=== PATIENT | male | born 1955 | race Caucasian/White ===

== ENCOUNTER 2020-04-01 06:08 | Outpatient (REF) | payer OTHER, SELFPAY ==
[2020-04-01 07:57] LABS: MANUAL DIFF FLAG NO
[2020-04-01 08:03] LABS: Basophils Absolute Auto 0.1 X10*3/uL (0.0-0.2); Basophils Percent Auto 0.9 % (0-2); Eosinophils Absolute Auto 0.3 X10*3/uL (0.0-0.4); Eosinophils Percent Auto 4.6 % (0-4); Hematocrit 39.5 % (42-52); Hemoglobin 13.5 g/dl (14.0-18.0); Imm Gran Abs Auto 0.02 X10*3/uL (0.00-0.03); Imm Gran Pct Auto 0.3 % (0.0-0.4); Lymphocytes Absolute Auto 1.8 X10*3/uL (1.2-4.9); Lymphocytes Percent Auto 25.8 % (20-40); Mean Corpuscular HGB Conc 34.2 g/dl (31.0-36.0); Mean Corpuscular Hemoglobin 31.3 pg (27.0-33.0); Mean Corpuscular Volume 91.6 fL (80-98); Mean Platelet Volume 9.9 fL (9.4-12.4); Monocytes Absolute Auto 0.9 X10*3/uL (0.1-1.2); Monocytes Percent Auto 12.5 % (2-11); Neutrophils Absolute Auto 3.9 X10*3/uL (2.0-8.3); Neutrophils Percent Auto 55.9 % (45-73); Platelet Count 296 X10*3/uL (160-400); Red Blood Count 4.31 X10*6/uL (4.60-5.80)
[2020-04-01 08:26] LABS: Glucose Urine UA NEG (NEG); Leukocyte Esterase Urine NEG (NEG); Nitrite Urine NEG (NEG); Specific Gravity - Urine <= 1.005 (1.005-1.025); Urine Blood NEG (NEG); Urine Ketones NEG (NEG); Urine Protein NEG (NEG-TRACE)
[2020-04-01 08:27] LABS: Appearance Urine CLEAR; Color Urine STRAW
[2020-04-01 08:32] LABS: Alanine Aminotransferase 12 U/L (0-40); Albumin Level 4.5 g/dL (3.5-5.0); Alkaline Phosphatase 45 U/L (39-117); Anion Gap 14 (12-20); Aspartate Amino Transferase 18 U/L (5-37); Bilirubin Total 0.5 mg/dL (0.0-1.0); Blood Urea Nitrogen 12 mg/dL (9-16); Calcium 9.4 mg/dL (8.4-10.2); Carbon Dioxide 29 mmol/L (22-29); Chloride 91 mmol/L (96-108); Cholesterol 120 mg/dL; Estimated Glomerular Filt Rate > 60; Glucose Fasting 90 mg/dL (60-99); HDL Cholesterol 51 mg/dL; LDL Cholesterol Calculated 60 mg/dl; Potassium 4.1 mmol/l (3.3-5.1); Sodium 130 mmol/L (135-145); Triglycerides 49 mg/dL
[2020-04-01 08:40] LABS: RBC Urine 0-2 /HPF (0); WBC Urine 0-2 /HPF (0-4)
[2020-04-01 08:41] LABS: Amorphous Sediment Urine TRACE /LPF
[2020-04-01 08:42] LABS: Renal Epithelial Cells Urine TRACE /LPF; Sperm Urine NOTED
[2020-04-01 08:55] LABS: TSH reflex Free T4 1.98 mIU/mL (0.32-4.0)
[2020-04-01 08:59] LABS: Creatinine Urine 23.93 mg/dL; Microalbumin Urine < 5.0 mg/L
[2020-04-01 11:59] LABS: Osmolality, Serum 278 mosm/kg (281-305)
== END 2020-04-01 06:09 | disposition home or self-care (01) ==
LOC: HO.LAB 06:08
PROVIDERS: Visit Provider Internal Medicine
DX: E11.9 Type 2 diabetes mellitus without complications (principal); E78.5 Hyperlipidemia, unspecified; E87.1 Hypo-osmolality and hyponatremia; I10 Essential (primary) hypertension; K21.9 Gastro-esophageal reflux disease without esophagitis; R25.1 Tremor, unspecified
CPT/HCPCS: 36415; 80053; 80061; 81001; 82043; 83930; 84443; 85025

== ENCOUNTER 2020-07-28 05:58 | Outpatient (REF) | payer OTHER, SELFPAY ==
[2020-07-28 07:00] LABS: MANUAL DIFF FLAG NO
[2020-07-28 07:03] LABS: Basophils Absolute Auto 0.1 X10*3/uL (0.0-0.2); Basophils Percent Auto 0.8 % (0-2); Eosinophils Absolute Auto 0.3 X10*3/uL (0.0-0.4); Eosinophils Percent Auto 4.4 % (0-4); Hematocrit 38.5 % (42-52); Hemoglobin 13.5 g/dl (14.0-18.0); Imm Gran Abs Auto 0.02 X10*3/uL (0.00-0.03); Imm Gran Pct Auto 0.3 % (0.0-0.4); Lymphocytes Absolute Auto 1.6 X10*3/uL (1.2-4.9); Lymphocytes Percent Auto 22.2 % (20-40); Mean Corpuscular HGB Conc 35.1 g/dl (31.0-36.0); Mean Corpuscular Hemoglobin 32.4 pg (27.0-33.0); Mean Corpuscular Volume 92.3 fL (80-98); Mean Platelet Volume 10.2 fL (9.4-12.4); Monocytes Absolute Auto 0.9 X10*3/uL (0.1-1.2); Monocytes Percent Auto 11.7 % (2-11); Neutrophils Absolute Auto 4.4 X10*3/uL (2.0-8.3); Neutrophils Percent Auto 60.6 % (45-73); Platelet Count 275 X10*3/uL (160-400); Red Blood Count 4.17 X10*6/uL (4.60-5.80); Red Cell Distribution Width 12.4 % (11.0-16.0); White Blood Count 7.2 X10*3/uL (4.8-10.8)
[2020-07-28 07:13] LABS: Glucose Urine UA NEG (NEG); Leukocyte Esterase Urine NEG (NEG); Nitrite Urine NEG (NEG); PH 7.5 (5.0-8.0); Specific Gravity - Urine 1.015 (1.005-1.025); Urine Blood NEG (NEG); Urine Ketones NEG (NEG); Urine Protein NEG (NEG-TRACE)
[2020-07-28 07:16] LABS: Appearance Urine CLEAR; Color Urine YELLOW
[2020-07-28 07:35] LABS: Alanine Aminotransferase 16 U/L (0-40); Albumin Level 4.7 g/dL (3.5-5.0); Alkaline Phosphatase 41 U/L (39-117); Anion Gap 15 (12-20); Aspartate Amino Transferase 16 U/L (5-37); Bilirubin Total 0.4 mg/dL (0.0-1.0); Blood Urea Nitrogen 17 mg/dL (9-16); Calcium 9.6 mg/dL (8.4-10.2); Carbon Dioxide 28 mmol/L (22-29); Chloride 97 mmol/L (96-108); Cholesterol 120 mg/dL; Estimated Glomerular Filt Rate > 60; Glucose Fasting 119 mg/dL (60-99); HDL Cholesterol 54 mg/dL; LDL Cholesterol Calculated 59 mg/dl; Sodium 136 mmol/L (135-145); Total Protein 7.3 g/dL (6.5-8.0); Triglycerides 39 mg/dL
[2020-07-28 07:35] LABS: Creatinine Urine 44.62 mg/dL; Microalbum/Creatinine Ratio Ur 17.9 ug/mg cr
[2020-07-28 07:55] LABS: TSH reflex Free T4 2.25 uIU/mL (0.32-4.0)
== END 2020-07-28 05:59 | disposition home or self-care (01) ==
LOC: HO.LAB 05:58
PROVIDERS: PCP Internal Medicine; Visit Provider Internal Medicine
DX: E78.00 Pure hypercholesterolemia, unspecified (principal); E11.9 Type 2 diabetes mellitus without complications; I10 Essential (primary) hypertension; E87.1 Hypo-osmolality and hyponatremia; K21.9 Gastro-esophageal reflux disease without esophagitis
CPT/HCPCS: 36415; 80053; 80061; 81003; 82043; 84443; 85025

== ENCOUNTER 2020-10-28 06:01 | Outpatient (REF) | payer OTHER, SELFPAY ==
[2020-10-28 07:05] LABS: MANUAL DIFF FLAG NO
[2020-10-28 07:09] LABS: Basophils Percent Auto 0.6 % (0-2); Eosinophils Absolute Auto 0.3 X10*3/uL (0.0-0.4); Eosinophils Percent Auto 4.4 % (0-4); Hematocrit 38.5 % (42-52); Hemoglobin 13.1 g/dl (14.0-18.0); Imm Gran Abs Auto 0.02 X10*3/uL (0.00-0.03); Imm Gran Pct Auto 0.3 % (0.0-0.4); Lymphocytes Absolute Auto 1.9 X10*3/uL (1.2-4.9); Lymphocytes Percent Auto 26.8 % (20-40); Mean Corpuscular Volume 91.2 fL (80-98); Mean Platelet Volume 9.8 fL (9.4-12.4); Monocytes Absolute Auto 0.8 X10*3/uL (0.1-1.2); Monocytes Percent Auto 11.9 % (2-11); Neutrophils Absolute Auto 3.9 X10*3/uL (2.0-8.3); Platelet Count 265 X10*3/uL (160-400); Red Blood Count 4.22 X10*6/uL (4.60-5.80); Red Cell Distribution Width 12.1 % (11.0-16.0)
[2020-10-28 07:32] LABS: Alanine Aminotransferase 11 U/L (0-40); Albumin Level 4.5 g/dL (3.5-5.0); Alkaline Phosphatase 47 U/L (39-117); Anion Gap 15 (12-20); Aspartate Amino Transferase 15 U/L (5-37); Bilirubin Total 0.5 mg/dL (0.0-1.0); Blood Urea Nitrogen 19 mg/dL (9-16); Calcium 10.1 mg/dL (8.4-10.2); Carbon Dioxide 30 mmol/L (22-29); Chloride 94 mmol/L (96-108); Cholesterol 115 mg/dL; Estimated Glomerular Filt Rate > 60; Glucose Fasting 86 mg/dL (60-99); HDL Cholesterol 50 mg/dL; LDL Cholesterol Calculated 55 mg/dl; Potassium 3.9 mmol/L (3.3-5.1); Sodium 135 mmol/L (135-145); Total Protein 7.1 g/dL (6.5-8.0); Triglycerides 53 mg/dL
[2020-10-28 07:34] LABS: Estimated Average Glucose 108 mg/dL; Hemoglobin A1c % 5.4 %
[2020-10-28 07:56] LABS: TSH reflex Free T4 1.26 uIU/mL (0.32-4.0)
[2020-10-28 08:01] LABS: Glucose Urine UA NEG (NEG); Leukocyte Esterase Urine NEG (NEG); Nitrite Urine NEG (NEG); Urine Blood NEG (NEG); Urine Ketones NEG (NEG); Urine Protein NEG (NEG-TRACE)
[2020-10-28 08:12] LABS: Appearance Urine CLEAR; Color Urine YELLOW
[2020-10-28 08:20] LABS: Creatinine Urine 54.64 mg/dL; Microalbum/Creatinine Ratio Ur 23.7 ug/mg cr
== END 2020-10-28 06:02 | disposition home or self-care (01) ==
LOC: HO.LAB 06:01
PROVIDERS: PCP Internal Medicine; Visit Provider Internal Medicine
DX: I10 Essential (primary) hypertension (principal); K21.9 Gastro-esophageal reflux disease without esophagitis; K59.00 Constipation, unspecified; E78.00 Pure hypercholesterolemia, unspecified; E87.1 Hypo-osmolality and hyponatremia; E11.9 Type 2 diabetes mellitus without complications; R42 Dizziness and giddiness
CPT/HCPCS: 36415; 80053; 80061; 81003; 82043; 83036; 84443; 85025

== ENCOUNTER 2021-02-04 07:03 | Outpatient (REF) | payer OTHER, SELFPAY ==
[2021-02-04 07:17] LABS: MANUAL DIFF FLAG NO
[2021-02-04 07:23] LABS: Basophils Absolute Auto 0.1 X10*3/uL (0.0-0.2); Basophils Percent Auto 0.9 % (0-2); Eosinophils Absolute Auto 0.3 X10*3/uL (0.0-0.4); Eosinophils Percent Auto 3.6 % (0-4); Hemoglobin 14.1 g/dl (14.0-18.0); Imm Gran Abs Auto 0.01 X10*3/uL (0.00-0.03); Imm Gran Pct Auto 0.1 % (0.0-0.4); Lymphocytes Absolute Auto 1.9 X10*3/uL (1.2-4.9); Lymphocytes Percent Auto 26.6 % (20-40); Mean Corpuscular HGB Conc 34.4 g/dl (31.0-36.0); Mean Corpuscular Hemoglobin 31.5 pg (27.0-33.0); Mean Corpuscular Volume 91.5 fL (80-98); Mean Platelet Volume 9.9 fL (9.4-12.4); Monocytes Absolute Auto 0.8 X10*3/uL (0.1-1.2); Neutrophils Percent Auto 56.8 % (45-73); Platelet Count 262 X10*3/uL (160-400); Red Blood Count 4.48 X10*6/uL (4.60-5.80); Red Cell Distribution Width 12.3 % (11.0-16.0)
[2021-02-04 07:44] LABS: Alanine Aminotransferase 7 U/L (0-40); Albumin Level 4.5 g/dL (3.5-5.0); Alkaline Phosphatase 47 U/L (39-117); Anion Gap 17 (12-20); Aspartate Amino Transferase 14 U/L (5-37); Bilirubin Total 0.4 mg/dL (0.0-1.0); Blood Urea Nitrogen 14 mg/dL (9-16); Calcium 9.9 mg/dL (8.4-10.2); Carbon Dioxide 26 mmol/L (22-29); Chloride 99 mmol/L (96-108); Cholesterol 112 mg/dL; Estimated Glomerular Filt Rate > 60; Glucose Fasting 95 mg/dL (60-99); HDL Cholesterol 42 mg/dL; LDL Cholesterol Calculated 55 mg/dl; Potassium 3.7 mmol/L (3.3-5.1); Sodium 138 mmol/L (135-145); Total Protein 7.1 g/dL (6.5-8.0); Triglycerides 75 mg/dL
[2021-02-04 08:05] LABS: TSH reflex Free T4 2.32 uIU/mL (0.32-4.0); Vitamin D 25-OH Total 45.5 ng/mL (>30)
[2021-02-04 08:07] LABS: Estimated Average Glucose 100 mg/dL; Hemoglobin A1c % 5.1 %
[2021-02-04 08:56] LABS: Appearance Urine CLEAR; Color Urine YELLOW; Glucose Urine UA NEG (NEG); Leukocyte Esterase Urine NEG (NEG); Nitrite Urine NEG (NEG); Specific Gravity - Urine <= 1.005 (1.005-1.025); Urine Blood NEG (NEG); Urine Ketones NEG (NEG); Urine Protein NEG (NEG-TRACE)
[2021-02-04 09:18] LABS: Creatinine Urine 45.26 mg/dL; Microalbumin Urine < 5.0 mg/L
== END 2021-02-04 07:04 | disposition home or self-care (01) ==
LOC: HO.LAB 07:03
PROVIDERS: PCP Internal Medicine; Visit Provider Internal Medicine
DX: Z00.00 Encounter for general adult medical examination without abnormal findings (principal); E78.00 Pure hypercholesterolemia, unspecified; I10 Essential (primary) hypertension; E11.9 Type 2 diabetes mellitus without complications; E87.1 Hypo-osmolality and hyponatremia; E55.9 Vitamin D deficiency, unspecified; K21.9 Gastro-esophageal reflux disease without esophagitis; K59.00 Constipation, unspecified
CPT/HCPCS: 36415; 80053; 80061; 81003; 82043; 82306; 83036; 84443; 85025

== ENCOUNTER 2021-05-15 13:43 | Observation (INO) | payer OTHER, SELFPAY ==
[2021-05-15] VITALS (7 sets, daily range): BP systolic 110–167; BP diastolic 58–85; PULSE 73–200; RESP 13–20; TEMP 36.1–37.6; O2SAT 94–97; BMI 22.1
--- NOTE | ~2021-05-15 | CT_ITS ---
EXAMINATION: CT HEAD WITHOUT CONTRAST CLINICAL INFORMATION: Dizziness, new onset A. fib COMPARISON: CT head noncontrast 06/26/2017 TECHNIQUE: Contiguous axial imaging was performed from the skull base to vertex without intravenous administration of contrast. Additional 2-D coronal and sagittal reformatted images are generated on the CT workstation and uploaded to PACS. This CT examination was performed using dose optimization techniques as appropriate, variously including the following: *Automated exposure control *Adjustment of mA and/or kV according to patient size (this includes techniques or standardized protocols for targeted exams where dose is matched to indication/reason for exam; i.e. extremities or head) *Use of iterative reconstruction technique DLP: 657 mGy-cm FINDINGS: There is no intracranial hemorrhage, hematoma, or extra-axial fluid collection. The ventricles are normal in size. There is no hydrocephalus, edema, or mass effect. The boone-white matter differentiation appears well preserved . Some subtle decreased attenuation right frontal subcortical white matter is stable from prior study. There is no visible acute territorial infarct or mass lesion. The calvarium appears intact. There is no pneumocephalus or orbital emphysema. Again, there is opacification left maxillary sinus with some increased attenuation, likely from inspissated secretions. Fungal sinusitis may have similar appearance. There is mild uniform thickening of the left maxillary sinus wade from the chronic sinus disease. No destructive process. The remainder of the visualized sinuses and middle ears and mastoids appear clear. CT/CT head/brain wo con IMPRESSION: No acute intracranial abnormality. Chronic left maxillary sinus disease.
--- NOTE | ~2021-05-15 | XR_ITS ---
EXAMINATION: XR CHEST CLINICAL INFORMATION: Rapid atrial fibrillation. COMPARISON: None TECHNIQUE: 2 views of the chest were obtained. FINDINGS: No significant abnormality is noted involving the heart, lungs, mediastinum, bony thorax or soft tissues. XR/XR chest 2V IMPRESSION: Unremarkable chest examination.
--- NOTE | 2021-05-15 14:08 | ECG_ITS ---
Test Reason : CP Blood Pressure : / mmHG Vent. Rate : 146 BPM Atrial Rate : 250 BPM P-R Int : 000 ms QRS Dur : 118 ms QT Int : 340 ms P-R-T Axes : 000 -56 050 degrees QTc Int : 529 ms Undetermined rhythm Left anterior fascicular block Minimal voltage criteria for LVH, may be normal variant ( [place] product ) Septal infarct , age undetermined ST & T wave abnormality, consider anterior ischemia Abnormal ECG When compared with ECG of 27-JUN-2017 07:33, Significant changes have occurred Referred By: Maria G Baca Electronically Signed By:
--- NOTE | 2021-05-15 14:10 | ED.GENADULT ---
HPI - General Adult General Chief complaint: Dizziness Stated complaint: DIFF BREATHING Time Seen by Provider: 05/15/21 14:08 Source: patient and EMS Mode of arrival: EMS Limitations: other (Poor historian) History of Present Illness HPI narrative: 66-year-old male with a past medical history of diabetes type 2, hypertension, hyperlipidemia, hyponatremia, GERD without esophagitis, Parkinson's disease, constipation, insomnia, anxiety, bipolar depression, paranoid schizophrenia and drooling disorder presenting to the ED via EMS with complaints of dizziness for months which has increased in the past 2 weeks although his main complaint is he can not cough and he wants to cough. When EMS arrived patient was noted to be in rapid AFib therefore they gave him 20 mg of Cardizem. They also noticed that his blood sugar was in the 50s therefore they fed him. On arrival patient just complains of feeling like he can not cough. He reports that his dizziness is been chronic. He denies any headaches, head injury, falls, recent trauma, changes in vision, paresthesias, jaw pain, nausea/vomiting, sore throat, trouble swallowing or breathing, chest pain or shortness of breath, dyspnea on exertion, orthopnea, palpitations, diarrhea, abdominal pain, back pain, black or bloody stools, lower extremity edema or calf tenderness or any focal weakness or any other symptoms complaints or concerns at this time. MD complaint: Chronic dizziness and unable to cough Related Data Home Medications Medication Instructions Recorded Confirmed clonazepam 0.5 mg tablet 0.5 mg PO BID PRN 04/08/20 05/10/21 primidone 50 mg tablet 50 mg PO BID 04/08/20 05/10/21 quetiapine 50 mg tablet 50 mg PO BEDTIME 04/08/20 05/10/21 venlafaxine 75 mg capsule,extended 75 mg PO QAM 04/08/20 05/10/21 release 24 hr carbidopa 25 mg-levodopa 100 mg 2 tab PO TID tab 02/08/21 05/10/21 tablet olanzapine 2.5 mg tablet 2.5 mg PO BEDTIME 02/08/21 05/10/21 risperidone 1 mg tablet 2 mg PO BID tab 02/08/21 05/10/21 Previous Rx's Medication Instructions Recorded atorvastatin 20 mg tablet 20 mg PO DAILY #90 tab 02/06/21 metformin 1,000 mg tablet 1,000 mg PO BID #180 tab 02/06/21 blood pressure monitor #1 ea 02/07/21 famotidine 20 mg tablet 20 mg PO BEDTIME #90 tab 03/01/21 hydrochlorothiazide 25 mg tablet 25 mg PO DAILY #90 tab 04/11/21 metoprolol succinate 25 mg 25 mg PO DAILY #90 tab 04/12/21 tablet,extended release 24 hr glycopyrrolate 2 mg tablet 2 mg PO BID-TID PRN 30 Days #90 tab 05/10/21 Allergies Allergy/AdvReac Type Severity Reaction Status Date / Time No Known Allergies Allergy Verified 05/10/21 13:21 [No Known Allergies*] Review of Systems Review of Systems: Constitutional : No Weight loss, No Fever, No Chills, No Night Sweats, No Fatigue, No Malaise ENT/Mouth : No Hearing loss, No Ear Pain, No Nasal Congestion, No Sinus Pain, No Hoarseness, No sore throat, No Rhinorrhea, No Swallowing Difficulty Eyes: No Eye Pain, No Swelling, No Redness, No Foreign Body, No Discharge, No Vision Changes Cardiovascular : No Chest Pain, No SOB, No Dyspnea on Exertion, No Orthopnea, No Edema, No Palpitations Respiratory : Unable to cough and wants to cough, No Cough, No Sputum, No Wheezing, No Smoke Exposure, No Dyspnea Gastrointestinal : No Nausea, No Vomiting, No Diarrhea, No Constipation, No abdominal Pain, No Hematochezia, No Melena Genitourinary : no irregular bleeding, No Dysuria, No Urinary Frequency, No Hematuria, No Urinary Incontinence, No Urgency, No Flank Pain, No Urinary Flow Changes, No Hesitancy Musculoskeletal : No joint pain, No Myalgias, No Joint Swelling Skin : No Skin Lesions, No rash Neuro : Positive dizziness for months, No Weakness, No Numbness, No Paresthesias, No Loss of Consciousness, No Headache Psych : No Anxiety/Panic, No Depression, No SI/HI/AH/VH, No Social Issues, Heme/Lymph: No Bruising, No Bleeding,No Lymphadenopathy Endocrine : No Polyuria, No Polydipsia, No Temperature Intolerance Yes all other systems are reviewed and are negative (Although patient is a poor his) [facility]LY [facility], [facility] Past Medical History Attestation statement: The following information was validated with the patient. Medical History Anxiety Benign essential hypertension Bipolar depression Constipation Diabetes mellitus Dizziness GERD without esophagitis Hyponatremia Insomnia Paranoid schizophrenia Parkinson's disease Pure hypercholesterolemia Surgical History History of extraction of renal calculus Family History Family History Father Parkinson disease Mother Stomach cancer Social History Social History Housing: House Alcohol intake: never Patient Tobacco Use Status: Never used Tobacco e-Cigarette/Vaping Use: Never Used Second Hand Smoke Exposure: No Advance Directives: No Advance Directives Information Provided: No service: No Current occupational status: retired Physical Exam Vital Signs: Vital Signs: Last Vital Signs Temp 97.0 F 05/15/21 14:13 Pulse 82 05/15/21 15:06 Resp 16 05/15/21 15:06 BP 113/58 L 05/15/21 15:06 Pulse Ox 96 05/15/21 15:06 BMI result Body Mass Index 22.1 vital signs have been reviewed as normal and appeared to be correct. Blood pressure normal. Heart rate normal. Respiration rate normal. Temperature normal. Oxygen saturation normal. Appearance: Alert. Oriented X3. No acute distress. Head: Normal external exam. Normocephalic. Atraumatic. No Nickerson signs noted. No raccoon eyes noted Eyes: PERRLA. EOMI. Conjunctiva and sclera normal. Eyelids normal. ENT: EAC normal. TM's Normal. Pharynx normal. Uvula midline. Moist mucous membranes. No trismus noted. No drooling noted. No muffled voice noted. Neck: Normal inspection. Neck supple. FROM. No adenopathy. Thyroid Normal. No meningeal signs. No neck mass noted. CVS: Normal heart rate and rhythm. Heart sound normal. Pulses normal throughout. No murmurs/rales/gallops. Respiratory: No respiratory distress. Painless inspiration. Breath sounds normal. No wheezes/rales/rhonchi noted. Chest nontender. No accessory muscle usage noted or decreased air movement noted. Abdomen: Soft and nontender. Bowel sounds normal in all 4 quadrants. No distention noted. No organomegaly noted. No visible injury noted. Back: No CVA tenderness. Full range of motion noted. No rashes/lesion/induration/fluctuance or signs of infection noted. Skin: Skin warm and dry. Normal skin color. Normal skin turgor. No rashes/lesions/lacerations noted. Extremities: No lower extremity edema. Extremities exhibit normal range of motion. Extremities nontender. Neuro: Oriented X 3. No motor deficit. No sensory deficit. Reflexes normal. Normal steady gait. No focal neuro deficits noted. Vascular: + radial pulses/+ 2 distal pedal pulses/+2 dorsalis pedis b/l. Normal cap refill. No cyanosis noted to upper extremity nails and lower extremity toes nails. NIH Stroke Scale Internal: Initial- Upon Arrival Time: 14:10 Level of Consciousness: Alert Level of Consciousness Questions: Answers both questions correctly Level of Consciousness Commands: Performs both tasks correctly Best Gaze: Normal Visual: No visual loss Facial Palsy: Normal Motor Arm (Right): No drift Motor Arm (Left): No drift Motor Leg (Right): No drift Motor Leg (Left): No drift Limb Ataxia: Absent Sensory: Normal Best Language: No aphasia Dysarthia: Normal Extinction and Inattention: No abnormality Score: 0 Course Course Course Narrative: 14:10pm - 66-year-old male with a past medical history of DM2, HTN, HLD, hyponatremia, GERD without esophagitis, Parkinson's disease, constipation, insomnia, anxiety, bipolar depression, paranoid schizophrenia and drooling disorder presenting to the ED via EMS with complaints of dizziness for months which has increased in the past 2 weeks although his main complaint is he can not cough and he wants to cough. When EMS arrived patient was noted to be in rapid AFib therefore they gave him 20 mg of Cardizem. They also noticed that his blood sugar was in the 50s therefore they fed him. On arrival patient just complains of feeling like he can not cough. On exam patient is alert oriented x3. Not in any acute distress although noted to be in rapid AFib with ventricular rate of 152 confirmed by EKG. Therefore patient will be placed on a Cardizem drip. He is currently on threat monitoring analyst as well. Additional plan: Labs, chest x-ray, COVID swab, IV fluids, CT scan of brain without contrast due to patient complaining of dizziness for weeks although he has non disabling symptoms at this time NIHSS score 0 not a tPA candidate and re-evaluate. Reevaluation(s) Reevaluation #1: - labs returned patient with mild baseline anemia similar compared to prior with an H&H of 13.6/39.5. Sodium at 01:34. BUN 24. Troponin 28.8. BNP 111. Otherwise all other labs are within normal limits. Patient negative for COVID. EKG revealed rapid atrial fibrillation no acute ischemic change or noted. Although patient is currently on the threat monitoring analyst and his pulse is 82 therefore the Cardizem drip was not started. Will continue to monitor. Otherwise chest x-ray is within normal limits. - patient will have a repeat troponin at 17:30. - plan is to admit for new onset of atrial fibrillation. Time: 15:25 Reevaluation #2: - Patient is currently on the threat monitoring analyst in the hallway and he is going in and out of paroxysmal atrial fibrillation he goes from 80s to 150s I was able to send a video to Dr. Stover and he recommended to give the patient 50 mg of metoprolol tartrate and if the patient stay stable then he can be discharged although if the metoprolol does not help the paroxysmal atrial fibrillation and he recommended admitting the patient. Therefore will give the 50 mg of multiple at this time. - I also updated the patient's brother Marcelo Rosado at [phone] - sign into [facility] pending affect of metoprolol. Time: 17:04 Medical Decision Making Medical Records Medical records reviewed: Yes I reviewed the patient's medical records. Lab Data Lab results reviewed: Yes I reviewed the patient's lab results. Result diagrams: 05/15/21 14:48 05/15/21 14:48 Labs: Lab Results 05/15/21 05/15/21 05/15/21 Range/Units 14:48 14:48 14:48 WBC 8.7 (4.8-10.8) X10*3/uL RBC 4.30 L (4.60-5.80) X10*6/uL Hgb 13.6 L (14.0-18.0) g/dl Hct 39.5 L (42.0-52.0) % MCV 91.9 (80.0-98.0) fL MCH 31.6 (27.0-33.0) pg MCHC 34.4 (31.0-36.0) g/dl RDW 12.1 (11.0-16.0) % Plt Count 280 (160-400) X10*3/uL MPV 9.8 (9.4-12.4) fL Immature Gran % (Auto) 0.2 (0.0-0.4) % Neut % (Auto) 66.8 (45-73) % Lymph % (Auto) 15.8 L (20-40) % [place] % (Auto) 13.5 H (2-11) % Eos % (Auto) 3.1 (0-4) % Baso % (Auto) 0.6 (0-2) % Lymph # (Auto) 1.4 (1.2-4.9) X10*3/uL [place] # (Auto) 1.2 (0.1-1.2) X10*3/uL Eos # (Auto) 0.3 (0.0-0.4) X10*3/uL Baso # (Auto) 0.1 (0.0-0.2) X10*3/uL Abs Immat Gran (auto) 0.02 (0.00-0.03) X10*3/uL Absolute Neuts (auto) 5.8 (2.0-8.3) x10*3/uL Absolute Nucleated RBC 0.000 (0.0-0.012) X10*3/uL Nucleated RBC % (auto) 0.0 (0.0-0.2) /100WBC PT 12.3 (9.9-13.0) SEC INR 1.1 (0.9-1.1) Sodium 134 L (135-145) mmol/L Potassium 4.1 (3.3-5.1) mmol/L Chloride 96 (96-108) mmol/L Carbon Dioxide 28 (22-29) mmol/L Anion Gap 14 (12-20) BUN 24 H (9-16) mg/dL Creatinine 0.82 (0.5-1.4) mg/dL Estim Creat Clear Calc 89.8 Estimated GFR > 60 Random Glucose 111 (60-115) mg/dL Calcium 9.9 (8.4-10.2) mg/dL Magnesium 1.6 (1.6-2.6) mg/dL Total Bilirubin 0.2 (0.0-1.0) mg/dL AST 15 (5-37) U/L ALT 7 (0-40) U/L Alkaline Phosphatase 46 (39-117) U/L Troponin I High Sens (<3.5-35.0) ng/L B-Natriuretic Peptide (<100) pg/mL Total Protein 6.6 (6.5-8.0) g/dL Albumin 4.0 (3.5-5.0) g/dL COVID-19 (SWETA) (Negative) COVID-19 Clin Com 05/15/21 05/15/21 Range/Units 14:48 14:48 WBC (4.8-10.8) X10*3/uL RBC (4.60-5.80) X10*6/uL Hgb (14.0-18.0) g/dl Hct (42.0-52.0) % MCV (80.0-98.0) fL MCH (27.0-33.0) pg MCHC (31.0-36.0) g/dl RDW (11.0-16.0) % Plt Count (160-400) X10*3/uL MPV (9.4-12.4) fL Immature Gran % (Auto) (0.0-0.4) % Neut % (Auto) (45-73) % Lymph % (Auto) (20-40) % [place] % (Auto) (2-11) % Eos % (Auto) (0-4) % Baso % (Auto) (0-2) % Lymph # (Auto) (1.2-4.9) X10*3/uL [place] # (Auto) (0.1-1.2) X10*3/uL Eos # (Auto) (0.0-0.4) X10*3/uL Baso # (Auto) (0.0-0.2) X10*3/uL Abs Immat Gran (auto) (0.00-0.03) X10*3/uL Absolute Neuts (auto) (2.0-8.3) x10*3/uL Absolute Nucleated RBC (0.0-0.012) X10*3/uL Nucleated RBC % (auto) (0.0-0.2) /100WBC PT (9.9-13.0) SEC INR (0.9-1.1) Sodium (135-145) mmol/L Potassium (3.3-5.1) mmol/L Chloride (96-108) mmol/L Carbon Dioxide (22-29) mmol/L Anion Gap (12-20) BUN (9-16) mg/dL Creatinine (0.5-1.4) mg/dL Estim Creat Clear Calc Estimated GFR Random Glucose (60-115) mg/dL Calcium (8.4-10.2) mg/dL Magnesium (1.6-2.6) mg/dL Total Bilirubin (0.0-1.0) mg/dL AST (5-37) U/L ALT (0-40) U/L Alkaline Phosphatase (39-117) U/L Troponin I High Sens 28.8 (<3.5-35.0) ng/L B-Natriuretic Peptide 111 H (<100) pg/mL Total Protein (6.5-8.0) g/dL Albumin (3.5-5.0) g/dL COVID-19 (SWETA) Negative (Negative) COVID-19 Clin Com See Note Imaging Data Chest x-ray: Attestation: I personally reviewed and interpreted this imaging study as follows: Radiologist's impression: FINDINGS: No significant abnormality is noted involving the heart, lungs, mediastinum, bony thorax or soft tissues. XR/XR chest 2V IMPRESSION: Unremarkable chest examination. ECG Data Attestation: I personally reviewed and interpreted this ECG as follows: Interpretation: Atrial fibrillation with a rapid ventricular response of 152 no acute ischemic changes are noted. Change when compared to prior EKG 06/27/2017 patient was not in atrial fibrillation Critical Care Time Critical Care Time Critical Care Time: Yes Total Critical Care Time: 60 Attestation: I personally attest to this time spent taking care of the patient Discharge Plan Discharge Clinical Impression: Atrial fibrillation, new onset Patient Disposition: Still a Patient Prescriptions: No Action metformin 1,000 mg tablet 1,000 mg PO BID Qty: 180 RF: 0 atorvastatin 20 mg tablet 20 mg PO DAILY Qty: 90 RF: 0 famotidine 20 mg tablet 20 mg PO BEDTIME Qty: 90 RF: 0 hydrochlorothiazide 25 mg tablet 25 mg PO DAILY Qty: 90 RF: 0 metoprolol succinate 25 mg tablet extended release 24 hr 25 mg PO DAILY Qty: 90 RF: 0 venlafaxine 75 mg capsule,extended release 24hr 75 mg PO QAM RF: 0 quetiapine 50 mg tablet 50 mg PO BEDTIME RF: 0 primidone 50 mg tablet 50 mg PO BID RF: 0 clonazepam 0.5 mg tablet 0.5 mg PO BID PRNRF: 0 (DME) blood pressure monitor Kit See Rx Instructions .Route Qty: 1 RF: 0 risperidone 1 mg tablet 2 mg PO BID RF: 0 carbidopa-levodopa 25-100 mg tablet 2 tab PO TID RF: 0 olanzapine 2.5 mg tablet 2.5 mg PO BEDTIME RF: 0 glycopyrrolate 2 mg tablet 2 mg PO BID-TID PRN (Reason: secretions) 30 Days Qty: 90 RF: 2
[2021-05-15 14:51] LABS: MANUAL DIFF FLAG NO
[2021-05-15 14:59] LABS: Basophils Absolute Auto 0.1 X10*3/uL (0.0-0.2); Basophils Percent Auto 0.6 % (0-2); Eosinophils Absolute Auto 0.3 X10*3/uL (0.0-0.4); Eosinophils Percent Auto 3.1 % (0-4); Hematocrit 39.5 % (42.0-52.0); Hemoglobin 13.6 g/dl (14.0-18.0); INTERNATIONAL NORM RATIO 1.1 (0.9-1.1); Imm Gran Abs Auto 0.02 X10*3/uL (0.00-0.03); Imm Gran Pct Auto 0.2 % (0.0-0.4); Lymphocytes Absolute Auto 1.4 X10*3/uL (1.2-4.9); Lymphocytes Percent Auto 15.8 % (20-40); Mean Corpuscular HGB Conc 34.4 g/dl (31.0-36.0); Mean Corpuscular Hemoglobin 31.6 pg (27.0-33.0); Mean Corpuscular Volume 91.9 fL (80.0-98.0); Mean Platelet Volume 9.8 fL (9.4-12.4); Monocytes Absolute Auto 1.2 X10*3/uL (0.1-1.2); Monocytes Percent Auto 13.5 % (2-11); Neutrophils Absolute Auto 5.8 x10*3/uL (2.0-8.3); Neutrophils Percent Auto 66.8 % (45-73); Platelet Count 280 X10*3/uL (160-400); Prothrombin Time 12.3 SEC (9.9-13.0); Red Cell Distribution Width 12.1 % (11.0-16.0); White Blood Count 8.7 X10*3/uL (4.8-10.8)
[2021-05-15] MEDS: 0.9 % Sodium Chloride 1,000 ML 999 ML IVCONT (14:59)
[2021-05-15 15:09] LABS: Alanine Aminotransferase 7 U/L (0-40); Alkaline Phosphatase 46 U/L (39-117); Anion Gap 14 (12-20); Aspartate Amino Transferase 15 U/L (5-37); Bilirubin Total 0.2 mg/dL (0.0-1.0); Blood Urea Nitrogen 24 mg/dL (9-16); Calcium 9.9 mg/dL (8.4-10.2); Carbon Dioxide 28 mmol/L (22-29); Chloride 96 mmol/L (96-108); Creatinine Clr Calc Pharmacy 89.8; Estimated Glomerular Filt Rate > 60; Glucose Random 111 mg/dL (60-115); Magnesium 1.6 mg/dL (1.6-2.6); Potassium 4.1 mmol/L (3.3-5.1); Sodium 134 mmol/L (135-145); Total Protein 6.6 g/dL (6.5-8.0)
[2021-05-15 15:13] LABS: B Type Natriuretic Peptide 111 pg/mL (<100); Troponin-I High Sensitivity 28.8 ng/L (<3.5-35.0)
--- NOTE | 2021-05-15 15:16 | PC.NURSE ---
patient a&ox3, ivf started per order, labs drawn, ekg obtained, cardizem drip being held at this time as the patients hr currently in the 80s with afib, provider has been notified, will continue to monitor.
[2021-05-15 15:19] LABS: COVID-19 Test Negative (Negative)
--- NOTE | 2021-05-15 18:00 | PC.NURSE ---
patient a&ox3, vss, pt continues to go in and out of afib at times. currently his nsr between 70s-80s, will continue to monitor.
[2021-05-15] MEDS: Metoprolol Tartrate 50 MG TABLET PO (18:41)
--- NOTE | 2021-05-15 20:20 | PHA.MEDREC ---
Pharmacy Consult ? Medication Reconciliation Pharmacy has completed the medication reconciliation. Pt's brother Marcelo ([phone]) handles all of his medications and gave me his list verbally. Eve Price [facility]
--- NOTE | 2021-05-15 20:26 | PC.NURSE ---
patient a&ox3, lungs clear/dim, no c/o pain or discomfort, pt currently nsr 70s-80s on media monitor, vss, hospitalist came to see patient, repeat lab drawn, will continue to monitor
[2021-05-15 20:47] LABS: Troponin-I High Sensitivity 32.2 ng/L (<3.5-35.0)
--- NOTE | 2021-05-15 21:32 | P.HPHOSP_ITS ---
History of Present Illness Date of Service: 05/15/21 Chief Complaint: dizzy 66-year-old male with past medical history of HTN, bipolar depression, diabetes, GERD, hyponatremia, paranoid schizophrenia, Parkinson's disease, HLD who presents to the hospital with complaints of dizziness. Patient is alert and oriented x3 but not a good historian due to his history of behavior health disease. Patient reports that he has been feeling dizzy for the past 6 months although reported to the ED staff that he has been dizzy for the past few weeks. He denies any chest pain, no headache or change in vision, reports pal pitations, tells me that he has history of heart disease but does not remember what medications he takes and says that his brother gives him his meds. He denies any shortness of breath, no orthopnea or PND, no lower extremity edema, no urinary symptoms and no diarrhea constipation. On arrival to the ED patient's heart rate was found to be in AFib with RVR with heart rate ranging between 100 to 150s. Patient received 1 dose of p.o. metoprolol with heart rate improving, he had multiple runs of AFib after that that lasted for few seconds therefore Cardiology 1 patient admitted for observation. Labs reviewed found to be unremarkable imaging done negative Review of Systems Review of Systems: Yes all other systems are reviewed and are negative [facility] Medical History Anxiety Benign essential hypertension Bipolar depression Constipation Diabetes mellitus Dizziness GERD without esophagitis Hyponatremia Insomnia Paranoid schizophrenia Parkinson's disease Pure hypercholesterolemia Family History Father Parkinson disease Mother Stomach cancer Surgical History History of extraction of renal calculus Social History Housing: House Alcohol intake: never Patient Tobacco Use Status: Never used Tobacco e-Cigarette/Vaping Use: Never Used Second Hand Smoke Exposure: No Advance Directives: No Advance Directives Information Provided: No service: No Current occupational status: retired Meds Allergies Allergy/AdvReac Type Severity Reaction Status Date / Time No Known Allergies Allergy Verified 05/10/21 13:21 [No Known Allergies*] Active Medications: Current Medications Diltiazem HCl 125 mg/ Sodium (Chloride) 125 mls @ 0 mls/hr IVCONT .Q0M ADRIAN; Protocol Home Medications Medication Instructions Recorded Confirmed Last Taken Type clonazepam 0.5 mg tablet 0.5 mg PO BEDTIME PRN 04/08/20 05/15/21 05/14/21 History primidone 50 mg tablet 50 mg PO BID 04/08/20 05/15/21 05/15/21 History quetiapine 50 mg tablet 50 mg PO BEDTIME 04/08/20 05/15/21 05/14/21 History venlafaxine 75 mg capsule,extended 75 mg PO DAILY 04/08/20 05/15/21 05/15/21 History release 24 hr carbidopa 25 mg-levodopa 100 mg 2 tab PO BID tab 02/08/21 05/15/21 05/15/21 History tablet risperidone 1 mg tablet 2 mg PO BID tab 02/08/21 05/15/21 05/15/21 History atorvastatin 20 mg tablet 20 mg PO BEDTIME 05/15/21 05/15/21 05/14/21 History glycopyrrolate 2 mg tablet 2 mg PO BID PRN 05/15/21 05/15/21 05/15/21 History multivitamin 1 tab PO DAILY 05/15/21 05/15/21 05/15/21 History Physical Exam Vital Signs and Narrative: Vital Signs: Last Vital Signs Temp 99.6 F 05/15/21 20:00 Pulse 87 05/15/21 20:00 Resp 18 05/15/21 20:00 BP 134/71 05/15/21 20:00 Pulse Ox 96 05/15/21 18:00 BMI result Body Mass Index 22.1 Const: General: cooperative and no acute distress Orientation/consciousness: patient oriented x3 Eyes: General: appearance normal, both eyes and all related structures Pupils: Equal, round and reactive pupils present Resp: Effort & Inspection: normal respiratory effort Auscultation: clear to auscultation bilaterally Cardio: Other: on my exam patient heart rate in the 80s, with regular rhythm Rate: regular rate Rhythm: regular rhythm GI: Palpation (GI): Soft to palpation Auscultation: normal bowel sounds Skin: General skin exam: no rashes or lesions noted Neuro: General: patient oriented x3 Cranial nerves: Yes Equal, round and reactive pupils present Cognition (Neuro): normal cognition Extrem: General: Yes normal to inspection and Yes no pedal edema Results Labs CBC and Chem 7: 05/15/21 14:48 05/15/21 14:48 Labs: Laboratory Results - last 24 hr 05/15/21 05/15/21 05/15/21 14:48 14:48 14:48 MCV 91.9 MCH 31.6 MCHC 34.4 RDW 12.1 Plt Count 280 MPV 9.8 Immature Gran % (Auto) 0.2 Neut % (Auto) 66.8 Lymph % (Auto) 15.8 L [place] % (Auto) 13.5 H Eos % (Auto) 3.1 Baso % (Auto) 0.6 Lymph # (Auto) 1.4 [place] # (Auto) 1.2 Eos # (Auto) 0.3 Baso # (Auto) 0.1 Abs Immat Gran (auto) 0.02 Absolute Neuts (auto) 5.8 Absolute Nucleated RBC 0.000 Nucleated RBC % (auto) 0.0 PT 12.3 INR 1.1 Anion Gap 14 Estim Creat Clear Calc 89.8 Estimated GFR > 60 Random Glucose 111 Calcium 9.9 Magnesium 1.6 Total Bilirubin 0.2 AST 15 ALT 7 Alkaline Phosphatase 46 Troponin I High Sens B-Natriuretic Peptide Total Protein 6.6 Albumin 4.0 COVID-19 (SWETA) COVID-19 Clin Com 05/15/21 05/15/21 05/15/21 14:48 14:48 20:22 MCV MCH MCHC RDW Plt Count MPV Immature Gran % (Auto) Neut % (Auto) Lymph % (Auto) [place] % (Auto) Eos % (Auto) Baso % (Auto) Lymph # (Auto) [place] # (Auto) Eos # (Auto) Baso # (Auto) Abs Immat Gran (auto) Absolute Neuts (auto) Absolute Nucleated RBC Nucleated RBC % (auto) PT INR Anion Gap Estim Creat Clear Calc Estimated GFR Random Glucose Calcium Magnesium Total Bilirubin AST ALT Alkaline Phosphatase Troponin I High Sens 28.8 32.2 B-Natriuretic Peptide 111 H Total Protein Albumin COVID-19 (SWETA) Negative COVID-19 Clin Com See Note Imaging Radiologist's Impressions: Impressions Chest X-Ray 05/15/21 14:32 IMPRESSION: Unremarkable chest examination. Head CT 05/15/21 16:05 IMPRESSION: No acute intracranial abnormality. Chronic left maxillary sinus disease. Assessment and Plan (1) Atrial fibrillation, new onset: Status: Acute (2) Prolonged QT interval: Status: Acute 66-year-old male with history of schizophrenia, bipolar disorder, as well as hyperlipidemia and diabetes, presents to the hospital found to be in AFib. Patient has no documented history of AFib # new onset AFib - ChadsVasc score of 1 for diabetes - patient already on metoprolol at home, will continue - cardiology consult - will obtain echocardiogram # diabetes - continue metformin # prolonged QT interval - most likely secondary to his psych meds - will hold for today DVT prophylaxis: Lovenox Quality Stroke Does the patient have a stroke diagnosis?: No VTE Prior VTE?: No VTE Risk Level:: Medical - moderate - high VTE Device Contraindication: Treatment Not Indicated VTE Drug Contraindication: N/A - Med Ordered
[2021-05-15 22:14] LABS: Magnesium 1.6 mg/dL (1.6-2.6)
--- NOTE | 2021-05-15 22:37 | PC.NURSE ---
patient a&ox3, environmental monitoring technician intact- presently nsr, vss, pt has no complaints of pain or discomfort, pt only complaint is that he is unable to cough. call riggs within reach, will continue to monitor.
--- NOTE | 2021-05-15 23:53 | PC.NURSE ---
pt needed assisted with urinal, pt was wet after. pt change into hospital attire and place on monitor. pt reports being dizzy notified AUDELIA Eugene. Will continue to monitor.
--- NOTE | 2021-05-16 | ECG_ITS ---
Test Reason : GENERAL MEDICINE Blood Pressure : / mmHG Vent. Rate : 075 BPM Atrial Rate : 075 BPM P-R Int : 166 ms QRS Dur : 122 ms QT Int : 410 ms P-R-T Axes : 062 -52 007 degrees QTc Int : 457 ms Normal sinus rhythm Incomplete left bundle branch block Abnormal ECG When compared with ECG of 15-MAY-2021 14:19, Sinus rhythm has replaced Atrial fibrillation Vent. rate has decreased BY 77 BPM Referred By: Brianne Kang Electronically Signed By:CATHERINE CAGLE
[2021-05-16 00:14] VITALS: BP 149/86; PULSE 79; RESP 15; O2SAT 97
[2021-05-16 03:40] VITALS: BP 139/83; PULSE 77; RESP 17; TEMP 36.9; O2SAT 98
--- NOTE | 2021-05-16 03:42 | PC.NURSE ---
Pt resting on stretcher in NAD, breathing with ease on RA. Pt rang call riggs requesting assistance to bedside. This RN to bedside, pt reports I'm having difficulty breathing. Pt VS assessed, stable on RA with O2 sat >95%. Pt RR even and unlabored. Pt provided reassurance. Pt asking when he will be discharged, is made aware that he will be reassessed by hospitalist service later today and dispo is pending. Pt expresses understanding and gratitude for this clarification. Pt offers no complaints of pain/discomfort. Pt stretcher in lowest locked position, rails raised, call riggs within reach.
[2021-05-16] MEDS: clonazePAM 0.5 MG TABLET PO (03:48)
[2021-05-16 07:54] VITALS: BP 141/77; PULSE 70; RESP 13; TEMP 36.8; O2SAT 96
[2021-05-16 08:55] LABS: Glucose, Whole Blood 110 mg/dL (60-115); MANUAL DIFF FLAG NO
--- NOTE | 2021-05-16 09:00 | CA_ITS ---
Transthoracic Echocardiogram Patient (Last, First, Middle): True Rosado, Gender: Male Date of : 1955 Age: 66 Procedure Date: 05/16/2021 Procedure Type: Transthoracic Echocardiogram Location: ER Height: 177.8 cm Weight: 69.4 kg BSA: 1.86 m2 Heart Rate: bpm BP: 139 / 83 mmHg Sleeve Tailor: ALDO Referring MD: Ambreen Merritt MD Symptoms: a fib Study Quality: Fair ECG Rhythm: Sinus Conclusions: - The left ventricular systolic function is severely decreased. The calculated ejection fraction is 26% by biplane method. - Severe global hypokinesis with additional regionality involving basal to mid septum and basal inferior wall. - The left atrium is moderately dilated. - No obvious valvular pathology seen on this study. Findings Left Ventricle Normal left ventricular cavity size. There is normal left ventricular wall thickness. The left ventricular systolic function is severely decreased. The calculated ejection fraction is 26% by biplane method. E/E prime ratio is between 8 and 15 consistent with indeterminate filling pressures. Evidence suggests grade I (mild) diastolic dysfunction. Severe global hypokinesis with additional regionality involving basal to mid septum and basal inferior wall. Right Ventricle Normal right ventricular cavity size and systolic function. Atria The left atrium is moderately dilated. The right atrium is normal in size. Aortic Valve There is a normal trileaflet aortic valve. There is no aortic valve stenosis. There is no aortic valve regurgitation. Mitral Valve The mitral valve appears normal. There is trace mitral valve regurgitation. There is no mitral valve stenosis. Pulmonic Valve The pulmonic valve was not well visualized. Tricuspid Valve Normal tricuspid valve structure. There is no tricuspid valve regurgitation. The pulmonary artery systolic pressure is normal. Great Vessels The aortic annulus, sinuses of valsalva, and asc aorta are normal in size. Venous The inferior vena cava is normal in size and collapses greater than 50% with inspiration. Pericardium/Pleural There is no evidence of pericardial effusion. Prior Study Comparison No prior study available for comparison. Recommendations, Care & Conclusions No obvious valvular pathology seen on this study. Measurements 2D Linear Measurements IVSd: 0.98 0.6-0.9/0.6-1.0 cm LVIDd: 5.31 3.9-5.3/4.2-5.9 cm LVIDd Index: 2.85 2.4-3.2/2.2-3.1 cm/m2 LVIDs: 4.43 2.0-3.6 cm LVPWd: 0.98 0.7-1.1 cm Ao Root: 3.60 2.1-3.5 cm LA Diam: 4.50 2.7-3.8/3.0-4.0 cm LAIDs Index: 2.42 1.5-2.3 cm/m2 LV Mass: 244.56 67-162/88-224 g LV Mass Index: 131.48 43-95/49-115 g/m2 LVOT Diam: 2.40 3.0+(-)1.3 cm 2D Systolic Function EF 4C: 25.40 >55% EF 2C: 26.50 >55% EF BiP: 26.30 >55% Mitral Valve MV Pk E: 0.56 MV PK A: 0.82 MV Decel Time: 216.00 E/A: 0.70 E'Lateral: 6.42 E'Medial: 4.68 E/E' Med: 12.00 E/E' Lat: 8.70 PHT: 63.00 MVA PHT: 3.49 Decel [place]: 2.59 Aortic Valve AoV Pk Eric: 1.31 AoV Mn Eric: 0.91 AoV VTI: 0.26 AoV Pk Grad: 7.00 Aov Mn Grad: 4.00 OSCAR Cont.VTI: 2.43 LVOT LVOT Pk Eric: 0.78 LVOT Mn Eric: 0.56 LVOT VTI: 0.14 LVOT Pk Grad: 2.00 LVOT Mn Grad: 1.00 LVOT Diam: 2.40 LVOT Area: 4.52 Diastolic Function MV Pk E: 0.56 MV Pk A: 0.82 E/A: 0.70 E'Medial: 4.68 E/E' Med: 12.00 E' Laterial: 6.42 E/E' Lat: 8.70 Right Ventricle TAPSE (mm): 26.00 Tricuspid Valve TR Pk Eric: 1.69 TR Pk Grad: 11.00 Great Vessels Aorta Ao Root-2D: 3.60 2.0-3.7 cm Ao Asc: 3.20 2.1-3.4 cm Pulmonary Valve PV Pk Eric: 0.90 Peak PV Grad: 3.00 Updated in Other Vendor System with Status of Final Tato Stover MD electronically signed on 05/16/2021 12:32:54 PM with status of Final
[2021-05-16 09:02] LABS: Basophils Absolute Auto 0.1 X10*3/uL (0.0-0.2); Basophils Percent Auto 0.7 % (0-2); Eosinophils Absolute Auto 0.3 X10*3/uL (0.0-0.4); Eosinophils Percent Auto 3.1 % (0-4); Hematocrit 37.4 % (42.0-52.0); Hemoglobin 13.2 g/dl (14.0-18.0); Imm Gran Abs Auto 0.02 X10*3/uL (0.00-0.03); Imm Gran Pct Auto 0.2 % (0.0-0.4); Lymphocytes Absolute Auto 1.5 X10*3/uL (1.2-4.9); Lymphocytes Percent Auto 16.3 % (20-40); Mean Corpuscular HGB Conc 35.3 g/dl (31.0-36.0); Mean Corpuscular Hemoglobin 31.7 pg (27.0-33.0); Mean Corpuscular Volume 89.9 fL (80.0-98.0); Mean Platelet Volume 9.7 fL (9.4-12.4); Monocytes Absolute Auto 1.1 X10*3/uL (0.1-1.2); Monocytes Percent Auto 12.3 % (2-11); Neutrophils Absolute Auto 6.2 x10*3/uL (2.0-8.3); Neutrophils Percent Auto 67.4 % (45-73); Platelet Count 259 X10*3/uL (160-400); Red Blood Count 4.16 X10*6/uL (4.60-5.80); Red Cell Distribution Width 12.1 % (11.0-16.0); White Blood Count 9.2 X10*3/uL (4.8-10.8)
[2021-05-16 09:08] LABS: Anion Gap 10 (12-20); Blood Urea Nitrogen 15 mg/dL (9-16); Calcium 9.8 mg/dL (8.4-10.2); Carbon Dioxide 31 mmol/L (22-29); Chloride 96 mmol/L (96-108); Creatinine Clr Calc Pharmacy 98.2; Estimated Glomerular Filt Rate > 60; Glucose Random 106 mg/dL (60-115); Potassium 3.7 mmol/L (3.3-5.1); Sodium 133 mmol/L (135-145)
[2021-05-16] MEDS: metFORMIN HCl 1,000 MG TABLET 1000 MG PO (10:07)
[2021-05-16] MEDS: Carbidopa/Levodopa 25/100 TABLET 2 TAB PO (10:07)
[2021-05-16] MEDS: Primidone 50 MG TABLET PO (10:08)
[2021-05-16] MEDS: Metoprolol Succinate ER 25 MG TAB.ER.24H PO (10:08)
[2021-05-16] MEDS: hydroCHLOROthiazide 25 MG TABLET PO (10:08)
[2021-05-16] MEDS: Multivitamin TABLET 1 TAB PO (10:08)
[2021-05-16] MEDS: Potassium Chloride Packet 20 MEQ PACKET 40 MEQ PO (10:09)
--- NOTE | 2021-05-16 10:11 | PC.NURSE ---
pty complaining only that i can't cough . no chest pain, no sob. nsr on monitor in the 70s and 80s since this RN arrival at 7am. diltiazem drip was d/cd on over hourly shift. pt insisting that he is safe for discharge and does not want to stay in the hospital. has been seen by online marketer today. skin nemesio.
[2021-05-16 10:12] VITALS: BP 143/83; PULSE 76; RESP 18; O2SAT 98
--- NOTE | 2021-05-16 10:13 | MHC.CM.PN ---
CM MET WITH PT IN ED08 PT REPORTS HE LIVES ALONE AND IS INDEPENDENT WITH SELF CARE PT DENIES HAVING HOME SERVICES BUT REPORTS HIS BROTHER COMES TO ASSIST WITH MED MANAGEMENT DAILY. PT REPORTS HE USES A WALKER AT HOME. PT CONFIRMS HIS PCP IS JI SALGADO CM DISCUSSED THE IMPORTANCE OF HAVING A HCP HOWEVER PT DECLINES TO COMPLETE ONE OBSERVATION NOTICE WAS DELIVERED, A COPY WAS GIVEN TO PT AND A COPY WAS SENT TO [facility] CURRENT DC PLAN WAS HOME WITH NO SERVICES PTS BROTHER WILL TRANSPORT PT REPORTS HE BELIEVES HE IS GOING HOME TODAY, AND HOPES IT IS SOON.
[2021-05-16 10:15] LABS: Magnesium 1.6 mg/dL (1.6-2.6)
--- NOTE | 2021-05-16 10:37 | P.CONCA_ITS ---
History of Present Illness History of Present Illness Date of Service: 05/16/21 Chief complaint: a fib w rvr Narrative: This is a cardiology consultation regarding atrial fibrillation. Patient is a poor historian. Background of bipolar depression, Parkinson's disease. He states that he has been feeling dizzy in the last few weeks. When I questioned him further he is really not able to give much of information at all. He states complaints like 'not able to cough when he wants to', but nothing clearly cardiac related apart from the dizziness. The dizziness is also highly nonspecific and not able to characterize any further. No syncopal episodes. No angina or shortness of breath or in fact any other cardiac complaints. Also denies any history of coronary disease or any other cardiac issues in the past. Review of Systems 2 Review of Systems: Yes all other systems are reviewed and are negative Cardiovascular: Cardiovascular: Reports as per HPI, Reports no additional cardiovascular complaints, Denies acrocyanosis, Denies cool extremities, Denies painful fingertips, Denies chest pain, Denies chest pain at rest, Denies diaphoresis, Denies syncope, Denies irregular heart rhythm, Denies claudication, Denies leg edema, Reports lightheadedness, Denies palpitations and Denies dyspnea Respiratory: Respiratory: Denies dyspnea Neurologic: Denies syncope Endocrine: Endocrine: Denies palpitations PMFSH Past Medical History Medical History Anxiety Benign essential hypertension Bipolar depression Constipation Diabetes mellitus Dizziness GERD without esophagitis Hyponatremia Insomnia Paranoid schizophrenia Parkinson's disease Pure hypercholesterolemia Family History Family History Father Parkinson disease Mother Stomach cancer Surgical History Surgical History History of extraction of renal calculus Social History Social History Housing: House Alcohol intake: never Patient Tobacco Use Status: Never used Tobacco e-Cigarette/Vaping Use: Never Used Second Hand Smoke Exposure: No Advance Directives: No Advance Directives Information Provided: No service: No Current occupational status: retired Meds Allergies Allergy/AdvReac Type Severity Reaction Status Date / Time No Known Allergies Allergy Verified 05/10/21 13:21 [No Known Allergies*] Active Medications: Current Medications Acetaminophen (Acetaminophen 325 Mg Tablet) 650 mg PO Q6H PRN PRN Reason: Pain, Mild (Pain Scale 1-3) Atorvastatin Calcium (Atorvastatin Calcium 20 Mg Tablet) 20 mg PO BEDTIME COUNTS INCLUDE 234 BEDS AT THE [facility] Carbidopa/Levodopa (Carbidopa/Levodopa 25/100 Tablet) 2 tab PO BID COUNTS INCLUDE 234 BEDS AT THE [facility] Last Admin: 05/16/21 10:07 Dose: 2 tab Documented by: Clonazepam (Clonazepam 0.5 Mg Tablet) 0.5 mg PO BEDTIME PRN PRN Reason: Sleep Last Admin: 05/16/21 03:48 Dose: 0.5 mg Documented by: Famotidine (Famotidine 20 Mg Tablet) 20 mg PO BEDTIME ADRIAN Glycopyrrolate (Glycopyrrolate 1 Mg Tablet) 2 mg PO BID PRN PRN Reason: secretions Hydrochlorothiazide (Hydrochlorothiazide 25 Mg Tablet) 25 mg PO DAILY COUNTS INCLUDE 234 BEDS AT THE [facility]; Protocol Last Admin: 05/16/21 10:08 Dose: 25 mg Documented by: Diltiazem HCl 125 mg/ Sodium (Chloride) 125 mls @ 0 mls/hr IVCONT .Q0M COUNTS INCLUDE 234 BEDS AT THE [facility]; Protocol Metformin HCl (Metformin Hcl 1,000 Mg Tablet) 1,000 mg PO BIDWM COUNTS INCLUDE 234 BEDS AT THE [facility] Last Admin: 05/16/21 10:07 Dose: 1,000 mg Documented by: Metoprolol Succinate (Metoprolol Succinate Er 25 Mg Tab.Er.24h) 25 mg PO DAILY COUNTS INCLUDE 234 BEDS AT THE [facility]; Protocol Last Admin: 05/16/21 10:08 Dose: 25 mg Documented by: Multivitamins/Vitamin C (Multivitamin Tablet) 1 tab PO DAILY COUNTS INCLUDE 234 BEDS AT THE [facility] Last Admin: 05/16/21 10:08 Dose: 1 tab Documented by: Ondansetron HCl (Ondansetron Hcl 4 Mg/2 Ml Vial) 4 mg IVPUSH Q8H PRN PRN Reason: Nausea and Vomiting Primidone (Primidone 50 Mg Tablet) 50 mg PO BID COUNTS INCLUDE 234 BEDS AT THE [facility] Last Admin: 05/16/21 10:08 Dose: 50 mg Documented by: Sodium Chloride (0.9 % Sodium Chloride Flush 3 Ml Syringe) 3 ml IVFLUSH QSHIFT COUNTS INCLUDE 234 BEDS AT THE [facility] Last Admin: 05/16/21 10:07 Dose: Not Given Documented by: Home Medications Medication Instructions Recorded Confirmed Last Taken Type clonazepam 0.5 mg tablet 0.5 mg PO BEDTIME PRN 04/08/20 05/15/21 05/14/21 History primidone 50 mg tablet 50 mg PO BID 04/08/20 05/15/21 05/15/21 History quetiapine 50 mg tablet 50 mg PO BEDTIME 04/08/20 05/15/21 05/14/21 History venlafaxine 75 mg capsule,extended 75 mg PO DAILY 04/08/20 05/15/21 05/15/21 History release 24 hr carbidopa 25 mg-levodopa 100 mg 2 tab PO BID tab 02/08/21 05/15/21 05/15/21 History tablet risperidone 1 mg tablet 2 mg PO BID tab 02/08/21 05/15/21 05/15/21 History atorvastatin 20 mg tablet 20 mg PO BEDTIME 05/15/21 05/15/21 05/14/21 History glycopyrrolate 2 mg tablet 2 mg PO BID PRN 05/15/21 05/15/21 05/15/21 History multivitamin 1 tab PO DAILY 05/15/21 05/15/21 05/15/21 History Physical Exam Vital Signs: Vital Signs: Last Vital Signs Temp 98.3 F 05/16/21 07:54 Pulse 76 05/16/21 10:12 Resp 18 05/16/21 10:12 BP 143/83 H 05/16/21 10:12 Pulse Ox 98 05/16/21 10:12 BMI result Body Mass Index 22.1 Const: General: no acute distress HENMT: Other: Unremarkable Neck: Neck: Yes normal visual inspection Chest: Chest palpation & inspection: normal inspection of the chest Resp: Auscultation: no crackles and no wheezes Cardio: Palpation: normal PMI Heart sounds: S1 normal heart sound present, S2 normal heart sound present, no gallops, no murmurs and no rubs GI: Palpation (GI): Soft to palpation Back/Spine/Pelvis: Other: unremarkable Skin: Lesions: other Neuro: Cranial nerves: Yes Other cranial nerve findings present Extrem: General: Yes other Psych: Mental Status: other Objective Labs and Meds Result diagrams: 05/16/21 08:50 05/16/21 08:50 Lab results: Laboratory Results - last 24 hr 05/15/21 05/15/21 05/15/21 14:48 14:48 14:48 WBC 8.7 RBC 4.30 L Hgb 13.6 L Hct 39.5 L MCV 91.9 MCH 31.6 MCHC 34.4 RDW 12.1 Plt Count 280 MPV 9.8 Immature Gran % (Auto) 0.2 Neut % (Auto) 66.8 Lymph % (Auto) 15.8 L [place] % (Auto) 13.5 H Eos % (Auto) 3.1 Baso % (Auto) 0.6 Lymph # (Auto) 1.4 [place] # (Auto) 1.2 Eos # (Auto) 0.3 Baso # (Auto) 0.1 Abs Immat Gran (auto) 0.02 Absolute Neuts (auto) 5.8 Absolute Nucleated RBC 0.000 Nucleated RBC % (auto) 0.0 PT 12.3 INR 1.1 Sodium 134 L Potassium 4.1 Chloride 96 Carbon Dioxide 28 Anion Gap 14 BUN 24 H Creatinine 0.82 Estim Creat Clear Calc 89.8 Estimated GFR > 60 POC Glucose Random Glucose 111 Calcium 9.9 Magnesium 1.6 Total Bilirubin 0.2 AST 15 ALT 7 Alkaline Phosphatase 46 Troponin I High Sens B-Natriuretic Peptide Total Protein 6.6 Albumin 4.0 COVID-19 ([facility]) [employer] 05/15/21 05/15/21 05/15/21 14:48 14:48 20:22 WBC RBC Hgb Hct MCV MCH MCHC RDW Plt Count MPV Immature Gran % (Auto) Neut % (Auto) Lymph % (Auto) [place] % (Auto) Eos % (Auto) Baso % (Auto) Lymph # (Auto) [place] # (Auto) Eos # (Auto) Baso # (Auto) Abs Immat Gran (auto) Absolute Neuts (auto) Absolute Nucleated RBC Nucleated RBC % (auto) PT INR Sodium Potassium Chloride Carbon Dioxide Anion Gap BUN Creatinine Estim Creat Clear Calc Estimated GFR POC Glucose Random Glucose Calcium Magnesium Total Bilirubin AST ALT Alkaline Phosphatase Troponin I High Sens 28.8 32.2 B-Natriuretic Peptide 111 H Total Protein Albumin COVID-19 ([facility]) Negative [employer] See Note 05/15/21 05/16/21 05/16/21 21:53 08:50 08:50 WBC 9.2 RBC 4.16 L Hgb 13.2 L Hct 37.4 L MCV 89.9 MCH 31.7 MCHC 35.3 RDW 12.1 Plt Count 259 MPV 9.7 Immature Gran % (Auto) 0.2 Neut % (Auto) 67.4 Lymph % (Auto) 16.3 L [place] % (Auto) 12.3 H Eos % (Auto) 3.1 Baso % (Auto) 0.7 Lymph # (Auto) 1.5 [place] # (Auto) 1.1 Eos # (Auto) 0.3 Baso # (Auto) 0.1 Abs Immat Gran (auto) 0.02 Absolute Neuts (auto) 6.2 Absolute Nucleated RBC 0.000 Nucleated RBC % (auto) 0.0 PT INR Sodium 133 L Potassium 3.7 Chloride 96 Carbon Dioxide 31 H Anion Gap 10 L BUN 15 Creatinine 0.75 Estim Creat Clear Calc 98.2 Estimated GFR > 60 POC Glucose Random Glucose 106 Calcium 9.8 Magnesium 1.6 1.6 Total Bilirubin AST ALT Alkaline Phosphatase Troponin I High Sens B-Natriuretic Peptide Total Protein Albumin COVID-19 ([facility]) COVID-19 Clin Com 05/16/21 08:50 WBC RBC Hgb Hct MCV MCH MCHC RDW Plt Count MPV Immature Gran % (Auto) Neut % (Auto) Lymph % (Auto) [place] % (Auto) Eos % (Auto) Baso % (Auto) Lymph # (Auto) [place] # (Auto) Eos # (Auto) Baso # (Auto) Abs Immat Gran (auto) Absolute Neuts (auto) Absolute Nucleated RBC Nucleated RBC % (auto) PT INR Sodium Potassium Chloride Carbon Dioxide Anion Gap BUN Creatinine Estim Creat Clear Calc Estimated GFR POC Glucose 110 Random Glucose Calcium Magnesium Total Bilirubin AST ALT Alkaline Phosphatase Troponin I High Sens B-Natriuretic Peptide Total Protein Albumin COVID-19 ([facility]) COVID-19 Clin Com ECG Interpretation: Admission EKGs lot of baseline artifact but likely underlying atrial fibrillation with rapid rate with left anterior fascicular block. Imaging Radiologist's impression: Impressions Chest X-Ray 05/15/21 14:32 IMPRESSION: Unremarkable chest examination. Head CT 05/15/21 16:05 IMPRESSION: No acute intracranial abnormality. Chronic left maxillary sinus disease. Assessment and Plan (1) Atrial fibrillation with rapid ventricular response: Status: Acute (2) Cardiomyopathy: Status: Acute High sensitivity troponins are 28 and 32, still within upper limits of normal. Very slight increase in cardiac BNP to 111. On telemetry, he is likely in sinus rhythm but there is a lot of artifact probably from Parkinson's. Per home medication reconciliation, he is on metoprolol ER 25 mg daily. We can increase that to 50 mg daily. Recommend anticoagulation and can start Eliquis 5 mg b.i.d. unless any clear contraindications. Echocardiogram at the bedside shows diminished LVEF but will need to be reviewed in entirety once completed. Not entirely clear as to how much even understands and will need to reach out to family. Procedures Date of Service Date of Service: 05/16/21
[2021-05-16 11:33] LABS: Appearance Urine CLEAR; Color Urine YELLOW; Glucose Urine UA NEG (NEG); Leukocyte Esterase Urine NEG (NEG); Nitrite Urine NEG (NEG); UACC Culture Trigger NO; Urine Blood TRACE (NEG); Urine Ketones NEG (NEG); Urine Protein NEG (NEG-TRACE)
[2021-05-16 11:53] LABS: Amorphous Sediment Urine 2+ /LPF; RBC Urine 0-2 /HPF (0); WBC Urine 0 /HPF (0-4)
[2021-05-16] MEDS: Apixaban 5 MG TABLET PO (13:11)
[2021-05-16] MEDS: Magnesium Sulfate/D5W 1 GM/100 ML PIGGYBACK IV (13:11)
--- NOTE | 2021-05-16 14:09 | PM.DS ---
DS: Providers Provider Date of Service: 05/16/21 Date of admission: 05/15/21 21:32 Primary care physician: Lavon Roca MD Consults: 05/15/21 23:54 Consult to Cardiology Routine Consulting Provider: Tato Stover Reason for consultation: A fib 05/16/21 11:42 Consult to Psychiatry Routine Consulting Provider: Psych Covering Reason for consultation: qtc prolong ,primidone interaction with AC Has provider been notified: No DS: Diagnosis Discharge Diagnosis (1) Atrial fibrillation with rapid ventricular response: Status: Acute (2) Cardiomyopathy: Status: Acute DS: Summary Hospital Course Hospital Course: 66-year-old male with past medical history of? HTN, bipolar depression, diabetes, GERD, hyponatremia, paranoid schizophrenia, Parkinson's disease, HLD who presents to the hospital with complaints of dizziness.? Patient is alert and oriented x3 but not a good historian due to his history of behavior health disease.? Patient reports that he has been feeling dizzy for the past 6 months although reported to the ED staff that he has been dizzy for the past few weeks.? He denies any chest pain, no headache or change in vision, reports palpitations, tells me that he has history of heart disease but does not remember what medications he takes and says that his brother gives him his meds.? He denies any shortness of breath, no orthopnea or PND, no lower extremity edema, no urinary symptoms and no diarrhea constipation. ? On arrival to the ED patient's heart rate was found to be in AFib with RVR with heart rate ranging between 100 to 150s.? Patient received 1 dose of p.o. metoprolol with heart rate improving, he had multiple runs of AFib after that that lasted for few seconds therefore Cardiology 1 patient admitted for observation. Hospital course: Patient came to the hospital because of elevated heart rate, found to have new onset irregular rhythm( Afib): started on IV Cardizem drip and subsequently was seen by reheater and added Eliquis. due to possible interaction of primidone and eliquis as well as Patient's prolonged QT - discussed with the psych and psych medications adjusted as per psych recommended -discontinue venlafaxine and primidone. ekg shows left fasicular block vs question of incomplete lbbb -patient is asymptomatic , repeat ekg qtc improving to 457ms-further management outpatiently -follow up with cardiology. Further management outpatient with PCP and patient psych provider. Cardio may arrange their own appointment. Above management discussed with the patient in detail length she understand and in agreement with the above plan, time spent 50 minutes and 50% time spent on counseling. Significant findings: As above. Procedures performed: None. Treatment and response: As above. Complications: None. Time Spent with Patient Time attestation: Total time spent providing and/or coordinating discharge services: Discharge coordination time: Greater than 30 minutes Quality: Stroke Does the patient have a stroke diagnosis?: No Physical Exam Vital Signs: Vital Signs: Last Vital Signs Temp 98.3 F 05/16/21 07:54 Pulse 76 05/16/21 10:12 Resp 18 05/16/21 10:12 BP 143/83 H 05/16/21 10:12 Pulse Ox 98 05/16/21 10:12 BMI result Body Mass Index 22.1 Physical exam: Appearance: Alert.? Oriented X3.? not in distress.? Eyes: Pupils equal, round and reactive to light.? Sclera nonicteric.? cvs: rrr, [id number] , no murmur res: clear to auscultation ,no rhonchii or wheezing abd: no rebound or guarding ,nt, bs present. ext pulses present , no cyanosis . neuro: axo3 , nonfocal. DS: Data Data Completed and Pending Labs on day of discharge: Laboratory Results - last 24 hr 05/15/21 05/15/21 05/15/21 14:48 14:48 14:48 WBC 8.7 RBC 4.30 L Hgb 13.6 L Hct 39.5 L MCV 91.9 MCH 31.6 MCHC 34.4 RDW 12.1 Plt Count 280 MPV 9.8 Immature Gran % (Auto) 0.2 Neut % (Auto) 66.8 Lymph % (Auto) 15.8 L [place] % (Auto) 13.5 H Eos % (Auto) 3.1 Baso % (Auto) 0.6 Lymph # (Auto) 1.4 [place] # (Auto) 1.2 Eos # (Auto) 0.3 Baso # (Auto) 0.1 Abs Immat Gran (auto) 0.02 Absolute Neuts (auto) 5.8 Absolute Nucleated RBC 0.000 Nucleated RBC % (auto) 0.0 PT 12.3 INR 1.1 Sodium 134 L Potassium 4.1 Chloride 96 Carbon Dioxide 28 Anion Gap 14 BUN 24 H Creatinine 0.82 Estim Creat Clear Calc 89.8 Estimated GFR > 60 POC Glucose Random Glucose 111 Calcium 9.9 Magnesium 1.6 Total Bilirubin 0.2 AST 15 ALT 7 Alkaline Phosphatase 46 Troponin I High Sens B-Natriuretic Peptide Total Protein 6.6 Albumin 4.0 Urine Color Urine Appearance Urine pH Ur Specific [place] Urine Protein Urine Glucose (UA) Urine Ketones Urine Blood Urine Nitrite Ur Leukocyte Esterase Urine RBC Urine WBC Ur Squamous Epith Cells Amorphous Sediment Urine Bacteria COVID-19 ([facility]) COVID-19 Clin Com 05/15/21 05/15/21 05/15/21 14:48 14:48 20:22 WBC RBC Hgb Hct MCV MCH MCHC RDW Plt Count MPV Immature Gran % (Auto) Neut % (Auto) Lymph % (Auto) [place] % (Auto) Eos % (Auto) Baso % (Auto) Lymph # (Auto) [place] # (Auto) Eos # (Auto) Baso # (Auto) Abs Immat Gran (auto) Absolute Neuts (auto) Absolute Nucleated RBC Nucleated RBC % (auto) PT INR Sodium Potassium Chloride Carbon Dioxide Anion Gap BUN Creatinine Estim Creat Clear Calc Estimated GFR POC Glucose Random Glucose Calcium Magnesium Total Bilirubin AST ALT Alkaline Phosphatase Troponin I High Sens 28.8 32.2 B-Natriuretic Peptide 111 H Total Protein Albumin Urine Color Urine Appearance Urine pH Ur Specific [place] Urine Protein Urine Glucose (UA) Urine Ketones Urine Blood Urine Nitrite Ur Leukocyte Esterase Urine RBC Urine WBC Ur Squamous Epith Cells Amorphous Sediment Urine Bacteria COVID-19 ([facility]ETA) Negative COVID-19 [facility] See Note 05/15/21 05/16/21 05/16/21 21:53 08:50 08:50 WBC 9.2 RBC 4.16 L Hgb 13.2 L Hct 37.4 L MCV 89.9 MCH 31.7 MCHC 35.3 RDW 12.1 Plt Count 259 MPV 9.7 Immature Gran % (Auto) 0.2 Neut % (Auto) 67.4 Lymph % (Auto) 16.3 L [place] % (Auto) 12.3 H Eos % (Auto) 3.1 Baso % (Auto) 0.7 Lymph # (Auto) 1.5 [place] # (Auto) 1.1 Eos # (Auto) 0.3 Baso # (Auto) 0.1 Abs Immat Gran (auto) 0.02 Absolute Neuts (auto) 6.2 Absolute Nucleated RBC 0.000 Nucleated RBC % (auto) 0.0 PT INR Sodium 133 L Potassium 3.7 Chloride 96 Carbon Dioxide 31 H Anion Gap 10 L BUN 15 Creatinine 0.75 Estim Creat Clear Calc 98.2 Estimated GFR > 60 POC Glucose Random Glucose 106 Calcium 9.8 Magnesium 1.6 1.6 Total Bilirubin AST ALT Alkaline Phosphatase Troponin I High Sens B-Natriuretic Peptide Total Protein Albumin Urine Color Urine Appearance Urine pH Ur Specific [place] Urine Protein Urine Glucose (UA) Urine Ketones Urine Blood Urine Nitrite Ur Leukocyte Esterase Urine RBC Urine WBC Ur Squamous Epith Cells Amorphous Sediment Urine Bacteria COVID-19 (SWETA) COVID-19 [employer] 05/16/21 05/16/21 08:50 11:19 WBC RBC Hgb Hct MCV MCH MCHC RDW Plt Count MPV Immature Gran % (Auto) Neut % (Auto) Lymph % (Auto) [place] % (Auto) Eos % (Auto) Baso % (Auto) Lymph # (Auto) [place] # (Auto) Eos # (Auto) Baso # (Auto) Abs Immat Gran (auto) Absolute Neuts (auto) Absolute Nucleated RBC Nucleated RBC % (auto) PT INR Sodium Potassium Chloride Carbon Dioxide Anion Gap BUN Creatinine Estim Creat Clear Calc Estimated GFR POC Glucose 110 Random Glucose Calcium Magnesium Total Bilirubin AST ALT Alkaline Phosphatase Troponin I High Sens B-Natriuretic Peptide Total Protein Albumin Urine Color YELLOW Urine Appearance CLEAR Urine pH 7.0 Ur Specific [place] 1.010 Urine Protein NEG Urine Glucose (UA) NEG Urine Ketones NEG Urine Blood TRACE Urine Nitrite NEG Ur Leukocyte Esterase NEG Urine RBC 0-2 Urine WBC 0 Ur Squamous Epith Cells NONE Amorphous Sediment 2+ Urine Bacteria NONE COVID-19 ([facility]ETA) COVID-19 [facility] Additional Comments Additional comments: CT/CT head/brain wo con IMPRESSION: No acute intracranial abnormality. Chronic left maxillary sinus disease. XR/XR chest 2V IMPRESSION: Unremarkable chest examination. According Discharge Plan Discharge Patient Disposition: Home, Self-Care Discharge Diagnosis: afib , ekg prolonged . Referrals: Lavon Roca MD [Primary Care Provider] - 1 Week Discharge Medications: New Eliquis 5 mg Tablet 5 mg PO BID Qty: 60 RF: 0 Continued metformin 1,000 mg tablet 1,000 mg PO BID Qty: 180 RF: 0 famotidine 20 mg tablet 20 mg PO BEDTIME Qty: 90 RF: 0 hydrochlorothiazide 25 mg tablet 25 mg PO DAILY Qty: 90 RF: 0 multivitamin Tablet 1 tab PO DAILY RF: 0 atorvastatin 20 mg tablet 20 mg PO BEDTIME RF: 0 glycopyrrolate 2 mg tablet 2 mg PO BID PRN (Reason: secretions) RF: 0 quetiapine 50 mg tablet 50 mg PO BEDTIME RF: 0 clonazepam 0.5 mg tablet 0.5 mg PO BEDTIME PRN (Reason: Sleep) RF: 0 (DME) blood pressure monitor Kit See Rx Instructions .Route Qty: 1 RF: 0 risperidone 1 mg tablet 2 mg PO BID RF: 0 carbidopa-levodopa 25-100 mg tablet 2 tab PO BID RF: 0 Changed metoprolol succinate 25 mg tablet extended release 24 hr 50 mg PO DAILY Qty: 90 RF: 0 Discontinued venlafaxine 75 mg capsule,extended release 24hr 75 mg PO DAILY RF: 0 primidone 50 mg tablet 50 mg PO BID RF: 0 Discharge Orders: Discharge Order (Routine); Ordered 05/16/21 Ordered By: Brianne Kang Diet: advance to usual diet and diabetic diet Activity on Discharge: As tolerated Stand Alone Forms: Patient Portal Discharge page Care Plan Goals: Patient came to the hospital because of elevated heart rate, found to have new onset irregular rhythm( Afib): started on IV Cardizem drip and subsequently was seen by reheater and added Eliquis. due to possible interaction of primidone and blood thinners as well as Patient's prolonged QT - discussed with the psych and psych medications adjusted as per psych recommended -discontinue venlafaxine and primidone. Further management outpatient with PCP and patient psych provider. Cardio may arrange their own appointment. Health Concerns: As above. Plan of Treatment: As above. Assessment: As above. Discharge Date/Time: 05/16/21 17:11
--- NOTE | 2021-05-16 14:13 | MHC.CM.PN ---
Received notification that patient will be discharged home without services. Patient will be discharged home on Eliquis. Met with patient. Eliquis card provided and explained. Patient verbalizes understanding and agreeable to discharge. Continue to monitor for d/c needs.
[2021-05-16 14:23] VITALS: BP 144/85; PULSE 80; RESP 17; TEMP 37.1; O2SAT 96
--- NOTE | 2021-05-16 14:57 | PM.PSYCN ---
History of Present Illness Date of Service: 05/16/2021 Chief Complaint: a fib w rvr Reason for Consult: medication Requesting physician: Brianne Kang Discussed with referring provider: Yes Sources of Information: patient interviewed and chart reviewed HPI Narrative: Pt is a 66 y.o. Male who presented to [facility] ED 05/15/21 due to increased dizziness x 2 weeks, noted to be in rapid AFib and admitted to [facility] for observation. He has a past medical history of HTN, diabetes, GERD, hyponatremia, Parkinson's disease, and HLD. Pt has psychiatric diagnoses of schizophrenia and bipolar DO (schizoaffective Do, bipolar type?). Pt is not reliable historian due to cognitive impairment secondary to psychotic disorder and his brother provided collateral information. Pt was seen by bench mechanic and started on eliquis.? Psych consult placed by Dr. Kang for medications, as pt was started on eliquis, however this has drug interaction with primidone. There was also a question of med adjustment due to prolonged QTc. Per repeat ekg, qtc improving to 457ms. I evaluated the pt this afternoon and upon interview he reports ?my brother gives me my medicine.? Pt is unable to reliably report on benefit or efficacy of his psych medication regimen. Pt denies adverse effects on medications. Says his sleep is ?pretty good.? Denies having stressors other than repeating ?I cant cough? [then demonstrates that he cannot cough, appears to have dry/ non-productive cough]. Denies hallucinations. Denies agitation or anxiety. Denies paranoia. Denies depression. Mood is ?good.?? Obtained verbal consent to speak with pt?s brother, Marcelo. Per Marcelo, pt takes primidone for ?shaking.? Per med review, pt was put on primidone and cogentin by OP prescriber, Kelvin Moura, however both were discontinued and primidone was re-started, as his shaking was worse. However, it is possible that cogentin was helpful for EPS, as pt was started on both cogentin and primidone simultaneously, unclear why only primidone was re-started. Per his brother, pt?s seroquel 50 mg QHS helps with sleep ?most of the time.? Pt has also been stabilized on risperdal 2 mg BID. He is unsure if venlafaxine has been helpful.? I spoke with pt?s OP psych provider, Sidney Cheng (previous provider was Kelvin Moura). Provider is agreeable with discontinuing primidone due to DI with eliquis and may re-trial cogentin for EPS. He is also agreeable to trialing pt off venlafaxine due to bipolar diagnosis in order to reduce polypharmacy.? Medical Evaluation Reviewed: Yes [facility] Medical History Anxiety Benign essential hypertension Bipolar depression Constipation Diabetes mellitus Dizziness GERD without esophagitis Hyponatremia Insomnia Paranoid schizophrenia Parkinson's disease Pure hypercholesterolemia Surgical History History of extraction of renal calculus Diagnostics Vital Signs (24Hr): Vital Signs - 24 hr 05/15/21 15:06 05/15/21 18:00 05/15/21 20:00 Temperature 98.2 F 99.6 F Pulse Rate 82 87 87 Respiratory Rate 16 18 18 Blood Pressure 113/58 L 130/67 134/71 Pulse Oximetry 96 96 05/15/21 21:32 05/15/21 23:46 05/16/21 00:14 Temperature 98.8 F Pulse Rate 73 76 79 Respiratory Rate 18 13 15 Blood Pressure 153/85 H 167/77 H 149/86 H Pulse Oximetry 97 96 97 05/16/21 03:40 05/16/21 07:54 05/16/21 10:12 Temperature 98.5 F 98.3 F Pulse Rate 77 70 76 Respiratory Rate 17 13 18 Blood Pressure 139/83 141/77 H 143/83 H Pulse Oximetry 98 96 98 05/16/21 14:23 Temperature 98.8 F Pulse Rate 80 Respiratory Rate 17 Blood Pressure 144/85 H Pulse Oximetry 96 BMI result Body Mass Index 22.1 Labs Results: 05/16/21 08:50 05/16/21 08:50 Labs: Laboratory Results - last 48 hr 05/15/21 05/15/21 05/15/21 14:48 14:48 14:48 WBC 8.7 RBC 4.30 L Hgb 13.6 L Hct 39.5 L MCV 91.9 MCH 31.6 MCHC 34.4 RDW 12.1 Plt Count 280 MPV 9.8 Immature Gran % (Auto) 0.2 Neut % (Auto) 66.8 Lymph % (Auto) 15.8 L [place] % (Auto) 13.5 H Eos % (Auto) 3.1 Baso % (Auto) 0.6 Lymph # (Auto) 1.4 [place] # (Auto) 1.2 Eos # (Auto) 0.3 Baso # (Auto) 0.1 Abs Immat Gran (auto) 0.02 Absolute Neuts (auto) 5.8 Absolute Nucleated RBC 0.000 Nucleated RBC % (auto) 0.0 PT 12.3 INR 1.1 Sodium 134 L Potassium 4.1 Chloride 96 Carbon Dioxide 28 Anion Gap 14 BUN 24 H Creatinine 0.82 Estim Creat Clear Calc 89.8 Estimated GFR > 60 POC Glucose Random Glucose 111 Calcium 9.9 Magnesium 1.6 Total Bilirubin 0.2 AST 15 ALT 7 Alkaline Phosphatase 46 Troponin I High Sens B-Natriuretic Peptide Total Protein 6.6 Albumin 4.0 Urine Color Urine Appearance Urine pH Ur Specific [place] Urine Protein Urine Glucose (UA) Urine Ketones Urine Blood Urine Nitrite Ur Leukocyte Esterase Urine RBC Urine WBC Ur Squamous Epith Cells Amorphous Sediment Urine Bacteria COVID-19 ([facility]) COVID-Possible Web Clin Com 05/15/21 05/15/21 05/15/21 14:48 14:48 20:22 WBC RBC Hgb Hct MCV MCH MCHC RDW Plt Count MPV Immature Gran % (Auto) Neut % (Auto) Lymph % (Auto) [place] % (Auto) Eos % (Auto) Baso % (Auto) Lymph # (Auto) [place] # (Auto) Eos # (Auto) Baso # (Auto) Abs Immat Gran (auto) Absolute Neuts (auto) Absolute Nucleated RBC Nucleated RBC % (auto) PT INR Sodium Potassium Chloride Carbon Dioxide Anion Gap BUN Creatinine Estim Creat Clear Calc Estimated GFR POC Glucose Random Glucose Calcium Magnesium Total Bilirubin AST ALT Alkaline Phosphatase Troponin I High Sens 28.8 32.2 B-Natriuretic Peptide 111 H Total Protein Albumin Urine Color Urine Appearance Urine pH Ur Specific [place] Urine Protein Urine Glucose (UA) Urine Ketones Urine Blood Urine Nitrite Ur Leukocyte Esterase Urine RBC Urine WBC Ur Squamous Epith Cells Amorphous Sediment Urine Bacteria COVID-19 ([facility]) Negative COVID-Possible Web Clin Com See Note 05/15/21 05/16/21 05/16/21 21:53 08:50 08:50 WBC 9.2 RBC 4.16 L Hgb 13.2 L Hct 37.4 L MCV 89.9 MCH 31.7 MCHC 35.3 RDW 12.1 Plt Count 259 MPV 9.7 Immature Gran % (Auto) 0.2 Neut % (Auto) 67.4 Lymph % (Auto) 16.3 L [place] % (Auto) 12.3 H Eos % (Auto) 3.1 Baso % (Auto) 0.7 Lymph # (Auto) 1.5 [place] # (Auto) 1.1 Eos # (Auto) 0.3 Baso # (Auto) 0.1 Abs Immat Gran (auto) 0.02 Absolute Neuts (auto) 6.2 Absolute Nucleated RBC 0.000 Nucleated RBC % (auto) 0.0 PT INR Sodium 133 L Potassium 3.7 Chloride 96 Carbon Dioxide 31 H Anion Gap 10 L BUN 15 Creatinine 0.75 Estim Creat Clear Calc 98.2 Estimated GFR > 60 POC Glucose Random Glucose 106 Calcium 9.8 Magnesium 1.6 1.6 Total Bilirubin AST ALT Alkaline Phosphatase Troponin I High Sens B-Natriuretic Peptide Total Protein Albumin Urine Color Urine Appearance Urine pH Ur Specific [place] Urine Protein Urine Glucose (UA) Urine Ketones Urine Blood Urine Nitrite Ur Leukocyte Esterase Urine RBC Urine WBC Ur Squamous Epith Cells Amorphous Sediment Urine Bacteria COVID-19 ([facility]ETA) COVID-19 [employer] 05/16/21 05/16/21 08:50 11:19 WBC RBC Hgb Hct MCV MCH MCHC RDW Plt Count MPV Immature Gran % (Auto) Neut % (Auto) Lymph % (Auto) [place] % (Auto) Eos % (Auto) Baso % (Auto) Lymph # (Auto) [place] # (Auto) Eos # (Auto) Baso # (Auto) Abs Immat Gran (auto) Absolute Neuts (auto) Absolute Nucleated RBC Nucleated RBC % (auto) PT INR Sodium Potassium Chloride Carbon Dioxide Anion Gap BUN Creatinine Estim Creat Clear Calc Estimated GFR POC Glucose 110 Random Glucose Calcium Magnesium Total Bilirubin AST ALT Alkaline Phosphatase Troponin I High Sens B-Natriuretic Peptide Total Protein Albumin Urine Color YELLOW Urine Appearance CLEAR Urine pH 7.0 Ur Specific [place] 1.010 Urine Protein NEG Urine Glucose (UA) NEG Urine Ketones NEG Urine Blood TRACE Urine Nitrite NEG Ur Leukocyte Esterase NEG Urine RBC 0-2 Urine WBC 0 Ur Squamous Epith Cells NONE Amorphous Sediment 2+ Urine Bacteria NONE COVID-19 ([facility]ETA) COVID-19 [employer] [facility] Imaging Radiology Impressions: ITS Impressions Chest X-Ray 05/15/21 14:32 IMPRESSION: Unremarkable chest examination. Head CT 05/15/21 16:05 IMPRESSION: No acute intracranial abnormality. Chronic left maxillary sinus disease. Mental Status Exam Mental Status Exam Narrative: A&O. Pt in hospital attire, appears older than stated age, overweight. Good eye contact, inattentive. No Tics or Tremors. No abnormal involuntary movements. Calm, difficult to engage in meaningful conversation. Non-pressured speech, non-spontaneous with regular rate and rhythm, normal volume and prosody. No prolonged speech latency or dysarthria. Mood is ?good,? affect is constricted. Denies SI/SIB/HI upon inquiry. Denies A/VH or delusional thought content. Thoughts are concrete, perseverative on perceived inability to cough. Appears to have some cognitive impairment secondary to psych diagnosis. Insight/ Judgment limited but adequate. Medications Medications Current Medications Acetaminophen (Acetaminophen 325 Mg Tablet) 650 mg PO Q6H PRN PRN Reason: Pain, Mild (Pain Scale 1-3) Apixaban (Apixaban 5 Mg Tablet) 5 mg PO BID [facility] Last Admin: 05/16/21 13:11 Dose: 5 mg Documented by: Atorvastatin Calcium (Atorvastatin Calcium 20 Mg Tablet) 20 mg PO BEDTIME [facility] Carbidopa/Levodopa (Carbidopa/Levodopa 25/100 Tablet) 2 tab PO BID [facility] Last Admin: 05/16/21 10:07 Dose: 2 tab Documented by: Clonazepam (Clonazepam 0.5 Mg Tablet) 0.5 mg PO BEDTIME PRN PRN Reason: Sleep Last Admin: 05/16/21 03:48 Dose: 0.5 mg Documented by: Famotidine (Famotidine 20 Mg Tablet) 20 mg PO BEDTIME [facility] Glycopyrrolate (Glycopyrrolate 1 Mg Tablet) 2 mg PO BID PRN PRN Reason: secretions Hydrochlorothiazide (Hydrochlorothiazide 25 Mg Tablet) 25 mg PO DAILY [facility]; Protocol Last Admin: 05/16/21 10:08 Dose: 25 mg Documented by: Diltiazem HCl 125 mg/ Sodium (Chloride) 125 mls @ 0 mls/hr IVCONT .Q0M [facility]; Protocol Magnesium Oxide (Magnesium Oxide 400 Mg Tablet) 400 mg PO BIDPC [facility] Metformin HCl (Metformin Hcl 1,000 Mg Tablet) 1,000 mg PO BIDWM [facility] Last Admin: 05/16/21 10:07 Dose: 1,000 mg Documented by: Metoprolol Succinate (Metoprolol Succinate Er 50 Mg Tab.Er.24h) 50 mg PO DAILY [facility]; Protocol Multivitamins/Vitamin C (Multivitamin Tablet) 1 tab PO DAILY [facility] Last Admin: 05/16/21 10:08 Dose: 1 tab Documented by: Ondansetron HCl (Ondansetron Hcl 4 Mg/2 Ml Vial) 4 mg IVPUSH Q8H PRN PRN Reason: Nausea and Vomiting Sodium Chloride (0.9 % Sodium Chloride Flush 3 Ml Syringe) 3 ml IVFLUSH QSHIFT [facility] Last Admin: 05/16/21 10:07 Dose: Not Given Documented by: Allergies Allergies Allergy/AdvReac Type Severity Reaction Status Date / Time No Known Allergies Allergy Verified 05/10/21 13:21 [No Known Allergies*] Assessment & Plan Assessment & Plan (1) Paranoid schizophrenia: Status: Acute Code(s): F20.0 - Paranoid schizophrenia (2) Bipolar depression: Status: Acute Code(s): F31.9 - Bipolar disorder, unspecified Assessment and Plan: Plan: Will discontinue primidone and may trial cogentin for EPS with OP psych provider. Will discontinue venlafaxine 75 mg QD to reduce polypharmacy, as this med is not evidence based for a person with bipolar disorder. Will f/u with OP psych provider. Will continue risperdal 2 mg BID for stabilization of paranoid schizophrenic sx, as pt?s QTc has improved to 457 and pt is on rate stabilizing medication, metoprolol.? I spent minutes with the patient and/or on the patient floor today, greater than?50% of which was spent counseling/coordinating care.
--- NOTE | 2021-05-16 15:41 | MHC.CM.PN ---
Call placed to [facility] ; pt's payor. Prior authorization given for Eliquis prescribed for new onset Afib. Auth number [id number]. [facility] has e script and can rerun it with this auth number. Updated MD on above for pt d/c
== END 2021-05-16 17:11 | disposition home or self-care (01) ==
LOC: HO.ED 19:18 → HO.EDOVER 21:40
PROVIDERS: Physician Assistant Medical; Admitting Provider Internal Medicine; Emergency Provider Emergency Medicine; PCP Internal Medicine; Visit Provider Internal Medicine
DX: I48.20 Chronic atrial fibrillation, unspecified (principal); R94.31 Abnormal electrocardiogram [ECG] [EKG]; R42 Dizziness and giddiness; I42.9 Cardiomyopathy, unspecified; I44.4 Left anterior fascicular block; I10 Essential (primary) hypertension; E11.9 Type 2 diabetes mellitus without complications; E87.1 Hypo-osmolality and hyponatremia; E78.5 Hyperlipidemia, unspecified; G20 Parkinson's disease; F33.9 Major depressive disorder, recurrent, unspecified; F20.0 Paranoid schizophrenia; J32.0 Chronic maxillary sinusitis; Z20.822 Contact with and (suspected) exposure to COVID-19; Z79.84 Long term (current) use of oral hypoglycemic drugs; Z79.899 Other long term (current) drug therapy
CPT/HCPCS: 36415; 70450; 71046; 80048; 80053; 81001; 82947; 83735; 83880; 84484; 85025; 85610; 87040; 87635; 93005; 93306; 96361; 96365; 96366; 99205; 99219; 99285; 99291; J3475

== ENCOUNTER 2021-06-19 10:16 | Outpatient (REF) | payer OTHER, SELFPAY ==
[2021-06-19 12:13] LABS: Hematocrit 42.5 % (42.0-52.0); Hemoglobin 14.4 g/dl (14.0-18.0); Mean Corpuscular HGB Conc 33.9 g/dl (31.0-36.0); Mean Corpuscular Hemoglobin 31.3 pg (27.0-33.0); Mean Corpuscular Volume 92.4 fL (80.0-98.0); Mean Platelet Volume 10.5 fL (9.4-12.4); Platelet Count 241 X10*3/uL (160-400); Red Cell Distribution Width 12.3 % (11.0-16.0); White Blood Count 6.2 X10*3/uL (4.8-10.8)
[2021-06-19 12:23] LABS: INTERNATIONAL NORM RATIO 1.3 (0.9-1.1); Prothrombin Time 15.3 SEC (9.9-13.0)
[2021-06-19 12:37] LABS: Anion Gap 12 (12-20); Blood Urea Nitrogen 19 mg/dL (9-16); Calcium 10.5 mg/dL (8.4-10.2); Carbon Dioxide 30 mmol/L (22-29); Chloride 101 mmol/L (96-108); Estimated Glomerular Filt Rate > 60; Glucose Random 100 mg/dL (60-115); Potassium 4.4 mmol/L (3.3-5.1); Sodium 139 mmol/L (135-145)
== END 2021-06-19 10:17 | disposition home or self-care (01) ==
LOC: HO.LAB 10:16
PROVIDERS: PCP Internal Medicine; Referring Provider Internal Medicine; Visit Provider Internal Medicine
DX: I42.9 Cardiomyopathy, unspecified (principal); I48.0 Paroxysmal atrial fibrillation
CPT/HCPCS: 36415; 80048; 85027; 85610; 93005

== ENCOUNTER → 2021-07-26 14:10 | Outpatient (BNVA) | payer OTHER, SELFPAY | PROVIDERS: PCP Internal Medicine; Referring Provider Internal Medicine; Visit Provider Internal Medicine | DX: I42.9 Cardiomyopathy, unspecified (principal); I48.0 Paroxysmal atrial fibrillation; R42 Dizziness and giddiness; Z79.899 Other long term (current) drug therapy | CPT/HCPCS: 99212 ==

== ENCOUNTER → 2021-09-18 12:44 | Outpatient (REF) | payer OTHER, SELFPAY ==
--- NOTE | 2021-09-18 12:48 | CA_ITS ---
Transthoracic Echocardiogram Patient (Last, First, Middle): True Rosado, Gender: Male Date of : 1955 Age: 66 Procedure Date: 09/18/2021 Procedure Type: Transthoracic Echocardiogram Location: OP Height: 177.8 cm Weight: 72.58 kg BSA: 1.90 m2 Heart Rate: bpm BP: 130 / 68 mmHg Culinary Assistant: SB Referring MD: Tato Stover MD Symptoms: I42.9 - Cardiomyopathy, unspecified Study Quality: Adequate ECG Rhythm: Sinus Conclusions: - The left ventricular systolic function is severely decreased. The visually estimated ejection fraction is between 25-30%. Findings Left Ventricle Normal left ventricular cavity size. The left ventricular systolic function is severely decreased. The visually estimated ejection fraction is between 25-30%. There is severe global hypokinesis. LV peak GLS -11.7%. Right Ventricle Normal right ventricular cavity size and systolic function. Venous The inferior vena cava is normal in size and collapses greater than 50% with inspiration. Prior Study Comparison No significant change compared to prior study dated: 05/16/2021. Measurements 2D Linear Measurements IVSd: 0.69 0.6-0.9/0.6-1.0 cm LVIDd: 5.63 3.9-5.3/4.2-5.9 cm LVIDd Index: 2.96 2.4-3.2/2.2-3.1 cm/m2 LVIDs: 4.99 2.0-3.6 cm LVPWd: 1.10 0.7-1.1 cm LV Mass: 239.10 67-162/88-224 g LV Mass Index: 125.84 43-95/49-115 g/m2 2D Systolic Function EF 4C: 30.80 >55% EF 2C: 34.00 >55% EF BiP: 32.10 >55% Mitral Valve MV Pk E: 0.91 MV PK A: 0.85 MV Decel Time: 150.00 E/A: 1.10 E'Lateral: 8.59 E'Medial: 4.26 E/E' Med: 21.30 E/E' Lat: 10.50 PHT: 44.00 MVA PHT: 5.00 Decel Mathews: 6.02 Diastolic Function MV Pk E: 0.91 MV Pk A: 0.85 E/A: 1.10 E'Medial: 4.26 E/E' Med: 21.30 E' Laterial: 8.59 E/E' Lat: 10.50 Tricuspid Valve RA Press: 3.00 Updated in Other Vendor System with Status of Final Tato Stover MD electronically signed on 09/19/2021 3:59:46 PM with status of Final
== END ==
LOC: HO.CARD 12:44
PROVIDERS: PCP Internal Medicine; Visit Provider Internal Medicine
DX: I42.9 Cardiomyopathy, unspecified (principal)
CPT/HCPCS: 93308; 93356

== ENCOUNTER → 2021-09-28 10:47 | Outpatient (BNVA) | payer OTHER, SELFPAY | PROVIDERS: PCP Internal Medicine; Referring Provider Internal Medicine; Visit Provider Internal Medicine | DX: I48.0 Paroxysmal atrial fibrillation (principal) ==

== ENCOUNTER 2021-10-04 07:03 | Outpatient (REF) | payer OTHER, SELFPAY ==
[2021-10-04 07:27] LABS: MANUAL DIFF FLAG NO
[2021-10-04 08:03] LABS: Basophils Absolute Auto 0.1 X10*3/uL (0.0-0.2); Basophils Percent Auto 0.9 % (0-2); Eosinophils Absolute Auto 0.3 X10*3/uL (0.0-0.4); Eosinophils Percent Auto 4.9 % (0-4); Hematocrit 39.2 % (42.0-52.0); Hemoglobin 13.5 g/dl (14.0-18.0); Imm Gran Abs Auto 0.02 X10*3/uL (0.00-0.03); Imm Gran Pct Auto 0.3 % (0.0-0.4); Lymphocytes Percent Auto 28.7 % (20-40); Mean Corpuscular HGB Conc 34.4 g/dl (31.0-36.0); Mean Corpuscular Hemoglobin 32.1 pg (27.0-33.0); Mean Corpuscular Volume 93.1 fL (80.0-98.0); Mean Platelet Volume 10.9 fL (9.4-12.4); Monocytes Absolute Auto 0.9 X10*3/uL (0.1-1.2); Monocytes Percent Auto 13.4 % (2-11); Neutrophils Absolute Auto 3.5 x10*3/uL (2.0-8.3); Neutrophils Percent Auto 51.8 % (45-73); Platelet Count 204 X10*3/uL (160-400); Red Blood Count 4.21 X10*6/uL (4.60-5.80); Red Cell Distribution Width 13.3 % (11.0-16.0); White Blood Count 6.8 X10*3/uL (4.8-10.8)
[2021-10-04 08:25] LABS: Estimated Average Glucose 108 mg/dL; Hemoglobin A1c % 5.4 %
[2021-10-04 08:29] LABS: Alanine Aminotransferase 14 U/L (0-40); Albumin Level 4.2 g/dL (3.5-5.0); Alkaline Phosphatase 34 U/L (39-117); Anion Gap 13 (12-20); Aspartate Amino Transferase 21 U/L (5-37); Bilirubin Total 0.4 mg/dL (0.0-1.0); Blood Urea Nitrogen 14 mg/dL (9-16); Carbon Dioxide 28 mmol/L (22-29); Chloride 102 mmol/L (96-108); Cholesterol 113 mg/dL; Estimated Glomerular Filt Rate > 60; Glucose Fasting 86 mg/dL (60-99); HDL Cholesterol 39 mg/dL; LDL Cholesterol Calculated 66 mg/dl; Sodium 139 mmol/L (135-145); Total Protein 6.8 g/dL (6.5-8.0); Triglycerides 43 mg/dL
[2021-10-04 08:41] LABS: Appearance Urine HAZY; Color Urine YELLOW; Glucose Urine UA NEG (NEG); Leukocyte Esterase Urine NEG (NEG); Nitrite Urine NEG (NEG); Urine Blood NEG (NEG); Urine Ketones NEG (NEG); Urine Protein NEG (NEG-TRACE)
[2021-10-04 08:58] LABS: TSH reflex Free T4 2.42 uIU/mL (0.32-4.0)
[2021-10-04 09:08] LABS: Microalbumin Urine < 5.0 mg/L
== END 2021-10-04 07:04 | disposition home or self-care (01) ==
LOC: HO.LAB 07:03
PROVIDERS: PCP Internal Medicine; Visit Provider Internal Medicine
DX: E78.00 Pure hypercholesterolemia, unspecified (principal); I10 Essential (primary) hypertension; E11.9 Type 2 diabetes mellitus without complications; E55.9 Vitamin D deficiency, unspecified
CPT/HCPCS: 36415; 80053; 80061; 81003; 82043; 82306; 83036; 84443; 85025

== ENCOUNTER 2022-07-17 13:49 | Outpatient (REF) | payer OTHER, SELFPAY ==
[2022-07-17 14:56] LABS: Estimated Average Glucose 108 mg/dL; Hemoglobin A1c % 5.4 %
[2022-07-17 15:17] LABS: Alanine Aminotransferase 12 U/L (0-40); Albumin Level 4.5 g/dL (3.5-5.0); Alkaline Phosphatase 36 U/L (39-117); Anion Gap 14 (12-20); Aspartate Amino Transferase 18 U/L (5-37); Blood Urea Nitrogen 16 mg/dL (9-16); Calcium 9.6 mg/dL (8.4-10.2); Carbon Dioxide 27 mmol/L (22-29); Chloride 102 mmol/L (96-108); Cholesterol 121 mg/dL; Estimated Glomerular Filt Rate > 60; Glucose Fasting 102 mg/dL (60-99); HDL Cholesterol 39 mg/dL; LDL Cholesterol Calculated 71 mg/dl; Potassium 4.2 mmol/L (3.3-5.1); Sodium 139 mmol/L (135-145); Total Protein 6.9 g/dL (6.5-8.0); Triglycerides 56 mg/dL; Uric Acid 7.3 mg/dL (3.4-7.0)
[2022-07-17 15:22] LABS: B Type Natriuretic Peptide 188 pg/mL (<100)
[2022-07-17 15:35] LABS: TSH reflex Free T4 0.91 uIU/mL (0.32-4.0); Vitamin D 25-OH Total 40.8 ng/mL (>30)
[2022-07-18 08:52] LABS: C Peptide 1.34 ng/mL (0.80-3.85)
== END 2022-07-17 13:50 | disposition home or self-care (01) ==
LOC: HO.LAB 13:49
PROVIDERS: PCP Internal Medicine; Visit Provider Internal Medicine
DX: E11.9 Type 2 diabetes mellitus without complications (principal); E55.9 Vitamin D deficiency, unspecified; M10.9 Gout, unspecified; E78.00 Pure hypercholesterolemia, unspecified; I50.9 Heart failure, unspecified
CPT/HCPCS: 36415; 80053; 80061; 82306; 83036; 83880; 84443; 84550; 84681

== ENCOUNTER 2022-12-03 10:42 | Outpatient (AMB) | payer OTHER, SELFPAY ==
--- NOTE | 2022-12-03 10:40 | A.OFFPC_ITS ---
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 Accompanied by: Self / Same As Patient Allergies No Known Allergies [No Known Allergies*] Allergy (Verified 12/03/22 10:59) Medication List - Last Reconciled 12/03/22 by Lavon Roca MD apixaban (Eliquis) 5 mg PO BID 90 days atorvastatin 20 mg PO DAILY 90 days benztropine 1 mg PO BID blood pressure monitor As directed carbidopa-levodopa 50-200 mg ER 1 tab PO BID clonazepam 0.5 mg PO BEDTIME PRN famotidine 20 mg PO BEDTIME 90 days meclizine 12.5 mg PO TID PRN metformin 1,000 mg PO BID metoprolol succinate ER 75 mg (1.5 x 50 mg) PO DAILY 90 days multivitamin 1 tab PO DAILY quetiapine 50 mg PO BEDTIME risperidone 2 mg PO BID valsartan 40 mg PO BEDTIME Tobacco use date assessed: 12/03/22 Fall risk assessment: No Falls in past year Last assessed Fall Risk: 12/03/22 Dental Screening Dental Screen Date: 12/03/22 Did you have a dental visit in the last 12 months?: Yes Did you have a dental problem in the last 6 months where you did not have access to dental care?: No Was dental information given to patient?: Patient has dentist HPI CAD, hyperlipidemia, HTN HPI Details Patient's follow-up visit / consultation today is done over the phone, per request - this is a Telehealth visit Patient's current medications have been reviewed and verified with patient and / or caregiver / proxy and have been updated accordingly in the medication list Patient states that he continues to experience frequent dizzy spells, especially when he bends over, so he asked to have his appointment changed over to a telehealth visit today Is wondering if there is any medications that he can stop taking now that can help lessen his frequent dizzy spells and the only way he can get his dizziness to calm down now is to lie down and stay still for a while He denies any headaches Denies any chest pains, no increased SOB No nausea/vomiting, no abdominal pain No change in bowel habits noted Was not able to get his follow up labs done recently due to his increased dizziness [facility] Medical History Anxiety Benign essential hypertension Bipolar depression Constipation Diabetes mellitus Dizziness GERD without esophagitis Hyponatremia Insomnia PAF (paroxysmal atrial fibrillation) Paranoid schizophrenia Parkinson's disease Pure hypercholesterolemia Surgical History History of extraction of renal calculus Family History Father Parkinson disease Mother Stomach cancer Social History Housing: House Alcohol intake: never Patient Tobacco Use Status: Never used Tobacco e-Cigarette/Vaping Use: Never Used Second Hand Smoke Exposure: No service: No Current occupational status: retired Cognitive needs: No Hearing needs: No Vision needs: Yes (reading glasses) Questionnaire PHQ-9 Over the last 2 weeks, how often have you been bothered by any of the following problems? 1. Little interest or pleasure in doing things: not at all 2. Feeling down, depressed, or hopeless: not at all 3. Trouble falling or staying asleep, or sleeping too much: not at all 4. Feeling tired or having little energy: not at all 5. Poor appetite or overeating: not at all 6. Feeling bad about yourself - or that you are a failure or have let yourself or your family down: not at all 7. Trouble concentrating on things, such as reading the newspaper or watching television: not at all 8. Moving or speaking so slowly that other people could have noticed. Or the opposite - being so fidgety or restless that you have been moving around a lot more than usual: not at all 9. Thoughts that you would be better off or of hurting yourself in some way: not at all Total score: 0 Depression Screening Interpretation: Negative 59265 - PHQ-9 Billing: Yes Source: Developed by Drs. Carlos Alberto Steele, Zahra Chung, Rm Madison and colleagues, with an educational william from [employer]. Thrive Questionnaire Date Thrive assessed: 12/03/22 I am a: Patient What is your living situation today?: I have a steady place to live Within the past 12 months, did the food you bought not last and you didn't have the money to get more?: Never true Within the past 12 months, did you worry whether your food would run out before you got money to buy more?: Never true Do you have trouble paying for medicines?: No Do you have trouble getting transportation to medical appointments?: No Do you have trouble paying your heating and electricity bill?: No Do you have trouble taking care of your child, family member or friend?: No Do you have trouble with day-to-day activities such as bathing, preparing meals, shopping, managing finances, etc.?: No Currently or been in a relationship where the following occur: no concerns reported JOSÉ MIGUEL-7 AMB Questionnaire JOSÉ MIGUEL-7 Date JOSÉ MIGUEL - 7 assessed: 07/23/22 Source: Developed by Drs. Carlos Alberto Stelee, Zahra Chung, Rm Madison and colleagues, with an educational william from [employer]. Review of Systems Const Denies chills, Denies fatigue, Denies fever(s) and Denies headache(s) ENT Details: increasing drooling again lately Reports dysphagia (at times - mostly with his meds), Reports dizziness (recurrent/frequent - see HPI), Denies otalgia, Denies headache(s) and Denies sore throat Card Denies chest pain, Denies palpitations and Denies dyspnea Resp Denies cough, Denies dyspnea and Denies wheezing GI Denies abdominal pain, Denies constipation, Reports dysphagia (at times - mostly with his meds), Denies heartburn, Denies diarrhea, Denies nausea and Denies vomiting Denies dysuria, Denies nocturia and Denies urinary frequency Musc Reports abnormal gait (right leg feels weak at times and twitchy) Neuro Reports abnormal gait (right leg feels weak at times and twitchy), Reports dizziness (recurrent/frequent - see HPI), Denies headache(s) and Reports tremor(s) (in both hands) Psych Reports anxiety Endo Denies fatigue and Denies palpitations Aller/Immun Denies wheezing Physical exam (Primary Care) Vital Signs: Physical examination is not performed as visit / consultation today is done over the phone - Telehealth visit All physical findings indicated here, if present, are as per patient's and / or caregivers / proxy's report BMI result Body Mass Index 23.8 Tobacco/Smoking Status: Tobacco use Status Tobacco use date assessed 12/03/22 12/03/22 10:47 Patient Tobacco Use Status Never used Tobacco 12/03/22 10:40 e-Cigarette/Vaping Use Never Used 12/03/22 10:40 PHQ-9: PHQ-9 Score PHQ-9: Total score 0 12/03/22 10:47 Depression Screening Interpretation: Negative Thrive Assessment: Date of Thrive Assessment Date Thrive assessed 12/03/22 12/03/22 10:47 Currently or been in a relationship where the following occur: no concerns reported Telehealth Telehealth Location of provider rendering services: practice address Location of patient: address on file Patient Identification confirmed using: Name, : Yes Telehealth method: voice only Patient verbally consented to treatment: Yes Patient verbally consented to billing insurance company: Yes Patient informed of any privacy concerns related to visit: Yes Minutes spent on Phone/Video with Pt.: 19 Assessment and Plan Assessment & Plan (1) Parkinson's disease: Code(s): G20 - Parkinson's disease Plan: Continue Carbidopa-Levodopa ER 25-200 mg BID Follow up with neurology as scheduled (2) Dizziness: Code(s): R42 - Dizziness and giddiness Plan: Most likely related to his Parkinson's disease Head CT done back in May 2021 came up normal with no acute intracranial abnormality Has been advised by cardiology that this may also be related to his low heart rate/cardiac output and has been referred to a resource conservation specialist in [place], who started patient on a trial of Spironolactone a few weeks ago but he could not tolerate Rx Follow up with neurology and cardiology as scheduled (3) Multifactorial gait disorder: Code(s): R26.89 - Other abnormalities of gait and mobility Plan: Was seen by neurology for this a few months ago and just had EMG and NCV done Patient is advised to follow up with neurology regarding his results as we have not been able to get any of these for review so far (4) Cardiomyopathy: Code(s): I42.9 - Cardiomyopathy, unspecified Qualifiers: Cardiomyopathy type: unspecified Qualified Code(s): I42.9 - Cardiomyopathy, unspecified Plan: Cardiac MRI done in October 2021 at [facility] revealed findings consistent with infiltrative cardiomyopathy, 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 There is moderate to severe global hypokinesia with regional variation and abnormal septal motion consistent with conduction abnormality Follow-up with cardiology as scheduled (5) Diabetes mellitus: Code(s): E11.9 - Type 2 diabetes mellitus without complications Qualifiers: Diabetes mellitus type: type 2 Diabetes mellitus skilled nursing insulin use: without skilled nursing use Diabetes mellitus complication status: without complication Qualified Code(s): E11.9 - Type 2 diabetes mellitus without compli cations Plan: HgbA1c remains unchanged at 5.4% on his labs done a few months ago (in-office HgbA1c was also at 5.4% previously) - goal is < 7.0% Reinforced diabetic diet Continue Metformin 1000 mg BID (6) Benign essential hypertension: Code(s): I10 - Essential (primary) hypertension Plan: Reinforced low sodium diet - goal is systolic BP of at least 130 mm or less Continue Metoprolol ER 75 mg QD and Valsartan 40 mg QD (7) Pure hypercholesterolemia: Code(s): E78.00 - Pure hypercholesterolemia, unspecified Plan: Was not able to get his follow up labs done recently; as his previous numbers were good, have advised patient to skip doing his labs for now Reinforced low cholesterol diet Continue Atorvastatin 20 mg QD Will recheck his labs in 4 months for follow up (8) Hyponatremia: Code(s): E87.1 - Hypo-osmolality and hyponatremia Plan: Corrected - remains normal at 139 on his previous labs Will continue to monitor this regularly Patient remains asymptomatic and advised again that this is most likely related to one of his psychiatric medications (9) GERD without esophagitis: Code(s): K21.9 - Gastro-esophageal reflux disease without esophagitis Plan: Dietary restrictions reinforced Continue Famotidine 20 mg BID PRN (10) Constipation: Code(s): K59.00 - Constipation, unspecified Qualifiers: Constipation type: unspecified constipation type Qualified Code(s): K59.00 - Constipation, unspecified Plan: Encouraged increased oral fluids and dietary fiber Continue Senna 8.6 mg 1-2 tablets once a day as needed (11) Insomnia: Code(s): G47.00 - Insomnia, unspecified Qualifiers: Insomnia type: unspecified Qualified Code(s): G47.00 - Insomnia, unspecified Plan: Sleep hygiene reinforced States that his Seroquel at bedtime has been helping with his sleep (12) Anxiety: Code(s): F41.9 - Anxiety disorder, unspecified Plan: Continue Clonazepam 0.5 mg twice a day (13) Bipolar depression: Code(s): F31.9 - Bipolar disorder, unspecified Plan: Continue Quetiapine 50 mg Q HS Follow-up with Psychiatry as scheduled (14) Paranoid schizophrenia: Code(s): F20.0 - Paranoid schizophrenia Plan: Continue Benztropine 1 mg BID, Risperidone 2 mg BID and Quetiapine 50 mg Q HS Follow up with psychiatry as scheduled Plan Follow up in 4 months Orders: Orders Vitamin B12 and Folate 4 Months E53.8 - Deficiency of other specified B group vitamins Comprehensive [place]. Panel Fast 4 Months E78.00 - Pure hypercholesterolemia, unspecified Hemoglobin A1c 4 Months E11.9 - Type 2 diabetes mellitus without complications Lipid Panel 4 Months E78.00 - Pure hypercholesterolemia, unspecified TSH reflex Free T4 4 Months E78.00 - Pure hypercholesterolemia, unspecified Vitamin D 25-OH Total 4 Months E55.9 - Vitamin D deficiency, unspecified Microalbumin, Random (w Creat) 4 Months E11.9 - Type 2 diabetes mellitus without complications Complete Blood Count Auto Diff 4 Months I10 - Essential (primary) hypertension UA CC w/rflx Micro + Cult 4 Months R30.0 - Dysuria Coding Level of Care Code Tele Est Pt Level 3 (80324) Diagnoses Parkinson's disease G20 Dizziness R42 Multifactorial gait disorder R26.89 Cardiomyopathy I42.9 Cardiomyopathy type: unspecified Diabetes mellitus E11.9 Diabetes mellitus type: type 2 Diabetes mellitus skilled nursing insulin use: without remote computer terminal operator use Diabetes mellitus complication status: without complication Benign essential hypertension I10 Pure hypercholesterolemia E78.00 Hyponatremia E87.1 GERD without esophagitis K21.9 Constipation K59.00 Constipation type: unspecified constipation type Insomnia G47.00 Insomnia type: unspecified Anxiety F41.9 Bipolar depression F31.9 Paranoid schizophrenia F20.0
[2022-12-03 10:45] VITALS: BMI 23.8
== END 2022-12-03 11:24 | disposition home or self-care (01) ==
LOC: HO.HMGH 10:42
PROVIDERS: PCP Internal Medicine; Visit Provider Internal Medicine
DX: G20 Parkinson's disease (principal); I42.9 Cardiomyopathy, unspecified; E11.9 Type 2 diabetes mellitus without complications; F41.9 Anxiety disorder, unspecified; I10 Essential (primary) hypertension; K21.9 Gastro-esophageal reflux disease without esophagitis; E78.00 Pure hypercholesterolemia, unspecified; R26.89 Other abnormalities of gait and mobility; E87.1 Hypo-osmolality and hyponatremia; K59.00 Constipation, unspecified; G47.00 Insomnia, unspecified; R42 Dizziness and giddiness
CPT/HCPCS: 99442

== ENCOUNTER 2022-12-10 12:14 | Outpatient (AMB) | payer OTHER, SELFPAY ==
--- NOTE | 2022-12-10 12:31 | A.OFFVIS_ITS ---
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 Accompanied by: Self / Same As Patient Allergies No Known Allergies [No Known Allergies*] Allergy (Verified 12/10/22 12:35) Medication List - Last Reconciled 12/10/22 by Tato Stover MD apixaban (Eliquis) 5 mg PO BID 90 days atorvastatin 20 mg PO DAILY 90 days benztropine 1 mg PO BID blood pressure monitor As directed carbidopa-levodopa 50-200 mg ER 1 tab PO BID clonazepam 0.5 mg PO BEDTIME PRN famotidine 20 mg PO BEDTIME 90 days meclizine 12.5 mg PO TID PRN metformin 1,000 mg PO BID metoprolol succinate ER 200 mg PO DAILY multivitamin 1 tab PO DAILY quetiapine 50 mg PO BEDTIME risperidone 2 mg PO BID spironolactone 25 mg PO DAILY valsartan 80 mg PO DAILY HPI HPI Comments History of Present Illness Details True returns for follow-up regarding cardiomyopathy. In the past, he presented to the hospital with atrial fibrillation rapid rate. In that context, echocardiogram at severe LV dysfunction. Underwent cardiac catheterization that did not show any significant coronary disease. Then he underwent further workup including cardiac MRI that showed infiltrative disease. Referred to [facility] heart failure service where he has been following for the last year. It seems that he underwent workup for sarcoid but that was also negative. His meds are optimized for cardiomyopathy. Now he returns for a visit. Overall, he states he feels just about the same. No clear cardiac symptoms. Long-standing dizziness. Blood pressure seems to be on the lower side today. However, even in the blood pressure was normal or even higher he always had dizziness and hence not the etiology. In the past, had tried stopping hydrochlorothiazide but that made no difference. Has a background of bipolar depression, paranoid schizophrenia Parkinson's but according to family, these are under good control. [facility] Medical History Anxiety Benign essential hypertension Bipolar depression Constipation Diabetes mellitus Dizziness GERD without esophagitis Hyponatremia Insomnia PAF (paroxysmal atrial fibrillation) Paranoid schizophrenia Parkinson's disease Pure hypercholesterolemia Surgical History History of extraction of renal calculus Family History Father Parkinson disease Mother Stomach cancer Social History Housing: House Alcohol intake: never Patient Tobacco Use Status: Never used Tobacco e-Cigarette/Vaping Use: Never Used Second Hand Smoke Exposure: No service: No Current occupational status: retired Cognitive needs: No Hearing needs: No Vision needs: Yes (reading glasses) Review of Systems Const Denies weakness ENT Denies dizziness Card Denies chest pain, Denies chest pain with activity, Denies syncope, Denies rapid heart rate, Denies pedal edema, Denies edema, Denies leg edema, Denies lightheadedness, Denies palpitations, Denies dyspnea, Denies dyspnea on exertion and Denies orthopnea Resp Denies cough, Denies dyspnea and Denies dyspnea on exertion GI Denies hematochezia and Denies change in stool character Musc Denies abnormal gait, Denies muscle cramps, Denies muscle weakness, Denies numbness, Denies radiating pain into limb and Denies tingling Neuro Denies abnormal gait, Denies dizziness, Denies syncope, Denies numbness, Denies tingling and Denies weakness Endo Denies palpitations Physical Exam Vital Signs: Last Vital Signs Pulse 60 12/10/22 12:32 BP 84/58 L 12/10/22 12:32 BMI result Body Mass Index 23.7 Const General: comfortable and no acute distress Orientation/consciousness: patient oriented x3 HEENT Other: Unremarkable Head: Yes normal to inspection Neck Neck: Yes normal visual inspection Chest Chest palpation & inspection: normal inspection of the chest Resp Auscultation: clear to auscultation bilaterally Cardio Palpation: normal PMI Heart sounds: S1 normal heart sound present, S2 normal heart sound present, no gallops, no murmurs and no rubs GI Palpation (GI): Soft to palpation Back/Spine/Pelvis Other: unremarkable Skin General skin exam: no rashes or lesions noted Neuro General: patient oriented x3 Extrem General: Yes normal to inspection Psych Mental Status: mental status grossly normal Office Procedures EKG Details: EKG with sinus rhythm at 60/Min; cannot exclude old anterior infarct; inferior as well as anterolateral ST downsloping. [id number], Complete Assessment & Plan Assessment & Plan (1) Cardiomyopathy: Code(s): I42.9 - Cardiomyopathy, unspecified Qualifiers: Cardiomyopathy type: unspecified Qualified Code(s): I42.9 - Cardiomyopathy, unspecified Plan: In the most recent echocardiogram LVEF 20-30%. Overall, has been low for a while. No significant CAD on cardiac catheterization. Cardiac MRI with suggestion of infiltrative cardiomyopathy, either sarcoid or amyloid. Possible myocarditis. Then referred to [facility] heart failure service. Per notes, it seems he underwent PET scan but no active inflammation to suggest active sarcoid. For meds, he is on beta-blockers, valsartan. Not on diuretics but he does not have any heart failure symptoms or signs either. Not interested in ICD. Discussed today. (2) Hypotension: Code(s): I95.9 - Hypotension, unspecified Plan: Blood pressure seems low. Do not believe it is the reason for his dizziness as he is dizzy all the time. Any case, we can cut back on the beta-blockers. He is on Toprol-XL 200 mg and we can do 100 mg. Discussed. New script sent. (3) PAF (paroxysmal atrial fibrillation): Code(s): I48.0 - Paroxysmal atrial fibrillation Plan: Continue beta-blockers and anticoagulation. (4) Dizziness: Code(s): R42 - Dizziness and giddiness Plan: Longstanding and probably not cardiac. Medications: New metoprolol succinate ER (Toprol XL) 100 mg PO DAILY 90 tabs 3RF Coding Level of Care Code Est Pt Level 4 (28498) Diagnoses Cardiomyopathy I42.9 Cardiomyopathy type: unspecified Hypotension I95.9 PAF (paroxysmal atrial fibrillation) I48.0 Dizziness R42 CPT Codes EKG - CPT: 79490-[id number], Complete ([id number])
[2022-12-10 12:32] VITALS: BP 84/58; PULSE 60; BMI 23.7
== END 2022-12-10 12:56 | disposition home or self-care (01) ==
PROVIDERS: PCP Internal Medicine; Referring Provider Internal Medicine; Visit Provider Internal Medicine
DX: I42.9 Cardiomyopathy, unspecified (principal); I95.9 Hypotension, unspecified; I48.0 Paroxysmal atrial fibrillation; R42 Dizziness and giddiness
CPT/HCPCS: 93010; 99214

== ENCOUNTER → 2022-12-10 12:14 | Outpatient (BNVA) | payer OTHER, SELFPAY | PROVIDERS: PCP Internal Medicine; Referring Provider Internal Medicine; Visit Provider Internal Medicine | DX: I42.9 Cardiomyopathy, unspecified (principal); I48.0 Paroxysmal atrial fibrillation; I95.9 Hypotension, unspecified; R42 Dizziness and giddiness | CPT/HCPCS: 93005 ==

== ENCOUNTER 2023-04-02 09:10 | Outpatient (REF) | payer OTHER, SELFPAY ==
[2023-04-02 09:40] LABS: MANUAL DIFF FLAG NO
[2023-04-02 10:20] LABS: Basophils Absolute Auto 0.1 X10*3/uL (0.0-0.2); Basophils Percent Auto 0.9 % (0-2); Eosinophils Absolute Auto 0.1 X10*3/uL (0.0-0.4); Eosinophils Percent Auto 1.7 % (0-4); Hematocrit 38.9 % (42.0-52.0); Hemoglobin 13.3 g/dl (14.0-18.0); Imm Gran Abs Auto 0.02 X10*3/uL (0.00-0.03); Imm Gran Pct Auto 0.3 % (0.0-0.4); Lymphocytes Absolute Auto 1.6 X10*3/uL (1.2-4.9); Lymphocytes Percent Auto 22.3 % (20-40); Mean Corpuscular HGB Conc 34.2 g/dl (31.0-36.0); Mean Corpuscular Hemoglobin 31.4 pg (27.0-33.0); Mean Corpuscular Volume 91.7 fL (80.0-98.0); Mean Platelet Volume 10.5 fL (9.4-12.4); Monocytes Absolute Auto 0.9 X10*3/uL (0.1-1.2); Monocytes Percent Auto 12.4 % (2-11); Neutrophils Absolute Auto 4.4 x10*3/uL (2.0-8.3); Neutrophils Percent Auto 62.4 % (45-73); Platelet Count 243 X10*3/uL (160-400); Red Blood Count 4.24 X10*6/uL (4.60-5.80); Red Cell Distribution Width 12.2 % (11.0-16.0)
[2023-04-02 10:50] LABS: Estimated Average Glucose 108 mg/dL; Hemoglobin A1c % 5.4 % (<6.0)
[2023-04-02 10:57] LABS: Alanine Aminotransferase 14 U/L (0-40); Albumin Level 4.3 g/dL (3.5-5.0); Alkaline Phosphatase 40 U/L (39-117); Anion Gap 10 (12-20); Aspartate Amino Transferase 15 U/L (5-37); Bilirubin Total 0.6 mg/dL (0.0-1.0); Blood Urea Nitrogen 20 mg/dL (9-16); Calcium 10.1 mg/dL (8.4-10.2); Carbon Dioxide 28 mmol/L (22-29); Chloride 100 mmol/L (96-108); Cholesterol 97 mg/dL (<200); Estimated Glomerular Filt Rate > 60; Glucose Fasting 92 mg/dL (60-99); HDL Cholesterol 39 mg/dL (>40); LDL Cholesterol Calculated 52 mg/dL (<100); Potassium 3.8 mmol/L (3.3-5.1); Sodium 134 mmol/L (135-145); Triglycerides 32 mg/dL (<150); Uric Acid 6.6 mg/dL (3.4-7.0)
[2023-04-02 11:18] LABS: TSH reflex Free T4 1.33 uIU/mL (0.32-4.0); Vitamin D 25-OH Total 43.8 ng/mL (>30)
[2023-04-02 11:21] LABS: Vitamin B12 349 pg/mL (200-900)
[2023-04-02 12:24] LABS: Appearance Urine Clear; Color Urine Yellow; Glucose Urine UA Negative (Negative); Leukocyte Esterase Urine Negative (Negative); Nitrite Urine Negative (Negative); PH 6.5 (5.0-9.0); Urine Blood Negative (Negative); Urine Ketones Negative (Negative); Urine Protein Negative (Neg-Trace)
[2023-04-02 12:57] LABS: Creatinine Urine 58.91 mg/dL; Microalbum/Creatinine Ratio Ur 10.1 ug/mg cr (<30)
== END 2023-04-02 09:11 | disposition home or self-care (01) ==
LOC: HO.LAB 09:10
PROVIDERS: PCP Internal Medicine; Visit Provider Internal Medicine
DX: E78.00 Pure hypercholesterolemia, unspecified (principal); E55.9 Vitamin D deficiency, unspecified; E11.9 Type 2 diabetes mellitus without complications; E53.8 Deficiency of other specified B group vitamins; I10 Essential (primary) hypertension; R30.0 Dysuria; M10.9 Gout, unspecified
CPT/HCPCS: 36415; 80053; 80061; 81003; 82043; 82306; 82570; 82607; 82746; 83036; 84443; 84550; 85025

== ENCOUNTER 2023-04-03 13:37 | Outpatient (AMB) | payer OTHER, SELFPAY ==
--- NOTE | 2023-04-03 13:37 | MHC.PC.OV ---
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 Accompanied by: Self / Same As Patient Allergies No Known Allergies [No Known Allergies*] Allergy (Verified 04/03/23 14:31) Medication List - Last Reconciled 04/03/23 by Lavon Roca MD apixaban (Eliquis) 5 mg PO BID 90 days atorvastatin 20 mg PO DAILY 90 days benztropine 1 mg PO BID blood pressure monitor As directed carbidopa-levodopa 50-200 mg ER 1 tab PO BID clonazepam 0.5 mg PO BEDTIME PRN famotidine 20 mg PO BEDTIME 90 days meclizine 12.5 mg PO TID PRN metformin 1,000 mg PO BID metoprolol succinate ER (Toprol XL) 100 mg PO DAILY multivitamin 1 tab PO DAILY quetiapine 50 mg PO BEDTIME risperidone 2 mg PO BID spironolactone 25 mg PO DAILY valsartan 80 mg PO DAILY Tobacco use date assessed: 12/03/22 Fall risk assessment: No Falls in past year Last assessed Fall Risk: 04/03/23 Dental Screening Dental Screen Date: 04/03/23 Did you have a dental visit in the last 12 months?: Yes Did you have a dental problem in the last 6 months where you did not have access to dental care?: No Was dental information given to patient?: Patient has dentist HPI hyperlipidemia, DM, HTN, dizziness, Parkinson's HPI Details Patient's follow-up visit / consultation today is done over the phone - this is a Telehealth visit Patient's current medications have been reviewed and verified with patient and / or caregiver / proxy and have been updated accordingly in the medication list Patient states that he has been experiencing increasing dizziness lately and he has been having trouble balancing/walking lately as a results - is wondering if any of his medications is causing his dizziness currently States that his increased dizziness and problems with transportation are the reasons why he asked to have his visit today changed over to a telehealth visit instead He denies any headaches Denies any chest pains, no SOB No nausea/vomiting, no abdominal pain No change in bowel habits noted Had his follow up labs done yesterday - to discuss his results [facility] Medical History PAF (paroxysmal atrial fibrillation) Dizziness Paranoid schizophrenia Bipolar depression Anxiety Insomnia Constipation Parkinson's disease GERD without esophagitis Hyponatremia Pure hypercholesterolemia Benign essential hypertension Diabetes mellitus Surgical History History of extraction of renal calculus Family History Father Parkinson disease Mother Stomach cancer Social History Housing: House Alcohol intake: never Patient Tobacco Use Status: Never used Tobacco e-Cigarette/Vaping Use: Never Used Second Hand Smoke Exposure: No service: No Current occupational status: retired Cognitive needs: No Hearing needs: No Vision needs: Yes (reading glasses) Questionnaire PHQ-9 Over the last 2 weeks, how often have you been bothered by any of the following problems? 1. Little interest or pleasure in doing things: not at all 2. Feeling down, depressed, or hopeless: not at all 3. Trouble falling or staying asleep, or sleeping too much: not at all 4. Feeling tired or having little energy: not at all 5. Poor appetite or overeating: not at all 6. Feeling bad about yourself - or that you are a failure or have let yourself or your family down: not at all 7. Trouble concentrating on things, such as reading the newspaper or watching television: not at all 8. Moving or speaking so slowly that other people could have noticed. Or the opposite - being so fidgety or restless that you have been moving around a lot more than usual: not at all 9. Thoughts that you would be better off or of hurting yourself in some way: not at all Total score: 0 Depression Screening Interpretation: Negative Depression Screening Done: Yes [id number] - PHQ-9 Billing: Yes Source: Developed by Drs. Carlos Alberto Steele, Zahra Chung, Rm Madison and colleagues, with an educational william from [employer]. Thrive Questionnaire Date Thrive assessed: 04/03/23 I am a: Patient What is your living situation today?: I have a steady place to live Within the past 12 months, did the food you bought not last and you didn't have the money to get more?: Never true Within the past 12 months, did you worry whether your food would run out before you got money to buy more?: Never true Do you have trouble paying for medicines?: No Do you have trouble getting transportation to medical appointments?: No Do you have trouble paying your heating and electricity bill?: No Do you have trouble taking care of your child, family member or friend?: No Do you have trouble with day-to-day activities such as bathing, preparing meals, shopping, managing finances, etc.?: No Are you currently unemployed and looking for a job?: No Are you interested in more education?: No Please select the resources that you would like help with: None Currently or been in a relationship where the following occur: no concerns reported AUDIT C Alcohol Use Questionnaire (AUDIT-C) 1. How often do you have a drink containing alcohol?: Never 3. How often do you have six or more drinks on one occasion?: Never Total Score: 0 Score Reviewed/Action Taken: Yes JOSÉ MIGUEL-7 AMB Questionnaire JOSÉ MIGUEL-7 Date JOSÉ MIGUEL - 7 assessed: 04/03/23 Feeling nervous, anxious, or on edge: 0 = Not at all Not being able to stop or control worryin = Not at all Worrying too much about different things: 0 = Not at all Trouble relaxin = Not at all Being so restless that it is hard to sit still: 0 = Not at all Becoming easily annoyed or irritable: 0 = Not at all Feeling afraid as if something awful might happen: 0 = Not at all Total JOSÉ MIGUEL-7 score (0-4 normal; 5-9 mild; 10-14 moderate; 15-21 severe): 0 Source: Developed by Drs. Carlos Alberto Steele, Zahra Chung, Rm Madison and colleagues, with an educational william from [employer]. Review of Systems Const Denies chills, Reports fatigue, Denies fever(s) and Denies headache(s) ENT Reports dysphagia (at times - mostly with his meds), Reports dizziness (increasing lately), Denies otalgia, Denies headache(s), Denies neck pain, Denies odynophagia and Denies sore throat Card Denies chest pain, Denies palpitations and Denies dyspnea Resp Denies cough, Denies dyspnea and Denies wheezing GI Denies abdominal pain, Denies constipation, Reports dysphagia (at times - mostly with his meds), Denies heartburn, Denies diarrhea, Denies nausea, Denies odynophagia and Denies vomiting Denies dysuria, Denies nocturia and Denies urinary frequency Musc Reports abnormal gait (right leg feels weak at times and twitchy; feels unsteady due to dizziness), Denies back pain and Denies neck pain Skin/Breast Denies rash Neuro Reports abnormal gait (right leg feels weak at times and twitchy; feels unsteady due to dizziness), Reports dizziness (increasing lately), Denies headache(s) and Reports tremor(s) (in both hands) Psych Reports anxiety Endo Reports fatigue and Denies palpitations Aller/Immun Denies wheezing Physical exam (Primary Care) Vital Signs: Physical examination is not performed as visit / consultation today is done over the phone - Telehealth visit All physical findings indicated here, if present, are as per patient's and / or caregivers / proxy's report Tobacco/Smoking Status: Tobacco use Status Tobacco use date assessed 12/03/22 04/03/23 13:39 Patient Tobacco Use Status Never used Tobacco 04/03/23 13:39 e-Cigarette/Vaping Use Never Used 04/03/23 13:39 PHQ-9: PHQ-9 Score PHQ-9: Total score 0 04/03/23 13:39 Depression Screening Interpretation: Negative Thrive Assessment: Date of Thrive Assessment Date Thrive assessed 04/03/23 04/03/23 13:39 Currently or been in a relationship where the following occur: no concerns reported Telehealth Telehealth Location of provider rendering services: practice address Location of patient: address on file Patient Identification confirmed using: Name, : Yes Telehealth method: voice only Patient verbally consented to treatment: Yes Patient verbally consented to billing insurance company: Yes Patient informed of any privacy concerns related to visit: Yes Minutes spent on Phone/Video with Pt.: 23 Results Reviewed Results Reviewed: Laboratory Tests 04/02/23 04/02/23 04/02/23 09:22 09:22 09:39 WBC 7.0 Hgb 13.3 L Hct 38.9 L Plt Count 243 Sodium 134 L Potassium 3.8 Creatinine 0.85 Estimated GFR > 60 Fasting Glucose 92 Hemoglobin A1c % 5.4 Uric Acid Calcium AST ALT 14 Triglycerides 32 Cholesterol 97 LDL Cholesterol, Calc 52 HDL Cholesterol 39 L Vitamin B12 349 25-OH Vitamin D Total 43.8 TSH 1.33 Urine pH 6.5 Ur Specific [place] 1.010 Urine Protein Negative Urine Glucose (UA) Negative Urine Blood Negative 04/02/23 04/02/23 09:39 09:39 WBC Hgb Hct Plt Count Sodium Potassium Creatinine Estimated GFR Fasting Glucose Hemoglobin A1c % Uric Acid 6.6 Calcium 10.1 AST 15 ALT Triglycerides Cholesterol LDL Cholesterol, Calc HDL Cholesterol Vitamin B12 25-OH Vitamin D Total TSH Urine pH Ur Specific [place] Urine Protein Urine Glucose (UA) Urine Blood Assessment and Plan Assessment & Plan (1) Dizziness: Code(s): R42 - Dizziness and giddiness Plan: Is advised that his recent increasing dizziness is most likely related to his Parkinson's disease, which may be progressing Head CT done back in May 2021 came up normal with no acute intracranial abnormality He has been previously advised by cardiology that this may also be related to his low heart rate/cardiac output and he was referred to a correspondence specialist in [place], who started patient on a trial of Spironolactone a few months ago but he could not tolerate Rx Have advised patient that he currently is not on any other medications that could be causing his dizziness, especially since he indicated that his blood pressure has been doing a lot better lately Follow up with cardiology as scheduled; have also advised patient that he may need to reach out to neurology to have them see him earlier for follow up and to help address his issue with increasing dizziness (2) Parkinson's disease: Code(s): G20 - Parkinson's disease Qualifiers: Dyskinesia presence: with dyskinesia Fluctuating manifestations: unspecified whether manifestations fluctuate Qualified Code(s): G20.B1 - Parkinson's disease with dyskinesia, without mention of fluctuations Plan: Continue Carbidopa-Levodopa ER 25-200 mg BID Follow up with neurology as scheduled (3) Multifactorial gait disorder: Code(s): R26.89 - Other abnormalities of gait and mobility Plan: Was seen by neurology for this a few months ago and had EMG and NCV done (4) Cardiomyopathy: Code(s): I42.9 - Cardiomyopathy, unspecified Qualifiers: Cardiomyopathy type: unspecified Qualified Code(s): I42.9 - Cardiomyopathy, unspecified Plan: Cardiac MRI done in October 2021 at [facility] revealed findings consistent with infiltrative cardiomyopathy, 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 Diabetes mellitus complication status: without complication Qualified Code(s): E11.9 - Type 2 diabetes mellitus without complications Plan: HgbA1c remains unchanged at 5.4% on his labs done yesterdat (HgbA1c was also at 5.4% previously) - goal is < 7.0% Reinforced diabetic diet Continue Metformin 1000 mg BID (6) Benign essential hypertension: Code(s): I10 - Essential (primary) hypertension Plan: Reinforced low sodium diet - goal is systolic BP of at least 130 mm or less Continue Metoprolol ER 75 mg QD and Valsartan 40 mg QD (7) Pure hypercholesterolemia: Code(s): E78.00 - Pure hypercholesterolemia, unspecified Plan: Results of his labs done yesterday reviewed and discussed with patient Reinforced low cholesterol diet Continue Atorvastatin 20 mg QD Will recheck his labs and fasting lipids in 4 months for follow up (8) Hyponatremia: Code(s): E87.1 - Hypo-osmolality and hyponatremia Plan: Serum sodium was again slightly low at 134 mmol/L on his recent labs Will continue to monitor this regularly Patient remains asymptomatic and advised again that this is most likely related to one of his psychiatric medications (9) GERD without esophagitis: Code(s): K21.9 - Gastro-esophageal reflux disease without esophagitis Plan: Dietary restrictions reinforced Continue Famotidine 20 mg BID PRN (10) Constipation: Code(s): K59.00 - Constipation, unspecified Qualifiers: Constipation type: unspecified constipation type Qualified Code(s): K59.00 - Constipation, unspecified Plan: Encouraged increased oral fluids and dietary fiber Continue Senna 8.6 mg 1-2 tablets once a day as needed (11) Insomnia: Code(s): G47.00 - Insomnia, unspecified Qualifiers: Insomnia type: unspecified Qualified Code(s): G47.00 - Insomnia, unspecified Plan: Sleep hygiene reinforced States that his Seroquel at bedtime has been helping with his sleep (12) Anxiety: Code(s): F41.9 - Anxiety disorder, unspecified Plan: Continue Clonazepam 0.5 mg twice a day (13) Bipolar depression: Code(s): F31.9 - Bipolar disorder, unspecified Plan: Continue Quetiapine 50 mg Q HS Follow-up with Psychiatry as scheduled (14) Paranoid schizophrenia: Code(s): F20.0 - Paranoid schizophrenia Plan: Continue Benztropine 1 mg BID, Risperidone 2 mg BID and Quetiapine 50 mg Q HS Follow up with psychiatry as scheduled Plan Follow up in 4 months Orders: Orders Comprehensive Dixon. Panel Fast 4 Months E78.00 - Pure hypercholesterolemia, unspecified TSH reflex Free T4 4 Months E78.00 - Pure hypercholesterolemia, unspecified UA CC w/rflx Micro + Cult 4 Months R30.0 - Dysuria Hemoglobin A1c 4 Months E11.9 - Type 2 diabetes mellitus without complications Microalbumin, Random (w Creat) 4 Months E11.9 - Type 2 diabetes mellitus without complications Vitamin D 25-OH Total 4 Months E55.9 - Vitamin D deficiency, unspecified Complete Blood Count Auto Diff 4 Months I10 - Essential (primary) hypertension Lipid Panel 4 Months E78.00 - Pure hypercholesterolemia, unspecified Magnesium 4 Months E83.42 - Hypomagnesemia Coding Level of Care Code Tele Est Pt Level 4 (09247) Diagnoses Dizziness R42 Parkinson's disease with dyskinesia, unspecified whether manifestations fluctuate G20.B1 Dyskinesia presence: with dyskinesia Fluctuating manifestations: unspecified whether manifestations fluctuate Multifactorial gait disorder R26.89 Cardiomyopathy, unspecified type I42.9 Cardiomyopathy type: unspecified Type 2 diabetes mellitus without complication, without long-term current use of insulin E11.9 Diabetes mellitus type: type 2 Diabetes mellitus 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
== END 2023-04-03 15:18 | disposition home or self-care (01) ==
LOC: HO.HMGH 13:37
PROVIDERS: PCP Internal Medicine; Visit Provider Internal Medicine
DX: R42 Dizziness and giddiness (principal); I42.9 Cardiomyopathy, unspecified; E11.9 Type 2 diabetes mellitus without complications; F31.9 Bipolar disorder, unspecified; F20.0 Paranoid schizophrenia; G20.B1 Parkinson's disease with dyskinesia, without mention of fluctuations; R26.89 Other abnormalities of gait and mobility; I10 Essential (primary) hypertension; E78.00 Pure hypercholesterolemia, unspecified; K21.9 Gastro-esophageal reflux disease without esophagitis; E87.1 Hypo-osmolality and hyponatremia; K59.00 Constipation, unspecified
CPT/HCPCS: 99443

== ENCOUNTER 2023-04-17 09:11 | Outpatient (AMB) | payer OTHER, SELFPAY ==
[2023-04-17 09:28] VITALS: BP 90/58; PULSE 81; BMI 22.8
--- NOTE | 2023-04-17 09:28 | A.OFFVIS_ITS ---
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 Accompanied by: Family/Other Allergies No Known Allergies [No Known Allergies*] Allergy (Verified 04/17/23 09:30) Medication List - Last Reconciled 04/17/23 by Tato Stover MD apixaban (Eliquis) 5 mg PO BID 90 days atorvastatin 20 mg PO DAILY 90 days blood pressure monitor As directed carbidopa-levodopa 50-200 mg ER 1 tab PO BID clonazepam 0.5 mg PO BEDTIME PRN metformin 1,000 mg PO BID metoprolol succinate ER (Toprol XL) 100 mg PO DAILY multivitamin 1 tab PO DAILY risperidone 2 mg PO BID spironolactone 25 mg PO DAILY valsartan 40 mg PO BID HPI HPI Comments History of Present Illness Details True returns for follow-up regarding cardiomyopathy. In the past, he presented to the hospital with atrial fibrillation and rapid rate. In that context, echocardiogram with severe LV dysfunction. Underwent cardiac catheterization that did not show any significant coronary disease. Then he underwent further workup including cardiac MRI that showed infiltrative disease. Referred to [facility] heart failure service where he has been following for the last year. It seems that he underwent workup for sarcoid but that was also negative. His meds are optimized for cardiomyopathy. Now he returns for a visit. Overall, he states he feels just about the same. He has had dizziness for a long time and that just feels about the same as before. Otherwise, no clear cardiac symptoms. Has a background of bipolar depression, paranoid schizophrenia Parkinson's but according to family, these are under good control. [facility] Medical History PAF (paroxysmal atrial fibrillation) Dizziness Paranoid schizophrenia Bipolar depression Anxiety Insomnia Constipation Parkinson's disease GERD without esophagitis Hyponatremia Pure hypercholesterolemia Benign essential hypertension Diabetes mellitus Surgical History History of extraction of renal calculus Family History Father Parkinson disease Mother Stomach cancer Social History Housing: House Alcohol intake: never Patient Tobacco Use Status: Never used Tobacco e-Cigarette/Vaping Use: Never Used Second Hand Smoke Exposure: No service: No Current occupational status: retired Cognitive needs: No Hearing needs: No Vision needs: Yes (reading glasses) Review of Systems Const Denies weakness Card Denies chest pain, Denies chest pain with activity, Denies syncope, Denies rapid heart rate, Denies pedal edema, Denies edema, Denies leg edema, Denies lightheadedness, Denies palpitations, Denies dyspnea, Denies dyspnea on exertion and Denies orthopnea Resp Denies cough, Denies dyspnea and Denies dyspnea on exertion GI Denies hematochezia and Denies change in stool character Musc Denies abnormal gait, Denies muscle cramps, Denies muscle weakness, Denies numbness, Denies radiating pain into limb and Denies tingling Neuro Denies abnormal gait, Denies syncope, Denies numbness, Denies tingling and Denies weakness Endo Denies palpitations Physical Exam Vital Signs: Last Vital Signs Pulse 81 04/17/23 09:28 BP 90/58 L 04/17/23 09:28 BMI result Body Mass Index 22.8 Const General: comfortable and no acute distress Orientation/consciousness: patient oriented x3 HEENT Other: Unremarkable Head: Yes normal to inspection Neck Neck: Yes normal visual inspection Chest Chest palpation & inspection: normal inspection of the chest Resp Auscultation: clear to auscultation bilaterally Cardio Palpation: normal PMI Heart sounds: S1 normal heart sound present, S2 normal heart sound present, no gallops, no murmurs and no rubs GI Palpation (GI): Soft to palpation Back/Spine/Pelvis Other: unremarkable Skin General skin exam: no rashes or lesions noted Neuro General: patient oriented x3 Extrem General: Yes normal to inspection Psych Mental Status: mental status grossly normal Assessment & Plan Assessment & Plan (1) Cardiomyopathy: Code(s): I42.9 - Cardiomyopathy, unspecified Qualifiers: Cardiomyopathy type: unspecified Qualified Code(s): I42.9 - Cardiomyopathy, unspecified Plan: In the most recent echocardiogram LVEF 20-30%. Overall, has been low for a while. No significant CAD on cardiac catheterization. Cardiac MRI with suggestion of infiltrative cardiomyopathy, either sarcoid or amyloid. Possible myocarditis. PET-CT scan shows no evidence of sarcoidosis. He is being actively followed by heart failure service. No change with medications. ICD was discussed in the past but it does not want it. (2) Hypotension: Code(s): I95.9 - Hypotension, unspecified Plan: Chronic issue. No further up titration of meds. (3) PAF (paroxysmal atrial fibrillation): Code(s): I48.0 - Paroxysmal atrial fibrillation Plan: Continue beta-blockers and anticoagulation. (4) Dizziness: Code(s): R42 - Dizziness and giddiness Plan: Longstanding and probably not cardiac. Plan Discussed with brother who came for appointment. Coding Level of Care Code Est Pt Level 4 (01578) Diagnoses Cardiomyopathy, unspecified type I42.9 Cardiomyopathy type: unspecified Hypotension I95.9 PAF (paroxysmal atrial fibrillation) I48.0 Dizziness R42
== END 2023-04-17 10:03 | disposition home or self-care (01) ==
PROVIDERS: PCP Internal Medicine; Visit Provider Internal Medicine
DX: I42.9 Cardiomyopathy, unspecified (principal); I95.9 Hypotension, unspecified; I48.0 Paroxysmal atrial fibrillation; R42 Dizziness and giddiness
CPT/HCPCS: 99214

== ENCOUNTER → 2023-04-17 09:11 | Outpatient (BNVA) | payer OTHER, SELFPAY | PROVIDERS: PCP Internal Medicine; Visit Provider Internal Medicine ==

== ENCOUNTER 2023-04-27 12:43 | Emergency (ER) | payer OTHER, SELFPAY ==
[2023-04-27 12:58] VITALS: BP 101/62; BP 128/88; PULSE 68; PULSE 70; RESP 17; TEMP 36.4; O2SAT 96; BMI 22.8
--- NOTE | 2023-04-27 13:24 | ECG_ITS ---
Test Reason : WEAKNESS Blood Pressure : / mmHG Vent. Rate : 062 BPM Atrial Rate : 062 BPM P-R Int : 164 ms QRS Dur : 102 ms QT Int : 412 ms P-R-T Axes : 059 -51 -14 degrees QTc Int : 418 ms Poor data quality Sinus rhythm with occasional Premature ventricular complexes Left anterior fascicular block Minimal voltage criteria for LVH, may be normal variant ( [place] product ) Abnormal ECG When compared with ECG of 16-MAY-2021 14:22, Poor data quality in current ECG precludes serial comparison Referred By: Marie Fu Electronically Signed By:MALGORZATA WILKES MD
[2023-04-27 14:01] LABS: MANUAL DIFF FLAG NO
--- NOTE | 2023-04-27 14:03 | ED.WEAKNESS ---
HPI - Weakness General Chief complaint: Weakness Stated complaint: WEAKNESS LIGHT HEADED Time Seen by Provider: 04/27/23 13:23 Source: patient Mode of arrival: EMS History of Present Illness HPI Narrative: 68-year-old male with multiple medical comorbidities comes in via EMS with complaints of increasing weakness over the past couple of days but denies any fevers, chills, nausea, vomiting, GI or symptoms. Family members at bedside and states that he has chronic dizziness as well as visual changes but has recently been started on a nighttime sleep aid. Related Data Home Medications Medication Instructions Recorded Confirmed clonazepam 0.5 mg tablet 0.5 mg PO BEDTIME PRN Sleep 04/08/20 04/17/23 multivitamin 1 tab PO DAILY 05/15/21 04/17/23 carbidopa ER 50 mg-levodopa 200 mg 1 tab PO BID 06/19/21 04/17/23 tablet,extended release risperidone 2 mg tablet 2 mg PO BID 07/26/21 04/17/23 spironolactone 25 mg tablet 25 mg PO DAILY 12/10/22 04/17/23 valsartan 40 mg tablet 40 mg PO BID 04/17/23 04/17/23 Previous Rx's Medication Instructions Recorded blood pressure monitor #1 ea 02/07/21 apixaban 5 mg tablet (Eliquis) 5 mg PO BID 90 days #180 tabs 12/31/22 metoprolol succinate 100 mg 100 mg PO DAILY #90 tabs 12/31/22 tablet,extended release 24 hr (Toprol XL) atorvastatin 20 mg tablet 20 mg PO DAILY 90 days #90 tabs 01/12/23 metformin 1,000 mg tablet 1,000 mg PO BID #180 tabs 04/14/23 trazodone 50 mg tablet 50 mg PO BEDTIME PRN sleep #30 tabs 04/19/23 Allergies Allergy/AdvReac Type Severity Reaction Status Date / Time No Known Allergies Allergy Verified 04/17/23 09:30 [No Known Allergies*] Review of Systems Review of Systems: Pertinent positives and negatives as stated in the HPI [facility] Past Medical History Source: nursing notes reviewed Medical History PAF (paroxysmal atrial fibrillation) Dizziness Paranoid schizophrenia Bipolar depression Anxiety Insomnia Constipation Parkinson's disease GERD without esophagitis Hyponatremia Pure hypercholesterolemia Benign essential hypertension Diabetes mellitus Surgical History History of extraction of renal calculus Family History Family History Father Parkinson disease Mother Stomach cancer Social History Social History Housing: House Alcohol intake: never Patient Tobacco Use Status: Never used Tobacco Smoked in Last 30 Days: No e-Cigarette/Vaping Use: Never Used Second Hand Smoke Exposure: No Use of substances other than those prescribed or required for medical reasons: No Any prior treatment program specific to substance use: No Advance Directives: No Advance Directives Information Provided: No service: No Current occupational status: retired Cognitive needs: No Hearing needs: No Vision needs: Yes (reading glasses) Physical Exam Vital Signs: Vital Signs: Last Vital Signs Temp 97.5 F 04/27/23 12:58 Pulse 70 04/27/23 12:58 Resp 17 04/27/23 12:58 BP 101/62 04/27/23 12:58 Pulse Ox 96 04/27/23 12:58 O2 Del Method Room Air 04/27/23 12:58 BMI result Body Mass Index 22.8 VITAL SIGNS: Reviewed. GENERAL: Chronically ill, well nourished, in no acute distress. HEAD: Normocephalic/atraumatic EYES: PERRLA, EOMI EARS: Ext canals without abnormality, TMs non-bulging and non-erythematous NOSE: Nares patent bilateral OROPHARYNX: no oral lesions noted, posterior pharynx clear NECK: Supple, no adenopathy LUNGS: Normal breath sounds. No adventitious sounds or accessory muscle use. SpO2<96> CARDIOVASCULAR: Regular rate and rhythm without noted murmurs ABDOMEN: Soft, non-tender, non-distended with bowel sounds. MUSCULOSKELETAL: No tenderness, deformities, or effusions noted on gross inspection. EXTREMITIES: No cyanosis, clubbing or edema. SKIN: Inspection of the skin reveals no rashes NEUROLOGIC: Alert and oriented x 4. Strength and sensation to light touch were grossly intact x 4, but patient is quite debilitated secondary to Parkinson's disease. Medical Decision Making Medical Decision Making MDM Narrative: 68-year-old male with history and clinical presentation, DDX: Viral syndrome, infection, UTI Reviewed all investigations and hematologic indices are negative for leukocytosis/left shift/thrombocytopenia and there is a stable normocytic anemia. Coagulation studies are consistent with underlying medications. Chemistry indices do not demonstrate and KEE and denies any electrolyte or liver enzyme derangements. High sensitivity troponin is stable-detectable without acute changes on EKG in no complaints of chest pain. Viral testing is negative for COVID-19/influenza. Urinalysis is negative for UTI or hematuria. My interpretation is patient has increased fatigue and weakness is likely secondary to new sleep aid and my recommendation to both the patient and his family is that he should stop the sleep base at this time and try melatonin. Both patient and family members agree with this plan. Differential Diagnosis Differential Diagnoses: The differential diagnosis associated with the presentation includes Please see the discussion above Admission/Observation Consideration of admission/observation: Escalation of care including admission/observation considered Please see the discussion above Lab Data MDM Lab Attestation statement: I reviewed the patient's lab results. Please see the discussion above 04/27/23 13:56 04/27/23 13:56 Labs: Lab Results 04/27/23 04/27/23 Range/Units 13:56 15:19 WBC 6.2 (4.8-10.8) X10*3/uL RBC 4.20 L (4.60-5.80) X10*6/uL Hgb 13.2 L (14.0-18.0) g/dl Hct 37.8 L (42.0-52.0) % MCV 90.0 (80.0-98.0) fL MCH 31.4 (27.0-33.0) pg MCHC 34.9 (31.0-36.0) g/dl RDW 12.4 (11.0-16.0) % Plt Count 251 (160-400) X10*3/uL MPV 10.0 (9.4-12.4) fL Immature Gran % (Auto) 0.2 (0.0-0.4) % Neut % (Auto) 66.8 (45-73) % Lymph % (Auto) 21.1 (20-40) % [place] % (Auto) 10.3 (2-11) % Eos % (Auto) 0.8 (0-4) % Baso % (Auto) 0.8 (0-2) % Lymph # (Auto) 1.3 (1.2-4.9) X10*3/uL [place] # (Auto) 0.6 (0.1-1.2) X10*3/uL Eos # (Auto) 0.1 (0.0-0.4) X10*3/uL Baso # (Auto) 0.1 (0.0-0.2) X10*3/uL Abs Immat Gran (auto) 0.01 (0.00-0.03) X10*3/uL Absolute Neuts (auto) 4.2 (2.0-8.3) x10*3/uL Absolute Nucleated RBC 0.000 (0.0-0.012) X10*3/uL Nucleated RBC % (auto) 0.0 (0.0-0.2) /100WBC PT 19.2 H (11.1-13.3) SEC INR 1.6 H (0.9-1.1) Sodium 134 L (135-145) mmol/L Potassium 4.4 (3.3-5.1) mmol/L Chloride 101 (96-108) mmol/L Carbon Dioxide 24 (22-29) mmol/L Anion Gap 13 (12-20) BUN 19 H (9-16) mg/dL Creatinine 0.83 (0.5-1.4) mg/dL Estim Creat Clear Calc 86.5 Estimated GFR > 60 Random Glucose 76 (60-115) mg/dL Calcium 10.2 (8.4-10.2) mg/dL Total Bilirubin 0.5 (0.0-1.0) mg/dL AST 16 (5-37) U/L ALT 6 (0-40) U/L Alkaline Phosphatase 38 L (39-117) U/L Troponin I High Sens 16.5 (<3.5-35.0) ng/L Total Protein 6.9 (6.5-8.0) g/dL Albumin 4.3 (3.5-5.0) g/dL Urine Color Yellow Urine Appearance Clear Urine pH 6.5 (5.0-9.0) Ur Specific [place] 1.015 (1.005-1.025) Urine Protein Negative (Neg-Trace) mg/dL Urine Glucose (UA) Negative (Negative) mg/dL Urine Ketones Negative (Negative) mg/dL Urine Blood Negative (Negative) Urine Nitrite Negative (Negative) Ur Leukocyte Esterase Negative (Negative) COVID-19 (SWETA) Negative (Negative) COVID-19 Clin Com See Note Influenza Type A (DOMENIC) Negative (Negative) Influenza Type B (DOMENIC) Negative (Negative) Influenza A & B Note See Note Independent Interpretation I performed an independent interpretation of an: EKG Interpretation: Sinus rhythm, HR-62, no STEMI, NM/QRS/QTC is within normal limits. External Record Review External record reviewed: Outpatient record, Prior outpatient labs and Prior outpatient radiology Critical Care Time Critical Care Time Critical Care Time: Yes Total Critical Care Time: 30 Attestation: I personally attest to this time spent taking care of the patient. Discharge Plan Discharge Clinical Impression: Weakness, Medication side effect Patient Disposition: Home, Self-Care Instructions: Weakness (ED) Additional Instructions: 1. Resume all home medications except the sleep aid. Recommend trying melatonin which is available [id number]. 2. Recommend opening discussions regarding increased level of care. 3. Please follow-up with primary care doctor on Saturday. Return to the ER for any worsening symptoms. Prescriptions: No Action Eliquis 5 mg tablet 5 mg PO BID 90 Days Qty: 180 3RF metoprolol succinate [Toprol XL] 100 mg tablet extended release 24 hr 100 mg PO DAILY Qty: 90 3RF atorvastatin 20 mg tablet 20 mg PO DAILY 90 Days Qty: 90 3RF metformin 1,000 mg tablet 1,000 mg PO BID Qty: 180 0RF trazodone 50 mg tablet 50 mg PO BEDTIME PRN (Reason: sleep) Qty: 30 1RF multivitamin Tablet 1 tab PO DAILY clonazepam 0.5 mg tablet 0.5 mg PO BEDTIME PRN (Reason: Sleep) (DME) blood pressure monitor Kit See Rx Instructions .Route Qty: 1 0RF Rx Instructions: As directed carbidopa-levodopa 50-200 mg tablet extended release 1 tab PO BID risperidone 2 mg tablet 2 mg PO BID spironolactone 25 mg tablet 25 mg PO DAILY valsartan 40 mg tablet 40 mg PO BID Referrals: Lavon Roca MD [Primary Care Provider] -
[2023-04-27 14:09] LABS: INTERNATIONAL NORM RATIO 1.6 (0.9-1.1); Prothrombin Time 19.2 SEC (11.1-13.3)
[2023-04-27 14:17] LABS: Alanine Aminotransferase 6 U/L (0-40); Albumin Level 4.3 g/dL (3.5-5.0); Alkaline Phosphatase 38 U/L (39-117); Anion Gap 13 (12-20); Aspartate Amino Transferase 16 U/L (5-37); Bilirubin Total 0.5 mg/dL (0.0-1.0); Blood Urea Nitrogen 19 mg/dL (9-16); Calcium 10.2 mg/dL (8.4-10.2); Carbon Dioxide 24 mmol/L (22-29); Chloride 101 mmol/L (96-108); Creatinine Clr Calc Pharmacy 86.5; Estimated Glomerular Filt Rate > 60; Glucose Random 76 mg/dL (60-115); Potassium 4.4 mmol/L (3.3-5.1); Sodium 134 mmol/L (135-145); Total Protein 6.9 g/dL (6.5-8.0)
[2023-04-27 14:20] LABS: COVID-19 Test Negative (Negative); IDNOW Serial# 08D9AD1C; IDNOW Serial# BCCEAD1C; Influenza A Negative (Negative); Influenza B2 Negative (Negative)
[2023-04-27 14:24] LABS: Troponin-I High Sensitivity 16.5 ng/L (<3.5-35.0)
[2023-04-27 14:32] LABS: Basophils Absolute Auto 0.1 X10*3/uL (0.0-0.2); Basophils Percent Auto 0.8 % (0-2); Eosinophils Absolute Auto 0.1 X10*3/uL (0.0-0.4); Eosinophils Percent Auto 0.8 % (0-4); Hematocrit 37.8 % (42.0-52.0); Hemoglobin 13.2 g/dl (14.0-18.0); Imm Gran Abs Auto 0.01 X10*3/uL (0.00-0.03); Imm Gran Pct Auto 0.2 % (0.0-0.4); Lymphocytes Absolute Auto 1.3 X10*3/uL (1.2-4.9); Lymphocytes Percent Auto 21.1 % (20-40); Mean Corpuscular HGB Conc 34.9 g/dl (31.0-36.0); Mean Corpuscular Hemoglobin 31.4 pg (27.0-33.0); Monocytes Absolute Auto 0.6 X10*3/uL (0.1-1.2); Monocytes Percent Auto 10.3 % (2-11); Neutrophils Absolute Auto 4.2 x10*3/uL (2.0-8.3); Neutrophils Percent Auto 66.8 % (45-73); Platelet Count 251 X10*3/uL (160-400); Red Cell Distribution Width 12.4 % (11.0-16.0); White Blood Count 6.2 X10*3/uL (4.8-10.8)
[2023-04-27 15:33] LABS: Appearance Urine Clear; Color Urine Yellow; Glucose Urine UA Negative (Negative); Leukocyte Esterase Urine Negative (Negative); Nitrite Urine Negative (Negative); PH 6.5 (5.0-9.0); Specific Gravity - Urine 1.015 (1.005-1.025); Urine Blood Negative (Negative); Urine Ketones Negative (Negative); Urine Protein Negative (Neg-Trace)
== END 2023-04-27 16:00 | disposition home or self-care (01) ==
PROVIDERS: Emergency Provider Student in an Organized Health Care Education/Training Program; PCP Internal Medicine
DX: R53.1 Weakness (principal); T50.905A Adverse effect of unspecified drugs, medicaments and biological substances, initial encounter; Y92.9 Unspecified place or not applicable; I48.0 Paroxysmal atrial fibrillation; G20.A1 Parkinson's disease without dyskinesia, without mention of fluctuations; I10 Essential (primary) hypertension; E11.9 Type 2 diabetes mellitus without complications; Z11.52 Encounter for screening for COVID-19
CPT/HCPCS: 51701; 80053; 81003; 84484; 85025; 85610; 87502; 87635; 93005; 99283; 99284

== ENCOUNTER → 2023-04-27 13:24 | Outpatient (BNV) | payer OTHER, SELFPAY | PROVIDERS: Emergency Provider Student in an Organized Health Care Education/Training Program; PCP Internal Medicine; Visit Provider Internal Medicine Cardiovascular Disease | DX: R53.1 Weakness (principal) | CPT/HCPCS: 93010 ==

== ENCOUNTER 2023-08-02 08:10 | Outpatient (REF) | payer OTHER, SELFPAY ==
[2023-08-02 08:30] LABS: Hemoglobin 13.4 g/dl (14.0-18.0); Mean Corpuscular HGB Conc 35.3 g/dl (31.0-36.0); Mean Corpuscular Hemoglobin 31.8 pg (27.0-33.0); Mean Corpuscular Volume 90.3 fL (80.0-98.0); Mean Platelet Volume 9.5 fL (9.4-12.4); Platelet Count 228 X10*3/uL (160-400); Red Blood Count 4.21 X10*6/uL (4.60-5.80); Red Cell Distribution Width 12.3 % (11.0-16.0); White Blood Count 7.7 X10*3/uL (4.8-10.8)
[2023-08-02 08:38] LABS: Estimated Average Glucose 105 mg/dL; Hemoglobin A1c % 5.3 % (<6.0)
[2023-08-02 09:01] LABS: Alanine Aminotransferase 5 U/L (0-40); Albumin Level 4.2 g/dL (3.5-5.0); Alkaline Phosphatase 43 U/L (39-117); Anion Gap 12 (12-20); Aspartate Amino Transferase 17 U/L (5-37); Bilirubin Total 0.8 mg/dL (0.0-1.0); Blood Urea Nitrogen 15 mg/dL (9-16); Calcium 9.8 mg/dL (8.4-10.2); Carbon Dioxide 27 mmol/L (22-29); Chloride 97 mmol/L (96-108); Cholesterol 103 mg/dL (<200); Estimated Glomerular Filt Rate > 60; Glucose Fasting 96 mg/dL (60-99); HDL Cholesterol 48 mg/dL (>40); LDL Cholesterol Calculated 48 mg/dL (<100); Potassium 3.9 mmol/L (3.3-5.1); Sodium 132 mmol/L (135-145); Triglycerides 38 mg/dL (<150)
[2023-08-02 09:04] LABS: Magnesium 1.4 mg/dL (1.6-2.6)
[2023-08-02 09:15] LABS: TSH reflex Free T4 1.65 uIU/mL (0.32-4.0); Vitamin D 25-OH Total 44.7 ng/mL (>30)
[2023-08-02 09:36] LABS: Appearance Urine Clear; Color Urine Yellow; Glucose Urine UA Negative (Negative); Leukocyte Esterase Urine Negative (Negative); Nitrite Urine Negative (Negative); Specific Gravity - Urine <= 1.005 (1.005-1.025); Urine Blood Negative (Negative); Urine Ketones Negative (Negative); Urine Protein Negative (Neg-Trace)
[2023-08-02 09:51] LABS: Atypical Lymph Absolute Manual 0.1 x10*3/uL; Atypical Lymphs Percent Manual 1 % (0-6); Band Neutrophils Percent 1 % (3-5); Basophils Abs Manual 0.1 X10*3/uL (0.0-0.2); Basophils Percent Manual 1 % (0-2); Eosinophils Absolute Manual 0.2 X10*3/uL (0.0-0.4); Eosinophils Percent Manual 3 % (0-4); Lymphocytes Absolute Manual 1.4 X10*3/uL (1.2-4.9); Lymphocytes Percent Manual 18 % (20-40); Metamyelocytes Absolute 0.2 X10*3/uL; Metamyelocytes Percent 2 %; Monocytes Absolute Manual 0.6 X10*3/uL (0.1-1.2); Monocytes Percent Manual 8 % (2-11); Neutrophils Absolute Manual 5.2 X10*3/uL (2.0-8.3); Neutrophils Percent Manual 66 % (45-73); Platelet Estimate NORMAL (NORMAL); Platelet Morphology Comment NORMAL; RBC Morphology NORMAL
[2023-08-02 10:10] LABS: Creatinine Urine 35.97 mg/dL; Microalbumin Urine < 5.0 mg/L
== END 2023-08-02 08:11 | disposition home or self-care (01) ==
LOC: HO.LAB 08:10
PROVIDERS: PCP Internal Medicine; Visit Provider Internal Medicine
DX: E78.00 Pure hypercholesterolemia, unspecified (principal); E11.9 Type 2 diabetes mellitus without complications; E55.9 Vitamin D deficiency, unspecified; R30.0 Dysuria
CPT/HCPCS: 36415; 80053; 80061; 81003; 82043; 82306; 82570; 83036; 83735; 84443; 85007; 85027

== ENCOUNTER 2023-08-02 14:07 | Outpatient (AMB) | payer OTHER, SELFPAY ==
--- NOTE | 2023-08-02 14:12 | MHC.PC.OV ---
Vital Signs 08/02/23 14:18 Height 5 ft 9 in Weight 161 lb BMI 23.8 BP 124/72 Blood Pressure Location Lt brachial Position Sitting Pulse 70 Pulse Source Pulse Oximeter Pulse Oximetry (%) 98 Oxygen Delivery Method Room Air Intake Visit Reasons: 4mth f/u Intake Note: Patient is here to follow up on HTN, DM, PAF. 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 Allergies No Known Allergies [No Known Allergies*] Allergy (Verified 11/25/23 09:05) Medication List - Last Reconciled 11/25/23 by Lavon Roca MD apixaban (Eliquis) 5 mg PO BID 90 days atorvastatin 20 mg PO DAILY 90 days benztropine 1 mg PO BEDTIME blood pressure monitor As directed carbidopa-levodopa 25-100 mg 1 tab PO TID clonazepam 0.5 mg PO BEDTIME PRN meclizine 25 mg (1/2 x 50 mg) PO BID PRN metformin 1,000 mg PO BID metoprolol succinate ER (Toprol XL) 100 mg PO DAILY multivitamin 1 tab PO DAILY valsartan 40 mg PO BID Tobacco use date assessed: 08/02/23 Fall risk assessment: No Falls in past year Last assessed Fall Risk: 08/02/23 Dental Screening Dental Screen Date: 08/02/23 Did you have a dental visit in the last 12 months?: Yes Did you have a dental problem in the last 6 months where you did not have access to dental care?: No Was dental information given to patient?: Patient has [facility] H[facility] Details Patient comes in today for his follow up visit States that he feels okay He denies any headaches but continues to complain of persistent dizziness He takes Meclizine PRN but states that the Rx does not really help much Also still has some trouble swallowing his meds but he denies any problems swallowing when he is eating or drinking He denies any chest pains, no increased SOB - still gets SOB easily with any activity No nausea/vomiting, no abdominal pain No change in bowel habits noted He had his follow up labs done earlier this morning - to discuss his results [facility] Medical History PAF (paroxysmal atrial fibrillation) Dizziness Paranoid schizophrenia Bipolar depression Anxiety Insomnia Constipation Parkinson's disease GERD without esophagitis Hyponatremia Pure hypercholesterolemia Benign essential hypertension Diabetes mellitus Surgical History History of extraction of renal calculus Family History Father Parkinson disease Mother Stomach cancer Social History Housing: House Alcohol intake: never Patient Tobacco Use Status: Never used Tobacco e-Cigarette/Vaping Use: Never Used Second Hand Smoke Exposure: No service: No Current occupational status: retired Cognitive needs: Yes (walker) Hearing needs: No Vision needs: Yes (reading glasses) Questionnaire PHQ-9 Over the last 2 weeks, how often have you been bothered by any of the following problems? 1. Little interest or pleasure in doing things: not at all 2. Feeling down, depressed, or hopeless: not at all 3. Trouble falling or staying asleep, or sleeping too much: not at all 4. Feeling tired or having little energy: not at all 5. Poor appetite or overeating: not at all 6. Feeling bad about yourself - or that you are a failure or have let yourself or your family down: not at all 7. Trouble concentrating on things, such as reading the newspaper or watching television: not at all 8. Moving or speaking so slowly that other people could have noticed. Or the opposite - being so fidgety or restless that you have been moving around a lot more than usual: not at all 9. Thoughts that you would be better off or of hurting yourself in some way: not at all Total score: 0 Depression Screening Interpretation: Negative Depression Screening Done: Yes 23089 - PHQ-9 Billing: Yes Source: Developed by Drs. Carlos Alberto Steele, Zahra Chung, Rm Madison and colleagues, with an educational william from [employer]. Thrive Questionnaire Date Thrive assessed: 08/02/23 I am a: Patient What is your living situation today?: I have a steady place to live Within the past 12 months, did the food you bought not last and you didn't have the money to get more?: Never true Within the past 12 months, did you worry whether your food would run out before you got money to buy more?: Never true Do you have trouble paying for medicines?: No Do you have trouble getting transportation to medical appointments?: No Do you have trouble paying your heating and electricity bill?: No Do you have trouble taking care of your child, family member or friend?: No Do you have trouble with day-to-day activities such as bathing, preparing meals, shopping, managing finances, etc.?: No Are you currently unemployed and looking for a job?: No Are you interested in more education?: No Currently or been in a relationship where the following occur: no concerns reported THRIVE Score: 0 AUDIT C Alcohol Use Questionnaire (AUDIT-C) 1. How often do you have a drink containing alcohol?: Never 3. How often do you have six or more drinks on one occasion?: Never Total Score: 0 Score Reviewed/Action Taken: Yes JOSÉ MIGUEL-7 AMB Questionnaire JOSÉ MIGUEL-7 Date JOSÉ MIGUEL - 7 assessed: 08/02/23 Feeling nervous, anxious, or on edge: 0 = Not at all Not being able to stop or control worryin = Not at all Worrying too much about different things: 0 = Not at all Trouble relaxin = Not at all Being so restless that it is hard to sit still: 0 = Not at all Becoming easily annoyed or irritable: 0 = Not at all Feeling afraid as if something awful might happen: 0 = Not at all Total JOSÉ MIGUEL-7 score (0-4 normal; 5-9 mild; 10-14 moderate; 15-21 severe): 0 Source: Developed by Drs. Carlos Alberto Steele, Zahra Chung, Rm Madison and colleagues, with an educational william from [employer]. Review of Systems Const Denies chills, Reports difficulty sleeping, Reports fatigue, Denies fever(s) and Denies headache(s) ENT Reports dysphagia (only when he is taking his meds), Reports dizziness (persistent), Denies otalgia, Denies headache(s), Denies neck pain, Denies odynophagia and Denies sore throat Card Denies chest pain, Denies palpitations and Reports dyspnea on exertion (mild) Resp Denies cough, Reports dyspnea on exertion (mild) and Denies wheezing GI Denies abdominal pain, Denies constipation, Reports dysphagia (only when he is taking his meds), Denies heartburn, Denies diarrhea, Denies nausea, Denies odynophagia and Denies vomiting Denies dysuria, Denies nocturia and Denies urinary frequency Musc Reports abnormal gait (right leg feels weak at times and twitchy; feels unsteady due to dizziness), Denies back pain and Denies neck pain Skin/Breast Denies rash Neuro Reports abnormal gait (right leg feels weak at times and twitchy; feels unsteady due to dizziness), Reports dizziness (persistent), Denies headache(s) and Reports tremor(s) (in both hands) Psych Reports anxiety Endo Reports fatigue and Denies palpitations Aller/Immun Denies wheezing Physical exam (Primary Care) Vital Signs: Last Vital Signs Pulse 70 08/02/23 14:18 BP 124/72 08/02/23 14:18 Pulse Ox 98 08/02/23 14:18 Oxygen Delivery Method Room Air 08/02/23 14:18 BMI result Body Mass Index 23.8 Tobacco/Smoking Status: Tobacco use Status Tobacco use date assessed 08/02/23 08/02/23 14:16 Patient Tobacco Use Status Never used Tobacco 08/02/23 14:16 e-Cigarette/Vaping Use Never Used 08/02/23 14:16 PHQ-9: PHQ-9 Score PHQ-9: Total score 0 11/25/23 09:42 Depression Screening Interpretation: Negative Thrive Assessment: Date of Thrive Assessment Date Thrive assessed 08/02/23 08/02/23 14:16 Currently or been in a relationship where the following occur: no concerns reported Const General: no acute distress, alert and anxious Orientation/consciousness: patient oriented x3 HENMT Ears: TM's normal bilaterally and EAC's normal Throat: Yes posterior oropharynx normal and Yes tonsils normal (no TP congestion) Neck Neck: Yes no lymphadenopathy and Yes supple Thyroid: Thyroid normal Resp Auscultation: clear to auscultation bilaterally, no rales and no wheezes Cardio Rate: regular rate Rhythm: regular rhythm Heart sounds: no murmurs GI Palpation (GI): Soft to palpation and nontender Auscultation: normal bowel sounds General: Yes no CVA tenderness Back/Spine/Pelvis Back: no CVA tenderness Thoracic/Lumbar Spine: No lumbar spinal tenderness Skin Rashes: no rashes Neuro General: patient oriented x3 Motor exam (neuro): Tremors during motor activity present ((+) resting tremors noted in both hands) and Other motor observations present ((+) on and off twitching of the right leg) Extrem General: Yes no clubbing, cyanosis or edema Results Reviewed Results Reviewed: Laboratory Tests 08/02/23 08/02/23 08:15 08:19 WBC 7.7 Hgb 13.4 L Hct 38.0 L Plt Count 228 Sodium 132 L Potassium 3.9 Creatinine 0.88 Estimated GFR > 60 Fasting Glucose 96 Hemoglobin A1c % 5.3 Calcium 9.8 Magnesium 1.4 L* AST 17 ALT 5 Triglycerides 38 Cholesterol 103 LDL Cholesterol, Calc 48 HDL Cholesterol 48 25-OH Vitamin D Total 44.7 TSH 1.65 Ur Specific [place] <= 1.005 Urine Protein Negative Urine Glucose (UA) Negative Urine Blood Negative Urine Nitrite Negative Ur Leukocyte Esterase Negative Assessment and Plan Assessment & Plan (1) Dizziness: Code(s): R42 - Dizziness and giddiness Plan: He is again advised that his recent increasing dizziness is most likely related to his Parkinson's disease, which may be progressing Head CT done back in May 2021 came up normal with no acute intracranial abnormality He has been previously advised by cardiology that this may also be related to his low heart rate/cardiac output and he was referred to a nutrient management specialist in [place], who started patient on a trial of Spironolactone a few months ago but he could not tolerate Rx Have advised patient that he is currently not on any other medications that could be causing his dizziness, especially since his blood pressure seems to be doing a lot better lately Follow up with cardiology as scheduled (2) Parkinson's disease: Code(s): G20 - Parkinson's disease Qualifiers: Dyskinesia presence: with dyskinesia Fluctuating manifestations: unspecified whether manifestations fluctuate Qualified Code(s): G20.B1 - Parkinson's disease with dyskinesia, without mention of fluctuations Plan: Continue Carbidopa-Levodopa ER 25-200 mg BID Follow up with neurology as scheduled (3) Multifactorial gait disorder: Code(s): R26.89 - Other abnormalities of gait and mobility Plan: Was seen by neurology for this a few months ago and had EMG and NCV done (4) Cardiomyopathy: Code(s): I42.9 - Cardiomyopathy, unspecified Qualifiers: Cardiomyopathy type: unspecified Qualified Code(s): I42.9 - Cardiomyopathy, unspecified Plan: Cardiac MRI done in October 2021 at [facility] revealed findings consistent with infiltrative cardiomyopathy, 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 There is moderate to severe global hypokinesia with regional variation and abnormal septal motion consistent with conduction abnormality Follow-up with cardiology as scheduled (5) PAF (paroxysmal atrial fibrillation): Code(s): I48.0 - Paroxysmal atrial fibrillation Plan: Patient is currently in sinus rhythm Continue Metoprolol ER 75 mg QD and Apixaban 5 mg BID for thromboembolism prophylaxis Follow up with cardiology as scheduled (6) Diabetes mellitus: Code(s): E11.9 - Type 2 diabetes mellitus without complications Qualifiers: Diabetes mellitus complication status: without complication Diabetes mellitus chcf insulin use: without chcf use Diabetes mellitus type: type 2 Qualified Code(s): E11.9 - Type 2 diabetes mellitus without complications Plan: HgbA1c remains mostly unchanged and normal at 5.3% on his labs done earlier today (HgbA1c was at 5.4% previously) - goal is < 7.0% Reinforced diabetic diet Continue Metformin 1000 mg BID (7) Benign essential hypertension: Code(s): I10 - Essential (primary) hypertension Plan: Reinforced low sodium diet - goal is systolic BP of at least 130 mm or less Continue Metoprolol ER 75 mg QD and Valsartan 40 mg QD (8) Pure hypercholesterolemia: Code(s): E78.00 - Pure hypercholesterolemia, unspecified Plan: Results of his labs done earlier today reviewed and discussed with patient Reinforced low cholesterol diet Continue Atorvastatin 20 mg QD Will recheck his labs and fasting lipids in 4 months for follow up (9) Hyponatremia: Code(s): E87.1 - Hypo-osmolality and hyponatremia Plan: Serum sodium was again slightly low at 132 mmol/L on his recent labs Will continue to monitor this regularly Patient remains asymptomatic; is advised that this is likely related to one of his psychiatric medications (10) GERD without esophagitis: Code(s): K21.9 - Gastro-esophageal reflux disease without esophagitis Plan: Dietary restrictions reinforced Continue Famotidine 20 mg BID PRN (11) Constipation: Code(s): K59.00 - Constipation, unspecified Qualifiers: Constipation type: unspecified constipation type Qualified Code(s): K59.00 - Constipation, unspecified Plan: Encouraged increased oral fluids and dietary fiber Continue Senna 8.6 mg 1-2 tablets once a day as needed (12) Insomnia: Code(s): G47.00 - Insomnia, unspecified Qualifiers: Insomnia type: unspecified Qualified Code(s): G47.00 - Insomnia, unspecified Plan: Sleep hygiene reinforced States that his Seroquel at bedtime has been helping with his sleep (13) Anxiety: Code(s): F41.9 - Anxiety disorder, unspecified Plan: Continue Clonazepam 0.5 mg twice a day (14) Bipolar depression: Code(s): F31.9 - Bipolar disorder, unspecified Plan: Continue Quetiapine 50 mg Q HS Follow-up with Psychiatry as scheduled (15) Paranoid schizophrenia: Code(s): F20.0 - Paranoid schizophrenia Plan: Continue Benztropine 1 mg BID, Risperidone 2 mg BID and Quetiapine 50 mg Q HS Follow up with psychiatry as scheduled Plan Follow up in 4 months Orders: Orders Lipid Panel 4 Months E78.00 - Pure hypercholesterolemia, unspecified Comprehensive [place]. Panel Fast 4 Months E78.00 - Pure hypercholesterolemia, unspecified Coding Level of Care Code Est Pt Level 4 (75078) Diagnoses Dizziness R42 Parkinson's disease with dyskinesia, unspecified whether manifestations fluctuate G20.B1 Dyskinesia presence: with dyskinesia Fluctuating manifestations: unspecified whether manifestations fluctuate Multifactorial gait disorder R26.89 Cardiomyopathy, unspecified type I42.9 Cardiomyopathy type: unspecified PAF (paroxysmal atrial fibrillation) I48.0 Type 2 diabetes mellitus without complication, without long-term current use of insulin E11.9 Diabetes mellitus complication status: without complication Diabetes mellitus long term care phlebotomist insulin use: without long term care phlebotomist use Diabetes mellitus type: type 2 Benign essential hypertension I10 Pure hypercholesterolemia E78.00 Hyponatremia E87.1 GERD without esophagitis K21.9 Constipation, unspecified constipation type K59.00 Constipation type: unspecified constipation type Insomnia, unspecified type G47.00 Insomnia type: unspecified Anxiety F41.9 Bipolar depression F31.9 Paranoid schizophrenia F20.0
[2023-08-02 14:18] VITALS: BP 124/72; PULSE 70; O2SAT 98; BMI 23.8
== END 2023-08-02 15:04 | disposition home or self-care (01) ==
PROVIDERS: PCP Internal Medicine; Visit Provider Internal Medicine
DX: E11.9 Type 2 diabetes mellitus without complications (principal); I42.9 Cardiomyopathy, unspecified; I48.0 Paroxysmal atrial fibrillation; F31.9 Bipolar disorder, unspecified; F20.0 Paranoid schizophrenia; R42 Dizziness and giddiness; R26.89 Other abnormalities of gait and mobility; G20.B1 Parkinson's disease with dyskinesia, without mention of fluctuations; I10 Essential (primary) hypertension; E78.00 Pure hypercholesterolemia, unspecified; E87.1 Hypo-osmolality and hyponatremia; K21.9 Gastro-esophageal reflux disease without esophagitis
CPT/HCPCS: 99214

== ENCOUNTER 2023-11-21 08:27 | Outpatient (REF) | payer OTHER, SELFPAY ==
[2023-11-21 08:40] LABS: MANUAL DIFF FLAG NO
[2023-11-21 09:00] LABS: Basophils Absolute Auto 0.1 X10*3/uL (0.0-0.2); Basophils Percent Auto 1.2 % (0-2); Eosinophils Absolute Auto 0.2 X10*3/uL (0.0-0.4); Eosinophils Percent Auto 2.6 % (0-4); Hematocrit 39.1 % (42.0-52.0); Hemoglobin 13.8 g/dl (14.0-18.0); Imm Gran Abs Auto 0.01 X10*3/uL (0.00-0.03); Imm Gran Pct Auto 0.2 % (0.0-0.4); Lymphocytes Absolute Auto 1.4 X10*3/uL (1.2-4.9); Lymphocytes Percent Auto 22.5 % (20-40); Mean Corpuscular HGB Conc 35.3 g/dl (31.0-36.0); Mean Corpuscular Hemoglobin 31.9 pg (27.0-33.0); Mean Corpuscular Volume 90.3 fL (80.0-98.0); Mean Platelet Volume 9.7 fL (9.4-12.4); Monocytes Absolute Auto 0.9 X10*3/uL (0.1-1.2); Monocytes Percent Auto 14.2 % (2-11); Neutrophils Absolute Auto 3.6 x10*3/uL (2.0-8.3); Neutrophils Percent Auto 59.3 % (45-73); Platelet Count 242 X10*3/uL (160-400); Red Blood Count 4.33 X10*6/uL (4.60-5.80); Red Cell Distribution Width 12.7 % (11.0-16.0); White Blood Count 6.1 X10*3/uL (4.8-10.8)
[2023-11-21 09:35] LABS: Alanine Aminotransferase < 5 U/L (0-40); Albumin Level 4.3 g/dL (3.5-5.0); Alkaline Phosphatase 41 U/L (39-117); Anion Gap 15 (12-20); Aspartate Amino Transferase 15 U/L (5-37); Bilirubin Total 0.6 mg/dL (0.0-1.0); Blood Urea Nitrogen 14 mg/dL (9-16); Carbon Dioxide 24 mmol/L (22-29); Chloride 98 mmol/L (96-108); Cholesterol 89 mg/dL (<200); Estimated Glomerular Filt Rate > 60; Glucose Fasting 85 mg/dL (60-99); HDL Cholesterol 40 mg/dL (>40); LDL Cholesterol Calculated 44 mg/dL (<100); Magnesium 1.5 mg/dL (1.6-2.6); Potassium 4.1 mmol/L (3.3-5.1); Sodium 133 mmol/L (135-145); Total Protein 6.8 g/dL (6.5-8.0); Triglycerides 27 mg/dL (<150)
== END 2023-11-21 08:28 | disposition home or self-care (01) ==
LOC: HO.LAB 08:27
PROVIDERS: PCP Internal Medicine; Visit Provider Internal Medicine
DX: I10 Essential (primary) hypertension (principal); E83.42 Hypomagnesemia; E78.00 Pure hypercholesterolemia, unspecified
CPT/HCPCS: 36415; 80053; 80061; 83735; 85025

== ENCOUNTER 2023-11-25 08:50 | Outpatient (AMB) | payer OTHER, SELFPAY ==
--- NOTE | 2023-11-25 08:53 | MHC.PC.OV ---
Vital Signs 11/25/23 08:55 Height 5 ft 9 in Weight 153 lb 4 oz BMI 22.6 BP 100/60 Blood Pressure Location Lt brachial Position Sitting Pulse 54 Pulse Source Pulse Oximeter Pulse Oximetry (%) 95 Oxygen Delivery Method Room Air Intake Visit Reasons: 4 months f/u Intake Note: Patient is here to follow up on DM, PAF, HTN. Site Director Required: No Information Tech: Present Accompanied by: Brother Allergies No Known Allergies [No Known Allergies*] Allergy (Verified 11/25/23 09:05) Medication List - Last Reconciled 11/25/23 by Lavon Roca MD apixaban (Eliquis) 5 mg PO BID 90 days atorvastatin 20 mg PO DAILY 90 days benztropine 1 mg PO BEDTIME blood pressure monitor As directed carbidopa-levodopa 25-100 mg 1 tab PO TID clonazepam 0.5 mg PO BEDTIME PRN meclizine 25 mg (1/2 x 50 mg) PO BID PRN metformin 1,000 mg PO BID metoprolol succinate ER (Toprol XL) 100 mg PO DAILY multivitamin 1 tab PO DAILY valsartan 40 mg PO BID Tobacco use date assessed: 11/25/23 Fall risk assessment: No Falls in past year Last assessed Fall Risk: 11/25/23 Dental Screening Dental Screen Date: 08/02/23 HPI 4 months f/u HPI Details Patient comes in today for his follow up visit States that he feels okay He denies any headaches but continues to complain of persistent dizziness States that the only time he does not feel dizzy is when he is lying down motionless in bed He denies any chest pains, no increased SOB - still gets winded very easily when he is moving about No nausea/vomiting, no abdominal pain No change in bowel habits noted Had his follow up labs done a few days ago - to discuss his results [facility], [facility] Medical History PAF (paroxysmal atrial fibrillation) Dizziness Paranoid schizophrenia Bipolar depression Anxiety Insomnia Constipation Parkinson's disease GERD without esophagitis Hyponatremia Pure hypercholesterolemia Benign essential hypertension Diabetes mellitus Surgical History History of extraction of renal calculus Family History Father Parkinson disease Mother Stomach cancer Social History Housing: House Alcohol intake: never Patient Tobacco Use Status: Never used Tobacco e-Cigarette/Vaping Use: Never Used Second Hand Smoke Exposure: No service: No Current occupational status: retired Cognitive needs: Yes (walker) Hearing needs: No Vision needs: Yes (reading glasses) Questionnaire Thrive Questionnaire Date Thrive assessed: 08/02/23 JOSÉ MIGUEL-7 AMB Questionnaire JOSÉ MIGUEL-7 Date JOSÉ MIGUEL - 7 assessed: 08/02/23 Source: Developed by Drs. Carlos Alberto Steele, Zahra Chung, Rm Madison and colleagues, with an educational william from [employer]. Review of Systems Const Denies chills, Reports difficulty sleeping (takes OTC Melatonin PRN), Reports fatigue, Denies fever(s) and Denies headache(s) ENT Denies dysphagia, Reports dizziness (increasing ), Denies otalgia, Denies headache(s), Denies neck pain, Denies odynophagia and Denies sore throat Card Denies chest pain, Denies palpitations and Reports dyspnea on exertion (mild) Resp Denies cough, Reports dyspnea on exertion (mild) and Denies wheezing GI Denies abdominal pain, Denies constipation, Denies dysphagia, Denies heartburn, Denies diarrhea, Denies nausea, Denies odynophagia and Denies vomiting Denies dysuria, Denies nocturia and Denies urinary frequency Musc Reports abnormal gait (right leg feels weak at times and twitchy; feels unsteady due to dizziness), Denies back pain and Denies neck pain Skin/Breast Denies rash Neuro Reports abnormal gait (right leg feels weak at times and twitchy; feels unsteady due to dizziness), Reports dizziness (increasing ), Denies headache(s) and Reports tremor(s) (in both hands) Psych Reports anxiety Endo Reports fatigue and Denies palpitations Aller/Immun Denies wheezing Physical exam (Primary Care) Vital Signs: Last Vital Signs Pulse 54 11/25/23 08:55 BP 100/60 11/25/23 08:55 Pulse Ox 95 11/25/23 08:55 Oxygen Delivery Method Room Air 11/25/23 08:55 BMI result Body Mass Index 22.6 Tobacco/Smoking Status: Tobacco use Status Tobacco use date assessed 11/25/23 11/25/23 09:02 Patient Tobacco Use Status Never used Tobacco 11/25/23 09:02 e-Cigarette/Vaping Use Never Used 11/25/23 09:02 Thrive Assessment: Date of Thrive Assessment Date Thrive assessed 08/02/23 11/25/23 09:02 Const General: no acute distress, alert and anxious Orientation/consciousness: patient oriented x3 HENMT Ears: TM's normal bilaterally and EAC's normal Throat: Yes posterior oropharynx normal and Yes tonsils normal (no TP congestion) Neck Neck: Yes no lymphadenopathy and Yes supple Thyroid: Thyroid normal Resp Auscultation: clear to auscultation bilaterally, no rales and no wheezes Cardio Rate: regular rate Rhythm: regular rhythm Heart sounds: no murmurs GI Palpation (GI): Soft to palpation and nontender Auscultation: normal bowel sounds General: Yes no CVA tenderness Back/Spine/Pelvis Back: no CVA tenderness Thoracic/Lumbar Spine: No lumbar spinal tenderness Skin Rashes: no rashes Neuro General: patient oriented x3 Motor exam (neuro): Tremors during motor activity present ((+) resting tremors noted in both hands) and Other motor observations present ((+) on and off twitching of the right leg) Extrem General: Yes no clubbing, cyanosis or edema Results AMB Hemoglobin A1c AMB Hemoglobin A1c 5.3 % Last Edit by ANA Pavon on 11/25/23 09:10 Results Reviewed Results Reviewed: Laboratory Tests 08/02/23 11/21/23 08:19 08:38 WBC 7.7 6.1 Hgb 13.4 L 13.8 L Hct 38.0 L 39.1 L Plt Count 228 242 Sodium 133 L Potassium 4.1 Creatinine 0.85 Estimated GFR > 60 Fasting Glucose 85 Calcium 10.0 Magnesium 1.5 L AST 15 ALT < 5 Triglycerides 27 Cholesterol 89 LDL Cholesterol, Calc 44 HDL Cholesterol 40 L Assessment and Plan Assessment & Plan (1) Parkinson's disease: Code(s): G20 - Parkinson's disease Qualifiers: Dyskinesia presence: with dyskinesia Fluctuating manifestations: unspecified whether manifestations fluctuate Qualified Code(s): G20.B1 - Parkinson's disease with dyskinesia, without mention of fluctuations Plan: Continue Carbidopa-Levodopa ER 25-200 mg TID and Benztropine 1 mg Q HS Follow up with neurology (Dr. Desai) as scheduled (2) Dizziness: Code(s): R42 - Dizziness and giddiness Plan: Patient is again advised that his persistent dizziness is most likely related to his Parkinson's disease, which has been slowly progressing Head CT done back in May 2021 came up normal with no acute intracranial abnormality He has been previously advised by cardiology that this may also be related to his low heart rate/cardiac output and he was referred to a cardiac rn in [place], who started patient on a trial of Spironolactone a few months ago but he could not tolerate Rx He is currently not on any medications that could be causing his dizziness Continue Meclizine 25 mg BID PRN Follow up with cardiology and with neurology as scheduled (3) Multifactorial gait disorder: Code(s): R26.89 - Other abnormalities of gait and mobility Plan: He was seen by neurology for this a few months ago and had EMG and NCV done (4) Cardiomyopathy: Code(s): I42.9 - Cardiomyopathy, unspecified Qualifiers: Cardiomyopathy type: unspecified Qualified Code(s): I42.9 - Cardiomyopathy, unspecified Plan: Cardiac MRI done in October 2021 at [facility] revealed findings consistent with infiltrative cardiomyopathy, 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 There is moderate to severe global hypokinesia with regional variation and abnormal septal motion consistent with conduction abnormality Patient has reportedly declined ICD in the past when discussed Follow-up with cardiology as scheduled (5) PAF (paroxysmal atrial fibrillation): Code(s): I48.0 - Paroxysmal atrial fibrillation Plan: Patient is currently in sinus rhythm Continue Metoprolol ER 100 mg QD and Apixaban 5 mg BID for thromboembolism prophylaxis Follow up with cardiology as scheduled (6) Diabetes mellitus: Code(s): E11.9 - Type 2 diabetes mellitus without complications Qualifiers: Diabetes mellitus type: type 2 Diabetes mellitus long-term insulin use: without final inspector balance wheel use Diabetes mellitus complication status: without complication Qualified Code(s): E11.9 - Type 2 diabetes mellitus without complications Plan: His in-office HgbA1c done today remains normal at 5.3% (HgbA1c was at 5.4% when previously checked) - goal is < 7.0% Reinforced diabetic diet Continue Metformin 1000 mg BID (7) Benign essential hypertension: Code(s): I10 - Essential (primary) hypertension Plan: Reinforced low sodium diet - goal is systolic BP of at least 130 mm or less Continue Metoprolol ER 100 mg QD and Valsartan 40 mg BID (8) Pure hypercholesterolemia: Code(s): E78.00 - Pure hypercholesterolemia, unspecified Plan: Results of his labs done a few days ago reviewed and discussed with patient - have advised him that his cholesterol numbers remain very well controlled Reinforced low cholesterol diet Continue Atorvastatin 20 mg QD Will recheck his labs and fasting lipids in 4 months for follow up (9) Hyponatremia: Code(s): E87.1 - Hypo-osmolality and hyponatremia Plan: His serum sodium was again slightly low at 133 mmol/L on his labs done a few days ago Patient remains asymptomatic Will continue to monitor this regularly (10) GERD without esophagitis: Code(s): K21.9 - Gastro-esophageal reflux disease without esophagitis Plan: Dietary restrictions reinforced Continue Famotidine 20 mg BID PRN (11) Constipation: Code(s): K59.00 - Constipation, unspecified Qualifiers: Constipation type: unspecified constipation type Qualified Code(s): K59.00 - Constipation, unspecified Plan: Encouraged increased oral fluids and dietary fiber Continue Senna 8.6 mg 1-2 tablets once a day as needed (12) Insomnia: Code(s): G47.00 - Insomnia, unspecified Qualifiers: Insomnia type: unspecified Qualified Code(s): G47.00 - Insomnia, unspecified Plan: Sleep hygiene reinforced States that he takes OTC Melatonin as needed (13) Anxiety: Code(s): F41.9 - Anxiety disorder, unspecified Plan: Continue Clonazepam 0.5 mg Q HS PRN (14) Bipolar depression: Code(s): F31.9 - Bipolar disorder, unspecified Plan: He used to take Quetiapine but is currently no longer on any psychiatric Rx other than Quetiapine Follow-up with Psychiatry as scheduled (15) Paranoid schizophrenia: Code(s): F20.0 - Paranoid schizophrenia Plan: He used to be on Risperidone 2 mg BID and Quetiapine 50 mg Q HS but is again currently no longer on any psychiatric Rx Follow up with psychiatry as scheduled Plan Follow up in 4 months Orders: Orders Comprehensive [place]. Panel Fast 4 Months E78.00 - Pure hypercholesterolemia, unspecified Lipid Panel 4 Months E78.00 - Pure hypercholesterolemia, unspecified TSH reflex Free T4 4 Months E78.00 - Pure hypercholesterolemia, unspecified UA CC w/rflx Micro + Cult 4 Months R30.0 - Dysuria AMB Hemoglobin A1c Today E11.9 - Type 2 diabetes mellitus without complications B Type Natriuretic Peptide 4 Months I50.9 - Heart failure, unspecified Complete Blood Count Auto Diff 4 Months D64.9 - Anemia, unspecified Magnesium 4 Months E83.42 - Hypomagnesemia Microalbumin, Random (w Creat) 4 Months E11.9 - Type 2 diabetes mellitus without complications Hemoglobin A1c 4 Months E11.9 - Type 2 diabetes mellitus without complications Vitamin D 25-OH Total 4 Months E55.9 - Vitamin D deficiency, unspecified Coding Level of Care Code Est Pt Level 4 (96546) Diagnoses Parkinson's disease with dyskinesia, unspecified whether manifestations fluctuate G20.B1 Dyskinesia presence: with dyskinesia Fluctuating manifestations: unspecified whether manifestations fluctuate Dizziness R42 Multifactorial gait disorder R26.89 Cardiomyopathy, unspecified type I42.9 Cardiomyopathy type: unspecified PAF (paroxysmal atrial fibrillation) I48.0 Type 2 diabetes mellitus without complication, without long-term current use of insulin E11.9 Diabetes mellitus type: type 2 Diabetes mellitus final inspector balance wheel insulin use: without final inspector balance wheel use Diabetes mellitus complication status: without complication Benign essential hypertension I10 Pure hypercholesterolemia E78.00 Hyponatremia E87.1 GERD without esophagitis K21.9 Constipation, unspecified constipation type K59.00 Constipation type: unspecified constipation type Insomnia, unspecified type G47.00 Insomnia type: unspecified Anxiety F41.9 Bipolar depression F31.9 Paranoid schizophrenia F20.0
[2023-11-25 08:55] VITALS: BP 100/60; PULSE 54; O2SAT 95; BMI 22.6
== END 2023-11-25 09:17 | disposition home or self-care (01) ==
PROVIDERS: PCP Internal Medicine; Visit Provider Internal Medicine
DX: I42.9 Cardiomyopathy, unspecified (principal); I48.0 Paroxysmal atrial fibrillation; E11.9 Type 2 diabetes mellitus without complications; F31.9 Bipolar disorder, unspecified; F20.0 Paranoid schizophrenia; G20.B1 Parkinson's disease with dyskinesia, without mention of fluctuations; R42 Dizziness and giddiness; R26.89 Other abnormalities of gait and mobility; I10 Essential (primary) hypertension; E78.00 Pure hypercholesterolemia, unspecified; E87.1 Hypo-osmolality and hyponatremia; K21.9 Gastro-esophageal reflux disease without esophagitis
CPT/HCPCS: 83036; 99214

== ENCOUNTER 2023-12-16 12:50 | Outpatient (AMB) | payer OTHER, SELFPAY ==
[2023-12-16 13:11] VITALS: BP 118/56; PULSE 64; BMI 23.2
--- NOTE | 2023-12-16 13:11 | A.OFFVIS_ITS ---
Vital Signs 12/16/23 13:11 Height 5 ft 9 in Weight 156 lb 15.506 oz BMI 23.2 BP 118/56 L Blood Pressure Location Lt brachial Position Sitting Pulse 64 Pulse Source Pulse Oximeter Intake Visit Reasons: r/s 10/24/23 6 mos followup Correctional Counselor Required: No Accompanied by: Brother Allergies No Known Allergies [No Known Allergies*] Allergy (Verified 11/25/23 09:05) Medication List - Last Reconciled 12/16/23 by Tato Stover MD apixaban (Eliquis) 5 mg PO BID 90 days atorvastatin 20 mg PO DAILY 90 days benztropine 1 mg PO BEDTIME blood pressure monitor As directed carbidopa-levodopa 25-100 mg 1 tab PO TID clonazepam 0.5 mg PO BEDTIME PRN eplerenone 12.5 mg PO DAILY melatonin mg PO .qhs metformin 1,000 mg PO BID metoprolol succinate ER (Toprol XL) 100 mg PO DAILY multivitamin 1 tab PO DAILY valsartan 40 mg PO BID HPI Comments Details: True returns for follow-up regarding cardiomyopathy. In the past, he presented to the hospital with atrial fibrillation and rapid rate. In that context, echocardiogram with severe LV dysfunction. Underwent cardiac catheterization that did not show any significant coronary disease. Then he underwent further workup including cardiac MRI that showed infiltrative disease. Referred to [facility] heart failure service where he has been following. It seems that he underwent workup for sarcoid but that was also negative. His meds are optimized for cardiomyopathy. Overall, he states he is doing well. No new complaints from cardiac. No angina or shortness of breath. He has had longstanding dizziness but that is been the same for years. Has a background of bipolar depression, paranoid schizophrenia Parkinson's but according to family, these are under good control. [facility] Medical History PAF (paroxysmal atrial fibrillation) Dizziness Paranoid schizophrenia Bipolar depression Anxiety Insomnia Constipation Parkinson's disease GERD without esophagitis Hyponatremia Pure hypercholesterolemia Benign essential hypertension Diabetes mellitus Surgical History History of extraction of renal calculus Family History Father Parkinson disease Mother Stomach cancer Social History Housing: House Alcohol intake: never Patient Tobacco Use Status: Never used Tobacco e-Cigarette/Vaping Use: Never Used Second Hand Smoke Exposure: No service: No Current occupational status: retired Cognitive needs: Yes (walker) Hearing needs: No Vision needs: Yes (reading glasses) Review of Systems Const Denies chills, Denies fatigue, Denies fever(s), Denies weight gain and Denies weight loss ENT Denies dizziness Card Denies chest pain, Denies leg edema, Denies lightheadedness, Denies palpitations, Reports dyspnea on exertion, Denies orthopnea and Denies other Resp Denies cough and Reports dyspnea on exertion GI Denies hematochezia and Denies change in stool character Musc Denies abnormal gait, Denies muscle weakness, Denies numbness, Denies radiating pain into limb and Denies tingling Neuro Denies abnormal gait, Denies dizziness, Denies numbness and Denies tingling Endo Denies fatigue and Denies palpitations Physical Exam Vital Signs: Last Vital Signs Pulse 64 12/16/23 13:11 BP 118/56 L 12/16/23 13:11 BMI result Body Mass Index 23.2 Const General: comfortable and no acute distress Orientation/consciousness: patient oriented x3 HEENT Other: Unremarkable Head: Yes normal to inspection Neck Neck: Yes normal visual inspection Chest Chest palpation & inspection: normal inspection of the chest Resp Auscultation: clear to auscultation bilaterally Cardio Palpation: normal PMI Heart sounds: S1 normal heart sound present, S2 normal heart sound present, no gallops, no murmurs and no rubs GI Palpation (GI): Soft to palpation Back/Spine/Pelvis Other: unremarkable Skin General skin exam: no rashes or lesions noted Neuro General: patient oriented x3 Extrem General: Yes normal to inspection Psych Mental Status: mental status grossly normal Assessment & Plan Assessment & Plan (1) Cardiomyopathy: Code(s): I42.9 - Cardiomyopathy, unspecified Category: Medical Qualifiers: Cardiomyopathy type: unspecified Qualified Code(s): I42.9 - Cardiomyopathy, unspecified Plan: Per the last echocardiogram in our system, LVEF 25-30%. No significant CAD on cardiac catheterization. Cardiac MRI with suggestion of infiltrative cardiomyopathy, either sarcoid or amyloid. Possible myocarditis. PET-CT scan shows no evidence of sarcoidosis. He is being actively followed by heart failure service. No change with medications. Patient not interested in ICD and has been discussed before. Message sent to regarding workup. From his response, Amyloid not really suspected. If necessary, can get a repeat MRI for follow-up and he will follow-up on that. (2) Hypotension: Code(s): I95.9 - Hypotension, unspecified Category: Medical Plan: Chronic issue. No further up titration of meds. (3) PAF (paroxysmal atrial fibrillation): Code(s): I48.0 - Paroxysmal atrial fibrillation Category: Medical Plan: Continue beta-blockers and anticoagulation. (4) Dizziness: Code(s): R42 - Dizziness and giddiness Category: Medical Plan: Longstanding and probably not cardiac. Plan Discussed with brother who came for appointment. Coding Level of Care Code Est Pt Level 4 (30933) Diagnoses Cardiomyopathy, unspecified type I42.9 Cardiomyopathy type: unspecified Hypotension I95.9 PAF (paroxysmal atrial fibrillation) I48.0 Dizziness R42
== END 2023-12-16 13:38 | disposition home or self-care (01) ==
PROVIDERS: PCP Internal Medicine; Visit Provider Internal Medicine
DX: I42.9 Cardiomyopathy, unspecified (principal); I95.9 Hypotension, unspecified; I48.0 Paroxysmal atrial fibrillation; R42 Dizziness and giddiness
CPT/HCPCS: 99214

== ENCOUNTER → 2023-12-16 12:50 | Outpatient (BNVA) | payer OTHER, SELFPAY | PROVIDERS: PCP Internal Medicine; Visit Provider Internal Medicine ==

== ENCOUNTER 2024-03-04 12:37 | Outpatient (AMB) | payer MEDICARE, OTHER, SELFPAY ==
[2024-03-04 12:47] VITALS: BP 110/64; PULSE 66; O2SAT 99; BMI 22.8
--- NOTE | 2024-03-04 12:47 | A.OFFPC_ITS ---
Vital Signs 03/04/24 12:47 Height 5 ft 9 in Weight 154 lb 6 oz BMI 22.8 BP 110/64 Blood Pressure Location Lt brachial Position Sitting Pulse 66 Pulse Source Pulse Oximeter Pulse Oximetry (%) 99 Oxygen Delivery Method Room Air Intake Visit Reasons: Discuss gastro symtoms Echometer Engineer Required: No Accompanied by: Self / Same As Patient Allergies No Known Allergies [No Known Allergies*] Allergy (Verified 03/04/24 13:16) Medication List - Last Reconciled 03/04/24 by Lavon Roca MD apixaban (Eliquis) 5 mg PO BID 90 days atorvastatin 20 mg PO DAILY 90 days benztropine 1 mg PO BEDTIME blood pressure monitor As directed carbidopa-levodopa 25-100 mg 1 tab PO TID clonazepam 0.5 mg PO BEDTIME PRN eplerenone 12.5 mg PO DAILY melatonin mg PO .qhs metformin 1,000 mg PO BID metoprolol succinate ER (Toprol XL) 100 mg PO DAILY multivitamin 1 tab PO DAILY valsartan 40 mg PO BID Tobacco use date assessed: 03/04/24 Fall risk assessment: No Falls in past year Last assessed Fall Risk: 03/04/24 Dental Screening Dental Screen Date: 03/04/24 Did you have a dental visit in the last 12 months?: No Did you have a dental problem in the last 6 months where you did not have access to dental care?: No Was dental information given to patient?: No HPI Discuss gastro symtoms HPI Details Patient comes in today complaining of some GI issues States that he has been having trouble digesting his food for the past 2 weeks Relates that he is unable to burp, and this makes him feel very uncomfortable and his stomach feels bloated He also reports experiencing some trouble swallowing when he is eating and taking his pills; he denies any abdominal pain States that his bowel movements are okay and he's had no constipation or diarrhea lately He denies any fever or headaches but he still has recurrent dizziness Denies any chest pains, no increased SOB No nausea/vomiting noted [facility] Medical History PAF (paroxysmal atrial fibrillation) Dizziness Paranoid schizophrenia Bipolar depression Anxiety Insomnia Constipation Parkinson's disease GERD without esophagitis Hyponatremia Pure hypercholesterolemia Benign essential hypertension Diabetes mellitus Surgical History History of extraction of renal calculus Family History Father Parkinson disease Mother Stomach cancer Social History Housing: House Alcohol intake: never Patient Tobacco Use Status: Never used Tobacco e-Cigarette/Vaping Use: Never Used Second Hand Smoke Exposure: No service: No Current occupational status: retired Cognitive needs: Yes (walker) Hearing needs: No Vision needs: Yes (reading glasses) Questionnaire PHQ-9 Over the last 2 weeks, how often have you been bothered by any of the following problems? 1. Little interest or pleasure in doing things: not at all 2. Feeling down, depressed, or hopeless: not at all 3. Trouble falling or staying asleep, or sleeping too much: not at all 4. Feeling tired or having little energy: not at all 5. Poor appetite or overeating: not at all 6. Feeling bad about yourself - or that you are a failure or have let yourself or your family down: not at all 7. Trouble concentrating on things, such as reading the newspaper or watching television: not at all 8. Moving or speaking so slowly that other people could have noticed. Or the opposite - being so fidgety or restless that you have been moving around a lot more than usual: not at all 9. Thoughts that you would be better off or of hurting yourself in some way: not at all Total score: 0 Depression Screening Interpretation: Negative Depression Screening Done: Yes 54332 - PHQ-9 Billing: Yes Source: Developed by Drs. Carlos Alberto Steele, Zahra Chung, Rm Madison and colleagues, with an educational william from [employer]. Thrive Questionnaire Date Thrive assessed: 03/04/24 I am a: Patient What is your living situation today?: I have a steady place to live Within the past 12 months, did the food you bought not last and you didn't have the money to get more?: Never true Within the past 12 months, did you worry whether your food would run out before you got money to buy more?: Never true Do you have trouble paying for medicines?: No Do you have trouble getting transportation to medical appointments?: No Do you have trouble paying your heating and electricity bill?: No Do you have trouble taking care of your child, family member or friend?: No Do you have trouble with day-to-day activities such as bathing, preparing meals, shopping, managing finances, etc.?: No Are you currently unemployed and looking for a job?: No Are you interested in more education?: No Please select the resources that you would like help with: None Currently or been in a relationship where the following occur: No concerns reported THRIVE Score: 0 AUDIT C Alcohol Use Questionnaire (AUDIT-C) 1. How often do you have a drink containing alcohol?: Never 3. How often do you have six or more drinks on one occasion?: Never Total Score: 0 Score Reviewed/Action Taken: Yes JOSÉ MIGUEL-7 AMB Questionnaire JOSÉ MIGUEL-7 Date JOSÉ MIGUEL - 7 assessed: 03/04/24 Feeling nervous, anxious, or on edge: 0 = Not at all Not being able to stop or control worryin = Not at all Worrying too much about different things: 0 = Not at all Trouble relaxin = Not at all Being so restless that it is hard to sit still: 0 = Not at all Becoming easily annoyed or irritable: 0 = Not at all Feeling afraid as if something awful might happen: 0 = Not at all Total JOSÉ MIGUEL-7 score (0-4 normal; 5-9 mild; 10-14 moderate; 15-21 severe): 0 Source: Developed by Drs. Carlos Alberto Steele, Zahra Chung, Rm Madison and colleagues, with an educational william from [employer]. Review of Systems Const Denies chills, Reports difficulty sleeping (takes OTC Melatonin PRN), Reports fatigue, Denies fever(s) and Denies headache(s) ENT Reports dysphagia, Reports dizziness (increasing ), Denies otalgia, Denies headache(s), Denies neck pain, Denies odynophagia and Denies sore throat Card Denies chest pain, Denies palpitations and Reports dyspnea on exertion (mild) Resp Denies chest congestion, Denies cough and Reports dyspnea on exertion (mild) GI Denies abdominal pain, Denies belching (unable to burp), Reports bloating, Denies constipation, Reports dysphagia, Denies heartburn, Denies diarrhea, Denies nausea, Denies odynophagia and Denies vomiting Denies dysuria, Denies nocturia and Denies urinary frequency Musc Reports abnormal gait (right leg feels weak at times and twitchy; feels unsteady due to dizziness), Denies back pain and Denies neck pain Skin/Breast Denies rash Neuro Reports abnormal gait (right leg feels weak at times and twitchy; feels unsteady due to dizziness), Reports dizziness (increasing ), Denies headache(s) and Reports tremor(s) (in both hands) Psych Reports anxiety Endo Reports fatigue and Denies palpitations Physical exam (Primary Care) Vital Signs: Last Vital Signs Pulse 66 03/04/24 12:47 BP 110/64 03/04/24 12:47 Pulse Ox 99 03/04/24 12:47 Oxygen Delivery Method Room Air 03/04/24 12:47 BMI result Body Mass Index 22.8 Tobacco/Smoking Status: Tobacco use Status Tobacco use date assessed 03/04/24 03/04/24 12:54 Patient Tobacco Use Status Never used Tobacco 03/04/24 12:54 e-Cigarette/Vaping Use Never Used 03/04/24 12:54 PHQ-9: PHQ-9 Score PHQ-9: Total score 0 03/04/24 13:17 Depression Screening Interpretation: Negative Thrive Assessment: Date of Thrive Assessment Date Thrive assessed 03/04/24 03/04/24 12:54 Currently or been in a relationship where the following occur: No concerns reported Const General: no acute distress, alert and anxious HENMT Throat: Yes posterior oropharynx normal and Yes tonsils normal (no TP congestion) Neck Neck: Yes no lymphadenopathy and Yes supple Thyroid: Thyroid normal Resp Auscultation: clear to auscultation bilaterally, no rales and no wheezes Cardio Rate: regular rate Rhythm: regular rhythm Heart sounds: no murmurs GI Palpation (GI): Soft to palpation and nontender Auscultation: normal bowel sounds General: Yes no CVA tenderness Back/Spine/Pelvis Back: no CVA tenderness Thoracic/Lumbar Spine: No lumbar spinal tenderness Skin Rashes: no rashes Neuro Motor exam (neuro): Tremors during motor activity present ((+) resting tremors noted in both hands) and Other motor observations present ((+) on and off twitching of the right leg) Extrem General: Yes no clubbing, cyanosis or edema Office Procedures Flu Questionnaire Does the patient have a severe egg allergy?: No Immunizations Fluarix Triv [id number] (PF) 45 mcg (15 mcg x 3)/0.5 mL IM syringe Performing Provider: Lavon Roca MD [facility] Documented (not given) by: ANA Chao on 03/04/24 12:55 Reason Not Given: Patient Refused Coding Level of Care Code Est Pt Level 3 (01582) Diagnoses Dysphagia, unspecified type R13.10 Dysphagia type: unspecified Assessment & Plan Assessment & Plan (1) Dysphagia: Code(s): R13.10 - Dysphagia, unspecified Category: Medical Qualifiers: Dysphagia type: unspecified Qualified Code(s): R13.10 - Dysphagia, unspecified Plan: Will send patient for an upper GI series for further evaluation Plan Follow up as scheduled in April 2024 Orders: Orders Influenza [id number] Immunization 03/04/24 Z23 - Encounter for immunization FL upper GI w air w SBFT 03/04/24 R13.10 - Dysphagia, unspecified
== END 2024-03-04 13:27 | disposition home or self-care (01) ==
LOC: HO.HMCH 12:37
PROVIDERS: PCP Internal Medicine; Visit Provider Internal Medicine
DX: R13.10 Dysphagia, unspecified (principal)

== ENCOUNTER → 2024-03-04 12:37 | Outpatient (BNVA) | payer OTHER, SELFPAY | PROVIDERS: PCP Internal Medicine; Visit Provider Internal Medicine | DX: R13.10 Dysphagia, unspecified (principal) | CPT/HCPCS: 90471; 96127; 99212 ==

== ENCOUNTER 2024-03-11 10:14 | Outpatient (REF) | payer OTHER, SELFPAY ==
--- NOTE | ~2024-03-11 | US_ITS ---
EXAMINATION: US ABDOMEN COMPLETE CLINICAL INFORMATION: Abdominal pain. COMPARISON: None available. TECHNIQUE: Real-time imaging of the abdominal viscera. FINDINGS: PANCREAS: Limited evaluation of the pancreas reveals no lesions. Most of the pancreas obscured by bowel gas. ABDOMINAL AORTA: The proximal, mid, and distal segments are normal in caliber. INFERIOR VENA CAVA: Visualized portions are normal. LIVER: Normal. The liver is normal in size. The liver contour is normal. Parenchymal echogenicity is normal. No focal hepatic lesion. There is no intrahepatic biliary duct dilatation seen. GALLBLADDER: Normal. The gallbladder is physiologically distended without evidence of stones, sludge, polyps, wall thickening or pericholecystic fluid. COMMON BILE DUCT: Normal in caliber measuring 0.3 cm in diameter. RIGHT KIDNEY: Normal. No hydronephrosis. No renal calculi or focal parenchymal lesions. The kidney measures 9.6 cm in maximum dimension. LEFT KIDNEY: Normal. No hydronephrosis. No renal calculi or focal parenchymal lesions. The kidney measures 11.6 cm in maximum dimension. SPLEEN: Normal. The spleen measures 8.4 cm in maximum dimension. FREE FLUID: None. US/US abdomen complete IMPRESSION: No abnormal findings Electronically signed by: Blayne Sears MD 03/11/2024 05:10 PM [facility]
== END 2024-03-11 10:15 | disposition home or self-care (01) ==
LOC: HO.US 10:14
PROVIDERS: PCP Internal Medicine; Visit Provider Internal Medicine
DX: R10.9 Unspecified abdominal pain (principal)
CPT/HCPCS: 76700

== ENCOUNTER 2024-03-17 07:48 | Outpatient (REF) | payer OTHER, SELFPAY ==
--- NOTE | ~2024-03-17 | FL_ITS ---
EXAMINATION: XR FLUOROSCOPY UPPER GI SERIES WITH SMALL BOWEL SERIES CLINICAL INFORMATION: Dysphagia. Abdominal bloating. COMPARISON: None TECHNIQUE: Fluoroscopic air contrast upper GI examination was performed utilizing standard techniques with thin and thick barium and effervescent granules. Numerous spot images were obtained. Several fluoroscopic image hold cine sequences were also obtained. This was followed by small bowel series using standard overhead radiographic techniques at specified intervals until contrast was seen in the right colon. Fluoroscopic spot radiographs were then obtained of the terminal ileum and any abnormal findings in the small bowel. FINDINGS: Lateral cine images of the oropharynx and hypopharynx demonstrate normal swallow mechanism with normal epiglottic inversion and soft palate elevation. No tracheal penetration, glottic or subglottic aspiration identified. No nasopharyngeal reflux present. Hypopharyngeal structures appear normal without evidence of mass or diverticulum. There was no significant cricopharyngeal achalasia. Dual and single contrast images of the esophagus demonstrate a mildly patulous esophagus with a corkscrew appearance. No evidence of mass or ulcerations. There is mild narrowing of the GE junction that may represent achalasia. There is to and fro motion of the barium column with nonpropulsive tertiary contractions noted throughout the esophagus. No evidence of hiatus hernia identified. No significant gastroesophageal reflux was seen during the course of the examination and on reflux views. Dual contrast and single contrast images of the stomach demonstrated a normal contour. The gastric rugal folds have a thickened appearance, suggestive of gastritis. There are multiple foci of contrast pooling in the fundus, body, and antrum of the stomach that may represent small mucosal ulcerations. No masses are seen. Contrast freely passed into the gastric antrum and duodenal bulb without delay. Single and air-contrast images of the duodenal bulb demonstrate no abnormality. The duodenal sweep has a normal appearance, course, and mucosal fold appearance. The imaged proximal jejunum has a normal fold pattern and caliber. SMALL BOWEL SERIES: Buying Intern view demonstrates a normal bowel gas pattern with stool noted throughout the colon. There are vascular calcifications. There are mild degenerative changes of both hip joints right greater than left. Sequential imaging of the jejunum and ileum have normal caliber without abnormal dilatation. Diffuse jejunalization of the ileum, with mildly thickened folds and too numerous of folds, findings suggestive of celiac sprue. Contrast was seen in the right colon after 60 minutes. FLUOROSCOPY TIME: 6 minutes 8 seconds Number of Spot Images:8 Number of cines obtained: 12 DOSE AREA PRODUCT: [id number] uGy-m2 (microgray-meter squared) FL/FL upper GI w air w SBFT IMPRESSION: 1. Mildly patulous esophagus with a corkscrew appearance and severely disorganized peristalsis consistent with severe esophageal dysmotility. 2. Mild narrowing of the GE junction that may represent achalasia. A benign stricture cannot be ruled out. Recommend correlation of EGD. 3. Thickened appearance the gastric rugal folds. In addition there are multiple foci of contrast pooling in the fundus, body, and antrum of the stomach. These findings are suggestive of erosive gastritis. Recommend correlation with EGD. 4. Small bowel series demonstrating jejunalization of the ileum, findings highly suggestive of celiac disease. Contrast is seen in the colon after 60 minutes. This procedure was performed by Aneudy Payne PA-C, and supervised by Dr. Grimes Electronically signed by: Padilla Grimes MD 03/20/2024 04:07 PM [facility] [place]
== END 2024-03-17 07:49 | disposition home or self-care (01) ==
LOC: HO.XRAY 07:48
PROVIDERS: PCP Internal Medicine; Visit Provider Internal Medicine
DX: R13.10 Dysphagia, unspecified (principal)
CPT/HCPCS: 74246; 74248

== ENCOUNTER → 2024-03-17 07:49 | Outpatient (BNV) | payer OTHER, SELFPAY | PROVIDERS: PCP Internal Medicine; Visit Provider Physician Assistant Surgical | DX: R13.10 Dysphagia, unspecified (principal) | CPT/HCPCS: 74246 ==

== ENCOUNTER 2024-03-31 08:50 | Outpatient (AMB) | payer OTHER, SELFPAY ==
[2024-03-31 08:52] VITALS: BP 106/64; PULSE 64; O2SAT 97; BMI 22.9
--- NOTE | 2024-03-31 08:52 | MHC.OFFVIS ---
Vital Signs 03/31/24 08:52 Height 5 ft 9 in Weight 155 lb 3.287 oz BMI 22.9 BP 106/64 Blood Pressure Location Rt brachial Position Sitting Pulse 64 Pulse Source Pulse Oximeter Pulse Oximetry (%) 97 Oxygen Delivery Method Room Air Intake Visit Reasons: Dyskinesia of esophagus Intake Note: Relevant Flags or Indicators ? Requires Motion Graphics Designer? Marcus True presents in office today for a scheduled urgent initial consult. CC; No recent labs or meds ordered. Pt recently had UGIs w/ small bowel. 03/17/24? Relevant GI Sx as reported per pt? Reflux ? Dysphagia ? Bloating Pt feels that air is trapped and is unable to be released with belching or coughing. ? Hx of any recent surgeries? None Motion Graphics Designer Required: No Allergies No Known Allergies [No Known Allergies*] Allergy (Verified 03/31/24 08:54) HPI HPI Dyskinesia of esophagus: Details: 69-year-old male with past medical history of PAF, cardiomyopathy, multifactorial gait disorder, prolonged QT interval, paranoid schizophrenia, bipolar disorder depression, anxiety, constipation, Parkinson's disease, GERD, hyponatremia, hypertension, diabetes is here today for initial consultation. Patient was sent to us by his PCP. Patient has been complaining of trouble swallowing unable to burp, for the past few months. Patient has a history of Parkinson's and currently is on medications. His tremors are controlled to some point, however he reports that he continues to have tremors more on the right than left. Recently patient had upper GI series that showed disorganized motility of his esophagus with narrowing that could represent achalasia. Patient is worried that he might have a esophageal cancer. Patient reports that he is feeling like he is drooling and has more saliva then normal. He states that he is unable to burp when he wants to as well as unable to cough. When discussing with him his symptoms of dysphagia he is able to swallow his medications without choking as well as swallow solid and fluid without choking. Patient seems anxious. Reports also dizziness upon standing. Follows Cardiology Dr. Stover and appointment is not until May. Ideally I would like for him to go for upper endoscopy, however he needs to be cleared by his plastic molding operator as he is on Eliquis. Patient denies any cardiac or respiratory symptoms at this time. Patient denies any nausea or vomiting. Denies melena, hematochezia, unintentional weight loss or ribbon like stools. Patient never had colonoscopy in the past. Patient reports that refused colonoscopy in the past, however willing to get it done [facility] Medical History PAF (paroxysmal atrial fibrillation) Dizziness Paranoid schizophrenia Bipolar depression Anxiety Insomnia Constipation Parkinson's disease GERD without esophagitis Hyponatremia Pure hypercholesterolemia Benign essential hypertension Diabetes mellitus Surgical History History of extraction of renal calculus Family History Father Parkinson disease Mother Stomach cancer Social History Housing: House Alcohol intake: never Patient Tobacco Use Status: Never used Tobacco e-Cigarette/Vaping Use: Never Used Second Hand Smoke Exposure: No service: No Current occupational status: retired Cognitive needs: Yes (walker) Hearing needs: No Vision needs: Yes (reading glasses) Review of Systems Const Denies weight gain and Denies weight loss ENT Reports no additional complaints, Reports dysphagia and Denies odynophagia Card Reports no additional complaints Resp Reports no additional complaints GI Denies abdominal pain, Denies belching, Denies melena, Reports bloating, Denies change in bowel habits, Reports dysphagia, Denies excessive flatus, Denies dyspepsia, Reports heartburn, Denies diarrhea, Denies loose stools, Denies nausea, Denies odynophagia and Denies vomiting Reports no additional complaints Musc Reports no additional complaints Neuro Reports no additional complaints Psych Reports no additional complaints Endo Reports no additional complaints Physical Exam Vital Signs: Last Vital Signs Pulse 64 03/31/24 08:52 BP 106/64 03/31/24 08:52 Pulse Ox 97 03/31/24 08:52 Oxygen Delivery Method Room Air 03/31/24 08:52 BMI result Body Mass Index 22.9 Const Other: Patient has tremors include greater on right than left General: healthy appearing, no acute distress and well developed Nutritional Appearance: well nourished Orientation/consciousness: patient oriented x3 Resp Effort & Inspection: normal respiratory effort, able to speak in complete sentences, no tracheal deviation and symmetric chest movement Auscultation: clear to auscultation bilaterally Cardio Rate: regular rate GI Inspection: Yes normal to inspection and No distended Palpation (GI): Soft to palpation, not firm, nontender and No hepatosplenomegaly present Auscultation: normal bowel sounds General: Yes no CVA tenderness Back/Spine/Pelvis Back: no CVA tenderness Skin General skin exam: elasticity normal, turgor normal and dry skin Neuro General: patient oriented x3 Psych Appearance: grossly normal Mental Status: mental status grossly normal Affect: Anxious affect present Results Reviewed Results Reviewed: IMPRESSION: 1. Mildly patulous esophagus with a corkscrew appearance and severely disorganized peristalsis consistent with severe esophageal dysmotility. 2. Mild narrowing of the GE junction that may represent achalasia. A benign stricture cannot be ruled out. Recommend correlation of EGD. 3. Thickened appearance the gastric rugal folds. In addition there are multiple foci of contrast pooling in the fundus, body, and antrum of the stomach. These findings are suggestive of erosive gastritis. Recommend correlation with EGD. 4. Small bowel series demonstrating jejunalization of the ileum, findings highly suggestive of celiac disease. Contrast is seen in the colon after 60 minutes. Assessment & Plan Assessment & Plan (1) Dysphagia: Code(s): R13.10 - Dysphagia, unspecified Category: Medical Qualifiers: Dysphagia type: unspecified Qualified Code(s): R13.10 - Dysphagia, unspecified (2) Constipation: Code(s): K59.00 - Constipation, unspecified Category: Medical Qualifiers: Constipation type: unspecified constipation type Qualified Code(s): K59.00 - Constipation, unspecified (3) GERD without esophagitis: Code(s): K21.9 - Gastro-esophageal reflux disease without esophagitis Category: Medical Plan Patient will go and get his blood work done today. Upper GI and small-bowel series results discussed with patient. Disorganized esophageal motility, esophageal narrowing, contrast pooling suggesting of gastritis in the fundus of his stomach as well as possible celiac disease. Will book patient for upper endoscopy, however we get clearance from his plastic molding operator. Patient reports postnasal drip, reports excessive mucus. Patient denies having trouble swallowing when he eating food or drinking fluids. Will check vitamin-D, B12 folate and magnesium level, RAST allergen, rule out celiac. Will start patient on Nexium. If magnesium level low will add magnesium so he can take it at bedtime. Patient will return in the office in 2 weeks so we can discuss going for endoscopy and possible colonoscopy. Orders: Orders Magnesium Today N18.9 - Chronic kidney disease, unspecified Vitamin D 25-OH (D2 and D3) Today E55.9 - Vitamin D deficiency, unspecified Comprehensive Met. Panel Today K21.9 - Gastro-esophageal reflux disease without esophagitis Rast Allergen Today K21.9 - Gastro-esophageal reflux disease without esophagitis Transglutaminase IgA Today R10.9 - Unspecified abdominal pain Transglutaminase Ab IgG Today R10.9 - Unspecified abdominal pain Vitamin B12 and Folate Today R19.7 - Diarrhea, unspecified Complete Blood Count no Diff Today K21.9 - Gastro-esophageal reflux disease without esophagitis Medications: New esomeprazole magnesium (Nexium) 40 mg PO DAILY 30 caps 5RF K21.9 - Gastro-esophageal reflux disease without esophagitis Coding Level of Care Code New Pt Level 4 (74122) Diagnoses Dysphagia, unspecified type R13.10 Dysphagia type: unspecified Constipation, unspecified constipation type K59.00 Constipation type: unspecified constipation type GERD without esophagitis K21.9 Time Spent (min) 45 Comment 30 minutes spent with patient and additional 15 minutes spent reviewing his records
== END 2024-03-31 10:31 | disposition home or self-care (01) ==
PROVIDERS: PCP Internal Medicine; Visit Provider Nurse Practitioner Family
DX: R13.10 Dysphagia, unspecified (principal); K59.00 Constipation, unspecified; K21.9 Gastro-esophageal reflux disease without esophagitis
CPT/HCPCS: 99204

== ENCOUNTER 2024-03-31 08:50 | Outpatient (REF) | payer OTHER, SELFPAY ==
[2024-03-31 11:28] LABS: Hematocrit 38.4 % (42.0-52.0); Hemoglobin 13.5 g/dl (14.0-18.0); Mean Corpuscular HGB Conc 35.2 g/dl (31.0-36.0); Mean Corpuscular Hemoglobin 31.7 pg (27.0-33.0); Mean Corpuscular Volume 90.1 fL (80.0-98.0); Mean Platelet Volume 10.2 fL (9.4-12.4); Platelet Count 248 X10*3/uL (160-400); Red Blood Count 4.26 X10*6/uL (4.60-5.80); Red Cell Distribution Width 12.4 % (11.0-16.0); White Blood Count 5.4 X10*3/uL (4.8-10.8)
[2024-03-31 12:37] LABS: Alanine Aminotransferase 14 U/L (0-40); Albumin Level 4.4 g/dL (3.5-5.0); Alkaline Phosphatase 38 U/L (39-117); Anion Gap 11 (12-20); Aspartate Amino Transferase 19 U/L (5-37); Bilirubin Total 0.6 mg/dL (0.0-1.0); Blood Urea Nitrogen 13 mg/dL (9-16); Calcium 9.6 mg/dL (8.4-10.2); Carbon Dioxide 26 mmol/L (22-29); Chloride 95 mmol/L (96-108); Estimated Glomerular Filt Rate > 60; Glucose Random 98 mg/dL (60-115); Magnesium 1.5 mg/dL (1.6-2.6); Potassium 4.4 mmol/L (3.3-5.1); Sodium 128 mmol/L (135-145)
[2024-03-31 13:09] LABS: Folate 10.4 ng/mL (> or = 4.0); Vitamin B12 263 pg/mL (200-900)
[2024-04-03 21:38] LABS: Transglutaminase Ab IgG <1.0 U/mL; Transglutaminase IgA <1.0 U/mL
[2024-04-05 16:13] LABS: Vitamin D 25-OH, D2 <4 ng/mL; Vitamin D 25-OH, D3 47 ng/mL; Vitamin D 25-OH, Total 47 ng/mL (30-100)
== END 2024-03-31 08:51 | disposition home or self-care (01) ==
LOC: HO.LAB 08:50
PROVIDERS: PCP Internal Medicine; Visit Provider Nurse Practitioner Family
DX: N18.9 Chronic kidney disease, unspecified (principal); E55.9 Vitamin D deficiency, unspecified; K21.9 Gastro-esophageal reflux disease without esophagitis; R19.7 Diarrhea, unspecified; R10.9 Unspecified abdominal pain; Z91.09 Other allergy status, other than to drugs and biological substances
CPT/HCPCS: 36415; 80053; 82306; 82607; 82746; 83735; 85027; 86003; 86364

== ENCOUNTER 2024-06-04 12:05 | Outpatient (REF) | payer OTHER, SELFPAY ==
[2024-06-04 13:10] LABS: Appearance Urine Clear; Color Urine Yellow; Glucose Urine UA Negative (Negative); Leukocyte Esterase Urine Negative (Negative); Nitrite Urine Negative (Negative); PH 6.5 (5.0-9.0); Urine Blood Negative (Negative); Urine Ketones Negative (Negative); Urine Protein Negative (Neg-Trace)
[2024-06-04 14:12] LABS: Creatinine Urine 49.02 mg/dL; Microalbumin Urine < 5.0 mg/L
== END 2024-06-04 12:06 | disposition home or self-care (01) ==
LOC: HO.LAB 12:05
PROVIDERS: PCP Internal Medicine; Visit Provider Internal Medicine
DX: E11.9 Type 2 diabetes mellitus without complications (principal); R30.0 Dysuria
CPT/HCPCS: 81003; 82043; 82570

== ENCOUNTER 2024-06-17 08:53 | Outpatient (REF) | payer OTHER, SELFPAY ==
[2024-06-17 09:29] LABS: MANUAL DIFF FLAG NO
--- OUTSIDE RECORDS SUMMARY | 2024-06-17 09:48 | XMS_ITS | Patient Health Record ---
[facility] Address [address] [place] [address] Care Team Providers Care Saw Offbearer Name Role Phone Lavon Roca MD Primary Care Provider Tavon gross Dotty Martino Unavailable [phone] Allergies No Known Allergies Reason For Referral No Information Medications Medication SIG (Take, Route, Frequency, Duration) Notes Start Date End Date Status Benztropine Mesylate 1 MG/ML as directed Injection Active Benztropine Mesylate 1 MG 1 tablet Orall y Once a day for 30 day(s) Active Carbidopa-Levodopa 25-100 MG as directed Orally Two times a Week Active QUEtiapine Fumarate 50 MG 1 tablet at be dtime Orally Once a day for 30 day(s) Active QUEtiapine Fumarate 50 MG 1 tablet at be dtime Orally Once a day Active Atorvastatin Calcium 20 MG 1 tablet Oral ly Once a day for 30 day(s) Active clonazePAM 0.5 MG 1 tablet at bedtime Orally Once a day Active clonazePAM 0.5 MG 1 tablet at bedtime Orally Once a day Active Carbidopa-Levodopa 25-100 MG 1 tablet as needed Orally Two times a Week for 30 day(s) Active eliquis 5 mg Active Famotidine 20 MG 1 tablet at bedtime as needed Orally Once a day for 30 day(s) Active Famotidine 20 MG as directed Orally O nce a day Active Atorvastatin Calcium 20 MG 1 tablet Oral ly Once a day for 30 day(s) Active Metoprolol Succinate 25 MG 1 capsule Ora lly Once a day Active metFORMIN HCl 1000 MG 1 tab Orally Once a day Active Glycopyrrolate PF Ac tive Metoprolol Succinate 25 MG 1 capsule Ora lly Once a day for 30 day(s) Active hydroCHLOROthiazide 25 MG 1 tablet in th e morning Orally Once a day for 30 day(s) Active metFORMIN HCl 1000 MG 1 tablet with a me al Orally Once a day for 30 day(s) Active Social History Tobacco Use: Social History Observation Description Date Details (start date - stop date) Never Smoker NA - NA Tobacco Use/Smoking Question Answer Notes Are you a: nonsmoker Alcohol Screen Question Answer Notes Did you have a drink containing alcohol in the p ast year? No Points 0 Interpretation Negative Problems Problem Type SNOMED Code ICD Code Onset Dates Problem Status W/U Status Risk Notes Problem [id number] Plantar wart (B07.0) Active confirmed Plan Of Treatment No Information Insurance Providers Payer Name Payer Address Payer Phone Subscriber Number Group Number Insured Name Patient Relationship to Insured Coverage Start Date [facility]age End Date [facility] [address] [place] [id number] True Rosado Self - patient is the insured Medical (General) History Medical History History ICD Code Anxiety Depression Diabetic Parkinsons disease Bipolar disorder paranoid Schizophrenia Insomnia Reflux ( GERD) Constipation Hypercholesterolemia Hyponatremia Hypertension, benign Surgical History Surgery Date(Month/Year)
[2024-06-17 10:52] LABS: Basophils Absolute Auto 0.1 X10*3/uL (0.0-0.2); Basophils Percent Auto 0.9 % (0-2); Eosinophils Absolute Auto 0.1 X10*3/uL (0.0-0.4); Eosinophils Percent Auto 1.5 % (0-4); Hematocrit 40.4 % (42.0-52.0); Hemoglobin 13.9 g/dl (14.0-18.0); Imm Gran Abs Auto 0.01 X10*3/uL (0.00-0.03); Imm Gran Pct Auto 0.2 % (0.0-0.4); Lymphocytes Percent Auto 18.6 % (20-40); Mean Corpuscular HGB Conc 34.4 g/dl (31.0-36.0); Mean Corpuscular Hemoglobin 31.3 pg (27.0-33.0); Mean Platelet Volume 10.8 fL (9.4-12.4); Monocytes Absolute Auto 0.6 X10*3/uL (0.1-1.2); Monocytes Percent Auto 10.6 % (2-11); Neutrophils Absolute Auto 3.6 x10*3/uL (2.0-8.3); Neutrophils Percent Auto 68.2 % (45-73); Platelet Count 225 X10*3/uL (160-400); Red Blood Count 4.44 X10*6/uL (4.60-5.80); Red Cell Distribution Width 12.5 % (11.0-16.0); White Blood Count 5.3 X10*3/uL (4.8-10.8)
[2024-06-17 11:03] LABS: Estimated Average Glucose 105 mg/dL; Hemoglobin A1C 123.6163 umol/L; Hemoglobin A1c % 5.3 % (<6.0); Total Hemoglobin (HGBA1C) 3564.0143 umol/L
[2024-06-17 11:09] LABS: B Type Natriuretic Peptide 196 pg/mL (<100)
[2024-06-17 11:22] LABS: Alanine Aminotransferase < 6 U/L (0-40); Albumin Level 4.1 g/dL (3.5-5.0); Alkaline Phosphatase 38 U/L (39-117); Anion Gap 15 (12-20); Aspartate Amino Transferase 18 U/L (5-37); Bilirubin Total 0.5 mg/dL (0.0-1.0); Blood Urea Nitrogen 13 mg/dL (9-16); Calcium 9.3 mg/dL (8.4-10.2); Carbon Dioxide 25 mmol/L (22-29); Chloride 99 mmol/L (96-108); Cholesterol 99 mg/dL (<200); Estimated Glomerular Filt Rate > 60; Glucose Fasting 84 mg/dL (60-99); HDL Cholesterol 45 mg/dL (>40); LDL Cholesterol Calculated 48 mg/dL (<100); Magnesium 1.4 mg/dL (1.6-2.6); Potassium 4.3 mmol/L (3.3-5.1); Sodium 135 mmol/L (135-145); Total Protein 6.9 g/dL (6.5-8.0); Triglycerides 30 mg/dL (<150)
[2024-06-17 11:50] LABS: TSH reflex Free T4 1.32 uIU/mL (0.32-4.0); Vitamin D 25-OH Total 45.3 ng/mL (>30)
== END 2024-06-17 08:54 | disposition home or self-care (01) ==
LOC: HO.LAB 08:53
PROVIDERS: PCP Internal Medicine; Visit Provider Internal Medicine
DX: D64.9 Anemia, unspecified (principal); E78.00 Pure hypercholesterolemia, unspecified; I50.9 Heart failure, unspecified; E83.42 Hypomagnesemia; E11.9 Type 2 diabetes mellitus without complications
CPT/HCPCS: 36415; 80053; 80061; 82306; 83036; 83735; 83880; 84443; 85025

== ENCOUNTER 2024-06-18 08:04 | Outpatient (AMB) | payer OTHER, SELFPAY ==
--- OUTSIDE RECORDS SUMMARY | 2024-06-18 08:06 | XMS_ITS | Patient Health Record ---
Author [facility] Address [address] [place] [address] Care Team Providers Care Ambulatory Technologist Name Role Phone Lavon Roca MD Primary Care Provider Tavon gross Dotty Martino Unavailable [phone] Allergies No Known Allergies Reason For Referral [...] Problem Status W/U Status Risk Notes Problem [id number] Plantar wart (B07.0) Active confirmed Plan Of Treatment No Information Insurance Providers Payer Name Payer Address Payer Phone Subscriber Number Group Number Insured Name Patient Relationship to Insured Coverage Start Date [facility]age End Date [facility] [address] [place] [id number] True Rosado Self - patient is the insured Medical (General) History Medical History History ICD Code Anxiety Depression Diabetic Parkinsons disease Bipolar disorder paranoid Schizophrenia Insomnia Reflux ( GERD) Constipation Hypercholesterolemia Hyponatremia Hypertension, benign Surgical History Surgery Date(Month/Year)
[2024-06-18 08:38] VITALS: BP 80/62; PULSE 58; BMI 22.6
--- NOTE | 2024-06-18 08:38 | A.OFFVIS_ITS ---
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: No Accompanied by: self Allergies No Known Allergies [No Known Allergies*] Allergy (Verified 03/31/24 08:54) Medication List - Last Reconciled 06/18/24 by Tato Stover MD apixaban (Eliquis) 5 mg PO BID 90 days atorvastatin 20 mg PO DAILY 90 days benztropine 1 mg PO BEDTIME blood pressure monitor As directed carbidopa-levodopa 25-100 mg 1 tab PO TID clonazepam 0.5 mg PO BEDTIME PRN eplerenone 12.5 mg PO DAILY melatonin mg PO .qhs metformin 1,000 mg PO BID metoprolol succinate ER (Toprol XL) 100 mg PO DAILY multivitamin 1 tab PO DAILY risperidone (Risperdal) 2 mg PO BID valsartan 40 mg PO BID HPI Comments Details: True returns for follow-up regarding cardiomyopathy. In the past, he presented to the hospital with atrial fibrillation and rapid rate. In that context, echocardiogram with severe LV dysfunction. Underwent cardiac catheterization that did not show any significant coronary disease. Then he underwent further workup including cardiac MRI that showed infiltrative disease. Referred to [facility] heart failure service where he has been following. It seems that he underwent workup for sarcoid but that was also negative. His meds are optimized for cardiomyopathy. He has longstanding dizziness of uncertain etiology but he states he is more dizzy now. He also has low blood pressure today and hence that might play some role. Denies any other complaints. Has a background of bipolar depression, paranoid schizophrenia Parkinson's but according to family, these are under good control. [facility] Medical History PAF (paroxysmal atrial fibrillation) Dizziness Paranoid schizophrenia Bipolar depression Anxiety Insomnia Constipation Parkinson's disease GERD without esophagitis Hyponatremia Pure hypercholesterolemia Benign essential hypertension Diabetes mellitus Surgical History History of extraction of renal calculus Family History Father Parkinson disease Mother Stomach cancer Social History Housing: House Alcohol intake: never Patient Tobacco Use Status: Never used Tobacco e-Cigarette/Vaping Use: Never Used Second Hand Smoke Exposure: No service: No Current occupational status: retired Cognitive needs: Yes (walker) Hearing needs: No Vision needs: Yes (reading glasses) Review of Systems Const Denies chills, Denies fatigue, Denies fever(s), Denies weight gain and Denies weight loss ENT Reports dizziness Card Denies chest pain, Denies leg edema, Denies lightheadedness, Denies palpitations, Reports dyspnea on exertion, Denies orthopnea and Denies other Resp Denies cough and Reports dyspnea on exertion GI Denies hematochezia and Denies change in stool character Musc Denies abnormal gait, Denies muscle weakness, Denies numbness, Denies radiating pain into limb and Denies tingling Neuro Denies abnormal gait, Reports dizziness, Denies numbness and Denies tingling Endo Denies fatigue and Denies palpitations Physical Exam Vital Signs: Last Vital Signs Pulse 58 06/18/24 08:38 BP 80/62 L 06/18/24 08:38 BMI result Body Mass Index 22.6 Const General: comfortable and no acute distress Orientation/consciousness: patient oriented x3 HEENT Other: Unremarkable Head: Yes normal to inspection Neck Neck: Yes normal visual inspection Chest Chest palpation & inspection: normal inspection of the chest Resp Auscultation: clear to auscultation bilaterally Cardio Palpation: normal PMI Heart sounds: S1 normal heart sound present, S2 normal heart sound present, no gallops, no murmurs and no rubs GI Palpation (GI): Soft to palpation Back/Spine/Pelvis Other: unremarkable Skin General skin exam: no rashes or lesions noted Neuro General: patient oriented x3 Extrem General: Yes normal to inspection Psych Mental Status: mental status grossly normal Office Procedures EKG Details: EKG with sinus bradycardia at 58/Min; can not exclude old septal infarct; inferior/anterolateral mild [place] depression; [place] [id number], Complete Assessment & Plan Assessment & Plan (1) Cardiomyopathy: Code(s): I42.9 - Cardiomyopathy, unspecified Category: Medical Qualifiers: Cardiomyopathy type: unspecified Qualified Code(s): I42.9 - Cardiomyopathy, unspecified Plan: Per the last echocardiogram in our system, LVEF 25-30%. No significant CAD on cardiac catheterization. Cardiac MRI with suggestion of infiltrative cardiomyopathy, either sarcoid or amyloid. Possible myocarditis. PET-CT scan shows no evidence of sarcoidosis. For meds, because of dizziness and low blood pressure, we will cut back-decrease doses of beta-blockers, valsartan. Stop eplerenone. Patient not interested in ICD and has been discussed before. Previously, message sent to regarding workup. From his response, Amyloid not really suspected. We will repeat an echocardiogram for cardiac function. (2) Hypotension: Code(s): I95.9 - Hypotension, unspecified Category: Medical Plan: Has been a chronic issue but sometimes lower than other times. We will cut back on his meds. Decrease beta-blockers/valsartan and stop eplerenone as above. (3) PAF (paroxysmal atrial fibrillation): Code(s): I48.0 - Paroxysmal atrial fibrillation Category: Medical Plan: Continue beta-blockers and anticoagulation. (4) Dizziness: Code(s): R42 - Dizziness and giddiness Category: Medical Plan: Longstanding issue. Changes as above. However, also suspect noncardiac issues as he feels this way even with normal blood pressure. Orders: Orders CA echo transthoracic complete Today I42.9 - Cardiomyopathy, unspecified Medications: New valsartan 40 mg PO DAILY 90 tabs 1RF metoprolol succinate ER (Toprol XL) 50 mg PO DAILY 90 tabs 3RF Discontinued metoprolol succinate ER (Toprol XL) Discontinued Reason: Doctor's Order 100 mg PO DAILY 90 tabs 3RF Coding Level of Care Code Est Pt Level 4 (99418) Complex EM visit Add On G2211 Diagnoses Cardiomyopathy, unspecified type I42.9 Cardiomyopathy type: unspecified Hypotension I95.9 PAF (paroxysmal atrial fibrillation) I48.0 Dizziness R42 CPT Codes EKG - CPT: 48997-[id number], Complete ([id number])
== END 2024-06-18 09:07 | disposition home or self-care (01) ==
PROVIDERS: PCP Internal Medicine; Visit Provider Internal Medicine
DX: I42.9 Cardiomyopathy, unspecified (principal); I95.9 Hypotension, unspecified; I48.0 Paroxysmal atrial fibrillation; R42 Dizziness and giddiness
CPT/HCPCS: 93010; 99214

== ENCOUNTER → 2024-06-18 08:04 | Outpatient (BNVA) | payer OTHER, SELFPAY | PROVIDERS: PCP Internal Medicine; Visit Provider Internal Medicine | DX: I42.9 Cardiomyopathy, unspecified (principal); I95.9 Hypotension, unspecified; I48.0 Paroxysmal atrial fibrillation; R42 Dizziness and giddiness; Z79.01 Long term (current) use of anticoagulants; Z79.899 Other long term (current) drug therapy | CPT/HCPCS: 93005 ==

== ENCOUNTER → 2024-07-09 07:35 | Outpatient (REF) | payer OTHER, SELFPAY ==
--- NOTE | 2024-07-09 07:38 | CA_ITS ---
Transthoracic Echocardiogram Patient (Last, First, Middle): True Rosado, Gender: Male Date of : 1955 Age: 69 Procedure Date: 07/09/2024 Procedure Type: Transthoracic Echocardiogram Location: OP Height: 177.8 cm Weight: 68.95 kg BSA: 1.86 m2 Heart Rate: 63 bpm BP: 92 / 60 mmHg Ship Manager: SB Referring MD: Tato Stover MD Volunteer Patient Representative: Gokul Gonsalez MD Symptoms: I42.9 - Cardiomyopathy, unspecified Study Quality: Fair ECG Rhythm: Sinus Conclusions: - 1. [id number] LV systolic dysfunction with LVEF of 40-45% with grade 1 diastolic dysfunction 2. Normal cardiac valvular Dopplers 3. No gross pericardial effusion Findings Procedure Information The quality of the study was technically difficult. The study quality is limited by lung artifact. Left Ventricle Mildly increased left ventricular cavity size. There is normal left ventricular wall thickness. The left ventricular systolic function is mild to moderately decreased. The visually estimated ejection fraction is between 40-45%. Spectral Doppler is indicative of an impaired relaxation filling pattern. E/E prime ratio is <8, consistent with normal filling pressures. Evidence suggests grade I (mild) diastolic dysfunction. Right Ventricle Normal right ventricular cavity size. There is moderately decreased right ventricular systolic function. Atria The left atrium is likely dilated. Interatrial shunt cannot be excluded. The right atrium is normal in size. Aortic Valve The aortic valve structure and function is likely normal. There is no aortic valve stenosis. There is no aortic valve regurgitation. Mitral Valve Likely normal mitral valve structure and function. There is trace mitral valve regurgitation. There is no mitral valve stenosis. Pulmonic Valve The pulmonic valve was not well visualized. Tricuspid Valve The tricuspid valve was not well visualized. Tricuspid regurgitation envelope is inadequate for calculation of right ventricular systolic pressure. Normal right atrial pressure. Great Vessels All visible segments of the aorta are normal in size. The pulmonary artery was not well visualized. There is no dilatation of the ascending aorta measuring 3.20 cm. Venous The inferior vena cava is normal in size and collapses greater than 50% with inspiration. Pericardium/Pleural There is no evidence of pericardial effusion. Prior Study Comparison Changes noted compared to prior study dated: 09/18/2021. LV systolic function has improved Measurements 2D Linear Measurements IVSd: 0.98 0.6-0.9/0.6-1.0 cm LVIDd: 5.74 3.9-5.3/4.2-5.9 cm LVIDd Index: 3.09 2.4-3.2/2.2-3.1 cm/m2 LVIDs: 4.97 2.0-3.6 cm LVPWd: 0.66 0.7-1.1 cm LA Diam: 4.10 2.7-3.8/3.0-4.0 cm LAIDs Index: 2.20 1.5-2.3 cm/m2 LV Mass: 220.15 67-162/88-224 g LV Mass Index: 118.36 43-95/49-115 g/m2 LVOT Diam: 2.30 3.0+(-)1.3 cm 2D Systolic Function EF 4C: 35.40 >55% EF 2C: 44.00 >55% EF BiP: 41.00 >55% Mitral Valve MV Pk E: 0.36 MV PK A: 0.69 MV Decel Time: 208.00 E/A: 0.50 E'Lateral: 6.09 E'Medial: 5.11 E/E' Med: 7.10 E/E' Lat: 6.00 PHT: 61.00 MVA PHT: 3.61 Decel Sp[place]ding: 1.75 Aortic Valve AoV Pk Eric: 1.17 AoV Pk Grad: 5.00 OSCAR: 2.53 LVOT LVOT Pk Eric: 0.78 LVOT Mn Eric: 0.54 LVOT VTI: 0.14 LVOT Pk Grad: 2.00 LVOT Mn Grad: 2.00 LVOT Diam: 2.30 LVOT Area: 4.15 Diastolic Function MV Pk E: 0.36 MV Pk A: 0.69 E/A: 0.50 E'Medial: 5.11 E/E' Med: 7.10 E' Laterial: 6.09 E/E' Lat: 6.00 Right Ventricle TAPSE (mm): 11.70 TVS' Eric: 8.70 Tricuspid Valve RA Press: 3.00 Great Vessels Aorta Sinus of Valsalva: 3.50 2.0-3.5 cm Ao Asc: 3.20 2.1-3.4 cm Pulmonary Valve PV Pk Eric: 0.70 Peak PV Grad: 2.00 Updated in Other Vendor System with Status of Final Gokul Gonsalez MD electronically signed on 07/09/2024 6:38:44 PM with status of Final
--- OUTSIDE RECORDS SUMMARY | 2024-07-09 07:39 | XMS_ITS | Patient Health Record ---
[facility] Address [address] [address] Care Team Providers Care Accounts Collector Name Role Phone Lavon Roca MD Primary Care Provider Tavon gross Dotty Martino Unavailable [phone] Allergies No Known Allergies Reason For Referral [...] Problem Status W/U Status Risk Notes Problem [id number] Plantar wart (B07.0) Active confirmed Plan Of Treatment No Information Insurance Providers Payer Name Payer Address Payer Phone Subscriber Number Group Number Insured Name Patient Relationship to Insured Coverage Start Date [facility]age End Date [facility] [address] [place] [address] [phone] [id number] True Rsoado Self - patient is the insured Medical (General) History Medical History History ICD Code Anxiety Depression Diabetic Parkinsons disease Bipolar disorder paranoid Schizophrenia Insomnia Reflux ( GERD) Constipation Hypercholesterolemia Hyponatremia Hypertension, benign Surgical History Surgery Date(Month/Year)
== END ==
LOC: HO.CARD 07:35
PROVIDERS: PCP Internal Medicine; Visit Provider Internal Medicine
DX: I42.9 Cardiomyopathy, unspecified (principal)
CPT/HCPCS: 93306

== ENCOUNTER → 2024-07-09 07:38 | Outpatient (BNV) | payer OTHER, SELFPAY | PROVIDERS: PCP Internal Medicine; Visit Provider Internal Medicine Cardiovascular Disease | DX: I42.8 Other cardiomyopathies (principal) | CPT/HCPCS: 93306 ==

== ENCOUNTER 2024-07-26 12:00 | Inpatient (IN) | payer OTHER, SELFPAY ==
[2024-07-26] VITALS (10 sets, daily range): BP systolic 82–136; BP diastolic 54–74; PULSE 101–140; RESP 16–23; TEMP 33.3–37.3; O2SAT 93–100; BMI 25.0
--- NOTE | 2024-07-26 | EEG_ITS ---
This is a 16 channel EEG with an EKG lead. The patient is reported awake and drowsy during the tracing. Background EEG rhythm is theta to slow alpha range with intermittent delta range activity during the whole tracing. Also noted were intermittent right parietal sharp and slow waves with phase reversal at P4. Some lead and muscle artifacts are noted. Cardiac lead revealed frequent PVCs. Photic stimulation and hyperventilation were not performed. IMPRESSION: Abnormal EEG revealing generalized slowing, suggestive of bihemispheric dysfunction with right parietal abnormalities, suggestive of a seizure disorder. MD NISHA Banks/[place] / [id number]
--- NOTE | ~2024-07-26 | XR_ITS ---
CLINICAL HISTORY: confirm NG tube placement Single view of the chest. COMPARISON: XR chest dated 07/26/24 at 13:06 EDT FINDINGS: Enteric tube extends into the midthoracic esophagus and then is coiled with tip directed upward into the upper thoracic esophagus. Low lung volumes. Normal heart size. No consolidation. No pleural effusion. No pneumothorax. IMPRESSION: 1. Enteric tube (NG) is coiled in the midthoracic esophagus with tip directed upward into the lower neck. This document has been electronically signed by: Kevin Limon MD on 07/27/2024 17:34:10
--- NOTE | ~2024-07-26 | CT_ITS ---
CLINICAL HISTORY: sacral ulcer ?osteo CT PELVIS WITHOUT CONTRAST Comparison: None Findings: No pelvic ascites. There is rectal wall thickening. Sigmoid diverticulosis with no acute diverticulitis. Nonspecific retroperitoneal fat stranding. The appendix is normal. Body wall edema. No acute fracture or dislocation. There is presacral and post sacral edema. No organized or measurable fluid collection. No gas lobules. No erosive or resorptive bony changes to suggest acute osteomyelitis. No foreign body. IMPRESSION: 1. Edema surrounding the sacrum with no evidence for abscess, osteomyelitis or necrotizing fasciitis. 2. Probable proctitis. This document has been electronically signed by: Letha Wright DO on 07/30/2024 13:13:00
--- NOTE | ~2024-07-26 | XR_ITS ---
CLINICAL HISTORY: confirm NG tube placement 1 view chest x-ray Comparison: CR - XR CHEST 1V - 07/27/24 17:15 EDT Findings: The enteric tube courses below the diaphragm likely looping within the proximal stomach. Lungs are clear. Heart size is stable. IMPRESSION: 1. Enteric tube courses below the diaphragm and likely loops within the proximal stomach. This document has been electronically signed by: Nila Valdes MD on 07/27/2024 20:59:14
--- NOTE | ~2024-07-26 | XR_ITS ---
CLINICAL HISTORY: weakness 1 view chest x-ray Comparison: None Findings: Patient's chin partially obscures the lung apices. Lungs are hypoinflated. Cardiac silhouette is within normal limits for this degree of inflation. No focal areas of consolidation. No pleural effusion. IMPRESSION: Hypoinflation without acute infiltrate. This document has been electronically signed by: Obi Putnam MD on 07/26/2024 13:48:32
--- NOTE | ~2024-07-26 | XR_ITS ---
CLINICAL HISTORY: ng tube placement 1 view chest x-ray. Comparison: CR - XR CHEST 1V - 07/27/24 20:00 EDT Findings: Enteric tube identified coursing below the diaphragm with the distal tip projecting over the left upper abdominal quadrant, at the expected location of the proximal stomach. There is minimal blunting of the right costophrenic angle. No pneumothorax or significant left pleural effusion identified. No focal pulmonary consolidation. The patient's face partially obscures the right lung apex. Heart size normal. Impression: 1. Enteric tube in place with the distal tip projecting over the left upper abdominal quadrant, at the expected location of the proximal stomach. 2. Probable small right pleural effusion. No focal pulmonary consolidation identified. This document has been electronically signed by: Edwardo Welch MD on 07/29/2024 05:05:09
--- NOTE | ~2024-07-26 | CT_ITS ---
CLINICAL HISTORY: Fall into bath tub, headache, on Eliquis CT head without contrast Comparison: None Findings: Images mildly degraded by patient motion. There is generalized cerebral and cerebellar atrophy. The size and shape of the ventricular system is within normal limits for this degree of atrophy. Mild areas of low-attenuation are identified within the periventricular and deep white matter. Porter-white differentiation is well preserved. No midline shift or mass effect. No intracranial hemorrhage. No calvarial fractures. Mild soft tissue swelling of the right posterior parietal scalp. IMPRESSION: No fracture or intracranial hemorrhage. This document has been electronically signed by: Obi Putnam MD on 07/26/2024 14:06:31
--- NOTE | ~2024-07-26 | XR_ITS ---
CLINICAL HISTORY: Fall into the bathtub, right proximal shoulder hum Exam: AP and scapular Y-views of the right shoulder. Comparison: None. Findings: No fracture, dislocation, or separation. Humeral head is high-riding contacting the undersurface of the acromion. [id number] glenohumeral joint and AC joint DJD. Impression: 1. No acute traumatic findings. 2. Likely chronic rotator cuff tear. This document has been electronically signed by: Obi Putnam MD on 07/26/2024 13:55:21
--- NOTE | ~2024-07-26 | CT_ITS ---
CLINICAL HISTORY: Fall, right shoulder pain, rule out occult Exam: CT of the right shoulder without intravenous contrast. Comparison: Radiographs from earlier today. Findings: Bony alignment is anatomic without dislocation are separation. No acute fracture. Mild degenerative change of the glenohumeral joint with moderate degenerative change of the AC joint. No fracture of the clavicle is identified. No right rib fracture seen. No pneumothorax or pleural effusion. Dense vascular calcification of the carotid arteries. Impression: No fracture, dislocation, or separation. If there is persistent clinical concern, MRI of the shoulder could be performed for evaluation of soft tissue injury. This document has been electronically signed by: Obi Putnam MD on 07/26/2024 15:16:09
--- NOTE | ~2024-07-26 | CT_ITS ---
CLINICAL HISTORY: Fall into bathtub, neck pain, R O fracture CT cervical spine without contrast Comparison: None Findings: There is straightening of the normal cervical lordosis. No fracture or focal bony malalignment is identified. No prevertebral soft tissue swelling. [id number] multilevel degenerative disc disease and degenerative facet disease throughout the cervical spine. Upper airway is patent. No apical pneumothorax. Mild air-filled distention of the proximal thoracic esophagus. IMPRESSION: 1. No fracture. 2. Straightening of the normal cervical lordosis can be seen with muscle spasm. This document has been electronically signed by: Obi Putnam MD on 07/26/2024 14:07:36
--- NOTE | ~2024-07-26 | US_ITS ---
CLINICAL HISTORY: RUQ pain Exam: 1. Ultrasound of the right upper quadrant of the abdomen. 2. Duplex ultrasound of the main portal vein. Comparison: US/SR - US ABDOMEN COMPLETE - 03/11/24 11:29 EST Findings: Study limited due to patient inability to cooperate with the examination due to confusion. Therefore, there is limited imaging of the abdomen. Liver measures 12 cm in long axis. No focal hepatic lesions identified. No intrahepatic biliary ductal dilatation. Dependent echogenic stones within the gallbladder without gallbladder wall thickening or pericholecystic fluid. Negative sonographic De Oliveira's sign. Common bile duct is within normal limits. Right kidney is unremarkable. No free fluid. Duplex evaluation of the main portal vein was performed. This included real-time grayscale, color spectral Doppler analysis, and color Doppler flow imaging. Main portal vein is patent with hepatopetal flow. IMPRESSION: Cholelithiasis without ultrasound findings of cholecystitis. This document has been electronically signed by: Obi Putnam MD on 07/26/2024 17:41:21
--- NOTE | ~2024-07-26 | XR_ITS ---
EXAMINATION: XR ABDOMEN KUB CLINICAL INDICATION: eval for metal- needs mr COMPARISON: None available. TECHNIQUE: AP view of the abdomen. FINDINGS: Bowel gas pattern is normal/nonspecific. There is no focally dilated loop of bowel. NG tube is in place with the tip just extending past the GE junction. The sidehole is supradiaphragmatic. This should be advanced. Temperature probe in the rectum. No free air. No metallic foreign body evident. No organomegaly. No abnormal soft tissue calcifications aside from vascular. Arthritic changes in the bilateral SI joints raise the possibility of inflammatory arthropathy. Mild to moderate arthritic changes in both hip joints. Density in the region of the inferior sacrum, uncertain if this represents bony abnormality, retained oral contrast, or something external to the patient. XR/XR KUB IMPRESSION: 1. No radiopaque metallic foreign body present. 2. NG tube should be advanced as detailed. 3. Temperature probe within the rectum. 4. Arthritic changes in the SI joints raises the possibility of inflammatory arthropathy. 5. Density in the region of the inferior sacrum, uncertain if this represents bony abnormality or artifact. Electronically signed by: Padilla Grimes MD 07/28/2024 04:01 PM EDT
--- NOTE | 2024-07-26 12:07 | ECG_ITS ---
Test Reason : WEAKNESS Blood Pressure : */* mmHG Vent. Rate : 109 BPM Atrial Rate : 109 BPM P-R Int : 162 ms QRS Dur : 102 ms QT Int : 374 ms P-R-T Axes : 56 -60 79 degrees QTcB Int : 503 ms Poor data quality Sinus tachycardia with Premature supraventricular complexes and Premature ventricular complexes or Fusion complexes Left axis deviation Minimal voltage criteria for LVH, may be normal variant ( Somis product ) Inferior infarct Anteroseptal infarct Abnormal ECG When compared with ECG of 27-Apr-2023 13:33, Poor data quality in current ECG precludes serial comparison Referred By: Lata Natarajan Electronically Signed By: MALGORZATA WILKES MD
--- NOTE | 2024-07-26 12:11 | ED.FALL ---
HPI - Fall General Chief Complaint: Fall Stated Complaint: AMS Time Seen by Provider: 07/26/24 12:07 Source: patient and EMS Mode of arrival: EMS Limitations: no limitations History of Present Illness ED Provider: Dr. Wood Brooks HPI Narrative: 69-year-old male with a history of paroxysmal atrial fibrillation, dizziness, paranoid schizophrenia, bipolar disorder, anxiety, insomnia, Parkinson's disease, GERD with esophagitis, hypercholesterolemia, hypertension, diabetes mellitus who was brought to emergency department by ambulance for evaluation of fall into bath tub. The patient can not recount details of why he was in the bathtub with all of his clothes on clothes. Patient has two brothers that visit him on Wednesdays and Saturdays. The Saturday brother did visit him and he appeared well . His Saturday brother found him fully clothed in the bath tub complaining of feeling very thirsty and needing to see a doctor. Here in the emergency department the patient was oriented to person and place. He did not know the year but he was able to tell me his age. He was complaining of right shoulder and right arm pain but otherwise has no complaints except that he feels very thirsty. Paramedics report that the patient is confused at his baseline but is able to live independently at home. I did obtain information from the patient's brothers who are here in the emergency department. They state that the patient has not taken any of his medications since 07/21/2024 ( 5 days). Related Data Home Medications ?Medication ?Instructions ?Recorded ?Confirmed clonazepam 0.5 mg tablet 0.5 mg PO BEDTIME PRN Sleep 04/08/20 06/18/24 multivitamin 1 tab PO DAILY 05/15/21 06/18/24 carbidopa 25 mg-levodopa 100 mg 1 tab PO TID 08/02/23 06/18/24 tablet benztropine 1 mg tablet 1 mg PO BEDTIME 11/25/23 06/18/24 melatonin 5 mg capsule mg PO .qhs 12/16/23 06/18/24 risperidone 2 mg tablet (Risperdal) 2 mg PO BID 06/18/24 06/18/24 Previous Rx's ?Medication ?Instructions ?Recorded blood pressure monitor #1 ea 02/07/21 apixaban 5 mg tablet (Eliquis) 5 mg PO BID 90 days #180 tabs 11/18/23 atorvastatin 20 mg tablet 20 mg PO DAILY 90 days #90 tabs 11/18/23 metformin 1,000 mg tablet 1,000 mg PO BID #180 tabs 04/10/24 metoprolol succinate 50 mg 50 mg PO DAILY #90 tabs 06/18/24 tablet,extended release 24 hr (Toprol XL) valsartan 40 mg tablet 40 mg PO DAILY #90 tabs 06/18/24 magnesium oxide 400 mg PO BID #60 tabs 06/23/24 Allergies Allergy/AdvReac Type Severity Reaction Status Date / Time No Known Allergies Allergy Verified 07/26/24 12:10 [No Known Allergies*] Review of Systems Review of Systems: Yes Other ( Limited secondary to memory issues) [facility] Past Medical History [facility] Narrative: Social history: The patient lives alone but does have 2 brothers that check on him twice a week. Medical History PAF (paroxysmal atrial fibrillation) Dizziness Paranoid schizophrenia Bipolar depression Anxiety Insomnia Constipation Parkinson's disease GERD without esophagitis Hyponatremia Pure hypercholesterolemia Benign essential hypertension Diabetes mellitus Surgical History History of extraction of renal calculus Family History Family History Father Parkinson disease Mother Stomach cancer Social History Social History Housing: House Alcohol intake: never Patient Tobacco Use Status: Never used Tobacco Smoked in Last 30 Days: No e-Cigarette/Vaping Use: Never Used Second Hand Smoke Exposure: No Advance Directives: No Advance Directives Information Provided: Yes service: No Current occupational status: retired Cognitive needs: Yes (walker) Hearing needs: No Vision needs: Yes (reading glasses) Physical Exam Vital Signs: Vital Signs: Last Vital Signs Temp 95.4 F L 07/26/24 14:56 Pulse 101 H 07/26/24 14:56 Resp 20 07/26/24 14:56 BP 128/66 07/26/24 14:56 Pulse Ox 97 07/26/24 14:56 O2 Del Method Room Air 07/26/24 14:56 BMI result Body Mass Index 25.0 vital signs revealed a temperature of 91.9 degrees F, heart rate of 113, respiratory rate of 16, blood pressure of 119/74. O2 saturation of 94% on room air Exam: General: Awake, alert in no distress, oriented to person, place and age but not year. Very tremulous cool to the touch, answers questions appropriately , very tremulous secondary to Parkinson's Head: Normocephalic, atraumatic EENT: PERRL, Lids normal, sclera normal, conjunctiva normal, nose normal , ears normal, throat without erythema or exudates Neck: Kyphotic neck Lung: breath sounds symmetric, no wheezing, rales or rhonchi Chest: symmetric movement, nontender Heart: tachycardia and rhythm, normal S1, S2 no murmurs or rubs Abdomen: soft, non-tender, nondistended, normal bowel sounds Back: no vertebral tenderness, no CVAT Extremities: no deformities, generalized weakness but able to move extremities minimally against gravity. Patient does have tenderness palpation in his right shoulder and proximal humerus. Neuro: Awake, alert, oriented, normal speech, cranial nerves intact, no focal weakness but significant generalized weakness both upper and lower extremities Psych: Pleasant, cooperative Medications Administered Generic Name Dose Route Start Last Admin Trade Name Freq PRN Reason Stop Dose Admin Lactated Ringer's 1,000 mls @ 999 mls/hr 07/26/24 14:47 07/26/24 14:55 Lr IV 07/26/24 15:47 999 mls/hr .Q1H1M STA Administration Discontinued Medications Generic Name Dose Route Start Last Admin Trade Name Freq PRN Reason Stop Dose Admin Lactated Ringer's 1,980 mls @ 1,980 mls/hr 07/26/24 12:12 07/26/24 14:14 Lr 30 ml/kg infuse over 1 hr (1980 ml) 07/26/24 13:11 Infused IV Infusion .Q1H ONE Medical Decision Making Medical Decision Making MDM Narrative: 69-year-old male with a history of paroxysmal atrial fibrillation, dizziness, paranoid schizophrenia, bipolar disorder, anxiety, insomnia, Parkinson's disease, GERD with esophagitis, hypercholesterolemia, hypertension, diabetes mellitus who was brought to emergency department by ambulance for evaluation of fall into bath tub with unknown last well-known time or when he fell into the bathtub. The patient was fully dressed. Patient was found this morning when he was checked on by his brother. Patient was complaining of increased thirst, feeling cold and right arm pain but has no other complaints. Patient was oriented to person, place and age. Physical examination did reveal tenderness with palpation of the his right shoulder and proximal humerus, patient was extremities were very cold, patient was very tremulous to his Parkinson's, he has generalized weakness, otherwise exam was unremarkable. 13:48 Differential diagnosis: Includes but is not limited to stroke, TIA, mechanical fall, hypothermia secondary to exposure versus metabolic disorder, rhabdomyolysis Course: 14:44 My interpretation patient's laboratory evaluation is as follows: WBC elevated 19,800 with 90.6 neutrophils and 1.6 lymphocytes. PT INR elevated 15.2 and 1.3 with a normal PTT of 26.1. Venous pH was low 7.29 with low pCO2 of 23 elevated and low bicarb of 11. Lactic acid was elevated at 4.9. Troponin was elevated at 145.5 , repeat due at 15:50 hours. patient's BUN and creatinine were elevated 110 and 4.68. Potassium elevated 5.2. AST and ALT elevated 62 and 68. CK elevated 5312 . COVID-19, influenza and RSV tests were negative. Venous pH low 7.29. Venous CO2 and bicarb low 23 and 11. Patient was laboratory evaluation is consistent with acute kidney injury most likely caused by rhabdomyolysis and volume depletion from being in the Bath time of for a significant period of time. I suspect that the patient was elevated troponin in his secondary to his acute kidney injury but I will repeat the troponin at 15:50 hours. His elevated lactic acid he is also due to his acute kidney injury and starvation ketosis and not an infectious process. urinalysis was positive for nitrates otherwise unremarkable. Microscopic revealed no significant white blood cells or bacteria suggesting he does not have a urinary tract infection. Chest x-ray revealed no evidence of pneumonia. CT scan of the head and cervical spine were negative. Right shoulder x-rays were negative however the patient has very the calcified bones therefore I am going to order a right shoulder x-ray to rule out an occult fracture. The patient's was hypothermia. According to his brother, the patient keeps his thermostat very low and it was very cold in his apartment therefore His hypothermia is most likely caused by cold exposure and not an infectious process. The nurse was asked to place a temperature sensing Ramirez catheter so that we can monitor the patient's temperature as well as his urine output. The patient was initially treated with 30 cc/kilogram LR bolus. Given his acute kidney injury I ordered a third liter of LR. And will discuss admission with the covering hospitalist. I did discuss admission with the covering hospitalist, Dr. Kang and the patient will be admitted for further management.. Admission/Observation Consideration of admission/observation: Escalation of care including admission/observation considered ( yes) Lab Data MDM Lab Attestation statement: I reviewed the patient's lab results. 07/26/24 12:50 07/26/24 12:50 Labs: Lab Results 07/26/24 07/26/24 07/26/24 Range/Units 12:50 12:59 14:59 WBC 19.8 H (4.8-10.8) X10*3/uL RBC 4.76 (4.60-5.80) X10*6/uL Hgb 15.4 (14.0-18.0) g/dl Hct 42.0 (42.0-52.0) % MCV 88.2 (80.0-98.0) fL MCH 88.2 H (27.0-33.0) pg MCHC 36.7 H (31.0-36.0) g/dl RDW 13.3 (11.0-16.0) % Plt Count 230 (160-400) X10*3/uL MPV 11.0 (9.4-12.4) fL Immature Gran % (Auto) 0.5 H (0.0-0.4) % Neut % (Auto) 90.6 H (45-73) % Lymph % (Auto) 1.6 L (20-40) % [place] % (Auto) 7.1 (2-11) % Eos % (Auto) 0.1 (0-4) % Baso % (Auto) 0.1 (0-2) % Lymph # (Auto) 0.3 L (1.2-4.9) X10*3/uL [place] # (Auto) 1.4 H (0.1-1.2) X10*3/uL Eos # (Auto) 0.0 (0.0-0.4) X10*3/uL Baso # (Auto) 0.0 (0.0-0.2) X10*3/uL Abs Immat Gran (auto) 0.09 H (0.00-0.03) X10*3/uL Absolute Neuts (auto) 18.0 H (2.0-8.3) x10*3/uL Absolute Nucleated RBC 0.000 (0.0-0.012) X10*3/uL Nucleated RBC % (auto) 0.0 (0.0-0.2) /100WBC Smear Tech's Comments VERIFIED PT 15.2 H (10.9-12.4) SEC INR 1.3 H (0.9-1.1) APTT 26.1 (26.0-36.8) SEC VBG pH 7.29 L (7.32-7.43) VBG pCO2 23 mmHg VBG pO2 70 mmHg VBG HCO3 11 L (22-26) mmol/L VBG O2 Saturation 90.0 % VBG Base Excess -12.8 mmol/L Sodium 139 (135-145) mmol/L Potassium 5.2 H D (3.3-5.1) mmol/L Chloride 103 (96-108) mmol/L Carbon Dioxide 12 L (22-29) mmol/L Anion Gap 29 H (12-20) BUN 110 H (9-16) mg/dL Creatinine 4.68 H* (0.5-1.4) mg/dL Estim Creat Clear Calc 12.8 Estimated GFR 13 Random Glucose 132 H (60-115) mg/dL Lactic Acid 4.9 H* (0.5-2.0) mmol/L Calcium 8.4 D (8.4-10.2) mg/dL Magnesium 2.1 (1.6-2.6) mg/dL Total Bilirubin 0.7 (0.0-1.0) mg/dL AST 162 H (5-37) U/L ALT 68 H (0-40) U/L Alkaline Phosphatase 59 (39-117) U/L Ammonia 34 (13-55) umol/L Total Creatine Kinase 5312 H (38-174) U/L Troponin I High Sens 145.5 H* D (<3.5-35.0) ng/L Total Protein 6.7 (6.5-8.0) g/dL Albumin 3.6 (3.5-5.0) g/dL Urine Color Dark Yellow Urine Appearance Clear Urine pH 6.5 (5.0-9.0) Ur Specific [place] 1.010 (1.005-1.025) Urine Protein Trace (Neg-Trace) mg/dL Urine Glucose (UA) Negative (Negative) mg/dL Urine Ketones Negative (Negative) mg/dL Urine Blood Negative (Negative) Urine Nitrite Positive H (Negative) Ur Leukocyte Esterase Negative (Negative) Urine RBC 0-2 (0-2) /HPF Urine WBC 0-5 (0-5) /HPF Ur Squamous Epith Cells 0-2 (0-2) /HPF Urine Bacteria Trace (None Seen) Hyaline Casts 0-2 (0-2) /LPF Influenza Type A (PCR) NEGATIVE (Negative) Influenza Type B (PCR) NEGATIVE (Negative) RSV RNA Qual (PCR) NEGATIVE (Negative) SARS-CoV-2 RNA (RT-PCR) NEGATIVE (Negative) Blood Type A Positive Antibody Screen NEGATIVE Independent Interpretation I performed an independent interpretation of an: EKG Interpretation: My independent interpretation patient's 12 EKG is as follows: Patient was tremulous in the baseline is difficult to interpret due to his tremors. Normal sinus rhythm with a rate of 109, normal VT interval, prolonged QRS duration of 102 milliseconds, prolonged QTC interval 503 milliseconds, Q-waves in 2, 3 and F as well as V1 through V3 with no ST segment elevation, no ST segment depression, no significant T-wave abnormalities, no PACs, no PVCs. Compared to EKG dated 04/27/2023 this EKG is also difficult to interpret secondary to baseline artifact. Q-waves in 3 and AVF are old. Q-waves V1 through V3 are also old as well. My independent interpretation of the patient's one-view chest x-ray is as follows: No acute infiltrates noted. My independent interpretation of the patient's three-view right shoulder x-ray is as follows: No acute fracture or dislocation loaded however the patient has significant decalcification of his bones which makes fracture difficult to evaluate. Radiology Impression Discussion of test interpretation with radiology: I have reviewed the radiologist's reading. Radiologist Impression: 1 view chest x-ray Comparison: None Findings: Patient's chin partially obscures the lung apices. Lungs are hypoinflated. Cardiac silhouette is within normal limits for this degree of inflation. No focal areas of consolidation. No pleural effusion. IMPRESSION: Hypoinflation without acute infiltrate. This document has been electronically signed by: Obi Putnam MD on 07/26/2024 13:48:32 Exam: AP and scapular Y-views of the right shoulder. Comparison: None. Findings: No fracture, dislocation, or separation. Humeral head is high-riding contacting the undersurface of the acromion. [id number] glenohumeral joint and AC joint DJD. Impression: 1. No acute traumatic findings. 2. Likely chronic rotator cuff tear. This document has been electronically signed by: Obi Putnam MD on 07/26/2024 13:55:21 CT head without contrast Comparison: None Findings: Images mildly degraded by patient motion. There is generalized cerebral and cerebellar atrophy. The size and shape of the ventricular system is within normal limits for this degree of atrophy. Mild areas of low-attenuation are identified within the periventricular and deep white matter. Porter-white differentiation is well preserved. No midline shift or mass effect. No intracranial hemorrhage. No calvarial fractures. Mild soft tissue swelling of the right posterior parietal scalp. IMPRESSION: No fracture or intracranial hemorrhage. This document has been electronically signed by: Obi Putnam MD on 07/26/2024 14:06:31 CT cervical spine without contrast Comparison: None Findings: There is straightening of the normal cervical lordosis. No fracture or focal bony malalignment is identified. No prevertebral soft tissue swelling. [id number] multilevel degenerative disc disease and degenerative facet disease throughout the cervical spine. Upper airway is patent. No apical pneumothorax. Mild air-filled distention of the proximal thoracic esophagus. IMPRESSION: 1. No fracture. 2. Straightening of the normal cervical lordosis can be seen with muscle spasm. This document has been electronically signed by: Obi Putnam MD on 07/26/2024 14:07:36 Critical Care Time Critical Care Time Critical Care Time: Yes Total Critical Care Time: 55 Attestation: Critical Care: The patient was critically ill with a high probability of imminent or life threatening deterioration. I spent greater than 30 minutes of discontinuous time evaluating the patient,delivering critical care at the bedside, discussing and evaluating pertinent data with consultants. Critical care time does not include time spent performing separately billable procedures or teaching. Total time spent performing critical care was 55 minutes. Discharge Plan Discharge Prescriptions: No Action Eliquis 5 mg tablet 5 mg PO BID 90 Days Qty: 180 3RF atorvastatin 20 mg tablet 20 mg PO DAILY 90 Days Qty: 90 3RF metformin 1,000 mg tablet 1,000 mg PO BID Qty: 180 0RF magnesium oxide 400 mg magnesium tablet 400 mg PO BID Qty: 60 5RF multivitamin Tablet 1 tab PO DAILY clonazepam 0.5 mg tablet 0.5 mg PO BEDTIME PRN (Reason: Sleep) (DME) blood pressure monitor Kit See Rx Instructions .Route Qty: 1 0RF Rx Instructions: As directed carbidopa-levodopa 25-100 mg tablet 1 tab PO TID benztropine 1 mg tablet 1 mg PO BEDTIME melatonin 5 mg capsule PO .qhs risperidone [Risperdal] 2 mg tablet 2 mg PO BID valsartan 40 mg tablet 40 mg PO DAILY Qty: 90 1RF metoprolol succinate [Toprol XL] 50 mg tablet extended release 24 hr 50 mg PO DAILY Qty: 90 3RF Print Language: Cook Islander
[2024-07-26] MEDS: LACTATED RINGERS 1980 ML IV (12:39)
--- NOTE | 2024-07-26 12:55 | PC.NURSE ---
pt arrives via EMS from home. per EMS, pts brother found him in bathtub (not in water) slumped over and incoherent this morning (saturday) when he went to visit. last known well was on saturday. EMS reports Afib 130-150HR pt cold on arrival, rectal temp was 91.8 with probe. warmed fluids started (LR) and pt placed on roman hugger while labs are being drawn.
--- NOTE | 2024-07-26 12:57 | PC.NURSE ---
pt speaking though not coherently. AOx3 - knows name and age, knows he is at [facility]. unsure of date
[2024-07-26 13:02] LABS: Basophils Percent Auto 0.1 % (0-2); Eosinophils Percent Auto 0.1 % (0-4); Hemoglobin 15.4 g/dl (14.0-18.0); Imm Gran Abs Auto 0.09 X10*3/uL (0.00-0.03); Imm Gran Pct Auto 0.5 % (0.0-0.4); Lymphocytes Absolute Auto 0.3 X10*3/uL (1.2-4.9); Lymphocytes Percent Auto 1.6 % (20-40); MANUAL DIFF FLAG SCAN; Mean Corpuscular HGB Conc 36.7 g/dl (31.0-36.0); Mean Corpuscular Volume 88.2 fL (80.0-98.0); Monocytes Absolute Auto 1.4 X10*3/uL (0.1-1.2); Monocytes Percent Auto 7.1 % (2-11); Neutrophils Percent Auto 90.6 % (45-73); Platelet Count 230 X10*3/uL (160-400); Red Blood Count 4.76 X10*6/uL (4.60-5.80); Red Cell Distribution Width 13.3 % (11.0-16.0); SCAN SMEAR FLAG 1; White Blood Count 19.8 X10*3/uL (4.8-10.8)
[2024-07-26 13:03] LABS: Venous Blood Gas Refer to POC result
[2024-07-26 13:03] LABS: VBG Base Excess -12.8 mmol/L; VBG HCO3 11 mmol/L (22-26); VBG pCO2 23 mmHg; VBG pH 7.29 (7.32-7.43); VBG pO2 70 mmHg
[2024-07-26 13:09] LABS: INTERNATIONAL NORM RATIO 1.3 (0.9-1.1); Mean Corpuscular Hemoglobin 88.2 pg (27.0-33.0); Prothrombin Time 15.2 SEC (10.9-12.4)
[2024-07-26 13:10] LABS: Ammonia 34 umol/L (13-55)
[2024-07-26 13:12] LABS: Partial Thromboplastin Time 26.1 SEC (26.0-36.8)
[2024-07-26 13:25] LABS: Lactic Acid 4.9 mmol/L (0.5-2.0); SLIDE REVIEW VERIFIED
[2024-07-26 13:39] LABS: Troponin-I High Sensitivity 145.5 ng/L (<3.5-35.0)
[2024-07-26 13:42] LABS: Influenza A PCR NEGATIVE (Negative); Influenza B PCR NEGATIVE (Negative); Resp Syncy Virus RNA Qual PCR NEGATIVE (Negative); SARS COV2 PCR INHOUSE NEGATIVE (Negative)
[2024-07-26 14:06] LABS: Alanine Aminotransferase 68 U/L (0-40); Albumin Level 3.6 g/dL (3.5-5.0); Alkaline Phosphatase 59 U/L (39-117); Anion Gap 29 (12-20); Aspartate Amino Transferase 162 U/L (5-37); Bilirubin Total 0.7 mg/dL (0.0-1.0); Blood Urea Nitrogen 110 mg/dL (9-16); Calcium 8.4 mg/dL (8.4-10.2); Carbon Dioxide 12 mmol/L (22-29); Chloride 103 mmol/L (96-108); Glucose Random 132 mg/dL (60-115); Magnesium 2.1 mg/dL (1.6-2.6); Potassium 5.2 mmol/L (3.3-5.1); Sodium 139 mmol/L (135-145); Total Protein 6.7 g/dL (6.5-8.0)
[2024-07-26 14:07] LABS: Creatinine Clr Calc Pharmacy 12.8; Estimated Glomerular Filt Rate 13
[2024-07-26] MEDS: Lactated Ringers 1,000 ML 999 ML IV (14:55)
[2024-07-26 14:56] LABS: Reflex Lactate? Lactic Acid Added
[2024-07-26 15:05] LABS: Appearance Urine Clear; Color Urine Dark Yellow; Glucose Urine UA Negative (Negative); Leukocyte Esterase Urine Negative (Negative); Nitrite Urine Positive (Negative); PH 6.5 (5.0-9.0); UMIC TRIGGER UACC YES; Urine Blood Negative (Negative); Urine Ketones Negative (Negative); Urine Protein Trace mg/dL (Neg-Trace)
[2024-07-26 15:16] LABS: Bacteria Urine Trace (None Seen); Hyaline Casts Urine 0-2 /LPF (0-2); RBC Urine 0-2 /HPF (0-2); Squamous Epithelial Cell Urine 0-2 /HPF (0-2); UACC Culture Trigger YES; WBC Urine 0-5 /HPF (0-5)
[2024-07-26 15:29] LABS: TSH reflex Free T4 1.19 uIU/mL (0.32-4.0)
[2024-07-26 16:04] LABS: ~Lactic Acid-LAB USE ONLY 2.1 mmol/L (0.5-2.0)
--- NOTE | 2024-07-26 16:07 | PC.NURSE ---
pt more alert, able to answer some yes/no questions. asks for water and was cleared for water by dr andersen.
--- NOTE | 2024-07-26 16:08 | PHA.MEDREC ---
Addendum entered by Bashir Triplett [facility] 07/26/24 16:15: med rec reviewed Original Note: Pharmacy Consult ? Medication Reconciliation Pharmacy has completed the medication reconciliation. Spoke to pt's family member which had list to confirm meds. Per family member, pt takes metoprolol succ 100 mg daily (instead of 50 mg daily). Pt also takes benztropine 1 mg BID.
--- NOTE | 2024-07-26 16:44 | P.HPHOSP_ITS ---
History of Present Illness Date of Service: 07/26/24 Chief Complaint: Acute kidney injury 69-year-old male with a history of paroxysmal atrial fibrillation, dizziness, paranoid schizophrenia, bipolar disorder, anxiety, insomnia, Parkinson's disease, GERD with esophagitis, hypercholesterolemia, hypertension, diabetes mellitus who was brought to emergency department by ambulance for evaluation of fall into bath tub. The patient can not recount details of why he was in the bathtub with all of his clothes on clothes. Patient has two brothers that visit him on Wednesdays and Saturdays. The Saturday brother did visit him and he appeared well . His Saturday brother found him fully clothed in the bath tub complaining of feeling very thirsty and needing to see a doctor. Brother estimates patient has been without medicine at least 5 days ER Course In the emergency room, CT of the shoulder cervical spine and head failed to demonstrate any acute abnormalities. [place] [id number] without focal evidence of infection. Noted to be in acute kidney injury with rhabdomyolysis. Admission requested Review of Systems 2 Review of Systems: Denies chest pain Denies shortness of breath Denies nausea vomiting diarrhea Denies fever chills [facility] Medical History PAF (paroxysmal atrial fibrillation) Dizziness Paranoid schizophrenia Bipolar depression Anxiety Insomnia Constipation Parkinson's disease GERD without esophagitis Hyponatremia Pure hypercholesterolemia Benign essential hypertension Diabetes mellitus Family History Father Parkinson disease Mother Stomach cancer Surgical History History of extraction of renal calculus Social History Housing: House Alcohol intake: never Patient Tobacco Use Status: Never used Tobacco Smoked in Last 30 Days: No e-Cigarette/Vaping Use: Never Used Second Hand Smoke Exposure: No Advance Directives: No Advance Directives Information Provided: Yes service: No Current occupational status: retired Cognitive needs: Yes (walker) Hearing needs: No Vision needs: Yes (reading glasses) Meds Allergies Allergy/AdvReac Type Severity Reaction Status Date / Time No Known Allergies Allergy Verified 07/26/24 12:10 [No Known Allergies*] Active Medications: Current Medications Acetaminophen (Acetaminophen 325 Mg Tablet) 650 mg PO Q6H PRN PRN Reason: Pain, Mild 1-3,fever,headache Apixaban (Apixaban 5 Mg Tablet) 5 mg PO BID ADRIAN Benztropine Mesylate (Benztropine Mesylate 1 Mg Tablet) 1 mg PO BID ADRIAN Calcium Carbonate (Calcium Carbonate 750 Mg Tab.Chew) 750 mg PO Q4H PRN PRN Reason: Heartburn Carbidopa/Levodopa (Carbidopa/Levodopa 25/100 Tablet) 1 tab PO BID ADRIAN Lactated Ringer's (Lr) 1,000 mls @ 125 mls/hr IVCONT .Q8H ADRIAN Magnesium Hydroxide (Milk Of Magnesia 30 Ml Oral.Susp) 30 ml PO DAILY PRN PRN Reason: Constipation Melatonin (Melatonin 3 Mg Tablet) 6 mg PO BEDTIME PRN PRN Reason: Insomnia Metoprolol Succinate (Metoprolol Succinate Er 100 Mg Tab.Er.24h) 100 mg PO DAILY ADRIAN; Protocol Non-Formulary Medication (Eplerenone) 12.5 mg PO DAILY ADRIAN Risperidone (Risperidone 2 Mg Tablet) 2 mg PO BID ADRIAN Sodium Chloride (0.9 % Sodium Chloride Flush 3 Ml Syringe) 3 ml IVFLUSH QSHIFT ADRIAN Valsartan (Valsartan 40 Mg Tablet) 40 mg PO BEDTIME ADRIAN; Protocol Home Medications ?Medication ?Instructions ?Recorded ?Confirmed ?Last Taken ?Type clonazepam 0.5 mg tablet 0.5 mg PO BEDTIME Sleep 04/08/20 07/26/24 07/21/24 History multivitamin 1 tab PO DAILY 05/15/21 07/26/24 07/21/24 History carbidopa 25 mg-levodopa 100 mg 1 tab PO BID 08/02/23 07/26/24 07/21/24 History tablet benztropine 1 mg tablet 1 mg PO BID 11/25/23 07/26/24 07/21/24 History melatonin 5 mg capsule 5 mg PO BEDTIME 12/16/23 07/26/24 07/21/24 History risperidone 2 mg tablet (Risperdal) 2 mg PO BID 06/18/24 07/26/24 07/21/24 History atorvastatin 20 mg tablet 20 mg PO BEDTIME 07/26/24 07/26/24 07/21/24 History eplerenone 25 mg tablet 12.5 mg PO DAILY 0307/26/24 07/21/24 History magnesium oxide 400 mg PO BEDTIME 07/26/24 07/26/24 07/21/24 History metoprolol succinate 50 mg 100 mg PO DAILY 07/26/24 07/26/24 07/21/24 History tablet,extended release 24 hr (Toprol XL) valsartan 40 mg tablet 40 mg PO BEDTIME 07/26/24 07/26/24 07/21/24 History Physical Exam 2 Vital Signs and Narrative: Vital Signs: Last Vital Signs Temp 97.5 F 07/26/24 16:30 Pulse 113 H 07/26/24 16:30 Resp 18 07/26/24 16:30 BP 117/59 L 07/26/24 16:30 Pulse Ox 97 07/26/24 16:30 O2 Del Method Room Air 07/26/24 16:30 BMI result Body Mass Index 25.0 Const: Other: Awake alert confused (not at baseline per brother) Resp: Other: Clear to auscultation bilaterally no rales rhonchi or wheezes Cardio: Other: No S4; positive S1-S2; no S3 murmurs rubs or gallops GI: Other: Soft minimal tenderness right upper quadrant without peritoneal signs. Positive bowel sounds all 4 quadrants Neuro: Other: Limited exam. Able to interact and answer questions. Bedside swallow (nursing) without issue. Confused Extrem: Other: No edema bilaterally Results Labs 07/26/24 12:50 07/26/24 12:50 Labs: Laboratory Results - last 24 hr 07/26/24 07/26/24 07/26/24 12:50 12:59 14:59 MCV 88.2 MCH 88.2 H MCHC 36.7 H RDW 13.3 Plt Count 230 MPV 11.0 Immature Gran % (Auto) 0.5 H Neut % (Auto) 90.6 H Lymph % (Auto) 1.6 L Prentiss % (Auto) 7.1 Eos % (Auto) 0.1 Baso % (Auto) 0.1 Lymph # (Auto) 0.3 L Prentiss # (Auto) 1.4 H Eos # (Auto) 0.0 Baso # (Auto) 0.0 Abs Immat Gran (auto) 0.09 H Absolute Neuts (auto) 18.0 H Absolute Nucleated RBC 0.000 Nucleated RBC % (auto) 0.0 Smear Tech's Comments VERIFIED PT 15.2 H INR 1.3 H APTT 26.1 VBG pH 7.29 L VBG pCO2 23 VBG pO2 70 VBG HCO3 11 L VBG O2 Saturation 90.0 VBG Base Excess -12.8 Anion Gap 29 H Estim Creat Clear Calc 12.8 Estimated GFR 13 Random Glucose 132 H Lactic Acid 4.9 H* Lactic Acid F/U @ 2Hr Calcium 8.4 D Magnesium 2.1 Total Bilirubin 0.7 AST 162 H ALT 68 H Alkaline Phosphatase 59 Ammonia 34 Total Creatine Kinase 5312 H Total Protein 6.7 Albumin 3.6 TSH 1.19 Urine Color Dark Yellow Urine Appearance Clear Urine pH 6.5 Ur Specific [place] 1.010 Urine Protein Trace Urine Glucose (UA) Negative Urine Ketones Negative Urine Blood Negative Urine Nitrite Positive H Ur Leukocyte Esterase Negative Urine RBC 0-2 Urine WBC 0-5 Ur Squamous Epith Cells 0-2 Urine Bacteria Trace Hyaline Casts 0-2 Influenza Type A (PCR) NEGATIVE Influenza Type B (PCR) NEGATIVE RSV RNA Qual (PCR) NEGATIVE SARS-CoV-2 RNA (RT-PCR) NEGATIVE Blood Type A Positive Antibody Screen NEGATIVE 07/26/24 15:34 MCV MCH MCHC RDW Plt Count MPV Immature Gran % (Auto) Neut % (Auto) Lymph % (Auto) Prentiss % (Auto) Eos % (Auto) Baso % (Auto) Lymph # (Auto) Prentiss # (Auto) Eos # (Auto) Baso # (Auto) Abs Immat Gran (auto) Absolute Neuts (auto) Absolute Nucleated RBC Nucleated RBC % (auto) Smear Tech's Comments PT INR APTT VBG pH VBG pCO2 VBG pO2 VBG HCO3 VBG O2 Saturation VBG Base Excess Anion Gap Estim Creat Clear Calc Estimated GFR Random Glucose Lactic Acid Lactic Acid F/U @ 2Hr 2.1 H* Calcium Magnesium Total Bilirubin AST ALT Alkaline Phosphatase Ammonia Total Creatine Kinase Total Protein Albumin TSH Urine Color Urine Appearance Urine pH Ur Specific [place] Urine Protein Urine Glucose (UA) Urine Ketones Urine Blood Urine Nitrite Ur Leukocyte Esterase Urine RBC Urine WBC Ur Squamous Epith Cells Urine Bacteria Hyaline Casts Influenza Type A (PCR) Influenza Type B (PCR) RSV RNA Qual (PCR) SARS-CoV-2 RNA (RT-PCR) Blood Type Antibody Screen Assessment and Plan (1) Acute kidney injury: Status: Acute (2) Rhabdomyolysis: Qualifiers: Rhabdomyolysis type: traumatic Encounter type: initial encounter Q ualified Code(s): T79.6XXA - Traumatic ischemia of muscle, initial encounter Status: Acute (3) PAF (paroxysmal atrial fibrillation): Status: Acute (4) Parkinson's disease: Qualifiers: Dyskinesia presence: with dyskinesia Fluctuating manifestations: u nspecified whether manifestations fluctuate Qualified Code(s): G20.B1 - Parkinson's disease with dyskinesia, without mention of fluctuations Status: Acute (5) Diabetes mellitus type 2, controlled: Qualifiers: Diabetes mellitus long wall shear operator insulin use: without long wall shear operator use Diabetes mellitus complication status: with unspecified complications Qualified Code(s): E11.8 - Type 2 diabetes mellitus with unspecified complications Status: Acute (6) Hypothermia: Qualifiers: Encounter type: initial encounter Qualified Code(s): T68.XXXA - Hypothermia, initial encounter Status: Acute Plan 69-year-old male with a history of paroxysmal atrial fibrillation, dizziness, paranoid schizophrenia, bipolar disorder, anxiety, insomnia, Parkinson's disease, GERD with esophagitis, hypercholesterolemia, hypertension, diabetes mellitus who was brought to emergency department by ambulance for evaluation of fall into bath tub. The patient can not recount details of why he was in the bathtub with all of his clothes on clothes. Patient has two brothers that visit him on Wednesdays and Saturdays. The Saturday brother did visit him and he appeared well . His Saturday brother found him fully clothed in the bath tub complaining of feeling very thirsty and needing to see a doctor. In the emergency room, workup consistent with acute kidney injury along with rhabdomyolysis and hypothermia. Patient will be admitted for workup of the same 1. Acute kidney injury -meets SIRS criteria( not severe sepsis; no focus of infection;lactate secondary to acute kidney injury ) -aggressive volume repletion with lactated Ringer's (last echo 07/09/2024... Estimated LVEF 40-50%) -follow renals/divalents in a.m.... Repeat this p.m. pending -consider nephrology consult in a.m. -continue Ramirez for close monitoring of urine output 2. Rhabdomyolysis secondary to trauma -aggressive volume repletion -recheck CPKs in a.m. 3. Acute metabolic encephalopathy (likely) -aggressive therapy as outlined in 1. -await blood and urine cultures and treat as appropriate -EEG in a.m. -neuro consult if no improvement 4.Paroxysmal atrial fibrillation -currently sinus rhythm with PACs -admit to telemetry to rule out AFib with RVR as culprit -resume Eliquis (passed bedside swallow with nursing) 5.Parkinson's disease -resume Sinemet this evening at outpatient dosing along with Cogentin -follow clinical response 6.Diabetes type 2 -lispro correctional scale -hold metformin pending formal speech eval in a.m. -adjust as indicated 6.Hypothermia -multifactorial -temp normalized DC Tonio Clancy Full code Eliquis Will require at least 2 midnights of inpatient stay going forward to treat acute kidney injury and rhabdomyolysis with IV volume repletion; specialist consultation. This can not be achieved a lesser acute setting Quality Stroke Does the patient have a stroke diagnosis?: No VTE Prior VTE?: No VTE Risk Level:: Medical - moderate - high VTE Device Contraindication: Treatment Not Indicated VTE Drug Contraindication: N/A - Med Ordered
[2024-07-26 17:37] LABS: Reflex Lactate? 2 Y
--- NOTE | 2024-07-26 17:55 | PC.NURSE ---
temp 98.8, roman torres
[2024-07-26] MEDS: Lactated Ringers 1,000 ML 125 ML IVCONT (17:57)
[2024-07-26 18:23] LABS: Anion Gap 22 (12-20); Blood Urea Nitrogen 111 mg/dL (9-16); Calcium 7.5 mg/dL (8.4-10.2); Carbon Dioxide 13 mmol/L (22-29); Chloride 105 mmol/L (96-108); Creatinine Clr Calc Pharmacy 14.5; Estimated Glomerular Filt Rate 15; Glucose Random 87 mg/dL (60-115); Potassium 4.6 mmol/L (3.3-5.1); Sodium 135 mmol/L (135-145); ~Lactic Acid-LAB USE ONLY 1.1 mmol/L (0.5-2.0)
--- NOTE | 2024-07-26 18:53 | PC.NURSE ---
assumed care of patient at this time, patient reporting no complaints at this time. Pharmacy contacted for IV fluids at this time. call riggs given and stretcher locked in lowest position
[2024-07-26] MEDS: Sodium Bicarbonate 8.4% 100 MEQ in Dextrose 5 % 900 ML IV (19:39)
[2024-07-26] MEDS: Carbidopa/Levodopa 25/100 TABLET 1 TAB PO (21:11)
[2024-07-26] MEDS: Benztropine Mesylate 1 MG TABLET PO (21:11)
[2024-07-26] MEDS: risperiDONE 2 MG TABLET PO (21:11)
[2024-07-26] MEDS: Apixaban 5 MG TABLET PO (21:11)
[2024-07-26] MEDS: Valsartan 40 MG TABLET PO (22:03)
[2024-07-27] VITALS (9 sets, daily range): BP systolic 97–118; BP diastolic 56–70; PULSE 60–106; RESP 12–18; TEMP 36.3–37.3; O2SAT 95–100; BMI 25.6
[2024-07-27] MEDS: Sodium Bicarbonate 8.4% 100 MEQ in Dextrose 5 % 900 ML IV ×2 (04:55→15:39)
[2024-07-27 05:09] LABS: Basophils Percent Auto 0.1 % (0-2); Eosinophils Percent Auto 0.1 % (0-4); Hematocrit 35.2 % (42.0-52.0); Imm Gran Abs Auto 0.08 X10*3/uL (0.00-0.03); Imm Gran Pct Auto 0.5 % (0.0-0.4); Lymphocytes Absolute Auto 0.5 X10*3/uL (1.2-4.9); Lymphocytes Percent Auto 2.8 % (20-40); MANUAL DIFF FLAG SCAN; Mean Corpuscular HGB Conc 36.9 g/dl (31.0-36.0); Mean Corpuscular Hemoglobin 31.9 pg (27.0-33.0); Mean Corpuscular Volume 86.5 fL (80.0-98.0); Mean Platelet Volume 11.1 fL (9.4-12.4); Monocytes Absolute Auto 1.6 X10*3/uL (0.1-1.2); Monocytes Percent Auto 9.2 % (2-11); Neutrophils Absolute Auto 15.5 x10*3/uL (2.0-8.3); Neutrophils Percent Auto 87.3 % (45-73); Platelet Count 208 X10*3/uL (160-400); Red Blood Count 4.07 X10*6/uL (4.60-5.80); Red Cell Distribution Width 13.3 % (11.0-16.0); SCAN SMEAR FLAG 1; White Blood Count 17.7 X10*3/uL (4.8-10.8)
[2024-07-27 05:27] LABS: Alanine Aminotransferase 10 U/L (0-40); Albumin Level 2.9 g/dL (3.5-5.0); Alkaline Phosphatase 51 U/L (39-117); Anion Gap 19 (12-20); Aspartate Amino Transferase 174 U/L (5-37); Bilirubin Total 0.8 mg/dL (0.0-1.0); Blood Urea Nitrogen 115 mg/dL (9-16); Calcium 7.6 mg/dL (8.4-10.2); Carbon Dioxide 19 mmol/L (22-29); Chloride 101 mmol/L (96-108); Creatinine Clr Calc Pharmacy 13.9; Estimated Glomerular Filt Rate 14; Glucose Fasting 161 mg/dL (60-99); Potassium 4.2 mmol/L (3.3-5.1); Sodium 135 mmol/L (135-145); Total Protein 5.3 g/dL (6.5-8.0)
[2024-07-27 05:47] LABS: SLIDE REVIEW VERIFIED
--- NOTE | 2024-07-27 10:24 | P.CONNP_ITS ---
History of Present Illness Reason for Consult Consult date: 07/27/24 Reason for consult: KEE Chief Complaint Chief complaint: Acute kidney injury History of Present Illness Narrative: 69-year-old male with a history of paroxysmal atrial fibrillation, dizziness, paranoid schizophrenia, bipolar disorder, anxiety, insomnia, Parkinson's disease, GERD with esophagitis, hypercholesterolemia, hypertension, diabetes mellitus who was brought to emergency department by ambulance for evaluation of fall into bath tub. The patient can not recount details of why he was in the bathtub with all of his clothes on clothes. Patient has two brothers that visit him on Wednesdays and Saturdays. The Saturday brother did visit him and he appeared well . His Saturday brother found him fully clothed in the bath tub complaining of feeling very thirsty and needing to see a doctor. Brother estimates patient has been without medicine at least 5 days Review of Systems Review of Systems Denies chest pain Denies shortness of breath Denies nausea vomiting diarrhea Denies fever chills PMFSH Past Medical History Medical History PAF (paroxysmal atrial fibrillation) Dizziness Paranoid schizophrenia Bipolar depression Anxiety Insomnia Constipation Parkinson's disease GERD without esophagitis Hyponatremia Pure hypercholesterolemia Benign essential hypertension Diabetes mellitus Family History Family History Father Parkinson disease Mother Stomach cancer Surgical History Surgical History History of extraction of renal calculus Social History Social History Household Members: Unknown / Unable to assess Household Members Other:: from home, patient not able to answer questions Housing: Unknown / Unable to assess Alcohol intake: never Patient Tobacco Use Status: Never used Tobacco e-Cigarette/Vaping Use: Never Used service: No Current occupational status: retired Cognitive needs: Yes (walker) Hearing needs: No Vision needs: Yes (reading glasses) Meds Allergies Allergy/AdvReac Type Severity Reaction Status Date / Time No Known Allergies Allergy Verified 07/26/24 12:10 [No Known Allergies*] Active Medications: Current Medications Acetaminophen (Acetaminophen 325 Mg Tablet) 650 mg PO Q6H PRN PRN Reason: Pain, Mild 1-3,fever,headache Apixaban (Apixaban 5 Mg Tablet) 5 mg PO BID [facility] Last Admin: 07/26/24 21:11 Dose: 5 mg Benztropine Mesylate (Benztropine Mesylate 1 Mg Tablet) 1 mg PO BID [facility] Last Admin: 07/26/24 21:11 Dose: 1 mg Calcium Carbonate (Calcium Carbonate 750 Mg Tab.Chew) 750 mg PO Q4H PRN PRN Reason: Heartburn Carbidopa/Levodopa (Carbidopa/Levodopa 25/100 Tablet) 1 tab PO BID [facility] Last Admin: 07/26/24 21:11 Dose: 1 tab Sodium Bicarbonate 100 meq/ (Dextrose) 1,000 mls @ 100 mls/hr IV .Q10H [facility] Last Admin: 07/27/24 04:55 Dose: 100 mls/hr Magnesium Hydroxide (Milk Of Magnesia 30 Ml Oral.Susp) 30 ml PO DAILY PRN PRN Reason: Constipation Melatonin (Melatonin 3 Mg Tablet) 6 mg PO BEDTIME PRN PRN Reason: Insomnia Metoprolol Succinate (Metoprolol Succinate Er 100 Mg Tab.Er.24h) 100 mg PO DAILY [facility]; Protocol Non-Formulary Medication (Eplerenone) 12.5 mg PO DAILY [facility] Risperidone (Risperidone 2 Mg Tablet) 2 mg PO BID [facility] Last Admin: 07/26/24 21:11 Dose: 2 mg Sodium Chloride (0.9 % Sodium Chloride Flush 3 Ml Syringe) 3 ml IVFLUSH QSHIFT [facility] Last Admin: 07/27/24 00:33 Dose: Not Given Valsartan (Valsartan 40 Mg Tablet) 40 mg PO BEDTIME [facility]; Protocol Last Admin: 07/26/24 22:03 Dose: 40 mg Home Medications ?Medication ?Instructions ?Recorded ?Confirmed ?Last Taken ?Type clonazepam 0.5 mg tablet 0.5 mg PO BEDTIME Sleep 04/08/20 07/26/24 07/21/24 History multivitamin 1 tab PO DAILY 05/15/21 07/26/24 07/21/24 History carbidopa 25 mg-levodopa 100 mg 1 tab PO BID 08/02/23 07/26/24 07/21/24 History tablet benztropine 1 mg tablet 1 mg PO BID 11/25/23 07/26/24 07/21/24 History melatonin 5 mg capsule 5 mg PO BEDTIME 12/16/23 07/26/24 07/21/24 History risperidone 2 mg tablet (Risperdal) 2 mg PO BID 06/18/24 07/26/24 07/21/24 History atorvastatin 20 mg tablet 20 mg PO BEDTIME 07/26/24 07/26/24 07/21/24 History eplerenone 25 mg tablet 12.5 mg PO DAILY 07/26/24 07/26/24 07/21/24 History magnesium oxide 400 mg PO BEDTIME 07/26/24 07/26/24 07/21/24 History metoprolol succinate 50 mg 100 mg PO DAILY 07/26/24 07/26/24 07/21/24 History tablet,extended release 24 hr (Toprol XL) valsartan 40 mg tablet 40 mg PO BEDTIME 07/26/24 07/26/24 07/21/24 History Physical Exam Vital Signs: Last Vital Signs Temp 98.2 F 07/27/24 04:54 Pulse 106 H 07/27/24 04:54 Resp 16 07/27/24 04:54 BP 111/59 L 07/27/24 04:54 Pulse Ox 100 07/27/24 04:54 O2 Del Method Room Air 07/27/24 04:54 BMI result Body Mass Index 25.0 Const Other: Awake alert confused (not at baseline per brother) Resp Other: Clear to auscultation bilaterally no rales rhonchi or wheezes Cardio Other: No S4; positive S1-S2; no S3 murmurs rubs or gallops GI Other: Soft minimal tenderness right upper quadrant without peritoneal signs. Positive bowel sounds all 4 quadrants Neuro Other: Limited exam. Able to interact and answer questions. Bedside swallow (nursing) without issue. Confused Extrem Other: No edema bilaterally Results Lab Results 07/28/24 09:23 07/28/24 09:23 Lab results: Chemistry 07/26/24 07/26/24 07/27/24 12:50 17:57 04:40 Sodium 139 135 135 Potassium 5.2 H D 4.6 4.2 Carbon Dioxide 12 L 13 L 19 L BUN 110 H 111 H 115 H Creatinine 4.68 H* 4.13 H* 4.29 H* Calcium 8.4 D 7.5 L D 7.6 L Hematology 07/26/24 07/27/24 12:50 04:40 WBC 19.8 H 17.7 H Hgb 15.4 13.0 L Plt Count 230 208 Urinalysis 07/26/24 14:59 Urine Color Dark Yellow Urine Appearance Clear Urine pH 6.5 Ur Specific [place] 1.010 Urine Protein Trace Urine Glucose (UA) Negative Urine Ketones Negative Urine Blood Negative Urine Nitrite Positive H Ur Leukocyte Esterase Negative Urine RBC 0-2 Urine WBC 0-5 Ur Squamous Epith Cells 0-2 Hyaline Casts 0-2 Assessment and Plan (1) Acute kidney injury: Status: Acute Plan 69-year-old man with acute kidney injury. Acute kidney injury is most likely due to hypoperfusion. Although CPK is elevated I do not think he has pigment nephropathy. Urinalysis did not reveal any RBCs or blood by dipstick. No evidence of obstruction based on ultrasonogram Recommendations Check urine for sodium and creatinine. IV hydration. Agree with bicarb supplementation for now. Watch potassium. Follow CPK level Watch urine output. No absolute indication for dialysis yet. Procedures Date of Service Date of Service: 07/28/24
[2024-07-27] MEDS: Metoprolol Succinate ER 100 MG TAB.ER.24H PO (10:38)
--- NOTE | 2024-07-27 10:53 | PC.NURSE ---
patient swallow eval redone this AM by this RN and patient able to swallow water without difficulty. first medication attempted 1 pill at a time and patient unable to swallow medication with water safely. made aware.
--- NOTE | 2024-07-27 13:00 | MHC.CM.PN ---
CM attempted to meet with Patient at bedside; he did not respond verbally to CM. CM spoke with Primary Contact/Brother/Marcelo. Patient lives alone in a house, uses a walker at times and may benefit from a PT Eval to assist with disposition. CM has initiated and will follow for dc planning. PCP is Dr. Lavon Roca and Brother/Marcelo will transport to home at time of dc. Patient does not have a HCP and he does not appear able to name an Agent at this time.
--- NOTE | 2024-07-27 13:50 | P.PNIM_ITS ---
Subjective Subjective Date of Service: 07/27/24 Interval History: Essentially no changes overnight. Remains somewhat confused Review of Systems Denies chest pain Denies shortness of breath Denies nausea vomiting diarrhea Denies fever chills Physical Exam 2 Vital Signs: Vital Signs: Last Vital Signs Temp 97.4 F 07/27/24 12:00 Pulse 78 07/27/24 12:00 Resp 12 07/27/24 12:00 BP 116/65 07/27/24 12:00 Pulse Ox 96 07/27/24 12:00 O2 Del Method Room Air 07/27/24 12:00 BMI result Body Mass Index 25.6 Const: Other: Awake alert confused (not at baseline per brother) Resp: Other: Clear to auscultation bilaterally no rales rhonchi or wheezes Cardio: Other: No S4; positive S1-S2; no S3 murmurs rubs or gallops GI: Other: Soft minimal tenderness right upper quadrant without peritoneal signs. Positive bowel sounds all 4 quadrants Neuro: Other: Limited exam. Able to interact and answer questions. Bedside swallow (nursing) without issue. Confused Extrem: Other: No edema bilaterally Objective Data Active Medications Acetaminophen (Acetaminophen 325 Mg Tablet) 650 mg PO Q6H PRN PRN Reason: Pain, Mild 1-3,fever,headache Apixaban (Apixaban 5 Mg Tablet) 5 mg PO BID [facility] Last Admin: 07/27/24 10:53 Dose: Not Given Documented By: ANA Non-Admin Reason: NPO Benztropine Mesylate (Benztropine Mesylate 1 Mg Tablet) 1 mg PO BID [facility] Last Admin: 07/27/24 10:53 Dose: Not Given Documented By: ANA Non-Admin Reason: NPO Calcium Carbonate (Calcium Carbonate 750 Mg Tab.Chew) 750 mg PO Q4H PRN PRN Reason: Heartburn Carbidopa/Levodopa (Carbidopa/Levodopa 25/100 Tablet) 1 tab PO BID [facility] Last Admin: 07/27/24 10:53 Dose: Not Given Documented By: ANA Non-Admin Reason: NPO Sodium Bicarbonate 100 meq/ (Dextrose) 1,000 mls @ 100 mls/hr IV .Q10H [facility] Last Admin: 07/27/24 04:55 Dose: 100 mls/hr Documented By: HO.CONNAUH Magnesium Hydroxide (Milk Of Magnesia 30 Ml Oral.Susp) 30 ml PO DAILY PRN PRN Reason: Constipation Melatonin (Melatonin 3 Mg Tablet) 6 mg PO BEDTIME PRN PRN Reason: Insomnia Metoprolol Succinate (Metoprolol Succinate Er 100 Mg Tab.Er.24h) 100 mg PO DAILY [facility]; Protocol Last Admin: 07/27/24 10:38 Dose: 100 mg Documented By: ANA Non-Formulary Medication (Eplerenone) 12.5 mg PO DAILY [facility] Risperidone (Risperidone 2 Mg Tablet) 2 mg PO BID [facility] Last Admin: 07/27/24 10:53 Dose: Not Given Documented By: ANA Non-Admin Reason: NPO Sodium Chloride (0.9 % Sodium Chloride Flush 3 Ml Syringe) 3 ml IVFLUSH QSHIFT [facility] Last Admin: 07/27/24 10:53 Dose: Not Given Documented By: ANA Non-Admin Reason: IV Running Valsartan (Valsartan 40 Mg Tablet) 40 mg PO BEDTIME [facility]; Protocol Last Admin: 07/26/24 22:03 Dose: 40 mg Documented By: [facility] 07/27/24 04:40 07/27/24 04:40 Labs: Laboratory Results - last 24 hr 07/26/24 07/26/24 07/26/24 12:50 14:59 15:34 MCV MCH MCHC RDW Plt Count MPV Immature Gran % (Auto) Neut % (Auto) Lymph % (Auto) [place] % (Auto) Eos % (Auto) Baso % (Auto) Lymph # (Auto) [place] # (Auto) Eos # (Auto) Baso # (Auto) Abs Immat Gran (auto) Absolute Neuts (auto) Absolute Nucleated RBC Nucleated RBC % (auto) Smear Tech's Comments Hold Purple Top Anion Gap 29 H Estim Creat Clear Calc 12.8 Estimated GFR 13 Random Glucose 132 H Fasting Glucose Lactic Acid F/U @ 2Hr 2.1 H* Lactic Acid F/U @ 4Hr Calcium 8.4 D Magnesium 2.1 Total Bilirubin 0.7 AST 162 H ALT 68 H Alkaline Phosphatase 59 Total Creatine Kinase 5312 H Total Protein 6.7 Albumin 3.6 TSH 1.19 Urine Color Dark Yellow Urine Appearance Clear Urine pH 6.5 Ur Specific [place] 1.010 Urine Protein Trace Urine Glucose (UA) Negative Urine Ketones Negative Urine Blood Negative Urine Nitrite Positive H Ur Leukocyte Esterase Negative Urine RBC 0-2 Urine WBC 0-5 Ur Squamous Epith Cells 0-2 Urine Bacteria Trace Hyaline Casts 0-2 Blood Type A Positive Antibody Screen NEGATIVE 07/26/24 07/27/24 17:57 04:40 MCV 86.5 MCH 31.9 MCHC 36.9 H RDW 13.3 Plt Count 208 MPV 11.1 Immature Gran % (Auto) 0.5 H Neut % (Auto) 87.3 H Lymph % (Auto) 2.8 L [place] % (Auto) 9.2 Eos % (Auto) 0.1 Baso % (Auto) 0.1 Lymph # (Auto) 0.5 L [place] # (Auto) 1.6 H Eos # (Auto) 0.0 Baso # (Auto) 0.0 Abs Immat Gran (auto) 0.08 H Absolute Neuts (auto) 15.5 H Absolute Nucleated RBC 0.000 Nucleated RBC % (auto) 0.0 Smear Tech's Comments VERIFIED Hold Purple Top SEE NOTE Anion Gap 22 H 19 Estim Creat Clear Calc 14.5 13.9 Estimated GFR 15 14 Random Glucose 87 Fasting Glucose 161 H Lactic Acid F/U @ 2Hr Lactic Acid F/U @ 4Hr 1.1 Calcium 7.5 L D 7.6 L Magnesium Total Bilirubin 0.8 AST 174 H ALT 10 Alkaline Phosphatase 51 Total Creatine Kinase 4600 H Total Protein 5.3 L Albumin 2.9 L TSH Urine Color Urine Appearance Urine pH Ur Specific [place] Urine Protein Urine Glucose (UA) Urine Ketones Urine Blood Urine Nitrite Ur Leukocyte Esterase Urine RBC Urine WBC Ur Squamous Epith Cells Urine Bacteria Hyaline Casts Blood Type Antibody Screen Microbiology Microbiology Results: Microbiology 07/26/24 Unknown Urine Culture - Preliminary Urine Catheterized - Ramirez Catheter No growth to date. Assessment and Plan (1) Acute kidney injury: Status: Acute (2) Rhabdomyolysis: Status: Acute (3) Diabetes mellitus type 2, controlled: Status: Acute Plan 69-year-old male with a history of paroxysmal atrial fibrillation, dizziness, paranoid schizophrenia, bipolar disorder, anxiety, insomnia, Parkinson's disease, GERD with esophagitis, hypercholesterolemia, hypertension, diabetes mellitus who was brought to emergency department by ambulance for evaluation of fall into bath tub. The patient can not recount details of why he was in the bathtub with all of his clothes on clothes. Patient has two brothers that visit him on Wednesdays and Saturdays. The Saturday brother did visit him and he appeared well . His Saturday brother found him fully clothed in the bath tub complaining of feeling very thirsty and needing to see a doctor. In the emergency room, workup consistent with acute kidney injury along with rhabdomyolysis and hypothermia. Patient will be admitted for workup of the same 1. Acute kidney injury with acidosis -continue bicarb drip as ordered -follow renals/divalents this p.m. and a.m. -appreciate nephrology consult recommendations implanted -continue Ramirez for close monitoring of urine output 2. Rhabdomyolysis secondary to trauma -aggressive volume repletion -CPK's trending down 3. Acute metabolic encephalopathy (likely) -aggressive therapy as outlined in 1. -await blood and urine cultures and treat as appropriate -EEG in a.m. 4.Paroxysmal atrial fibrillation -currently sinus rhythm with PACs -admit to telemetry to rule out AFib with RVR as culprit -resume Eliquis 5.Parkinson's disease -resume Sinemet this evening at outpatient dosing along with Cogentin -follow clinical response 6.Diabetes type 2 -lispro correctional scale -hold metformin pending formal speech eval in a.m. -adjust as indicated 6.Hypothermia -resolved Full code Eliquis Require ongoing hospitalization for IV volume repletion and bicarb treat acute kidney injury and specialty consultation Quality Stroke Does the patient have a stroke diagnosis?: No VTE Prior VTE?: No VTE Risk Level:: Medical - moderate - high VTE Device Contraindication: Treatment Not Indicated VTE Drug Contraindication: N/A - Med Ordered
[2024-07-27 19:19] LABS: Anion Gap 15 (12-20); Blood Urea Nitrogen 109 mg/dL (9-16); Calcium 7.5 mg/dL (8.4-10.2); Carbon Dioxide 25 mmol/L (22-29); Chloride 98 mmol/L (96-108); Creatinine Clr Calc Pharmacy 17.7; Estimated Glomerular Filt Rate 18; Glucose Random 152 mg/dL (60-115); Potassium 3.7 mmol/L (3.3-5.1); Sodium 134 mmol/L (135-145)
[2024-07-27] MEDS: Valsartan 40 MG TABLET NG-TUBE (22:47)
[2024-07-27] MEDS: Apixaban 5 MG TABLET NG-TUBE (22:48)
[2024-07-27] MEDS: risperiDONE 2 MG TABLET NG-TUBE (22:48)
[2024-07-27] MEDS: Carbidopa/Levodopa 25/100 TABLET 1 TAB NG-TUBE (22:48)
[2024-07-27] MEDS: Benztropine Mesylate 1 MG TABLET NG-TUBE (22:49)
[2024-07-28] VITALS (18 sets, daily range): BP systolic 66–127; BP diastolic 33–68; PULSE 55–93; RESP 16–20; TEMP 36.3–36.8; O2SAT 94–99; BMI 25.6
--- NOTE | 2024-07-28 | ECG_ITS ---
Test Reason : Low BP Blood Pressure : */* mmHG Vent. Rate : 90 BPM Atrial Rate : 90 BPM P-R Int : 176 ms QRS Dur : 104 ms QT Int : 390 ms P-R-T Axes : 46 -48 76 degrees QTcB Int : 477 ms Sinus rhythm with frequent Premature ventricular complexes Left axis deviation Low voltage QRS Inferior infarct Cannot rule out Anteroseptal infarct Abnormal ECG When compared with ECG of 26-Jul-2024 12:31, No significant changes seen Referred By: Dave Matson Electronically Signed By: MALGORZATA WILKES MD
[2024-07-28] MEDS: Sodium Bicarbonate 8.4% 100 MEQ in Dextrose 5 % 900 ML IV ×2 (01:46→10:27)
--- NOTE | 2024-07-28 07:43 | HO.WOUND ---
Addendum entered by Makayla Swanson RN 08/03/24 16:39: 08/03/24 @ 1630 Spoke to direct care nurse - Patient dressing changes completed this morning at 8am. will defer assessment to future date and time. Direct nurse denies worsening of wound bed at the time of her assessment. Recommend continue with Santyl Application at this time. Addendum entered by Makayla Swnason RN 07/29/24 16:09: 07/29/24 @ 1600 seen by Surgical Services and not ready for debridement in agreement to Santyl application. Topical recommendations updated: 1. Turn and Reposition every 2 hours and as needed for patient comfort.? Use pillows or wedges to support off loading positions. 2. Off Load all bony prominences with use of pillows and heel boots if needed.? Apply Preventative foams where needed. ? 3. Monitor for incontinence and moisture control, use barrier creams when needed for prevention and treatment. 4. Provide adequate and supplemental nutrition.? 5. Continue low air loss mattress. 6. When applicable maintain blood glucose levels per Providers order. 7. Sacrum and Left Back / Shoulder - Off Load Pressure with Q2 hr turns and use of pillows - . Cleanse with normal saline, pat dry. ?Apply barrier to the immediate solomon wound, apply thick layer of Santyl to entire wound bed, cover with saline moist gauze, cover with dry gauze, ABD pad and gauze wrap, change Daily. 8. Right Elbow - Apply skin prep allow to dry cover with foam dressing change every 3 days and PRN. Addendum entered by Makayla Swanson RN 07/28/24 15:13: Wound Consult: Initial 69yr old? male admitted to [facility] [place] on 07/26/24- See progress notes and H&P for detailed history.? Wound consult placed for Sacrum, Left Shoulder wounds POA.? Assessed in person with Provider and direct care nurse. 07/28/24 07/27/24 Etiology:Unstageable ?Present on Admission Wound Bed: maroon purple black nonblanchable tissue with scattered open areas and areas of necrotic eschar beginning Drainage / Odor: scant at this time Edges: ? irregular and well defined Solomon wound: dark red tissue - MASD No Induration, Fluctuance or Warmth noted Goals of Treatment: ? Off load pressure Triad and foam dressing Surgery to assess for Debridement and then initial santly is not ready for debridement at this time Etiology: Unstageable Present on Admission Wound Bed: maroon red purple nonblanchable tissue with scattered open areas and areas of necrotic slough beginning Drainage / Odor: scant at this time Edges: ? irregular and well defined Solomon wound: dark red tissue - MASD No Induration, Fluctuance or Warmth noted Goals of Treatment: ? Off load pressure Triad and foam dressing Right Elbow - DTI in evolution - Skin prep and foam dressing applied. Off load pressure. Recommendations: Bilateral heels noted for callus in photo review - no topical interventions needed. The left foot appears to have a dark purple bruise vs DTI - will monitor. Topical treatment consists of off loading pressure - given location no topical intervention needed. Inpt wound nurse will follow up after surgery assessment if deemed not yet ready for debridement will start santly to soften thick eschar currently forming. 1. Turn and Reposition every 2 hours and as needed for patient comfort.? Use pillows or wedges to support off loading positions. 2. Off Load all bony prominences with use of pillows and heel boots if needed.? Apply Preventative foams where needed. ? 3. Monitor for incontinence and moisture control, use barrier creams when needed for prevention and treatment. 4. Provide adequate and supplemental nutrition.? 5. Continue low air loss mattress. 6. When applicable maintain blood glucose levels per Providers order. 7. Sacrum and Left Back / Shoulder - Off Load Pressure with Q2 hr turns and use of pillows - Cleanse with PH balance spray or wipes, pat dry. ?Apply thin layer of Triad to wound bed. Do not remove all of paste between applications as this may cause further skin damage.? Cover with foam dressing to aid in off loading and protection from friction. Change every 5 days and PRN. 8. Right Elbow - Apply skin prep allow to dry cover with foam dressing change every 3 days and PRN. Re-consult wound care Nurse for wound deterioration or wound changes. Original Note: Wound Consult: Initial 69yr old? male admitted to [facility] [place] on 07/26/24- See progress notes and H&P for detailed history.? Wound consult placed for Sacrum, Left Shoulder wounds POA.? Photo and chart review completed and discussed with direct care team. Etiology: Deep Tissue Injury in Evolution ?Present on Admission Wound Bed: maroon red purple nonblanchable tissue with scattered open areas and areas of necrotic slough beginning Drainage / Odor: scant at this time Edges: ? irregular and well defined Solomon wound: dark red tissue - MASD No Induration, Fluctuance or Warmth noted Goals of Treatment: ? Off load pressure Triad and foam dressing Etiology: Deep Tissue Injury in Evolution ?Present on Admission Wound Bed: maroon red purple nonblanchable tissue with scattered open areas and areas of necrotic slough beginning Drainage / Odor: scant at this time Edges: ? irregular and well defined Solomon wound: dark red tissue - MASD No Induration, Fluctuance or Warmth noted Goals of Treatment: ? Off load pressure Triad and foam dressing Recommendations: Bilateral heels noted for callus in photo review - no topical interventions needed. The left foot appears to have a dark purple bruise vs DTI - will monitor. Topical treatment consists of off loading pressure - given location no topical intervention needed. 1. Turn and Reposition every 2 hours and as needed for patient comfort.? Use pillows or wedges to support off loading positions. 2. Off Load all bony prominences with use of pillows and heel boots if needed.? Apply Preventative foams where needed. ? 3. Monitor for incontinence and moisture control, use barrier creams when needed for prevention and treatment. 4. Provide adequate and supplemental nutrition.? 5. Continue low air loss mattress. 6. When applicable maintain blood glucose levels per Providers order. 7. Sacrum and Left Back / Shoulder - Off Load Pressure with Q2 hr turns and use of pillows - Cleanse with PH balance spray or wipes, pat dry. ?Apply thin layer of Triad to wound bed. Do not remove all of paste between applications as this may cause further skin damage.? Cover with foam dressing to aid in off loading and protection from friction. Change every 5 days and PRN. Re-consult wound care Nurse for wound deterioration or wound changes.
[2024-07-28] MEDS: Carbidopa/Levodopa 25/100 TABLET 1 TAB NG-TUBE ×2 (08:25→20:35)
[2024-07-28] MEDS: risperiDONE 2 MG TABLET NG-TUBE ×2 (08:25→20:35)
[2024-07-28] MEDS: Benztropine Mesylate 1 MG TABLET NG-TUBE ×2 (08:25→20:35)
[2024-07-28] MEDS: Apixaban 5 MG TABLET NG-TUBE ×2 (08:25→20:35)
[2024-07-28] MEDS: Metoprolol Tartrate 50 MG TABLET NG-TUBE (08:25)
[2024-07-28 09:27] LABS: MANUAL DIFF FLAG NO
[2024-07-28 09:34] LABS: Basophils Percent Auto 0.1 % (0-2); Hematocrit 33.7 % (42.0-52.0); Hemoglobin 12.4 g/dl (14.0-18.0); Imm Gran Abs Auto 0.05 X10*3/uL (0.00-0.03); Imm Gran Pct Auto 0.4 % (0.0-0.4); Lymphocytes Absolute Auto 0.4 X10*3/uL (1.2-4.9); Lymphocytes Percent Auto 3.2 % (20-40); Mean Corpuscular HGB Conc 36.8 g/dl (31.0-36.0); Mean Corpuscular Hemoglobin 31.6 pg (27.0-33.0); Mean Corpuscular Volume 85.8 fL (80.0-98.0); Mean Platelet Volume 10.8 fL (9.4-12.4); Monocytes Absolute Auto 1.2 X10*3/uL (0.1-1.2); Monocytes Percent Auto 9.7 % (2-11); Neutrophils Absolute Auto 10.5 x10*3/uL (2.0-8.3); Neutrophils Percent Auto 86.6 % (45-73); Platelet Count 170 X10*3/uL (160-400); Red Blood Count 3.93 X10*6/uL (4.60-5.80); Red Cell Distribution Width 12.9 % (11.0-16.0); White Blood Count 12.1 X10*3/uL (4.8-10.8)
[2024-07-28 09:51] LABS: Alanine Aminotransferase 14 U/L (0-40); Albumin Level 2.5 g/dL (3.5-5.0); Alkaline Phosphatase 54 U/L (39-117); Anion Gap 13 (12-20); Aspartate Amino Transferase 153 U/L (5-37); Bilirubin Total 0.9 mg/dL (0.0-1.0); Blood Urea Nitrogen 89 mg/dL (9-16); Calcium 7.5 mg/dL (8.4-10.2); Carbon Dioxide 29 mmol/L (22-29); Chloride 96 mmol/L (96-108); Creatinine Clr Calc Pharmacy 23.7; Estimated Glomerular Filt Rate 26; Glucose Fasting 162 mg/dL (60-99); Potassium 3.1 mmol/L (3.3-5.1); Sodium 135 mmol/L (135-145); Total Protein 4.6 g/dL (6.5-8.0)
--- NOTE | 2024-07-28 10:17 | P.PNNP_ITS ---
Subjective Subjective Date of Service: 07/28/24 Interval history: Events noted. Remains confused Physical Exam 2 Vital Signs: Vital Signs: Last Vital Signs Temp 98.2 F 07/28/24 07:28 Pulse 77 07/28/24 07:28 Resp 16 07/28/24 07:28 BP 107/55 L 07/28/24 07:28 Pulse Ox 94 07/28/24 07:28 O2 Del Method Room Air 07/28/24 07:28 BMI result Body Mass Index 25.6 Const: Other: Awake alert confused (not at baseline per brother) Resp: Other: Clear to auscultation bilaterally no rales rhonchi or wheezes Cardio: Other: No S4; positive S1-S2; no S3 murmurs rubs or gallops GI: Other: Soft minimal tenderness right upper quadrant without peritoneal signs. Positive bowel sounds all 4 quadrants Neuro: Other: Limited exam. Able to interact and answer questions. Bedside swallow (nursing) without issue. Confused Extrem: Other: No edema bilaterally Objective Data Labs 07/28/24 09:23 07/28/24 09:23 Labs: Laboratory Results - last 24 hr 07/27/24 07/28/24 18:43 09:23 WBC 12.1 H RBC 3.93 L Hgb 12.4 L Hct 33.7 L MCV 85.8 MCH 31.6 MCHC 36.8 H RDW 12.9 Plt Count 170 MPV 10.8 Immature Gran % (Auto) 0.4 Neut % (Auto) 86.6 H Lymph % (Auto) 3.2 L [place] % (Auto) 9.7 Eos % (Auto) 0.0 Baso % (Auto) 0.1 Lymph # (Auto) 0.4 L [place] # (Auto) 1.2 Eos # (Auto) 0.0 Baso # (Auto) 0.0 Abs Immat Gran (auto) 0.05 H Absolute Neuts (auto) 10.5 H Absolute Nucleated RBC 0.000 Nucleated RBC % (auto) 0.0 Sodium 134 L 135 Potassium 3.7 3.1 L Chloride 98 96 Carbon Dioxide 25 29 Anion Gap 15 13 BUN 109 H 89 H Creatinine 3.39 H 2.53 H Estim Creat Clear Calc 17.7 23.7 Estimated GFR 18 26 Random Glucose 152 H Fasting Glucose 162 H Calcium 7.5 L 7.5 L Total Bilirubin 0.9 AST 153 H ALT 14 Alkaline Phosphatase 54 Total Creatine Kinase 2626 H Total Protein 4.6 L Albumin 2.5 L Microbiology Microbiology Results: Microbiology 07/26/24 12:50 Blood - Venous Blood Culture - Preliminary No growth after 24 hours. 07/26/24 12:40 Blood - Venous Blood Culture - Preliminary No growth after 24 hours. 07/26/24 Unknown Urine Catheterized - Ramirez Catheter Urine Culture - Preliminary No growth to date. Procedures Date of Service Date of Service: 07/28/24 Assessment & Plan Assessment and plan (1) Acute kidney injury: Status: Acute Plan 69-year-old man with acute kidney injury. Acute kidney injury is most likely due to hypoperfusion. Although CPK is elevated I do not think he has pigment nephropathy. Urinalysis did not reveal any RBCs or blood by dipstick. No evidence of obstruction based on ultrasonogram Renal function is improving. Mild hypokalemia. Recommendations Keep intake more than output. Discontinue bicarb supplementation. . Replace potassium Watch urine output. No absolute indication for dialysis yet. Time Spent With Patient Time: Total time managing care of this patient today ____ minutes. Progress Note: Quality Stroke Does the patient have a stroke diagnosis?: No
--- NOTE | 2024-07-28 10:56 | P.PNIM_ITS ---
Subjective Subjective Date of Service: 07/28/24 Interval History: Seen and examined at bedside with Wound RN and RN Interval history Patient confused, NG tube in place for medications only, no feeds at this time, NPO. Large unstageable pressures ulcer sacrum Review of Systems Review of Systems: Yes Unobtainable due to mental condition and Unobtainable due to mental status Physical Exam 2 Vital Signs: Vital Signs: Last Vital Signs Temp 98.2 F 07/28/24 07:28 Pulse 77 07/28/24 07:28 Resp 16 07/28/24 07:28 BP 107/55 L 07/28/24 07:28 Pulse Ox 94 07/28/24 07:28 O2 Del Method Room Air 07/28/24 07:28 BMI result Body Mass Index 25.6 Constitutional - Awake, alert Cardiovascular - S1S2, RRR, No edema Respiratory - Normal lung expansion, Normal respiratory effort, No respiratory distress, CTA bilaterally Gastrointestinal - NT / ND; +BS; No rebound or guarding Extremities - no calf tenderness bilaterally, no swelling Skin - Warm/Dry. See photos Neurological - alert, disoriented sacrum L scapula Objective Data Active Medications Acetaminophen (Acetaminophen 325 Mg Tablet) 650 mg NG-TUBE Q6H PRN PRN Reason: Pain, Mild 1-3,fever,headache Apixaban (Apixaban 5 Mg Tablet) 5 mg NG-TUBE BID COUNT INCLUDES [facility] Last Admin: 07/28/24 08:25 Dose: 5 mg Documented By: JAY Benztropine Mesylate (Benztropine Mesylate 1 Mg Tablet) 1 mg NG-TUBE BID COUNT INCLUDES THE [facility] Last Admin: 07/28/24 08:25 Dose: 1 mg Documented By: JAY Calcium Carbonate (Calcium Carbonate 750 Mg Tab.Chew) 750 mg NG-TUBE Q4H PRN PRN Reason: Heartburn Carbidopa/Levodopa (Carbidopa/Levodopa 25/100 Tablet) 1 tab NG-TUBE BID COUNT INCLUDES THE [facility] Last Admin: 07/28/24 08:25 Dose: 1 tab Documented By: JAY Sodium Bicarbonate 100 meq/ (Dextrose) 1,000 mls @ 100 mls/hr IV .Q10H COUNT INCLUDES THE [facility] Last Admin: 07/28/24 10:27 Dose: 100 mls/hr Documented By: JAY Magnesium Hydroxide (Milk Of Magnesia 30 Ml Oral.Susp) 30 ml NG-TUBE DAILY PRN PRN Reason: Constipation Melatonin (Melatonin 3 Mg Tablet) 6 mg NG-TUBE BEDTIME PRN PRN Reason: Insomnia Metoprolol Tartrate (Metoprolol Tartrate 50 Mg Tablet) 50 mg NG-TUBE BID ADRIAN Last Admin: 07/28/24 08:25 Dose: 50 mg Documented By: JAY Non-Formulary Medication (Eplerenone) 12.5 mg PO DAILY ADRIAN Risperidone (Risperidone 2 Mg Tablet) 2 mg NG-TUBE BID ADRIAN Last Admin: 07/28/24 08:25 Dose: 2 mg Documented By: JAY Sodium Chloride (0.9 % Sodium Chloride Flush 3 Ml Syringe) 3 ml IVFLUSH QSHIFT ADRIAN Last Admin: 07/28/24 08:25 Dose: Not Given Documented By: JAY Non-Admin Reason: IV Running Valsartan (Valsartan 40 Mg Tablet) 40 mg NG-TUBE BEDTIME ADRIAN; Protocol Last Admin: 07/27/24 22:47 Dose: 40 mg Documented By: SEVN Labs 07/28/24 09:23 07/28/24 09:23 Labs: Laboratory Results - last 24 hr 07/27/24 07/28/24 18:43 09:23 MCV 85.8 MCH 31.6 MCHC 36.8 H RDW 12.9 Plt Count 170 MPV 10.8 Immature Gran % (Auto) 0.4 Neut % (Auto) 86.6 H Lymph % (Auto) 3.2 L [place] % (Auto) 9.7 Eos % (Auto) 0.0 Baso % (Auto) 0.1 Lymph # (Auto) 0.4 L [place] # (Auto) 1.2 Eos # (Auto) 0.0 Baso # (Auto) 0.0 Abs Immat Gran (auto) 0.05 H Absolute Neuts (auto) 10.5 H Absolute Nucleated RBC 0.000 Nucleated RBC % (auto) 0.0 Anion Gap 15 13 Estim Creat Clear Calc 17.7 23.7 Estimated GFR 18 26 Random Glucose 152 H Fasting Glucose 162 H Calcium 7.5 L 7.5 L Total Bilirubin 0.9 AST 153 H ALT 14 Alkaline Phosphatase 54 Total Creatine Kinase 2626 H Total Protein 4.6 L Albumin 2.5 L Microbiology Microbiology Results: Microbiology 07/26/24 Unknown Urine Culture - Final Urine Catheterized - Ramirez Catheter No growth. 07/26/24 12:50 Blood Culture - Preliminary Blood - Venous No growth after 24 hours. 07/26/24 12:40 Blood Culture - Preliminary Blood - Venous No growth after 24 hours. Assessment and Plan (1) Acute kidney injury: Status: Acute (2) Rhabdomyolysis: Status: Acute (3) Diabetes mellitus type 2, controlled: Status: Acute Plan 69-year-old male with a history of paroxysmal atrial fibrillation, dizziness, paranoid schizophrenia, bipolar disorder, anxiety, insomnia, Parkinson's disease, GERD with esophagitis, hypercholesterolemia, hypertension, diabetes mellitus who was brought to emergency department by ambulance for evaluation of fall into bath tub. The patient can not recount details of why he was in the bathtub with all of his clothes on clothes. Patient has two brothers that visit him on Wednesdays and Saturdays. The Saturday brother did visit him and he appeared well . His Saturday brother found him fully clothed in the bath tub complaining of feeling very thirsty and needing to see a doctor. In the emergency room, workup consistent with acute kidney injury along with rhabdomyolysis and hypothermia. Patient will be admitted for workup of the same Acute kidney injury with acidosis Acidosis resolved. DC bicarb drip, initiate D5LR follow renals/divalents appreciate nephrology consult recommendations implanted continue Ramirez for close monitoring of urine output Rhabdomyolysis secondary to trauma aggressive volume repletion CPK's trending down Acute metabolic encephalopathy (likely) aggressive therapy as outlined in 1 UC negative. BC negative thus far EEG pending ?r/t cellulitis sacrum Dysphagia likely from Parkinsons r/t lapse in sinemet NG tube in place. NPO since 07/26 TIPPLE GREASER eval ordered. Nutrition following- recommends ensure once diet advanced Acute cellulitis sacrum Unstageable decubitus ulcer (see exam) with surrounding erythema. No warmth or fluctuation Leukocytosis improved, but remains 12.1, still encephalopathic ESR and CRP pending. Consider further imaging pending results/surgery recs IV vanco and zosyn general surgery consult Decubitus ulcers- present on admission Unstageable ulceration sacrum and L shoulder Offloading and reposition. Wound care General surgery consult for evaluation of eschar of sacral ulcer Paroxysmal atrial fibrillation- rate controlled currently sinus rhythm with PACs admit to telemetry to rule out AFib with RVR as culprit resume Sunny Parkinson's disease resume Sinemet this evening at outpatient dosing along with Cogentin follow clinical response Diabetes type 2 lispro correctional scale hold metformin pending formal speech eval in a.m. adjust as indicated Hypothermia resolved Full code Vandanaquis Require ongoing hospitalization for IV volume repletion and bicarb treat acute kidney injury and specialty consultation Quality Stroke Does the patient have a stroke diagnosis?: No VTE Prior VTE?: No VTE Risk Level:: Medical - moderate - high VTE Device Contraindication: Treatment Not Indicated VTE Drug Contraindication: N/A - Med Ordered
--- NOTE | 2024-07-28 11:24 | MHC.CLN ---
RE; CONSULT PT WITH INCREASED NUTRITION RISK R/T PRESSURE INJURY PT IS CURRENTLY NPO WHEN DIET TO ADVANCE, RECOMMEND ADDING ENSURE MAX BID TO PROMOTE WOUND HEALING SUPP WILL PROVIDE 300KCALS, 60G PROTEIN FOLLOWING FOR DIET ADVANCEMENT SEE FULL CLINICAL NUTRITION ASSESSMENT
[2024-07-28 14:38] LABS: C Reactive Protein 6.21 mg/dL (< or = 0.50)
--- NOTE | 2024-07-28 14:56 | MHC.SLORD ---
Speech Language Pathology Order Status: SIZING MACHINE TENDER attempted to see pt for bedside swallow evaluation. Pt out of room. Hospitalist, RN, and pt's family member in room notified of SIZING MACHINE TENDER's attempt for evaluation this afternoon. All parties asked to reach out to SIZING MACHINE TENDER clinic [phone] if re-attempt for evaluation needs to be completed today. Otherwise, SIZING MACHINE TENDER to evaluate pt tomorrow AM.
[2024-07-28 15:10] LABS: Erythrocyte Sedimentation Rate 18 MM/HR (0-15)
[2024-07-28] MEDS: Potassium Chloride Packet 20 MEQ PACKET 40 MEQ PO (15:10)
[2024-07-28] MEDS: Dextrose 5 % and Lactated Ring 1,000 ML 100 ML IVCONT (15:10)
[2024-07-28] MEDS: Piperacillin Sodium/Tazobactam 4.5 GM in 0.9 % Sodium Chloride 100 ML IV ×2 (15:10→22:44)
[2024-07-28] MEDS: vancomycin HCL 1,500 MG in 0.9 % Sodium Chloride 500 ML 333.33 MG IV (15:47)
[2024-07-28 16:15] LABS: Lactic Acid 1.4 mmol/L (0.5-2.0)
[2024-07-28 16:27] LABS: Glucose, Whole Blood 145 mg/dL (60-115)
--- NOTE | 2024-07-28 16:44 | PM.EVENT ---
Event Note Date of Service: 07/28/24 Event Note: Rapid response called due to hypotension with manual BP 68/33, confirmed on repeat. Pt encephalopathic since arrival, but now was not responding. HR 63. Pt is NPO due to dysphagia with NG tube in place. Has maintenance fluids with D5LR running. Bolus NS and albumin ordered and patient placed in Trendelenburg position. BP improved to 95/50, 88/46 manual. Pt does have suspected infection, however hypotension likely iatrogenic given metoprolol was resumed this morning and received valsartan last night. Has leukoctyosis but no other sirs criteria. No sepsis/severe sepsis. Continue bolus fluids. Hold antihypertensives. Continue maintenance fluids. Monitor BP closely. Consider ICU transfer if hypotension persists. Time Spent With Patient Time: Total time managing care of this patient today ____ minutes.
[2024-07-28] MEDS: 0.9 % Sodium Chloride 1,000 ML 999 ML IV (16:58)
[2024-07-28] MEDS: Albumin Human 25 % 50 ML 100 ML IV (17:12)
[2024-07-28] MEDS: 0.9 % Sodium Chloride 500 ML 250 ML IVCONT (17:18)
[2024-07-28] MEDS: Albumin Human 25 % 100 ML 200 ML IV (17:46)
[2024-07-29] MEDS: Dextrose 5 % and Lactated Ring 1,000 ML 100 ML IVCONT ×2 (03:52→15:14)
[2024-07-29 04:00] VITALS: BP 129/64; PULSE 77; RESP 18; TEMP 36.6; O2SAT 95
[2024-07-29 04:48] LABS: Glucose, Whole Blood 137 mg/dL (60-115)
[2024-07-29 04:48] LABS: Glucose, Whole Blood 116 mg/dL (60-115)
--- NOTE | 2024-07-29 05:19 | PC.NURSE ---
NGT advanced per Norah BARRETO, order obtained for repeat xray. CXR taken at bedside
[2024-07-29] MEDS: Piperacillin Sodium/Tazobactam 4.5 GM in 0.9 % Sodium Chloride 100 ML IV ×3 (06:04→22:27)
[2024-07-29 07:14] VITALS: BP 123/63; PULSE 89; RESP 18; TEMP 37.2; O2SAT 96
[2024-07-29 07:39] LABS: MANUAL DIFF FLAG NO
[2024-07-29 07:45] LABS: Eosinophils Percent Auto 0.1 % (0-4); Hematocrit 31.1 % (42.0-52.0); Hemoglobin 11.3 g/dl (14.0-18.0); Imm Gran Abs Auto 0.04 X10*3/uL (0.00-0.03); Imm Gran Pct Auto 0.3 % (0.0-0.4); Lymphocytes Absolute Auto 0.5 X10*3/uL (1.2-4.9); Lymphocytes Percent Auto 4.3 % (20-40); Mean Corpuscular HGB Conc 36.3 g/dl (31.0-36.0); Mean Corpuscular Hemoglobin 31.7 pg (27.0-33.0); Mean Corpuscular Volume 87.1 fL (80.0-98.0); Mean Platelet Volume 10.7 fL (9.4-12.4); Monocytes Absolute Auto 1.3 X10*3/uL (0.1-1.2); Monocytes Percent Auto 10.8 % (2-11); Neutrophils Percent Auto 84.5 % (45-73); Platelet Count 176 X10*3/uL (160-400); Red Blood Count 3.57 X10*6/uL (4.60-5.80); Red Cell Distribution Width 13.2 % (11.0-16.0); White Blood Count 11.8 X10*3/uL (4.8-10.8)
[2024-07-29 07:54] LABS: Alanine Aminotransferase 41 U/L (0-40); Albumin Level 2.7 g/dL (3.5-5.0); Alkaline Phosphatase 85 U/L (39-117); Anion Gap 10 (12-20); Aspartate Amino Transferase 161 U/L (5-37); Bilirubin Total 1.3 mg/dL (0.0-1.0); Blood Urea Nitrogen 67 mg/dL (9-16); Calcium 7.9 mg/dL (8.4-10.2); Carbon Dioxide 29 mmol/L (22-29); Chloride 104 mmol/L (96-108); Creatinine Clr Calc Pharmacy 27.6; Estimated Glomerular Filt Rate 30; Glucose Fasting 145 mg/dL (60-99); Glucose Random 144 mg/dL (60-115); Sodium 140 mmol/L (135-145); Total Protein 4.7 g/dL (6.5-8.0)
[2024-07-29 07:56] LABS: Glucose, Whole Blood 135 mg/dL (60-115)
--- NOTE | 2024-07-29 07:58 | HO.PM.IMPN ---
Subjective Subjective Date of Service: 07/29/24 Interval History: Seen and examined this morning Interval history: More responsive today. Complaining of throat irritation and requesting NG tube to be removed. SALES REPRESENTATIVE TRAINEE evaluation is pending. Blood pressures are improved. Creatinine trending down though potassium remains slightly low. Had been incontinent of soft stool, now diarrhea Review of Systems Review of Systems: Yes Unobtainable due to mental status Physical Exam Vital Signs: Vital Signs: Last Vital Signs Temp 98.9 F 07/29/24 07:14 Pulse 89 07/29/24 07:14 Resp 18 07/29/24 07:14 BP 123/63 07/29/24 07:14 Pulse Ox 96 07/29/24 07:14 O2 Del Method Room Air 07/29/24 07:14 BMI result Body Mass Index 25.6 Constitutional - Awake and Alert, No apparent distress Eyes - PERRLA, EOMI Cardiovascular - S1S2, RRR, No edema Respiratory - Normal lung expansion, Normal respiratory effort, No respiratory distress, CTA bilaterally Gastrointestinal - NT / ND; +BS; No rebound or guarding. NG tube in place Extremities - no calf tenderness bilaterally, no swelling Skin - Warm/Dry . See below Neurological - Alert & oriented to self, answering some questions appropriately Objective Data Active Medications Acetaminophen (Acetaminophen 325 Mg Tablet) 650 mg NG-TUBE Q6H PRN PRN Reason: Pain, Mild 1-3,fever,headache Apixaban (Apixaban 5 Mg Tablet) 5 mg NG-TUBE BID [facility] Last Admin: 07/28/24 20:35 Dose: 5 mg Documented By: FEDERICO Benztropine Mesylate (Benztropine Mesylate 1 Mg Tablet) 1 mg NG-TUBE BID [facility] Last Admin: 07/28/24 20:35 Dose: 1 mg Documented By: FEDERICO Calcium Carbonate (Calcium Carbonate 750 Mg Tab.Chew) 750 mg NG-TUBE Q4H PRN PRN Reason: Heartburn Carbidopa/Levodopa (Carbidopa/Levodopa 25/100 Tablet) 1 tab NG-TUBE BID [facility] Last Admin: 07/28/24 20:35 Dose: 1 tab Documented By: FEDERICO Dextrose (Dextrose 50 % 25 Gm/50 Ml Syringe) 25 gm IVPUSH Q15M PRN; Protocol PRN Reason: per Hypoglycemia Standing Ord. Glucose (Glucose Gel 15 Gm Gel..Gram.) 15 gm PO Q15M PRN; Protocol PRN Reason: per Hypoglycemia Standing Ord. Dextrose/Lactated Ringer's (D5lr) 1,000 mls @ 100 mls/hr IVCONT .Q10H [facility] Last Admin: 07/29/24 03:52 Dose: 100 mls/hr Documented By: FEDERICO Piperacillin Sod/Tazobactam (Sod 4.5 gm/ Sodium Chloride) 100 mls @ 200 mls/hr IV Q8H [facility] Last Infusion: 07/29/24 07:20 Dose: Infused Documented By: ES Vancomycin HCl 500 mg/ Sodium (Chloride) 110 mls @ 110 mls/hr IV Q24H ADRIAN Insulin Human Lispro (Insulin Lispro 100 Unit/Ml 3 Ml Vial) 0 unit SUBCUT Q6H [facility]; Protocol Last Admin: 07/29/24 06:23 Dose: Not Given Documented By: FEDERICO Non-Admin Reason: No Insulin Coverage Magnesium Hydroxide (Milk Of Magnesia 30 Ml Oral.Susp) 30 ml NG-TUBE DAILY PRN PRN Reason: Constipation Melatonin (Melatonin 3 Mg Tablet) 6 mg NG-TUBE BEDTIME PRN PRN Reason: Insomnia Metoprolol Tartrate (Metoprolol Tartrate 50 Mg Tablet) 50 mg NG-TUBE BID [facility] Last Admin: 07/28/24 08:25 Dose: 50 mg Documented By: JAY Pharmacy Consult (Consult Rx Vancomycin Dosing) 1 each MISCELLANE DAILY PRN PRN Reason: Consult order Risperidone (Risperidone 2 Mg Tablet) 2 mg NG-TUBE BID [facility] Last Admin: 07/28/24 20:35 Dose: 2 mg Documented By: FEDERICO Sodium Chloride (0.9 % Sodium Chloride Flush 3 Ml Syringe) 3 ml IVFLUSH QSHIFT [facility] Last Admin: 07/29/24 02:33 Dose: Not Given Documented By: FEDERICO Non-Admin Reason: IV Running Valsartan (Valsartan 40 Mg Tablet) 40 mg NG-TUBE BEDTIME [facility]; Protocol Last Admin: 07/27/24 22:47 Dose: 40 mg Documented By: SVEN Labs 07/29/24 07:16 07/29/24 07:16 Labs: Laboratory Results - last 24 hr 07/28/24 07/28/24 07/28/24 09:23 15:53 16:20 MCV 85.8 MCH 31.6 MCHC 36.8 H RDW 12.9 Plt Count 170 MPV 10.8 Immature Gran % (Auto) 0.4 Neut % (Auto) 86.6 H Lymph % (Auto) 3.2 L [place] % (Auto) 9.7 Eos % (Auto) 0.0 Baso % (Auto) 0.1 Lymph # (Auto) 0.4 L [place] # (Auto) 1.2 Eos # (Auto) 0.0 Baso # (Auto) 0.0 Abs Immat Gran (auto) 0.05 H Absolute Neuts (auto) 10.5 H Absolute Nucleated RBC 0.000 Nucleated RBC % (auto) 0.0 ESR 18 H Anion Gap 13 Estim Creat Clear Calc 23.7 Estimated GFR 26 POC Glucose 145 H Random Glucose Fasting Glucose 162 H Lactic Acid 1.4 Calcium 7.5 L Total Bilirubin 0.9 AST 153 H ALT 14 Alkaline Phosphatase 54 Total Creatine Kinase 2626 H C-Reactive Protein 6.21 H Total Protein 4.6 L Albumin 2.5 L 07/28/24 07/29/24 07/29/24 21:51 00:08 06:14 MCV MCH MCHC RDW Plt Count MPV Immature Gran % (Auto) Neut % (Auto) Lymph % (Auto) [place] % (Auto) Eos % (Auto) Baso % (Auto) Lymph # (Auto) [place] # (Auto) Eos # (Auto) Baso # (Auto) Abs Immat Gran (auto) Absolute Neuts (auto) Absolute Nucleated RBC Nucleated RBC % (auto) ESR Anion Gap Estim Creat Clear Calc Estimated GFR POC Glucose 116 H 137 H 135 H Random Glucose Fasting Glucose Lactic Acid Calcium Total Bilirubin AST ALT Alkaline Phosphatase Total Creatine Kinase C-Reactive Protein Total Protein Albumin 07/29/24 07:16 MCV 87.1 MCH 31.7 MCHC 36.3 H RDW 13.2 Plt Count 176 MPV 10.7 Immature Gran % (Auto) 0.3 Neut % (Auto) 84.5 H Lymph % (Auto) 4.3 L [place] % (Auto) 10.8 Eos % (Auto) 0.1 Baso % (Auto) 0.0 Lymph # (Auto) 0.5 L [place] # (Auto) 1.3 H Eos # (Auto) 0.0 Baso # (Auto) 0.0 Abs Immat Gran (auto) 0.04 H Absolute Neuts (auto) 10.0 H Absolute Nucleated RBC 0.000 Nucleated RBC % (auto) 0.0 ESR Anion Gap 10 L Estim Creat Clear Calc 27.6 Estimated GFR 30 POC Glucose Random Glucose 144 H Fasting Glucose 145 H Lactic Acid Calcium 7.9 L Total Bilirubin 1.3 H AST 161 H ALT 41 H Alkaline Phosphatase 85 Total Creatine Kinase C-Reactive Protein Total Protein 4.7 L Albumin 2.7 L Microbiology Microbiology Results: Microbiology 07/26/24 12:50 Blood Culture - Preliminary Blood - Venous No growth after 48 hours. 07/26/24 12:40 Blood Culture - Preliminary Blood - Venous No growth after 48 hours. 07/26/24 Unknown Urine Culture - Final Urine Catheterized - Ramirez Catheter No growth. Assessment and Plan (1) Acute kidney injury: Status: Acute (2) Rhabdomyolysis: Status: Acute (3) Diabetes mellitus type 2, controlled: Status: Acute Plan 69-year-old male with a history of paroxysmal atrial fibrillation, dizziness, paranoid schizophrenia, bipolar disorder, anxiety, insomnia, Parkinson's disease, GERD with esophagitis, hypercholesterolemia, hypertension, diabetes mellitus who was brought to emergency department by ambulance for evaluation of fall into bath tub. The patient can not recount details of why he was in the bathtub with all of his clothes on clothes. Patient has two brothers that visit him on Wednesdays and Saturdays. The Saturday brother did visit him and he appeared well . His Saturday brother found him fully clothed in the bath tub complaining of feeling very thirsty and needing to see a doctor. In the emergency room, workup consistent with acute kidney injury along with rhabdomyolysis and hypothermia. Patient will be admitted for workup of the same Acute kidney injury with acidosis Acidosis resolved. DC bicarb drip, initiate D5LR Renal function improving. Baseline creat 0.74 follow renals/divalents appreciate nephrology consult recommendations implanted continue Ramirez for close monitoring of urine output Rhabdomyolysis secondary to trauma aggressive volume repletion CPK's trending down Acute metabolic encephalopathy (likely) aggressive therapy as outlined in 1 UC negative. BC negative thus far EEG did show diffuse slowing typically seen with encephalopathy but also right parietal irritability. Recommending gabapentin 300 mg b.i.d.. Avoid Depakote due to transaminitis ?r/t cellulitis sacrum vs noncompliance with sinemet Acute hypokalemia Potassium depletion in the setting of poor p.o. intake and acute diarrhea Continue with supplementation until diet advances and potassium stable Diet advanced to clears today Follow lytes Acute diarrhea GI panel and C diff PCR Acute hypotension Likely iatrogenic, not severe sepsis. Resolved with IVF Hold antihypertensives Dysphagia likely from Parkinsons r/t lapse in sinemet NG tube in place. NPO since 07/26 SALES REPRESENTATIVE TRAINEE eval ordered. Recommending clear liquid diet 07/29, pills whole Acute cellulitis sacrum Unstageable decubitus ulcer (see exam) with surrounding erythema. No warmth or fluctuation Leukocytosis improved, but remains 12.1, still encephalopathic ESR and CRP elevated. MRI sacrum pending IV vanco and angysyn General surgery input appreciated. No indication for urgent debridement at this time. Monitor for any eschar/necrotic tissue Decubitus ulcers- present on admission Unstageable ulceration sacrum and L shoulder Offloading and reposition. Wound care General surgery consult for evaluation of eschar of sacral ulcer. See above Paroxysmal atrial fibrillation- rate controlled currently sinus rhythm with PACs admit to telemetry to rule out AFib with RVR as culprit resume Eliquis Parkinson's disease resume Sinemet this evening at outpatient dosing along with Cogentin follow clinical response Diabetes type 2 lispro correctional scale hold metformin pending formal speech eval in a.m. adjust as indicated Hypothermia resolved Full code Eliquis Require ongoing hospitalization for IV volume repletion and bicarb treat acute kidney injury and specialty consultation Quality Stroke Does the patient have a stroke diagnosis?: No VTE Prior VTE?: No VTE Risk Level:: Medical - moderate - high VTE Device Contraindication: Treatment Not Indicated VTE Drug Contraindication: N/A - Med Ordered
[2024-07-29] MEDS: Benztropine Mesylate 1 MG TABLET NG-TUBE (08:11)
[2024-07-29] MEDS: risperiDONE 2 MG TABLET NG-TUBE (08:11)
[2024-07-29] MEDS: Potassium Chloride Packet 20 MEQ PACKET PO (08:11)
[2024-07-29] MEDS: Apixaban 5 MG TABLET NG-TUBE (08:11)
[2024-07-29] MEDS: Carbidopa/Levodopa 25/100 TABLET 1 TAB NG-TUBE (08:11)
[2024-07-29 08:33] LABS: C Reactive Protein 5.47 mg/dL (< or = 0.50)
--- NOTE | 2024-07-29 09:26 | PM.NEUROCN ---
History of Present Illness Data of Consult Service Date: 07/29/24 Primary Care Provider: Lavon Roca MD [facility] Reason for consult: Dizziness and abnormal EEG 69-year-old male with a history of paroxysmal atrial fibrillation, dizziness, paranoid schizophrenia, bipolar disorder, anxiety, insomnia, Parkinson's disease. At this time he was treated for flu and renal disease. Because of worsening mental status an EEG was done which revealed diffuse slowing but also right parietal sharp and slow wave complexes. He has complaint of dizziness on chronic basis. Previous EEG did not reveal any significant abnormality. Review of Systems Review of Systems: Unable to do review of system [facility] Past Medical History Medical History PAF (paroxysmal atrial fibrillation) Dizziness Paranoid schizophrenia Bipolar depression Anxiety Insomnia Constipation Parkinson's disease GERD without esophagitis Hyponatremia Pure hypercholesterolemia Benign essential hypertension Diabetes mellitus Family History Family History Father Parkinson disease Mother Stomach cancer Surgical History Surgical History History of extraction of renal calculus Social History Social History Household Members: Unknown / Unable to assess Household Members Other:: from home, patient not able to answer questions Housing: Unknown / Unable to assess Alcohol intake: never Patient Tobacco Use Status: Never used Tobacco e-Cigarette/Vaping Use: Never Used service: No Current occupational status: retired Cognitive needs: Yes (walker) Hearing needs: No Vision needs: Yes (reading glasses) Meds Allergies Allergy/AdvReac Type Severity Reaction Status Date / Time No Known Allergies Allergy Verified 07/26/24 12:10 [No Known Allergies*] Active Medications: Current Medications Acetaminophen (Acetaminophen 325 Mg Tablet) 650 mg NG-TUBE Q6H PRN PRN Reason: Pain, Mild 1-3,fever,headache Apixaban (Apixaban 5 Mg Tablet) 5 mg NG-TUBE BID [facility] Last Admin: 07/29/24 08:11 Dose: 5 mg Benztropine Mesylate (Benztropine Mesylate 1 Mg Tablet) 1 mg NG-TUBE BID [facility] Last Admin: 07/29/24 08:11 Dose: 1 mg Calcium Carbonate (Calcium Carbonate 750 Mg Tab.Chew) 750 mg NG-TUBE Q4H PRN PRN Reason: Heartburn Carbidopa/Levodopa (Carbidopa/Levodopa 25/100 Tablet) 1 tab NG-TUBE BID [facility] Last Admin: 07/29/24 08:11 Dose: 1 tab Dextrose (Dextrose 50 % 25 Gm/50 Ml Syringe) 25 gm IVPUSH Q15M PRN; Protocol PRN Reason: per Hypoglycemia Standing Ord. Glucose (Glucose Gel 15 Gm Gel..Gram.) 15 gm PO Q15M PRN; Protocol PRN Reason: per Hypoglycemia Standing Ord. Dextrose/Lactated Ringer's (D5lr) 1,000 mls @ 100 mls/hr IVCONT .Q10H [facility] Last Admin: 07/29/24 03:52 Dose: 100 mls/hr Piperacillin Sod/Tazobactam (Sod 4.5 gm/ Sodium Chloride) 100 mls @ 200 mls/hr IV Q8H [facility] Last Infusion: 07/29/24 07:20 Dose: Infused Vancomycin HCl 500 mg/ Sodium (Chloride) 110 mls @ 110 mls/hr IV Q24H [facility] Insulin Human Lispro (Insulin Lispro 100 Unit/Ml 3 Ml Vial) 0 unit SUBCUT Q6H [facility]; Protocol Last Admin: 07/29/24 06:23 Dose: Not Given Magnesium Hydroxide (Milk Of Magnesia 30 Ml Oral.Susp) 30 ml NG-TUBE DAILY PRN PRN Reason: Constipation Melatonin (Melatonin 3 Mg Tablet) 6 mg NG-TUBE BEDTIME PRN PRN Reason: Insomnia Metoprolol Tartrate (Metoprolol Tartrate 50 Mg Tablet) 50 mg NG-TUBE BID [facility] Last Admin: 07/28/24 08:25 Dose: 50 mg Pharmacy Consult (Consult Rx Vancomycin Dosing) 1 each MISCELLANE DAILY PRN PRN Reason: Consult order Potassium Chloride (Potassium Chloride Packet 20 Meq Packet) 40 meq PO DAILY [facility] Risperidone (Risperidone 2 Mg Tablet) 2 mg NG-TUBE BID [facility] Last Admin: 07/29/24 08:11 Dose: 2 mg Sodium Chloride (0.9 % Sodium Chloride Flush 3 Ml Syringe) 3 ml IVFLUSH QSHIFT [facility] Last Admin: 07/29/24 08:11 Dose: Not Given Valsartan (Valsartan 40 Mg Tablet) 40 mg NG-TUBE BEDTIME [facility]; Protocol Last Admin: 07/27/24 22:47 Dose: 40 mg Home Medications ?Medication ?Instructions ?Recorded ?Confirmed ?Last Taken ?Type clonazepam 0.5 mg tablet 0.5 mg PO BEDTIME Sleep 04/08/20 07/26/24 07/21/24 History multivitamin 1 tab PO DAILY 05/15/21 07/26/24 07/21/24 History carbidopa 25 mg-levodopa 100 mg 1 tab PO BID 08/02/23 07/26/24 07/21/24 History tablet benztropine 1 mg tablet 1 mg PO BID 11/25/23 07/26/24 07/21/24 History melatonin 5 mg capsule 5 mg PO BEDTIME 12/16/23 07/26/24 07/21/24 History risperidone 2 mg tablet (Risperdal) 2 mg PO BID 06/18/24 07/26/24 07/21/24 History atorvastatin 20 mg tablet 20 mg PO BEDTIME 07/26/24 07/26/24 07/21/24 History eplerenone 25 mg tablet 12.5 mg PO DAILY 07/26/24 07/26/24 07/21/24 History magnesium oxide 400 mg PO BEDTIME 07/26/24 07/26/24 07/21/24 History metoprolol succinate 50 mg 100 mg PO DAILY 07/26/24 07/26/24 07/21/24 History tablet,extended release 24 hr (Toprol XL) valsartan 40 mg tablet 40 mg PO BEDTIME 07/26/24 07/26/24 07/21/24 History Physical Exam Vital Signs: Vital Signs: Last Vital Signs Temp 98.9 F 07/29/24 07:14 Pulse 89 07/29/24 07:14 Resp 18 07/29/24 07:14 BP 123/63 07/29/24 07:14 Pulse Ox 96 07/29/24 07:14 O2 Del Method Room Air 07/29/24 07:14 BMI result Body Mass Index 25.6 Neuro: Other: He is alert and awake with normal spontaneity and fluency of speech. He did not recognize me though we have met numerous times. He misunderstood me with a different physician. Face was symmetrical. Visual leon are full. There was constant left hand resting tremor. Moderate generalized weakness and lethargy was noted. He was unable to stand up even with help of physical therapy. Deep tendon reflexes were absent. Plantars were flat. Speech was normal. Results Labs 07/29/24 07:16 07/29/24 07:16 Labs: Short CBC 07/28/24 07/29/24 Range/Units 09:23 07:16 WBC 12.1 H 11.8 H (4.8-10.8) X10*3/uL Hgb 12.4 L 11.3 L (14.0-18.0) g/dl Hct 33.7 L 31.1 L (42.0-52.0) % Plt Count 170 176 (160-400) X10*3/uL BMP 07/28/24 07/29/24 09:23 07:16 Sodium 135 140 Potassium 3.1 L 3.0 L Chloride 96 104 Carbon Dioxide 29 29 BUN 89 H 67 H Creatinine 2.53 H 2.17 H Calcium 7.5 L 7.9 L Cardiac Enzymes 07/28/24 07/29/24 Range/Units 09:23 07:16 Total Creatine Kinase 2626 H 1665 H (38-174) U/L Liver Function 07/28/24 07/29/24 Range/Units 09:23 07:16 Total Bilirubin 0.9 1.3 H (0.0-1.0) mg/dL AST 153 H 161 H (5-37) U/L ALT 14 41 H (0-40) U/L Alkaline Phosphatase 54 85 (39-117) U/L Albumin 2.5 L 2.7 L (3.5-5.0) g/dL EEG revealed diffuse slowing with right parietal sharp and slow wave complexes. His head CT revealed moderate mostly central cerebral atrophy. Microbiology Microbiology Results: Microbiology 07/26/24 12:50 Blood - Venous Blood Culture - Preliminary No growth after 48 hours. 07/26/24 12:40 Blood - Venous Blood Culture - Preliminary No growth after 48 hours. 07/26/24 Unknown Urine Catheterized - Ramirez Catheter Urine Culture - Final No growth. Assessment and Plan (1) Encephalopathy: Qualifiers: Encephalopathy type: toxic metabolic Qualified Code(s): G92.8 - Other toxic encephalopathy Status: Acute 69 years old man with multifactorial encephalopathy including toxic metabolic. His EEG revealed diffuse slowing typically seen with encephalopathy but also right parietal irritability. My recommendation is to put him on gabapentin 300 mg twice a day for seizure control. Because of his other medicines and liver abnormalities I have hesitated to prescribed stronger medicines. After giving gabapentin for 2-3 days EEG can be repeated to see if that has normalized. Procedures Date of Service Date of Service: 07/29/24
--- NOTE | 2024-07-29 10:11 | PM.CNGS ---
History of Present Illness Consult details Consult date: 07/29/24 Narrative: 69-year-old male with PMH of atrial fibrillation, paranoid schizophrenia, bipolar disorder, Parkinson's disease, GERD, hypercholesterolemia, hypertension, diabetes mellitus who was initially brought to the ED for evaluation after he was found down in the bath tub. Patient has two brothers that visit him on Wednesdays and Saturdays. On Saturday his brother did visit him and he appeared well however on Saturday he was found fully clothed in the bath tub complaining of feeling very thirsty and needing to see a doctor. He was admitted to the hospitalist service for further treatment of KEE, rhabdomyolysis, hypothermia, Acute metabolic encephalopathy. He was found to have a large unstageable sacral decubitus ulcer and was started on IV abx for concern for secondary cellulitis. Review of Systems Review of Systems: Yes Unobtainable due to mental status PMFSH Past Medical History Medical History PAF (paroxysmal atrial fibrillation) Dizziness Paranoid schizophrenia Bipolar depression Anxiety Insomnia Constipation Parkinson's disease GERD without esophagitis Hyponatremia Pure hypercholesterolemia Benign essential hypertension Diabetes mellitus Family History Family History Father Parkinson disease Mother Stomach cancer Surgical History Surgical History History of extraction of renal calculus Social History Social History Household Members: Unknown / Unable to assess Household Members Other:: from home, patient not able to answer questions Housing: Unknown / Unable to assess Alcohol intake: never Patient Tobacco Use Status: Never used Tobacco e-Cigarette/Vaping Use: Never Used service: No Current occupational status: retired Cognitive needs: Yes (walker) Hearing needs: No Vision needs: Yes (reading glasses) Meds Allergies Allergy/AdvReac Type Severity Reaction Status Date / Time No Known Allergies Allergy Verified 07/26/24 12:10 [No Known Allergies*] Active Medications: Current Medications Acetaminophen (Acetaminophen 325 Mg Tablet) 650 mg NG-TUBE Q6H PRN PRN Reason: Pain, Mild 1-3,fever,headache Apixaban (Apixaban 5 Mg Tablet) 5 mg NG-TUBE BID [facility] Last Admin: 07/29/24 08:11 Dose: 5 mg Benztropine Mesylate (Benztropine Mesylate 1 Mg Tablet) 1 mg NG-TUBE BID [facility] Last Admin: 07/29/24 08:11 Dose: 1 mg Calcium Carbonate (Calcium Carbonate 750 Mg Tab.Chew) 750 mg NG-TUBE Q4H PRN PRN Reason: Heartburn Carbidopa/Levodopa (Carbidopa/Levodopa 25/100 Tablet) 1 tab NG-TUBE BID [facility] Last Admin: 07/29/24 08:11 Dose: 1 tab Dextrose (Dextrose 50 % 25 Gm/50 Ml Syringe) 25 gm IVPUSH Q15M PRN; Protocol PRN Reason: per Hypoglycemia Standing Ord. Glucose (Glucose Gel 15 Gm Gel..Gram.) 15 gm PO Q15M PRN; Protocol PRN Reason: per Hypoglycemia Standing Ord. Dextrose/Lactated Ringer's (D5lr) 1,000 mls @ 100 mls/hr IVCONT .Q10H [facility] Last Admin: 07/29/24 03:52 Dose: 100 mls/hr Piperacillin Sod/Tazobactam (Sod 4.5 gm/ Sodium Chloride) 100 mls @ 200 mls/hr IV Q8H [facility] Last Infusion: 07/29/24 07:20 Dose: Infused Vancomycin HCl 500 mg/ Sodium (Chloride) 110 mls @ 110 mls/hr IV Q24H [facility] Insulin Human Lispro (Insulin Lispro 100 Unit/Ml 3 Ml Vial) 0 unit SUBCUT Q6H [facility]; Protocol Last Admin: 07/29/24 06:23 Dose: Not Given Magnesium Hydroxide (Milk Of Magnesia 30 Ml Oral.Susp) 30 ml NG-TUBE DAILY PRN PRN Reason: Constipation Melatonin (Melatonin 3 Mg Tablet) 6 mg NG-TUBE BEDTIME PRN PRN Reason: Insomnia Metoprolol Tartrate (Metoprolol Tartrate 50 Mg Tablet) 50 mg NG-TUBE BID [facility] Last Admin: 07/28/24 08:25 Dose: 50 mg Pharmacy Consult (Consult Rx Vancomycin Dosing) 1 each MISCELLANE DAILY PRN PRN Reason: Consult order Potassium Chloride (Potassium Chloride Packet 20 Meq Packet) 40 meq PO DAILY [facility] Risperidone (Risperidone 2 Mg Tablet) 2 mg NG-TUBE BID [facility] Last Admin: 07/29/24 08:11 Dose: 2 mg Sodium Chloride (0.9 % Sodium Chloride Flush 3 Ml Syringe) 3 ml IVFLUSH QSHIFT [facility] Last Admin: 07/29/24 08:11 Dose: Not Given Valsartan (Valsartan 40 Mg Tablet) 40 mg NG-TUBE BEDTIME [facility]; Protocol Last Admin: 07/27/24 22:47 Dose: 40 mg Home Medications ?Medication ?Instructions ?Recorded ?Confirmed ?Last Taken ?Type clonazepam 0.5 mg tablet 0.5 mg PO BEDTIME Sleep 04/08/20 07/26/24 07/21/24 History multivitamin 1 tab PO DAILY 05/15/21 07/26/24 07/21/24 History carbidopa 25 mg-levodopa 100 mg 1 tab PO BID 08/02/23 07/26/24 07/21/24 History tablet benztropine 1 mg tablet 1 mg PO BID 11/25/23 07/26/24 07/21/24 History melatonin 5 mg capsule 5 mg PO BEDTIME 12/16/23 07/26/24 07/21/24 History risperidone 2 mg tablet (Risperdal) 2 mg PO BID 06/18/24 07/26/24 07/21/24 History atorvastatin 20 mg tablet 20 mg PO BEDTIME 07/26/24 07/26/24 07/21/24 History eplerenone 25 mg tablet 12.5 mg PO DAILY 07/26/24 07/26/24 07/21/24 History magnesium oxide 400 mg PO BEDTIME 07/26/24 07/26/24 07/21/24 History metoprolol succinate 50 mg 100 mg PO DAILY 07/26/24 07/26/24 07/21/24 History tablet,extended release 24 hr (Toprol XL) valsartan 40 mg tablet 40 mg PO BEDTIME 07/26/24 07/26/24 07/21/24 History Physical Exam Vital Signs: Vital Signs: Last Vital Signs Temp 98.9 F 07/29/24 07:14 Pulse 89 07/29/24 07:14 Resp 18 07/29/24 07:14 BP 123/63 07/29/24 07:14 Pulse Ox 96 07/29/24 07:14 O2 Del Method Room Air 07/29/24 07:14 BMI result Body Mass Index 25.6 Const: General: cooperative, no acute distress, alert and anxious HEENT: Other: NGT in place Resp: Effort & Inspection: normal respiratory effort Skin: Other: large sacral decubitus ulcer, centrally unstageable, currently no necrotic tissue or eschar, surrounding desquamation of skin and nonblanchable erythema Results Labs 07/29/24 07:16 07/29/24 07:16 Labs: Abnormal lab results 07/28/24 07/28/24 07/28/24 Range/Units 09:23 16:20 21:51 WBC (4.8-10.8) X10*3/uL RBC (4.60-5.80) X10*6/uL Hgb (14.0-18.0) g/dl Hct (42.0-52.0) % MCHC (31.0-36.0) g/dl Neut % (Auto) (45-73) % Lymph % (Auto) (20-40) % Lymph # (Auto) (1.2-4.9) X10*3/uL [place] # (Auto) (0.1-1.2) X10*3/uL Abs Immat Gran (auto) (0.00-0.03) X10*3/uL Absolute Neuts (auto) (2.0-8.3) x10*3/uL ESR 18 H (0-15) MM/HR Potassium (3.3-5.1) mmol/L Anion Gap (12-20) BUN (9-16) mg/dL Creatinine (0.5-1.4) mg/dL POC Glucose 145 H 116 H (60-115) mg/dL Random Glucose (60-115) mg/dL Fasting Glucose (60-99) mg/dL Calcium (8.4-10.2) mg/dL Total Bilirubin (0.0-1.0) mg/dL AST (5-37) U/L ALT (0-40) U/L Total Creatine Kinase (38-174) U/L C-Reactive Protein 6.21 H (< or = 0.50) mg/dL Total Protein (6.5-8.0) g/dL Albumin (3.5-5.0) g/dL 07/29/24 07/29/24 07/29/24 Range/Units 00:08 06:14 07:16 WBC 11.8 H (4.8-10.8) X10*3/uL RBC 3.57 L (4.60-5.80) X10*6/uL Hgb 11.3 L (14.0-18.0) g/dl Hct 31.1 L (42.0-52.0) % MCHC 36.3 H (31.0-36.0) g/dl Neut % (Auto) 84.5 H (45-73) % Lymph % (Auto) 4.3 L (20-40) % Lymph # (Auto) 0.5 L (1.2-4.9) X10*3/uL [place] # (Auto) 1.3 H (0.1-1.2) X10*3/uL Abs Immat Gran (auto) 0.04 H (0.00-0.03) X10*3/uL Absolute Neuts (auto) 10.0 H (2.0-8.3) x10*3/uL ESR (0-15) MM/HR Potassium 3.0 L (3.3-5.1) mmol/L Anion Gap 10 L (12-20) BUN 67 H (9-16) mg/dL Creatinine 2.17 H (0.5-1.4) mg/dL POC Glucose 137 H 135 H (60-115) mg/dL Random Glucose 144 H (60-115) mg/dL Fasting Glucose 145 H (60-99) mg/dL Calcium 7.9 L (8.4-10.2) mg/dL Total Bilirubin 1.3 H (0.0-1.0) mg/dL AST 161 H (5-37) U/L ALT 41 H (0-40) U/L Total Creatine Kinase 1665 H (38-174) U/L C-Reactive Protein 5.47 H (< or = 0.50) mg/dL Total Protein 4.7 L (6.5-8.0) g/dL Albumin 2.7 L (3.5-5.0) g/dL Short CBC 07/29/24 Range/Units 07:16 WBC 11.8 H (4.8-10.8) X10*3/uL Hgb 11.3 L (14.0-18.0) g/dl Hct 31.1 L (42.0-52.0) % Plt Count 176 (160-400) X10*3/uL BMP 07/29/24 07:16 Sodium 140 Potassium 3.0 L Chloride 104 Carbon Dioxide 29 BUN 67 H Creatinine 2.17 H Calcium 7.9 L Cardiac Enzymes 07/29/24 Range/Units 07:16 Total Creatine Kinase 1665 H (38-174) U/L Liver Function 07/29/24 Range/Units 07:16 Total Bilirubin 1.3 H (0.0-1.0) mg/dL AST 161 H (5-37) U/L ALT 41 H (0-40) U/L Alkaline Phosphatase 85 (39-117) U/L Albumin 2.7 L (3.5-5.0) g/dL Urine 07/26/24 Range/Units 14:59 Urine Color Dark Yellow Urine Appearance Clear Urine pH 6.5 (5.0-9.0) Ur Specific [place] 1.010 (1.005-1.025) Urine Protein Trace (Neg-Trace) mg/dL Urine Glucose (UA) Negative (Negative) mg/dL All other labs normal. Assessment and Plan (1) Rhabdomyolysis: Qualifiers: Encounter type: initial encounter Rhabdomyolysis type: traumatic Qualified Code(s): T79.6XXA - Traumatic ischemia of muscle, initial encounter Status: Acute (2) Encephalopathy: Qualifiers: Encephalopathy type: toxic metabolic Qualified Code(s): G92.8 - Other toxic encephalopathy Status: Acute (3) Fall: Status: Acute (4) Unstageable decubitus ulcer: Status: Acute Plan 69-year-old male with PMH of atrial fibrillation, paranoid schizophrenia, bipolar disorder, Parkinson's disease, GERD, hypercholesterolemia, hypertension, diabetes mellitus who was initially brought to the ED for evaluation after he was found down in the bath tub admitted with KEE, rhabdomyolysis, hypothermia, Acute metabolic encephalopathy and found to have a large unstageable sacral decubitus ulcer, cellulitis. WBC has downtrended. Currently there is no eschar or tissue to debride and clinically no indication to do this urgently. Agree with wound care recommendations of santyl and allevyn foam pad with dressing change daily and see how wound progresses. Santyl has been ordered. Cont frequent off loading, nutritional support. If develops eschar/necrotic tissue, can proceed with debridement but will allow wound to declare itself. Procedures Date of Service Date of Service: 07/29/24
--- NOTE | 2024-07-29 10:31 | MHC.CM.PN ---
Per ROUNDS discussion, Patient is not yet medically cleared for dc (renal function is improving/NGT/will need to start diet when NGT is removed); Patient may benefit from a PT Eval to assist with disposition. CM will follow.
[2024-07-29] MEDS: Potassium Chloride Packet 20 MEQ PACKET 40 MEQ PO (10:58)
[2024-07-29 11:08] VITALS: BP 109/69; PULSE 80; RESP 18; TEMP 36.2; O2SAT 99
--- NOTE | 2024-07-29 11:26 | MHC.CLN ---
F/U PT WITH INCREASED NUTRITION RISK R/T PRESSURE INJURY PT IS CURRENTLY DAY [address] IN [address] AWAITING RIB TRIM SEPARATOR EVAL TO ADVANCE DIET WHEN DIET TO ADVANCE, RECOMMEND 2000DM DIET RECOMMEND ADDING ENSURE MAX BID TO PROMOTE WOUND HEALING SUPP WILL PROVIDE 300KCALS, 60G PROTEIN FOLLOWING FOR DIET ADVANCEMENT
[2024-07-29] MEDS: Collagenase Clostridium Hist. 30 GM TUBE 1 APPL TOPICAL (12:50)
--- NOTE | 2024-07-29 12:55 | MHC.SL.SWA ---
Speech Pathologist Impression: Mild to moderate oral, mild pharyngeal dysphagia in setting of changes to mental status and PMH of PD/GERD Risk of Aspiration Due to: Neurological Condition Reduced Cognition Dysphasia Diet Status: Liquid Consistency and Strategies for Safe Swallow: Liquid Intake Recommendation: Thin Liquid Intake Strategies: Small Sips Solid Food Consistency: Dietary Recommendations: Clear liquid diet Additional Modifications to Solid Foods: Oral Medication Intake: Crushed with Puree Please contact the pharmacy regarding appropriate crushable or liquid drug formulations that are available whenever modified delivery is recommended. Compensatory Strategies and Precautions to be Taken for Safe Swallow: Sitting Upright (90 deg) Liquids from Cup Liquids from Straw Small Bites and Sips Alternate Liquids/Solids Rate of Ingestion Change Oral Check Supervision While Eating and Drinking for Safe Swallow: Total Supervision (1:1) Foods to Avoid: Swallowing Recommended Treatments: Compens. Strategy Educat. Recommendation for Speech: Comment: Oropharyngeal swallow adequate for thins, pt has hx of GERD and Parkinson's Disease. Pt had NG tube at time of bedside eval, c/o throat discomfort. ART SALES CONSULTANT to follow and advance as appropriate. Frequency/Duration: Date Range for Service Req: Timeline to reassess: Senior Account Director Clinican/Clinical Fellow: No Supervisory Statement: I have reviewed and agree with the student/clinical fellow's documentation: N/A Speech Language Pathologist: Christy Duran M.S., CCC-ART SALES CONSULTANT
[2024-07-29 13:40] LABS: Vancomycin Random 15.1 mcg/mL (15-20)
[2024-07-29 15:05] VITALS: BP 142/78; PULSE 86; RESP 18; TEMP 36.8; O2SAT 95
[2024-07-29] MEDS: vancomycin HCL 750 MG in 0.9 % Sodium Chloride 250 ML 265 MG IV (16:26)
--- NOTE | 2024-07-29 16:30 | PC.NURSE ---
Patient tolerated clear liquid diet, NG tube discontinued, small amount of dry blood noted in left nostril only, patient tolerated procedure well.
[2024-07-29] MEDS: Insulin Lispro 100 UNIT/ML 3 ML VIAL SUBCUT (17:54)
--- NOTE | 2024-07-29 19:03 | PC.NURSE ---
Patient alert confused, refused to answer questions initially, would answer yes or no question. VSS, RA sats above 95%, no complaints of pain. Dressing to the sacral area changed per order. NG tube d/c at 1600, patient tolerated procedure well, small amount of dry blood noted in R nostril. Per provider do not remove andrade. Diet advanced to clear liquid, patient able to tolerate it.
[2024-07-29 19:23] VITALS: BP 118/63; PULSE 94; RESP 18; TEMP 36.5; O2SAT 94
[2024-07-29] MEDS: Apixaban 5 MG TABLET PO (20:16)
[2024-07-29] MEDS: Gabapentin 300 MG CAPSULE PO (20:16)
[2024-07-29] MEDS: risperiDONE 2 MG TABLET PO (20:16)
[2024-07-29] MEDS: Carbidopa/Levodopa 25/100 TABLET 1 TAB PO (20:17)
[2024-07-29] MEDS: Benztropine Mesylate 1 MG TABLET PO (20:19)
--- NOTE | 2024-07-29 21:19 | P.PNNP_ITS ---
Subjective Subjective Date of Service: 07/29/24 Interval history: More responsive today. Creatinine trending down. All recent data reviewed Physical Exam 2 Vital Signs: Vital Signs: Last Vital Signs Temp 97.7 F 07/29/24 19:23 Pulse 94 07/29/24 19:23 Resp 18 07/29/24 19:23 BP 118/63 07/29/24 19:23 Pulse Ox 94 07/29/24 19:23 O2 Del Method Room Air 07/29/24 19:23 BMI result Body Mass Index 25.6 Const: General: no acute distress Neck: Neck: Yes supple Resp: Auscultation: diminished lung sounds Cardio: Rate: regular rate GI: Palpation (GI): Soft to palpation Neuro: General: moves all extremities Objective Data Labs 07/29/24 07:16 07/29/24 07:16 Labs: Laboratory Results - last 24 hr 07/28/24 07/29/24 07/29/24 21:51 00:08 06:14 WBC RBC Hgb Hct MCV MCH MCHC RDW Plt Count MPV Immature Gran % (Auto) Neut % (Auto) Lymph % (Auto) [place] % (Auto) Eos % (Auto) Baso % (Auto) Lymph # (Auto) [place] # (Auto) Eos # (Auto) Baso # (Auto) Abs Immat Gran (auto) Absolute Neuts (auto) Absolute Nucleated RBC Nucleated RBC % (auto) Sodium Potassium Chloride Carbon Dioxide Anion Gap BUN Creatinine Estim Creat Clear Calc Estimated GFR POC Glucose 116 H 137 H 135 H Random Glucose Fasting Glucose Calcium Total Bilirubin AST ALT Alkaline Phosphatase Total Creatine Kinase C-Reactive Protein Total Protein Albumin Random Vancomycin 07/29/24 07/29/24 07:16 12:53 WBC 11.8 H RBC 3.57 L Hgb 11.3 L Hct 31.1 L MCV 87.1 MCH 31.7 MCHC 36.3 H RDW 13.2 Plt Count 176 MPV 10.7 Immature Gran % (Auto) 0.3 Neut % (Auto) 84.5 H Lymph % (Auto) 4.3 L [place] % (Auto) 10.8 Eos % (Auto) 0.1 Baso % (Auto) 0.0 Lymph # (Auto) 0.5 L [place] # (Auto) 1.3 H Eos # (Auto) 0.0 Baso # (Auto) 0.0 Abs Immat Gran (auto) 0.04 H Absolute Neuts (auto) 10.0 H Absolute Nucleated RBC 0.000 Nucleated RBC % (auto) 0.0 Sodium 140 Potassium 3.0 L Chloride 104 Carbon Dioxide 29 Anion Gap 10 L BUN 67 H Creatinine 2.17 H Estim Creat Clear Calc 27.6 Estimated GFR 30 POC Glucose Random Glucose 144 H Fasting Glucose 145 H Calcium 7.9 L Total Bilirubin 1.3 H AST 161 H ALT 41 H Alkaline Phosphatase 85 Total Creatine Kinase 1665 H C-Reactive Protein 5.47 H Total Protein 4.7 L Albumin 2.7 L Random Vancomycin 15.1 Microbiology Microbiology Results: Microbiology 07/26/24 12:50 Blood - Venous Blood Culture - Preliminary No growth after 48 hours. 07/26/24 12:40 Blood - Venous Blood Culture - Preliminary No growth after 48 hours. 07/26/24 Unknown Urine Catheterized - Ramirez Catheter Urine Culture - Final No growth. Procedures Date of Service Date of Service: 07/29/24 Assessment & Plan Assessment and plan (1) Acute kidney injury: Status: Acute Plan KEE due to tubular injury No reason to suspect GN/AIN UO OK; Serum creatinine improving C/W current supportive care; Labs AM Progress Note: Quality Stroke Does the patient have a stroke diagnosis?: No
[2024-07-29 22:19] LABS: CDiff Gene PCR NEGATIVE (Negative)
[2024-07-29] MEDS: 0.9 % Sodium Chloride Flush 3 ML SYRINGE IVFLUSH (22:30)
[2024-07-29 23:33] VITALS: BP 111/62; PULSE 65; RESP 18; TEMP 37.3; O2SAT 96
--- NOTE | 2024-07-30 | EEG_ITS ---
This is a 16-channel EEG with an EKG lead. The patient is reported awake and drowsy during the tracing. Background EEG rhythm is low to medium amplitude, mostly in theta to slow alpha range with no obvious asymmetry or paroxysmal tendency. Photic stimulation does not produce any significant abnormality. Hyperventilation is not performed. Cardiac lead revealed PVCs. IMPRESSION: Generalized slowing with no evidence of epileptic discharges as previously seen. MD NISHA Banks/[place] / [id number]
[2024-07-30] MEDS: Dextrose 5 % and Lactated Ring 1,000 ML 100 ML IVCONT ×2 (01:16→12:18)
[2024-07-30 02:57] VITALS: BP 118/57; PULSE 58; RESP 20; TEMP 36.3; O2SAT 96
[2024-07-30 04:22] LABS: Glucose, Whole Blood 140 mg/dL (60-115)
[2024-07-30 04:22] LABS: Glucose, Whole Blood 154 mg/dL (60-115)
[2024-07-30 04:44] LABS: HBS Num1 0.23 mIU/mL (0-7.99); HBc Num1 0.07 S/CO (0.00-0.79); HBsAGNum1 0.35 S/CO (0.00-0.99); Hepatitis A Antibody IgM 0.18 Index (0-0.79); Hepatitis B Core Antibody Nonreactive (Nonreactive); Hepatitis B Surface Antigen Negative (Negative); ~HepC Num1 0.07 S/CO (0.00-0.79); ~Hepatitis A Antibody IgM Nonreactive (Nonreactive); ~Hepatitis B Surface Antibody NONREACTIVE (Nonreactive); ~Hepatitis C Antibody Nonreactive (Nonreactive)
[2024-07-30 05:34] LABS: MANUAL DIFF FLAG NO
[2024-07-30] MEDS: Collagenase Clostridium Hist. 30 GM TUBE 1 APPL TOPICAL (05:37)
[2024-07-30 05:40] LABS: Basophils Percent Auto 0.1 % (0-2); Eosinophils Absolute Auto 0.2 X10*3/uL (0.0-0.4); Eosinophils Percent Auto 1.6 % (0-4); Hematocrit 32.7 % (42.0-52.0); Hemoglobin 11.7 g/dl (14.0-18.0); Imm Gran Abs Auto 0.05 X10*3/uL (0.00-0.03); Imm Gran Pct Auto 0.4 % (0.0-0.4); Lymphocytes Absolute Auto 1.2 X10*3/uL (1.2-4.9); Lymphocytes Percent Auto 10.5 % (20-40); Mean Corpuscular HGB Conc 35.8 g/dl (31.0-36.0); Mean Corpuscular Hemoglobin 31.7 pg (27.0-33.0); Mean Corpuscular Volume 88.6 fL (80.0-98.0); Monocytes Absolute Auto 1.4 X10*3/uL (0.1-1.2); Monocytes Percent Auto 12.1 % (2-11); Neutrophils Absolute Auto 8.7 x10*3/uL (2.0-8.3); Neutrophils Percent Auto 75.3 % (45-73); Platelet Count 198 X10*3/uL (160-400); Red Blood Count 3.69 X10*6/uL (4.60-5.80); Red Cell Distribution Width 13.2 % (11.0-16.0); White Blood Count 11.6 X10*3/uL (4.8-10.8)
[2024-07-30 06:04] LABS: Alanine Aminotransferase 47 U/L (0-40); Albumin Level 2.5 g/dL (3.5-5.0); Anion Gap 12 (12-20); Aspartate Amino Transferase 122 U/L (5-37); Bilirubin Direct 0.5 mg/dL (0.0-0.5); Bilirubin Total 1.1 mg/dL (0.0-1.0); Blood Urea Nitrogen 49 mg/dL (9-16); Calcium 8.2 mg/dL (8.4-10.2); Carbon Dioxide 25 mmol/L (22-29); Chloride 109 mmol/L (96-108); Creatinine Clr Calc Pharmacy 32.7; Estimated Glomerular Filt Rate 37; Glucose Fasting 118 mg/dL (60-99); Potassium 3.6 mmol/L (3.3-5.1); Sodium 142 mmol/L (135-145); Total Protein 4.7 g/dL (6.5-8.0)
[2024-07-30] MEDS: Piperacillin Sodium/Tazobactam 4.5 GM in 0.9 % Sodium Chloride 100 ML IV ×3 (06:06→23:31)
[2024-07-30 06:10] LABS: Alkaline Phosphatase 147 U/L (39-117)
[2024-07-30 06:48] LABS: Glucose, Whole Blood 113 mg/dL (60-115)
[2024-07-30 07:35] VITALS: BP 133/78; PULSE 67; RESP 16; TEMP 36.3; O2SAT 95
--- NOTE | 2024-07-30 07:53 | PC.NURSE ---
Off unit for chest xray
[2024-07-30 08:35] LABS: Glucose, Whole Blood 131 mg/dL (60-115)
[2024-07-30 09:19] LABS: Adenovirus F 40/41 Not Detected (Not Detect.); Astrovirus Not Detected (Not Detect.); Campylobacter Not Detected (Not Detect.); Cryptosporidium Not Detected (Not Detect.); Cyclospora cayetanensis Not Detected (Not Detect.); E. coli EAEC Not Detected (Not Detect.); E. coli EPEC Not Detected (Not Detect.); E. coli ETEC Not Detected (Not Detect.); E. coli STEC Not Detected (Not Detect.); Entamoeba histolytica Not Detected (Not Detect.); Giardia lamblia Not Detected (Not Detect.); Norovirus GI/GII Not Detected (Not Detect.); Plesiomonas shigelloides Not Detected (Not Detect.); Rotavirus A Not Detected (Not Detect.); Salmonella Not Detected (Not Detect.); Sapovirus Not Detected (Not Detect.); Shigella sp./EIEC Not Detected (Not Detect.); Vibrio Not Detected (Not Detect.); Vibrio Cholerae Not Detected (Not Detect.); Yersinia enterocolitica Not Detected (Not Detect.)
[2024-07-30] MEDS: Gabapentin 300 MG CAPSULE PO ×2 (10:33→20:28)
[2024-07-30] MEDS: Potassium Chloride Packet 20 MEQ PACKET 40 MEQ PO (10:33)
[2024-07-30] MEDS: risperiDONE 2 MG TABLET PO ×2 (10:33→20:26)
[2024-07-30] MEDS: Benztropine Mesylate 1 MG TABLET PO ×2 (10:33→20:23)
[2024-07-30] MEDS: Carbidopa/Levodopa 25/100 TABLET 1 TAB PO ×2 (10:33→20:27)
[2024-07-30] MEDS: Apixaban 5 MG TABLET PO ×2 (10:33→20:24)
[2024-07-30] MEDS: 0.9 % Sodium Chloride Flush 3 ML SYRINGE IVFLUSH ×2 (10:34→20:30)
--- NOTE | 2024-07-30 10:45 | MHC.CM.PN ---
CM returned a call to Fmkdot-qh-Rhm/Radha @ [phone], but was only able to leave a detailed message. CM awaits a return call with Patient/family's choices/preferences for SNF/STR. CM will follow.
--- NOTE | 2024-07-30 10:45 | PC.NURSE ---
Ramirez catheter discontinued at 1030, patient tolerated procedure well, patient due to void before 1630. External catheter in place due to total incontinence.
--- NOTE | 2024-07-30 11:48 | PC.NURSE ---
Addendum entered by Staci Norton RN 07/30/24 12:09: Patient back in the room, CT scan completed. Original Note: Patient off unit to CT scan
[2024-07-30 12:00] VITALS: BP 142/76; PULSE 97; RESP 18; TEMP 36; O2SAT 94
--- NOTE | 2024-07-30 12:12 | HO.PM.IMPN ---
Subjective Subjective Date of Service: 07/30/24 Interval History: Seen and examined this morning Follow-up for KEE, rhabdomyolysis Difficult to arouse this morning, ? behavioral; when nurse came in became awake and conversing unable to obtain full ROS Physical Exam Vital Signs: Vital Signs: Last Vital Signs Temp 96.8 F 07/30/24 12:00 Pulse 97 07/30/24 12:00 Resp 18 07/30/24 12:00 BP 142/76 H 07/30/24 12:00 Pulse Ox 94 07/30/24 12:00 O2 Del Method Room Air 07/30/24 12:00 BMI result Body Mass Index 25.6 Const: Other: chronically ill appearing, frail General: alert and awake Orientation/consciousness: oriented to person Resp: Effort & Inspection: normal respiratory effort, able to speak in complete sentences, no respiratory distress and no use of accessory muscles Cardio: Rate: regular rate GI: Inspection: No distended Palpation (GI): Soft to palpation Neuro: Other: grossly nonfocal; moving all extremities General: oriented to person Extrem: Other: off loading boots Objective Data Active Medications Acetaminophen (Acetaminophen 325 Mg Tablet) 650 mg PO Q6H PRN PRN Reason: Pain, Mild 1-3,fever,headache Apixaban (Apixaban 5 Mg Tablet) 5 mg PO BID [facility] Last Admin: 07/30/24 10:33 Dose: 5 mg Documented By: ES Benztropine Mesylate (Benztropine Mesylate 1 Mg Tablet) 1 mg PO BID [facility] Last Admin: 07/30/24 10:33 Dose: 1 mg Documented By: ES Calcium Carbonate (Calcium Carbonate 750 Mg Tab.Chew) 750 mg PO Q4H PRN PRN Reason: Heartburn Carbidopa/Levodopa (Carbidopa/Levodopa 25/100 Tablet) 1 tab PO BID [facility] Last Admin: 07/30/24 10:33 Dose: 1 tab Documented By: ES Collagenase (Collagenase Clostridium Hist. 30 Gm Tube) 1 appl TOPICAL DAILY [facility]; Protocol Last Admin: 07/30/24 05:37 Dose: 1 appl Documented By: FEDERICO Dextrose (Dextrose 50 % 25 Gm/50 Ml Syringe) 25 gm IVPUSH Q15M PRN; Protocol PRN Reason: per Hypoglycemia Standing Ord. Gabapentin (Gabapentin 300 Mg Capsule) 300 mg PO BID [facility] Last Admin: 07/30/24 10:33 Dose: 300 mg Documented By: ES Glucose (Glucose Gel 15 Gm Gel..Gram.) 15 gm PO Q15M PRN; Protocol PRN Reason: per Hypoglycemia Standing Ord. Dextrose/Lactated Ringer's (D5lr) 1,000 mls @ 100 mls/hr IVCONT .Q10H [facility] Last Admin: 07/30/24 01:16 Dose: 100 mls/hr Documented By: FEDERICO Piperacillin Sod/Tazobactam (Sod 4.5 gm/ Sodium Chloride) 100 mls @ 200 mls/hr IV Q8H [facility] Last Infusion: 07/30/24 08:36 Dose: Infused Documented By: ES Vancomycin HCl 750 mg/ Sodium (Chloride) 265 mls @ 265 mls/hr IV Q24H [facility] Last Infusion: 07/29/24 18:11 Dose: Infused Documented By: ES Insulin Human Lispro (Insulin Lispro 100 Unit/Ml 3 Ml Vial) 0 unit SUBCUT Q6H [facility]; Protocol Last Admin: 07/30/24 05:45 Dose: Not Given Documented By: FEDERICO Non-Admin Reason: No Insulin Coverage Magnesium Hydroxide (Milk Of Magnesia 30 Ml Oral.Susp) 30 ml PO DAILY PRN PRN Reason: Constipation Melatonin (Melatonin 3 Mg Tablet) 6 mg NG-TUBE BEDTIME PRN PRN Reason: Insomnia Metoprolol Tartrate (Metoprolol Tartrate 50 Mg Tablet) 50 mg PO BID [facility] Pharmacy Consult (Consult Rx Vancomycin Dosing) 1 each MISCELLANE DAILY PRN PRN Reason: Consult order Potassium Chloride (Potassium Chloride Packet 20 Meq Packet) 40 meq PO DAILY [facility] Last Admin: 07/30/24 10:33 Dose: 40 meq Documented By: ES Risperidone (Risperidone 2 Mg Tablet) 2 mg PO BID [facility] Last Admin: 07/30/24 10:33 Dose: 2 mg Documented By: ES Sodium Chloride (0.9 % Sodium Chloride Flush 3 Ml Syringe) 3 ml IVFLUSH QSHIFT [facility] Last Admin: 07/30/24 10:34 Dose: 3 ml Documented By: ES Valsartan (Valsartan 40 Mg Tablet) 40 mg PO BEDTIME [facility]; Protocol Labs 07/30/24 05:10 07/30/24 05:10 Labs: Laboratory Results - last 24 hr 07/29/24 07/29/24 07/29/24 12:53 16:47 17:21 MCV MCH MCHC RDW Plt Count MPV Immature Gran % (Auto) Neut % (Auto) Lymph % (Auto) [place] % (Auto) Eos % (Auto) Baso % (Auto) Lymph # (Auto) [place] # (Auto) Eos # (Auto) Baso # (Auto) Abs Immat Gran (auto) Absolute Neuts (auto) Absolute Nucleated RBC Nucleated RBC % (auto) Anion Gap Estim Creat Clear Calc Estimated GFR POC Glucose 154 H Fasting Glucose Calcium Total Bilirubin Direct Bilirubin AST ALT Alkaline Phosphatase Total Protein Albumin Stl C. cayetanensis PCR Stool Rotavirus A PCR Stl Adenov F 40/41 PCR Stool Astrovirus (PCR) Stool Campylobacter PCR Stool Cryptosporidium PCR Stl Sh Tox Pr E STEC PCR Stool E coli O157 PCR Stl Enterotoxigenic E PCR Stool EPEC (PCR) Stool EAEC (PCR) Stl E. histolytica PCR Stool Giardia Lamblia PCR Stl P. shigelloides PCR Stool Salmonella PCR Stool Sapovirus (PCR) Stl Shigella/EIEC PCR St Y.enterocolitica PCR Stool Vibrio (PCR) Stl Vibrio cholerae PCR Stl Norovirus GI/GII PCR Random Vancomycin 15.1 C. difficile Tox B Gene Hepatitis A IgM Ab Nonreactive Hep Bs Antigen Negative Hep Bs Antibody NONREACTIVE Hep B Core Total Ab Nonreactive Hepatitis C Ab (EIA) Nonreactive 07/29/24 07/29/24 07/30/24 20:54 23:11 05:10 MCV 88.6 MCH 31.7 MCHC 35.8 RDW 13.2 Plt Count 198 MPV 11.0 Immature Gran % (Auto) 0.4 Neut % (Auto) 75.3 H Lymph % (Auto) 10.5 L [place] % (Auto) 12.1 H Eos % (Auto) 1.6 Baso % (Auto) 0.1 Lymph # (Auto) 1.2 [place] # (Auto) 1.4 H Eos # (Auto) 0.2 Baso # (Auto) 0.0 Abs Immat Gran (auto) 0.05 H Absolute Neuts (auto) 8.7 H Absolute Nucleated RBC 0.000 Nucleated RBC % (auto) 0.0 Anion Gap 12 Estim Creat Clear Calc 32.7 Estimated GFR 37 POC Glucose 140 H Fasting Glucose 118 H Calcium 8.2 L Total Bilirubin 1.1 H Direct Bilirubin 0.5 AST 122 H ALT 47 H Alkaline Phosphatase 147 H Total Protein 4.7 L Albumin 2.5 L Stl C. cayetanensis PCR Not Detected Stool Rotavirus A PCR Not Detected Stl Adenov F 40/ PCR Not Detected Stool Astrovirus (PCR) Not Detected Stool Campylobacter PCR Not Detected Stool Cryptosporidium PCR Not Detected Stl Sh Tox Pr E STEC PCR Not Detected Stool E coli O157 PCR Not applicable Stl Enterotoxigenic E PCR Not Detected Stool EPEC (PCR) Not Detected Stool EAEC (PCR) Not Detected Stl E. histolytica PCR Not Detected Stool Giardia Lamblia PCR Not Detected Stl P. shigelloides PCR Not Detected Stool Salmonella PCR Not Detected Stool Sapovirus (PCR) Not Detected Stl Shigella/EIEC PCR Not Detected St Y.enterocolitica PCR Not Detected Stool Vibrio (PCR) Not Detected Stl Vibrio cholerae PCR Not Detected Stl Norovirus GI/GII PCR Not Detected Random Vancomycin C. difficile Tox B Gene NEGATIVE Hepatitis A IgM Ab Hep Bs Antigen Hep Bs Antibody Hep B Core Total Ab Hepatitis C Ab (EIA) 07/30/24 07/30/24 05:40 08:15 MCV MCH MCHC RDW Plt Count MPV Immature Gran % (Auto) Neut % (Auto) Lymph % (Auto) [place] % (Auto) Eos % (Auto) Baso % (Auto) Lymph # (Auto) [place] # (Auto) Eos # (Auto) Baso # (Auto) Abs Immat Gran (auto) Absolute Neuts (auto) Absolute Nucleated RBC Nucleated RBC % (auto) Anion Gap Estim Creat Clear Calc Estimated GFR POC Glucose 113 131 H Fasting Glucose Calcium Total Bilirubin Direct Bilirubin AST ALT Alkaline Phosphatase Total Protein Albumin Stl C. cayetanensis PCR Stool Rotavirus A PCR Stl Adenov F PCR Stool Astrovirus (PCR) Stool Campylobacter PCR Stool Cryptosporidium PCR Stl Sh Tox Pr E STEC PCR Stool E coli O157 PCR Stl Enterotoxigenic E PCR Stool EPEC (PCR) Stool EAEC (PCR) Stl E. histolytica PCR Stool Giardia Lamblia PCR Stl P. shigelloides PCR Stool Salmonella PCR Stool Sapovirus (PCR) Stl Shigella/EIEC PCR St Y.enterocolitica PCR Stool Vibrio (PCR) Stl Vibrio cholerae PCR Stl Norovirus GI/GII PCR Random Vancomycin C. difficile Tox B Gene Hepatitis A IgM Ab Hep Bs Antigen Hep Bs Antibody Hep B Core Total Ab Hepatitis C Ab (EIA) Assessment and Plan (1) Unstageable decubitus ulcer: Status: Acute (2) Encephalopathy: Status: Acute (3) Diabetes mellitus type 2, controlled: Status: Acute (4) Rhabdomyolysis: Status: Acute (5) Acute kidney injury: Status: Acute Plan This is a 69-year-old male with a history of paroxysmal atrial fibrillation, dizziness, paranoid schizophrenia, bipolar disorder, anxiety, insomnia, Parkinson's disease, GERD with esophagitis, hypercholesterolemia, hypertension, diabetes mellitus who was brought to emergency department by ambulance for evaluation of fall into bath tub. The patient can not recount details of why he was in the bathtub with all of his clothes on clothes. Patient has two brothers that visit him on Wednesdays and Saturdays. The Saturday brother did visit him and he appeared well . His Saturday brother found him fully clothed in the bath tub complaining of feeling very thirsty and needing to see a doctor. In the emergency room, workup consistent with acute kidney injury along with rhabdomyolysis and hypothermia Acute kidney injury with acidosis Acidosis resolved. DC bicarb drip, initiate D5LR Renal function improving, SCr down to 1.83. Baseline creat 0.74 nephrology following Rhabdomyolysis secondary to fall CPK's trending down Acute metabolic encephalopathy (likely) ?due to KEE/acute illness/hospitalization UC negative. BC negative thus far seen by neurology, EEG did show diffuse slowing typically seen with encephalopathy but also right parietal irritability, Recommending gabapentin 300 mg b.i.d.. Avoid Depakote due to transaminitis repeat EEG pending ct brain showing generalized cerebral and cerebellar atrophy-probable baseline cognitive dysfunction Acute hypokalemia Potassium depletion in the setting of poor p.o. intake and acute diarrhea Continue with supplementation until diet advances and potassium stable Diet advanced to NDD3 07/30 Acute diarrhea GI panel and C diff PCR negative Acute hypotension Likely iatrogenic, not severe sepsis. Resolved with IVF Hold antihypertensives (valsartan, metoprolol on hold) Dysphagia likely from Parkinsons r/t lapse in sinemet NG tube removed, speech following, diet advanced to NDD 3 diet 07/30 Unstageable decubitus ulcer (see exam) with surrounding erythema. No warmth or fluctuation; possible associated cellulits Leukocytosis improved, but remains 12.1, still encephalopathic ESR 18, less suspicion for osteo, CT scan pending continue IV vanco and zosyn for now, can likely de-escalate abx when ct scan results are in General surgery input appreciated. No indication for urgent debridement at this time. Monitor for any eschar/necrotic tissue Decubitus ulcers- present on admission Unstageable ulceration sacrum and L shoulder Offloading and reposition. Wound care General surgery consult for evaluation of sacral ulcer. See above Paroxysmal atrial fibrillation- rate controlled currently sinus rhythm with PACs Metoprolol on hold for previous episode of hypotension resume Eliquis Parkinson's disease/mood continue Sinemet,Cogentin, risperdal follow clinical response Diabetes type 2 lispro correctional scale hold metformin seen by speech, started on diet adjust as indicated Elevated LFTs RUQ us cholelithiasis without cholecystitis. no abdominal pain Hepatitis panel negative ?due to hypotension/rhabdo Trending down Hypothermia resolved Full code Sunny pt -rec LTC Require ongoing hospitalization for IV volume repletion and bicarb treat acute kidney injury and specialty consultation Quality Stroke Does the patient have a stroke diagnosis?: No VTE Prior VTE?: No VTE Risk Level:: Medical - moderate - high VTE Device Contraindication: Treatment Not Indicated VTE Drug Contraindication: N/A - Med Ordered
--- NOTE | 2024-07-30 12:23 | MHC.CM.PN ---
CM met with Khjltl-sj-Zhp/Radha at bedside.PT is recommending STR into likely LTC and Patient/family's choices are: 1. [facility] SNF 2. [facility] SNF, 3. [facility]; referrals have been made to these facilities and CM will continue to follow.
[2024-07-30 12:51] LABS: Glucose, Whole Blood 137 mg/dL (60-115)
--- NOTE | 2024-07-30 13:32 | MHC.CM.PN ---
Addendum entered by Mary Cross 07/30/24 14:36: Guardianship paperwork has been provided to AUGUSTO; it has been uploaded into [employer] and a copy has been placed on the chart. Original Note: AUGUSTO spoke with Kjwdeu-bl-Yea/Radha @ [phone], who indicates that her /Blanco is the HCP and she will speak with Blanco regarding getting a copy to [facility]. CM will follow.
--- NOTE | 2024-07-30 14:39 | MHC.SL.SWA ---
Speech Pathologist Impression: Risk of Aspiration Due to: Neurological Condition Reduced Cognition Dysphasia Diet Status: Recommend UPGRADE diet to Chopped/Advanced (NDD3) for ease of mastication, continue on thin liquids, pills whole in liquid. Liquid Consistency and Strategies for Safe Swallow: Liquid Intake Recommendation: Thin Liquid Intake Strategies: Small Sips Solid Food Consistency: Dietary Recommendations: Chopped/Advanced (NDD3) Additional Modifications to Solid Foods: Patient will need 1-1 assistance at meals due to tremor Oral Medication Intake: Whole with Liquid Please contact the pharmacy regarding appropriate crushable or liquid drug formulations that are available whenever modified delivery is recommended. Compensatory Strategies and Precautions to be Taken for Safe Swallow: Sitting Upright (90 deg) Liquids from Cup Small Bites and Sips Alternate Liquids/Solids Avoid Specific Foods Supervision While Eating and Drinking for Safe Swallow: Total Supervision (1:1) Foods to Avoid: Tough, difficult to chew solids. Swallowing Recommended Treatments: Compens. Strategy Educat. Recommendation for Speech: Comment: Patient seen yesterday for assessment, per RN patient at that time willing to trial only liquids, refused trials of solids. RESIDENCE LIFE DIRECTOR placed patient on Clear Liquid Diet as a result of not being able to assess patient on solid foods. Patient seen today and with encouragement was able to trial food textures. Patient did refuse all purees offered, but agreed to trial Ice cream and ate a saltine cracker. Patient c/o difficulty with movement of tongue at times, bit tongue today when chewing on cracker. Also c/o loosing his teeth and dental pain when chewing. On trial of ice cream, patient produced normal oral and pharyngeal phase of swallow. On cracker, slow but normal rotary chew noted, good oral clearance on swallow. No clinical signs of aspiration. Patient reports no special diet at baseline other than diabetic. Recommend UPGRADE diet to Chopped/Advanced (NDD3) for ease of mastication, continue on thin liquids, pills whole in liquid. ESTEVAN, RN notified of recommendations in person. Frequency/Duration: Date Range for Service Req: Timeline to reassess: Brilliandeer Lopper Clinican/Clinical Fellow: No Supervisory Statement: I have reviewed and agree with the student/clinical fellow's documentation: N/A Speech Language Pathologist: Linda Lyn M.A., CCC-RESIDENCE LIFE DIRECTOR
[2024-07-30 15:07] VITALS: BP 138/78; PULSE 111; RESP 20; TEMP 36.6; O2SAT 98
[2024-07-30 16:41] LABS: Glucose, Whole Blood 136 mg/dL (60-115)
[2024-07-30] MEDS: vancomycin HCL 750 MG in 0.9 % Sodium Chloride 250 ML 265 MG IV (16:52)
--- NOTE | 2024-07-30 18:31 | P.PNNP_ITS ---
Subjective Subjective Date of Service: 07/30/24 Interval history: Seen and examined this morning . Serum creatinine improving Physical Exam 2 Vital Signs: Vital Signs: Last Vital Signs Temp 97.8 F 07/30/24 15:07 Pulse 111 H 07/30/24 15:07 Resp 20 07/30/24 15:07 BP 138/78 07/30/24 15:07 Pulse Ox 98 07/30/24 15:07 O2 Del Method Room Air 07/30/24 15:07 BMI result Body Mass Index 25.6 Const: General: no acute distress Eyes: EOM: EOMs intact bilaterally Neck: Neck: Yes supple Resp: Auscultation: diminished lung sounds Cardio: Rate: regular rate GI: Palpation (GI): Soft to palpation Neuro: General: moves all extremities Objective Data Labs 07/30/24 05:10 07/30/24 05:10 Labs: Laboratory Results - last 24 hr 07/29/24 07/29/24 07/29/24 16:47 17:21 20:54 WBC RBC Hgb Hct MCV MCH MCHC RDW Plt Count MPV Immature Gran % (Auto) Neut % (Auto) Lymph % (Auto) [place] % (Auto) Eos % (Auto) Baso % (Auto) Lymph # (Auto) [place] # (Auto) Eos # (Auto) Baso # (Auto) Abs Immat Gran (auto) Absolute Neuts (auto) Absolute Nucleated RBC Nucleated RBC % (auto) Sodium Potassium Chloride Carbon Dioxide Anion Gap BUN Creatinine Estim Creat Clear Calc Estimated GFR POC Glucose 154 H Fasting Glucose Calcium Total Bilirubin Direct Bilirubin AST ALT Alkaline Phosphatase Total Protein Albumin Stl C. cayetanensis PCR Not Detected Stool Rotavirus A PCR Not Detected Stl Adenov F 40/41 PCR Not Detected Stool Astrovirus (PCR) Not Detected Stool Campylobacter PCR Not Detected Stool Cryptosporidium PCR Not Detected Stl Sh Tox Pr E STEC PCR Not Detected Stool E coli O157 PCR Not applicable Stl Enterotoxigenic E PCR Not Detected Stool EPEC (PCR) Not Detected Stool EAEC (PCR) Not Detected Stl E. histolytica PCR Not Detected Stool Giardia Lamblia PCR Not Detected Stl P. shigelloides PCR Not Detected Stool Salmonella PCR Not Detected Stool Sapovirus (PCR) Not Detected Stl Shigella/EIEC PCR Not Detected St Y.enterocolitica PCR Not Detected Stool Vibrio (PCR) Not Detected Stl Vibrio cholerae PCR Not Detected Stl Norovirus GI/GII PCR Not Detected C. difficile Tox B Gene NEGATIVE Hepatitis A IgM Ab Nonreactive Hep Bs Antigen Negative Hep Bs Antibody NONREACTIVE Hep B Core Total Ab Nonreactive Hepatitis C Ab (EIA) Nonreactive 07/29/24 07/30/24 07/30/24 23:11 05:10 05:40 WBC 11.6 H RBC 3.69 L Hgb 11.7 L Hct 32.7 L MCV 88.6 MCH 31.7 MCHC 35.8 RDW 13.2 Plt Count 198 MPV 11.0 Immature Gran % (Auto) 0.4 Neut % (Auto) 75.3 H Lymph % (Auto) 10.5 L [place] % (Auto) 12.1 H Eos % (Auto) 1.6 Baso % (Auto) 0.1 Lymph # (Auto) 1.2 [place] # (Auto) 1.4 H Eos # (Auto) 0.2 Baso # (Auto) 0.0 Abs Immat Gran (auto) 0.05 H Absolute Neuts (auto) 8.7 H Absolute Nucleated RBC 0.000 Nucleated RBC % (auto) 0.0 Sodium 142 Potassium 3.6 Chloride 109 H Carbon Dioxide 25 Anion Gap 12 BUN 49 H Creatinine 1.83 H Estim Creat Clear Calc 32.7 Estimated GFR 37 POC Glucose 140 H 113 Fasting Glucose 118 H Calcium 8.2 L Total Bilirubin 1.1 H Direct Bilirubin 0.5 AST 122 H ALT 47 H Alkaline Phosphatase 147 H Total Protein 4.7 L Albumin 2.5 L Stl C. cayetanensis PCR Stool Rotavirus A PCR Stl Adenov F 40/41 PCR Stool Astrovirus (PCR) Stool Campylobacter PCR Stool Cryptosporidium PCR Stl Sh Tox Pr E STEC PCR Stool E coli O157 PCR Stl Enterotoxigenic E PCR Stool EPEC (PCR) Stool EAEC (PCR) Stl E. histolytica PCR Stool Giardia Lamblia PCR Stl P. shigelloides PCR Stool Salmonella PCR Stool Sapovirus (PCR) Stl Shigella/EIEC PCR St Y.enterocolitica PCR Stool Vibrio (PCR) Stl Vibrio cholerae PCR Stl Norovirus GI/GII PCR C. difficile Tox B Gene Hepatitis A IgM Ab Hep Bs Antigen Hep Bs Antibody Hep B Core Total Ab Hepatitis C Ab (EIA) 07/30/24 07/30/24 07/30/24 08:15 11:42 16:04 WBC RBC Hgb Hct MCV MCH MCHC RDW Plt Count MPV Immature Gran % (Auto) Neut % (Auto) Lymph % (Auto) [place] % (Auto) Eos % (Auto) Baso % (Auto) Lymph # (Auto) [place] # (Auto) Eos # (Auto) Baso # (Auto) Abs Immat Gran (auto) Absolute Neuts (auto) Absolute Nucleated RBC Nucleated RBC % (auto) Sodium Potassium Chloride Carbon Dioxide Anion Gap BUN Creatinine Estim Creat Clear Calc Estimated GFR POC Glucose 131 H 137 H 136 H Fasting Glucose Calcium Total Bilirubin Direct Bilirubin AST ALT Alkaline Phosphatase Total Protein Albumin Stl C. cayetanensis PCR Stool Rotavirus A PCR Stl Adenov F 40/41 PCR Stool Astrovirus (PCR) Stool Campylobacter PCR Stool Cryptosporidium PCR Stl Sh Tox Pr E STEC PCR Stool E coli O157 PCR Stl Enterotoxigenic E PCR Stool EPEC (PCR) Stool EAEC (PCR) Stl E. histolytica PCR Stool Giardia Lamblia PCR Stl P. shigelloides PCR Stool Salmonella PCR Stool Sapovirus (PCR) Stl Shigella/EIEC PCR St Y.enterocolitica PCR Stool Vibrio (PCR) Stl Vibrio cholerae PCR Stl Norovirus GI/GII PCR C. difficile Tox B Gene Hepatitis A IgM Ab Hep Bs Antigen Hep Bs Antibody Hep B Core Total Ab Hepatitis C Ab (EIA) Microbiology Microbiology Results: Microbiology 07/26/24 12:50 Blood - Venous Blood Culture - Preliminary No growth after 48 hours. 07/26/24 12:40 Blood - Venous Blood Culture - Preliminary No growth after 48 hours. 07/26/24 Unknown Urine Catheterized - Ramirez Catheter Urine Culture - Final No growth. Procedures Date of Service Date of Service: 07/30/24 Assessment & Plan Assessment and plan (1) Acute kidney injury: Status: Acute Plan KEE due to tubular injury Has normal renal function at baseline No reason to suspect GN/AIN UO OK; Serum creatinine improving C/W current supportive care; Labs AM Progress Note: Quality Stroke Does the patient have a stroke diagnosis?: No
--- NOTE | 2024-07-30 18:43 | PC.NURSE ---
Patient unable to void at 1630 bladder scan for 523ml, str cath for 500ml, patient tolerated procedure well,
--- NOTE | 2024-07-30 18:46 | PC.NURSE ---
Patient alert oriented to person and place, vss, RA sat's above 94%. Ramirez catheter removed at 1030 patient failed voiding trail, at 1630 bladder scan for 523ml, str cath for 500ml. Patient's diet advanced to diabetic, chopped, thin liquids. Patient had multiple episodes of incontinence of loos stool. Sacral dressing changed multiple times per order, moisture barrier applied to groin area due to redness and irritation. Paient had CT of abd / pelvis taken, reports no pain, discomfort while wtih repo and cleaning after bowel movement.
[2024-07-30 19:05] VITALS: BP 135/86; PULSE 102; RESP 18; TEMP 36.9; O2SAT 97
[2024-07-30 21:57] LABS: Glucose, Whole Blood 140 mg/dL (60-115)
[2024-07-31] VITALS (7 sets, daily range): BP systolic 124–148; BP diastolic 64–93; PULSE 55–110; RESP 16–18; TEMP 36.4–36.8; O2SAT 96–99
[2024-07-31] MEDS: Piperacillin Sodium/Tazobactam 4.5 GM in 0.9 % Sodium Chloride 100 ML IV ×2 (06:02→15:22)
[2024-07-31 06:55] LABS: Anion Gap 11 (12-20); Blood Urea Nitrogen 47 mg/dL (9-16); Calcium 8.1 mg/dL (8.4-10.2); Carbon Dioxide 23 mmol/L (22-29); Chloride 111 mmol/L (96-108); Creatinine Clr Calc Pharmacy 39.4; Estimated Glomerular Filt Rate 46; Glucose Random 107 mg/dL (60-115); Potassium 3.3 mmol/L (3.3-5.1); Sodium 142 mmol/L (135-145)
[2024-07-31 07:58] LABS: Alanine Aminotransferase 48 U/L (0-40); Albumin Level 2.3 g/dL (3.5-5.0); Alkaline Phosphatase 101 U/L (39-117); Aspartate Amino Transferase 64 U/L (5-37); Bilirubin Direct 0.4 mg/dL (0.0-0.5); Bilirubin Total 0.8 mg/dL (0.0-1.0); Total Protein 4.4 g/dL (6.5-8.0)
[2024-07-31 08:16] LABS: Glucose, Whole Blood 102 mg/dL (60-115)
[2024-07-31] MEDS: Gabapentin 300 MG CAPSULE PO ×2 (08:28→21:10)
[2024-07-31] MEDS: 0.9 % Sodium Chloride Flush 3 ML SYRINGE IVFLUSH ×2 (08:28→21:28)
[2024-07-31] MEDS: Potassium Chloride Packet 20 MEQ PACKET 40 MEQ PO (08:28)
[2024-07-31] MEDS: risperiDONE 2 MG TABLET PO ×2 (08:29→21:10)
[2024-07-31] MEDS: Benztropine Mesylate 1 MG TABLET PO ×2 (08:29→21:10)
[2024-07-31] MEDS: Carbidopa/Levodopa 25/100 TABLET 1 TAB PO ×2 (08:29→21:10)
[2024-07-31] MEDS: Collagenase Clostridium Hist. 30 GM TUBE 1 APPL TOPICAL (08:51)
[2024-07-31 09:22] LABS: OBS Int Ctl Valid YES; OBS1 POSITIVE (NEGATIVE)
[2024-07-31 09:33] LABS: Hematocrit 27.6 % (42.0-52.0); Hemoglobin 9.8 g/dl (14.0-18.0); Mean Corpuscular HGB Conc 35.5 g/dl (31.0-36.0); Mean Corpuscular Hemoglobin 31.3 pg (27.0-33.0); Mean Corpuscular Volume 88.2 fL (80.0-98.0); Mean Platelet Volume 10.4 fL (9.4-12.4); Platelet Count 202 X10*3/uL (160-400); Red Blood Count 3.13 X10*6/uL (4.60-5.80); Red Cell Distribution Width 13.1 % (11.0-16.0); White Blood Count 17.2 X10*3/uL (4.8-10.8)
--- NOTE | 2024-07-31 10:30 | PC.NURSE ---
Patient off unit for EEG
--- NOTE | 2024-07-31 11:49 | MHC.CLN ---
F/U PT WITH INCREASED NUTRITION RISK R/T PRESSURE INJURY PO INTAKE FOLLOWS 25, 25 75% DIET ADVANCED TO 2000DM CHOPPED RECOMMEND ADDING ENSURE MAX BID TO PROMOTE WOUND HEALING SUPP WILL PROVIDE 300KCALS, 60G PROTEIN MONITOR PO INTAKE AND ENCOURAGE SUPPLEMENT
[2024-07-31 12:21] LABS: Glucose, Whole Blood 116 mg/dL (60-115)
[2024-07-31 13:45] LABS: Vancomycin Random 14.5 mcg/mL (15-20)
--- NOTE | 2024-07-31 14:31 | MHC.SL.SWA ---
Speech Pathologist Impression: Risk of Aspiration, Oral Phase Dysphagia Risk of Aspiration Due to: Neurological Condition Reduced Cognition Dysphasia Diet Status: No Change Liquid Consistency and Strategies for Safe Swallow: Liquid Intake Recommendation: Thin Liquid Intake Strategies: Small Sips Solid Food Consistency: Dietary Recommendations: Chopped/Advanced (NDD3) Additional Modifications to Solid Foods: Patient will need 1-1 assistance at meals due to tremor. CHROME WORKER to f/u 1x to ensure tolerance. Oral Medication Intake: Whole with Liquid Please contact the pharmacy regarding appropriate crushable or liquid drug formulations that are available whenever modified delivery is recommended. Compensatory Strategies and Precautions to be Taken for Safe Swallow: Sitting Upright (90 deg) Liquids from Cup Small Bites and Sips Alternate Liquids/Solids Avoid Specific Foods Supervision While Eating and Drinking for Safe Swallow: Total Supervision (1:1) Foods to Avoid: Tough, difficult to chew solids. Swallowing Recommended Treatments: Compens. Strategy Educat. Recommendation for Speech: 1 f/u Nail Cutter Clinican/Clinical Fellow: No Supervisory Statement: I have reviewed and agree with the student/clinical fellow's documentation: N/A Speech Language Pathologist: Fatuma Hollis M.A., [facility] WORK[facility]
--- NOTE | 2024-07-31 14:38 | P.PNIM_ITS ---
Subjective Subjective Date of Service: 07/31/24 Interval History: seen and examined this morning follow up for KEE, sacral wound Awake, alert, oriented. Suspicious. Adamantly denies falling into the bathtub Review of Systems Review of Systems: Yes all other systems are reviewed and are negative Constitutional Constitutional: Denies chills and Denies fever(s) Cardiovascular Cardiovascular: Denies chest pain, Denies palpitations and Denies dyspnea Respiratory Respiratory: Denies cough and Denies dyspnea Endocrine Endocrine: Denies palpitations Physical Exam 2 Vital Signs: Vital Signs: Last Vital Signs Temp 98.0 F 07/31/24 12:00 Pulse 55 07/31/24 12:00 Resp 18 07/31/24 12:00 BP 141/64 H 07/31/24 12:00 Pulse Ox 98 07/31/24 12:00 O2 Del Method Room Air 07/31/24 12:00 BMI result Body Mass Index 25.6 Const: Other: chronically ill appearing, frail General: comfortable, no acute distress, alert, awake and Physically active Resp: Effort & Inspection: normal respiratory effort, able to speak in complete sentences, no respiratory distress and no use of accessory muscles Cardio: Rate: regular rate GI: Inspection: No distended Palpation (GI): Soft to palpation Neuro: Other: grossly nonfocal; moving all extremities Extrem: Other: off loading boots; b/l edema Objective Data Active Medications Acetaminophen (Acetaminophen 325 Mg Tablet) 650 mg PO Q6H PRN PRN Reason: Pain, Mild 1-3,fever,headache Apixaban (Apixaban 5 Mg Tablet) 5 mg PO BID [facility] Last Admin: 07/31/24 10:10 Dose: Not Given Documented By: ES Non-Admin Reason: Physician Held Med Benztropine Mesylate (Benztropine Mesylate 1 Mg Tablet) 1 mg PO BID [facility] Last Admin: 07/31/24 08:29 Dose: 1 mg Documented By: ES Calcium Carbonate (Calcium Carbonate 750 Mg Tab.Chew) 750 mg PO Q4H PRN PRN Reason: Heartburn Carbidopa/Levodopa (Carbidopa/Levodopa 25/100 Tablet) 1 tab PO BID [facility] Last Admin: 07/31/24 08:29 Dose: 1 tab Documented By: ES Collagenase (Collagenase Clostridium Hist. 30 Gm Tube) 1 appl TOPICAL DAILY [facility]; Protocol Last Admin: 07/31/24 08:51 Dose: 1 appl Documented By: ES Dextrose (Dextrose 50 % 25 Gm/50 Ml Syringe) 25 gm IVPUSH Q15M PRN; Protocol PRN Reason: per Hypoglycemia Standing Ord. Gabapentin (Gabapentin 300 Mg Capsule) 300 mg PO BID [facility] Last Admin: 07/31/24 08:28 Dose: 300 mg Documented By: ES Glucose (Glucose Gel 15 Gm Gel..Gram.) 15 gm PO Q15M PRN; Protocol PRN Reason: per Hypoglycemia Standing Ord. Piperacillin Sod/Tazobactam (Sod 4.5 gm/ Sodium Chloride) 100 mls @ 200 mls/hr IV Q8H [facility] Last Infusion: 07/31/24 06:38 Dose: Infused Documented By: SUPPLEK Insulin Human Lispro (Insulin Lispro 100 Unit/Ml 3 Ml Vial) 0 unit SUBCUT QIDACHS [facility]; Protocol Last Admin: 07/31/24 13:08 Dose: Not Given Documented By: ES Non-Admin Reason: No Insulin Coverage Magnesium Hydroxide (Milk Of Magnesia 30 Ml Oral.Susp) 30 ml PO DAILY PRN PRN Reason: Constipation Melatonin (Melatonin 3 Mg Tablet) 6 mg NG-TUBE BEDTIME PRN PRN Reason: Insomnia Metoprolol Tartrate (Metoprolol Tartrate 50 Mg Tablet) 50 mg PO BID [facility] Potassium Chloride (Potassium Chloride Packet 20 Meq Packet) 40 meq PO DAILY [facility] Last Admin: 07/31/24 08:28 Dose: 40 meq Documented By: ES Risperidone (Risperidone 2 Mg Tablet) 2 mg PO BID [facility] Last Admin: 07/31/24 08:29 Dose: 2 mg Documented By: ES Sodium Chloride (0.9 % Sodium Chloride Flush 3 Ml Syringe) 3 ml IVFLUSH QSHIFT [facility] Last Admin: 07/31/24 08:28 Dose: 3 ml Documented By: ES Valsartan (Valsartan 40 Mg Tablet) 40 mg PO BEDTIME [facility]; Protocol Labs 07/31/24 15:25 07/31/24 05:49 Labs: Laboratory Results - last 24 hr 07/30/24 07/30/24 07/31/24 16:04 21:05 05:49 MCV MCH MCHC RDW Plt Count MPV Absolute Nucleated RBC Nucleated RBC % (auto) Anion Gap 11 L Estim Creat Clear Calc 39.4 Estimated GFR 46 POC Glucose 136 H 140 H Random Glucose 107 Calcium 8.1 L Total Bilirubin 0.8 Direct Bilirubin 0.4 AST 64 H ALT 48 H Alkaline Phosphatase 101 Total Creatine Kinase 274 H Total Protein 4.4 L Albumin 2.3 L Stool Occult Blood Random Vancomycin 07/31/24 07/31/24 07/31/24 07:16 08:55 09:16 MCV 88.2 MCH 31.3 MCHC 35.5 RDW 13.1 Plt Count 202 MPV 10.4 Absolute Nucleated RBC 0.000 Nucleated RBC % (auto) 0.0 Anion Gap Estim Creat Clear Calc Estimated GFR POC Glucose 102 Random Glucose Calcium Total Bilirubin Direct Bilirubin AST ALT Alkaline Phosphatase Total Creatine Kinase Total Protein Albumin Stool Occult Blood POSITIVE Random Vancomycin 07/31/24 07/31/24 12:14 13:26 MCV MCH MCHC RDW Plt Count MPV Absolute Nucleated RBC Nucleated RBC % (auto) Anion Gap Estim Creat Clear Calc Estimated GFR POC Glucose 116 H Random Glucose Calcium Total Bilirubin Direct Bilirubin AST ALT Alkaline Phosphatase Total Creatine Kinase Total Protein Albumin Stool Occult Blood Random Vancomycin 14.5 L Assessment and Plan (1) Unstageable decubitus ulcer: Status: Acute (2) Acute kidney injury: Status: Acute Plan This is a 69-year-old male with a history of paroxysmal atrial fibrillation, dizziness, paranoid schizophrenia, bipolar disorder, anxiety, insomnia, Parkinson's disease, GERD with esophagitis, hypercholesterolemia, hypertension, diabetes mellitus who was brought to emergency department by ambulance for evaluation of fall into bath tub. The patient can not recount details of why he was in the bathtub with all of his clothes on clothes. Patient has two brothers that visit him on Wednesdays and Saturdays. The Saturday brother did visit him and he appeared well . His Saturday brother found him fully clothed in the bath tub complaining of feeling very thirsty and needing to see a doctor. In the emergency room, workup consistent with acute kidney injury along with rhabdomyolysis and hypothermia acute on chronic anemia had dark stools today which were heme + H/H trended down hold eliquis GI consult follow CBC ct showing proctitis , repeat cdif pending Acute kidney injury with acidosis Acidosis resolved. DC bicarb drip, initiate D5LR Renal function improving, creatinine down to 1.5. Baseline creat 0.74 nephrology following Rhabdomyolysis secondary to fall CPK's trending down Acute metabolic encephalopathy (likely) ?due to KEE/acute illness/hospitalization UC negative. BC negative thus far seen by neurology, EEG did show diffuse slowing typically seen with encephalopathy but also right parietal irritability, Recommending gabapentin 300 mg b.i.d.. Avoid Depakote due to transaminitis repeat EEG done 07/30 - awaiting results ct brain showing generalized cerebral and cerebellar atrophy-probable baseline cognitive dysfunction (family reports chronic dizziness) Acute hypokalemia Potassium depletion in the setting of poor p.o. intake and acute diarrhea Continue with supplementation until potassium stable Diet advanced to NDD3 07/30 Acute diarrhea GI panel and C diff PCR negative imodium prn Acute hypotension Likely iatrogenic, not severe sepsis. Resolved with IVF Hold antihypertensives (valsartan, metoprolol on hold) bp has been controlled off meds Dysphagia likely from Parkinsons r/t lapse in sinemet NG tube removed, speech following, diet advanced to NDD 3 diet 07/30 Unstageable decubitus ulcer (see exam) with surrounding erythema. No warmth or fluctuation; possible associated cellulits Leukocytosis improved, but remains 12.1, still encephalopathic ESR 18, less suspicion for osteo Ct scan negative for osteo, stop abx General surgery input appreciated. No indication for urgent debridement at this time. Monitor for any eschar/necrotic tissue Decubitus ulcers- present on admission Unstageable ulceration sacrum and L shoulder Offloading and reposition. Wound care General surgery consult for evaluation of sacral ulcer. See above Paroxysmal atrial fibrillation- rate controlled currently sinus rhythm with PACs Metoprolol on hold for previous episode of hypotension resume Eliquis Parkinson's disease/mood continue Sinemet,Cogentin, risperdal follow clinical response Diabetes type 2 lispro correctional scale hold metformin seen by speech, started on diet adjust as indicated Elevated LFTs RUQ us cholelithiasis without cholecystitis. no abdominal pain Hepatitis panel negative ?due to hypotension/rhabdo Trending down statin on hold Hypothermia resolved Full code Sunny HCP is brother Blanco pt -rec STR dispo str Require ongoing hospitalization for IV volume repletion , acute kidney injury and specialty consultation Quality Stroke Does the patient have a stroke diagnosis?: No VTE Prior VTE?: No VTE Risk Level:: Medical - moderate - high VTE Device Contraindication: Treatment Not Indicated VTE Drug Contraindication: N/A - Med Ordered
--- NOTE | 2024-07-31 15:26 | MHC.CM.PN ---
Pts guardianship was dissolved in 2019. This CM met with pt to discuss discharge plan and creating a HCP. Pt was in agreement with completing a HCP. New HCP now on file, with pt naming his brother Blanco as the primary HCP and his [id number] Radha as the alternate HCP. Day [facility] is first choice for STR, they have offered pt a bed, insurance authorization is pending.
[2024-07-31 15:46] LABS: Hematocrit 27.2 % (42.0-52.0); Hemoglobin 9.7 g/dl (14.0-18.0)
[2024-07-31 17:43] LABS: CDiff Gene PCR NEGATIVE (Negative)
--- NOTE | 2024-07-31 18:19 | PC.NURSE ---
Patient alert, oriented to person and place. RA, VSS. Ramirez re inserted for retention, patient failed voiding trial. Incontinent of tarry, loose stool, occult test positive, Eliquis on HOLD, rectal tube inserted, patient tolerated procedure well. Imodium ordered PRN, patient refused offered dose. Dressing to sacrum changed multiple times after each episode of incontinence.
--- NOTE | 2024-07-31 19:15 | PM.EVENT ---
Event Note Date of Service: 07/31/24 Event Note: GI Consult-Full note dictated. History from patient, his brother Blanco, his RN, and EMR. Imp: 69 yo male with multiple medical issues including Afib for which he is on Eliquis. He had been having loose and brown stools but began having dark and tarry loose stools last night and today. Stools have been negative for infection. His Eliquis was put on hold. His Hgb did drop this AM, but a F/U Hgb was stable this afternoon. He denies any abdominal pain presently but has been having postprandial upper abdominal pain at home and was found to have gallstones on his U/S here. There is no report of EtOH, smoking, or chronic aspirin or NSAID use. Abdominal exam is benign. Pelvic CT described possible proctitis. UGI and SBFT in 03/2024 did not show any significant abnormalities. Diff dx: UGI bleed due to gastritis, PUD, neoplasm, AVM's etc. Rec: Continue to hold Eliquis, F/U Hgb's and transfuse prn, IV PPI, recheck PT/INR, Full liquids for now. If stable will plan for EGD on Saturday after Eliquis has worn off. Full consent has been obtained for this, including risks of bleeding and perforation, from both the patient and his brother, Blanco. Please call if signs of active bleeding over the weekend and we can proceed with an upper endoscopy sooner if need be. D/W patient and his brother in detail. Of note, he may need a surgical consult re: gallstones and abdominal pain depending on results of the upper endoscopy. Thanks. Time Spent With Patient Time: Total time managing care of this patient today ____ minutes.
[2024-07-31] MEDS: Pantoprazole Sodium 40 MG/10 ML VIAL IVPUSH (21:10)
[2024-07-31] MEDS: Magnesium Oxide 400 MG TABLET PO (21:10)
[2024-07-31] MEDS: Loperamide HCl 2 MG CAPSULE PO (21:11)
--- NOTE | 2024-07-31 21:41 | P.PNNP_ITS ---
Subjective Subjective Date of Service: 07/31/24 Interval history: seen and examined this morning. Renal functions improving Physical Exam 2 Vital Signs: Vital Signs: Last Vital Signs Temp 98 F 07/31/24 19:05 Pulse 104 H 07/31/24 19:05 Resp 18 07/31/24 19:05 BP 148/93 H 07/31/24 19:05 Pulse Ox 98 07/31/24 19:05 O2 Del Method Room Air 07/31/24 19:05 BMI result Body Mass Index 25.6 Const: General: comfortable Orientation/consciousness: patient oriented x3 Eyes: EOM: EOMs intact bilaterally Neck: Neck: Yes supple Resp: Auscultation: diminished lung sounds Cardio: Rate: regular rate GI: Palpation (GI): Soft to palpation Neuro: General: patient oriented x3 Objective Data Labs 07/31/24 15:25 07/31/24 05:49 Labs: Laboratory Results - last 24 hr 07/30/24 07/31/24 07/31/24 21:05 05:49 07:16 WBC RBC Hgb Hct MCV MCH MCHC RDW Plt Count MPV Absolute Nucleated RBC Nucleated RBC % (auto) Sodium 142 Potassium 3.3 Chloride 111 H Carbon Dioxide 23 Anion Gap 11 L BUN 47 H Creatinine 1.52 H Estim Creat Clear Calc 39.4 Estimated GFR 46 POC Glucose 140 H 102 Random Glucose 107 Calcium 8.1 L Total Bilirubin 0.8 Direct Bilirubin 0.4 AST 64 H ALT 48 H Alkaline Phosphatase 101 Total Creatine Kinase 274 H Total Protein 4.4 L Albumin 2.3 L Stool Occult Blood Random Vancomycin C. difficile Tox B Gene 07/31/24 07/31/24 07/31/24 08:55 09:16 12:14 WBC 17.2 H RBC 3.13 L Hgb 9.8 L Hct 27.6 L MCV 88.2 MCH 31.3 MCHC 35.5 RDW 13.1 Plt Count 202 MPV 10.4 Absolute Nucleated RBC 0.000 Nucleated RBC % (auto) 0.0 Sodium Potassium Chloride Carbon Dioxide Anion Gap BUN Creatinine Estim Creat Clear Calc Estimated GFR POC Glucose 116 H Random Glucose Calcium Total Bilirubin Direct Bilirubin AST ALT Alkaline Phosphatase Total Creatine Kinase Total Protein Albumin Stool Occult Blood POSITIVE Random Vancomycin C. difficile Tox B Gene 07/31/24 07/31/24 07/31/24 13:26 15:25 16:44 WBC RBC Hgb 9.7 L Hct 27.2 L MCV MCH MCHC RDW Plt Count MPV Absolute Nucleated RBC Nucleated RBC % (auto) Sodium Potassium Chloride Carbon Dioxide Anion Gap BUN Creatinine Estim Creat Clear Calc Estimated GFR POC Glucose Random Glucose Calcium Total Bilirubin Direct Bilirubin AST ALT Alkaline Phosphatase Total Creatine Kinase Total Protein Albumin Stool Occult Blood Random Vancomycin 14.5 L C. difficile Tox B Gene NEGATIVE Microbiology Microbiology Results: Microbiology 07/26/24 12:50 Blood - Venous Blood Culture - Final No growth after 5 days. 07/26/24 12:40 Blood - Venous Blood Culture - Final No growth after 5 days. 07/26/24 Unknown Urine Catheterized - Ramirez Catheter Urine Culture - Final No growth. Procedures Date of Service Date of Service: 07/31/24 Assessment & Plan Assessment and plan (1) Acute kidney injury: Status: Acute Plan KEE due to tubular injury Has normal renal function at baseline No reason to suspect GN/AIN UO OK; Serum creatinine improving C/W current supportive care; Labs AM Progress Note: Quality Stroke Does the patient have a stroke diagnosis?: No
[2024-08-01 02:01] LABS: Glucose, Whole Blood 128 mg/dL (60-115)
[2024-08-01 02:01] LABS: Glucose, Whole Blood 124 mg/dL (60-115)
[2024-08-01 03:19] VITALS: BP 136/77; PULSE 112; RESP 18; TEMP 36.4; O2SAT 98
[2024-08-01] MEDS: Pantoprazole Sodium 40 MG/10 ML VIAL IVPUSH ×2 (06:09→17:45)
[2024-08-01 06:53] LABS: Hematocrit 25.7 % (42.0-52.0); Hemoglobin 8.9 g/dl (14.0-18.0); Mean Corpuscular HGB Conc 34.6 g/dl (31.0-36.0); Mean Corpuscular Hemoglobin 31.4 pg (27.0-33.0); Mean Corpuscular Volume 90.8 fL (80.0-98.0); Mean Platelet Volume 10.6 fL (9.4-12.4); Platelet Count 204 X10*3/uL (160-400); Red Blood Count 2.83 X10*6/uL (4.60-5.80); White Blood Count 13.9 X10*3/uL (4.8-10.8)
[2024-08-01 07:03] LABS: INTERNATIONAL NORM RATIO 1.3 (0.9-1.1); Prothrombin Time 15.7 SEC (10.9-12.4)
[2024-08-01 07:15] VITALS: BP 128/62; PULSE 94; RESP 18; TEMP 36.6; O2SAT 97
[2024-08-01 07:39] LABS: Anion Gap 10 (12-20); Blood Urea Nitrogen 37 mg/dL (9-16); Calcium 8.1 mg/dL (8.4-10.2); Carbon Dioxide 23 mmol/L (22-29); Chloride 110 mmol/L (96-108); Creatinine Clr Calc Pharmacy 44.4; Estimated Glomerular Filt Rate 53; Glucose Random 100 mg/dL (60-115); Magnesium 1.4 mg/dL (1.6-2.6); Potassium 3.4 mmol/L (3.3-5.1); Sodium 140 mmol/L (135-145)
[2024-08-01 08:36] LABS: Glucose, Whole Blood 98 mg/dL (60-115)
[2024-08-01] MEDS: Potassium Chloride Packet 20 MEQ PACKET 40 MEQ PO (08:44)
[2024-08-01] MEDS: Carbidopa/Levodopa 25/100 TABLET 1 TAB PO ×2 (08:44→20:29)
[2024-08-01] MEDS: Gabapentin 300 MG CAPSULE PO ×2 (08:44→20:29)
[2024-08-01] MEDS: risperiDONE 2 MG TABLET PO ×2 (08:44→20:29)
[2024-08-01] MEDS: Benztropine Mesylate 1 MG TABLET PO ×2 (08:45→20:29)
[2024-08-01] MEDS: 0.9 % Sodium Chloride Flush 3 ML SYRINGE IVFLUSH ×3 (08:45→20:37)
[2024-08-01] MEDS: Magnesium Sulfate/H2O 2 GM/50 ML PIGGYBACK IV (08:45)
[2024-08-01 11:14] VITALS: BP 122/67; PULSE 96; RESP 18; TEMP 36.6; O2SAT 98
[2024-08-01 12:20] LABS: Glucose, Whole Blood 119 mg/dL (60-115)
--- NOTE | 2024-08-01 12:44 | HO.PM.IMPN ---
Subjective Subjective Date of Service: 08/01/24 Interval History: seen and examined this morning follow up for KEE, sacral wound Awake, alert, oriented. Review of Systems Review of Systems: Yes all other systems are reviewed and are negative Constitutional Constitutional: Denies chills and Denies fever(s) Cardiovascular Cardiovascular: Denies chest pain, Denies palpitations and Denies dyspnea Respiratory Respiratory: Denies cough and Denies dyspnea Endocrine Endocrine: Denies palpitations Physical Exam Vital Signs: Vital Signs: Last Vital Signs Temp 97.9 F 08/01/24 11:14 Pulse 96 08/01/24 11:14 Resp 18 08/01/24 11:14 BP 122/67 08/01/24 11:14 Pulse Ox 98 08/01/24 11:14 O2 Del Method Room Air 08/01/24 11:14 BMI result Body Mass Index 25.6 Appearing in no acute distress lung sounds are clear to auscultation heart regular rate rhythm, clear S1, S2 positive bowel sounds, abdomen is soft, nontender neuro patient is alert x3, no focal deficits Objective Data Active Medications Acetaminophen (Acetaminophen 325 Mg Tablet) 650 mg PO Q6H PRN PRN Reason: Pain, Mild 1-3,fever,headache Benztropine Mesylate (Benztropine Mesylate 1 Mg Tablet) 1 mg PO BID [facility] Last Admin: 08/01/24 08:45 Dose: 1 mg Documented By: CHAYITO Calcium Carbonate (Calcium Carbonate 750 Mg Tab.Chew) 750 mg PO Q4H PRN PRN Reason: Heartburn Carbidopa/Levodopa (Carbidopa/Levodopa 25/100 Tablet) 1 tab PO BID [facility] Last Admin: 08/01/24 08:44 Dose: 1 tab Documented By: CHAYITO Collagenase (Collagenase Clostridium Hist. 30 Gm Tube) 1 appl TOPICAL DAILY [facility]; Protocol Last Admin: 07/31/24 08:51 Dose: 1 appl Documented By: ES Dextrose (Dextrose 50 % 25 Gm/50 Ml Syringe) 25 gm IVPUSH Q15M PRN; Protocol PRN Reason: per Hypoglycemia Standing Ord. Gabapentin (Gabapentin 300 Mg Capsule) 300 mg PO BID [facility] Last Admin: 08/01/24 08:44 Dose: 300 mg Documented By: CHAYITO Glucose (Glucose Gel 15 Gm Gel..Gram.) 15 gm PO Q15M PRN; Protocol PRN Reason: per Hypoglycemia Standing Ord. Insulin Human Lispro (Insulin Lispro 100 Unit/Ml 3 Ml Vial) 0 unit SUBCUT QIDACHS [facility]; Protocol Last Admin: 08/01/24 11:50 Dose: Not Given Documented By: CHAYITO Non-Admin Reason: No Insulin Coverage Comments: poc 119 Loperamide HCl (Loperamide Hcl 2 Mg Capsule) 2 mg PO Q6H PRN PRN Reason: Diarrhea Last Admin: 07/31/24 21:11 Dose: 2 mg Documented By: FEDERICO Magnesium Hydroxide (Milk Of Magnesia 30 Ml Oral.Susp) 30 ml PO DAILY PRN PRN Reason: Constipation Magnesium Oxide (Magnesium Oxide 400 Mg Tablet) 400 mg PO BEDTIME [facility] Last Admin: 07/31/24 21:10 Dose: 400 mg Documented By: FEDERICO Melatonin (Melatonin 3 Mg Tablet) 6 mg NG-TUBE BEDTIME PRN PRN Reason: Insomnia Metoprolol Tartrate (Metoprolol Tartrate 50 Mg Tablet) 50 mg PO BID [facility] Pantoprazole Sodium (Pantoprazole Sodium 40 Mg/10 Ml Vial) 40 mg IVPUSH BID@0630,1630 [facility] Last Admin: 08/01/24 06:09 Dose: 40 mg Documented By: FEDERICO Potassium Chloride (Potassium Chloride Packet 20 Meq Packet) 40 meq PO DAILY [facility] Last Admin: 08/01/24 08:44 Dose: 40 meq Documented By: CHAYITO Risperidone (Risperidone 2 Mg Tablet) 2 mg PO BID [facility] Last Admin: 08/01/24 08:44 Dose: 2 mg Documented By: CHAYITO Sodium Chloride (0.9 % Sodium Chloride Flush 3 Ml Syringe) 3 ml IVFLUSH QSHIFT [facility] Last Admin: 08/01/24 08:45 Dose: 3 ml Documented By: CHAYITO Valsartan (Valsartan 40 Mg Tablet) 40 mg PO BEDTIME [facility]; Protocol Labs 08/01/24 05:53 08/01/24 05:53 Labs: Laboratory Results - last 24 hr 07/31/24 07/31/24 07/31/24 13:26 16:07 16:44 MCV MCH MCHC RDW Plt Count MPV Absolute Nucleated RBC Nucleated RBC % (auto) PT INR Anion Gap Estim Creat Clear Calc Estimated GFR POC Glucose 128 H Random Glucose Calcium Magnesium Random Vancomycin 14.5 L C. difficile Tox B Gene NEGATIVE 07/31/24 08/01/24 08/01/24 20:19 05:53 07:06 MCV 90.8 MCH 31.4 MCHC 34.6 RDW 13.0 Plt Count 204 MPV 10.6 Absolute Nucleated RBC 0.000 Nucleated RBC % (auto) 0.0 PT 15.7 H INR 1.3 H Anion Gap 10 L Estim Creat Clear Calc 44.4 Estimated GFR 53 POC Glucose 124 H 98 Random Glucose 100 Calcium 8.1 L Magnesium 1.4 L* Random Vancomycin C. difficile Tox B Gene 08/01/24 11:11 MCV MCH MCHC RDW Plt Count MPV Absolute Nucleated RBC Nucleated RBC % (auto) PT INR Anion Gap Estim Creat Clear Calc Estimated GFR POC Glucose 119 H Random Glucose Calcium Magnesium Random Vancomycin C. difficile Tox B Gene Microbiology Microbiology Results: Microbiology 07/26/24 12:50 Blood Culture - Final Blood - Venous No growth after 5 days. 07/26/24 12:40 Blood Culture - Final Blood - Venous No growth after 5 days. Assessment and Plan (1) Unstageable decubitus ulcer: Status: Acute (2) Acute kidney injury: Status: Acute Plan 69-year-old male with a history of paroxysmal atrial fibrillation, dizziness, paranoid schizophrenia, bipolar disorder, anxiety, insomnia, Parkinson's disease, GERD with esophagitis, hypercholesterolemia, hypertension, diabetes mellitus who was brought to emergency department by ambulance for evaluation of fall into bath tub. The patient can not recount details of why he was in the bathtub with all of his clothes on . Patient has two brothers that visit him on Wednesdays and Saturdays. The Saturday brother did visit him and he appeared well . His Saturday brother found him fully clothed in the bath tub complaining of feeling very thirsty and needing to see a doctor. In the emergency room, workup consistent with acute kidney injury along with rhabdomyolysis and hypothermia Acute on chronic anemia had dark stools today which were heme + H/H trended down hold eliquis GI consult> plan for EGD saturday follow CBC ct showing proctitis , repeat cdiff neg Acute kidney injury with acidosis Acidosis resolved. s/p bicarb drip, D5LR Renal function improving, creatinine down to 1.5. Baseline creat 0.74 nephrology following Rhabdomyolysis secondary to fall CPK's trending down Acute metabolic encephalopathy (likely) ?due to KEE/acute illness/hospitalization UC negative. BC negative thus far seen by neurology, EEG did show diffuse slowing typically seen with encephalopathy but also right parietal irritability, Recommending gabapentin 300 mg b.i.d.. Avoid Depakote due to transaminitis repeat EEG done 07/30 - awaiting results ct brain showing generalized cerebral and cerebellar atrophy-probable baseline cognitive dysfunction (family reports chronic dizziness) Acute hypokalemia Potassium depletion in the setting of poor p.o. intake and acute diarrhea Continue with supplementation until potassium stable Full liquid diet Acute diarrhea GI panel and C diff PCR negative imodium prn Acute hypotension Likely iatrogenic, not severe sepsis. Resolved with IVF Hold antihypertensives (valsartan, metoprolol on hold) bp has been controlled off meds Dysphagia likely from Parkinsons r/t lapse in sinemet NG tube removed, speech following, diet advanced to NDD 3 diet 07/30 Unstageable decubitus ulcer (see exam) with surrounding erythema. No warmth or fluctuation; possible associated cellulits Leukocytosis improved, but remains 12.1, still encephalopathic ESR 18, less suspicion for osteo Ct scan negative for osteo, stop abx General surgery input appreciated. No indication for urgent debridement at this time. Monitor for any eschar/necrotic tissue Decubitus ulcers- present on admission Unstageable ulceration sacrum and L shoulder Offloading and reposition. Wound care General surgery consult for evaluation of sacral ulcer. See above Paroxysmal atrial fibrillation- rate controlled currently sinus rhythm with PACs Metoprolol on hold for previous episode of hypotension resume Sunny Parkinson's disease/mood continue Sinemet,Cogentin, risperdal follow clinical response Diabetes type 2 lispro correctional scale hold metformin seen by speech, started on diet adjust as indicated Elevated LFTs RUQ us cholelithiasis without cholecystitis. no abdominal pain Hepatitis panel negative ?due to hypotension/rhabdo Trending down statin on hold Hypothermia resolved Full code Sunny HCP is geralder Blanco pt -rec STR dispo str Require ongoing hospitalization for IV volume repletion , acute kidney injury and specialty consultation Quality Stroke Does the patient have a stroke diagnosis?: No VTE Prior VTE?: No VTE Risk Level:: Medical - moderate - high VTE Device Contraindication: Treatment Not Indicated VTE Drug Contraindication: N/A - Med Ordered
[2024-08-01] MEDS: Collagenase Clostridium Hist. 30 GM TUBE 1 APPL TOPICAL (13:16)
[2024-08-01 15:17] VITALS: BP 117/67; PULSE 101; RESP 14; TEMP 36.2; O2SAT 99
[2024-08-01 17:37] LABS: Glucose, Whole Blood 123 mg/dL (60-115)
[2024-08-01 18:53] VITALS: BP 121/82; PULSE 112; RESP 18; TEMP 37; O2SAT 96
[2024-08-01] MEDS: Magnesium Oxide 400 MG TABLET PO (20:29)
[2024-08-01] MEDS: Acetaminophen 325 MG TABLET 650 MG PO (20:30)
--- NOTE | 2024-08-01 20:59 | CONS_ITS ---
DATE OF SERVICE: 07/31/2024 REASON FOR CONSULTATION: Melena and anemia. HISTORY OF PRESENT ILLNESS: This has been obtained from the patient, his brother Blanco, his nurse, and the medical record. The patient is a 69-year-old male with multiple underlying medical problems including atrial fibrillation for which he is on Eliquis. He was admitted to the hospital on July 26, after being found lying in the bathroom at his house. At that time, he was admitted with some renal failure and an elevated CPK. He was also noted to have a significant sacral decubitus. Since admission, he has been on supportive care and has been seen by surgical consultation in regard to the decubitus. He had been having some loose bowel movements since admission, but since last evening, he began having black and tarry stools. He did have stool specimen sent for C difficile twice, both of which were negative and a GI panel which was negative. There has been no hematochezia. There has been no nausea nor vomiting. He presently denies any abdominal pain, but has had some postprandial abdominal pain at home. A gallbladder ultrasound here showed gallstones. He denies any previous history of ulcer disease. He denies any chronic heartburn or dysphagia. Aside from his Eliquis, he does not use any aspirin or NSAIDs. Over the course of today, he has continued to have some black tarry stools and did have some drop in his hemoglobin from admission level of 13.0. His hemoglobin on July 30 was 11.7, on July 31 was 9.8 and followup later in the day on July 31, was down to 9.7. He was hemodynamically stable. There has been no previous history of ulcer disease nor previous GI bleeding. He has never had an upper endoscopy. He did have an upper GI with small-bowel series in March 2024, was negative for sign of any significant hiatal hernia or reflux. There was some evidence of probable gastritis. It did appear to be some esophageal dysmotility. The report also describes some changes in the small bowel raising a suspicion for celiac disease. His medications in the hospital included Eliquis which subsequently has been placed on hold since the onset of melena, acetaminophen, Cogentin, Tums, Sinemet, gabapentin, sliding scale insulin, loperamide p.r.n., magnesium, melatonin p.r.n., metoprolol, potassium, risperidone, and valsartan. PAST MEDICAL HISTORY: Atrial fibrillation. Schizophrenia. Depression. Anxiety. Parkinson disease. Hyperlipidemia. He does not have any documented history of FL or stroke. He has had kidney stones. Decubitus as above. Gallstones SOCIAL HISTORY: He lives by himself. He does have 2 brothers, who visit him regularly. He does not smoke nor use any significant amounts of alcohol. FAMILY HISTORY: Noncontributory. REVIEW OF SYSTEMS: CONSTITUTIONAL: He has been feeling somewhat poorly at home with a diminished appetite. CARDIAC: No chest pain. PULMONARY: No coughing or hemoptysis. GI: As above. URINARY: No hematuria nor dysuria. PHYSICAL EXAMINATION: GENERAL: The patient is a pale, but alert and comfortable male. SKIN: Warm and dry. Anicteric sclerae. NECK: Supple. CARDIAC: Normal S1, S2. ABDOMEN: Soft, nondistended. Normal bowel sounds and nontender. LABORATORY DATA: As above. Negative stool specimens. White blood cell count 13.9, hemoglobin most recently was 9.7, platelets 202,000. Normal electrolytes. BUN 47, creatinine 1.5. On admission, his BUN was 110 with creatinine of 4.7. Stool was heme positive. He did have a CT scan of the pelvis describing some possible evidence of proctitis and diverticulosis, but without any sign of diverticulitis or bowel obstruction. IMPRESSION: Given the clinical history, it does appear that he has developed some evidence of upper GI bleeding since admission here to the hospital. At the present time, he appears to be hemodynamically stable and without any signs of active bleeding. His abdominal exam is benign. His CT scan describes possible proctitis, but based on the clinical history, this does not seem to be the cause of his symptoms in regard to GI bleeding. Typically that would be associated with some hematochezia and more acute blood loss. Given what appears to be an upper GI bleed, I would recommend upper endoscopy. His Eliquis was placed on hold as of yesterday and I would continue to hold that until the procedure has been done. Given the clinical history, this is most likely related to some upper GI bleeding from either erosive gastritis or possible ulcer disease. It would be important to exclude any type of GI neoplasm as well. Full consent has been obtained from the patient and his brother Blanco for the procedure, including risks of bleeding and perforation. I will continue full liquids through the weekend and then he will be n.p.o. for the procedure. If he shows signs of active bleeding, then we would need to proceed sooner. Of note, he did have an abdominal ultrasound describing some gallstones and had been having some postprandial abdominal pain at home. Depending upon the results of the upper endoscopy, he may need surgical consultation for possible gallbladder surgery if the postprandial pain persists and the upper endoscopy is negative for any significant ulcer disease. Given the report of a GI series from last year, I will obtain some small bowel biopsies as well to inspect for celiac disease. This has been discussed with the patient and his brother in detail. They are both comfortable with the plan. Thanks for consultation. MD JAKE Fisher/[place] / [phone] MTDAni
[2024-08-01 21:48] LABS: Glucose, Whole Blood 120 mg/dL (60-115)
[2024-08-01 22:59] VITALS: BP 106/65; PULSE 106; RESP 18; TEMP 36.8; O2SAT 96
[2024-08-02 03:34] VITALS: BP 129/75; PULSE 98; RESP 18; TEMP 36; O2SAT 97
[2024-08-02] MEDS: Pantoprazole Sodium 40 MG/10 ML VIAL IVPUSH ×2 (05:56→17:24)
[2024-08-02 06:49] LABS: MANUAL DIFF FLAG NO
[2024-08-02 07:10] LABS: Basophils Percent Auto 0.2 % (0-2); Eosinophils Absolute Auto 0.4 X10*3/uL (0.0-0.4); Eosinophils Percent Auto 2.9 % (0-4); Hematocrit 24.2 % (42.0-52.0); Hemoglobin 8.5 g/dl (14.0-18.0); Imm Gran Abs Auto 0.08 X10*3/uL (0.00-0.03); Imm Gran Pct Auto 0.6 % (0.0-0.4); Lymphocytes Absolute Auto 1.1 X10*3/uL (1.2-4.9); Lymphocytes Percent Auto 8.7 % (20-40); Mean Corpuscular HGB Conc 35.1 g/dl (31.0-36.0); Mean Corpuscular Hemoglobin 31.7 pg (27.0-33.0); Mean Corpuscular Volume 90.3 fL (80.0-98.0); Mean Platelet Volume 9.9 fL (9.4-12.4); Monocytes Absolute Auto 0.8 X10*3/uL (0.1-1.2); Monocytes Percent Auto 6.1 % (2-11); Neutrophils Absolute Auto 10.1 x10*3/uL (2.0-8.3); Neutrophils Percent Auto 81.5 % (45-73); Platelet Count 218 X10*3/uL (160-400); Red Blood Count 2.68 X10*6/uL (4.60-5.80); White Blood Count 12.4 X10*3/uL (4.8-10.8)
[2024-08-02 08:00] VITALS: BP 127/84; PULSE 99; RESP 18; TEMP 36.8; O2SAT 96
[2024-08-02] MEDS: risperiDONE 2 MG TABLET PO ×2 (08:49→21:14)
[2024-08-02] MEDS: Benztropine Mesylate 1 MG TABLET PO ×2 (08:49→21:14)
[2024-08-02] MEDS: 0.9 % Sodium Chloride Flush 3 ML SYRINGE IVFLUSH ×3 (08:49→21:14)
[2024-08-02] MEDS: Potassium Chloride Packet 20 MEQ PACKET 40 MEQ PO (08:49)
[2024-08-02] MEDS: Gabapentin 300 MG CAPSULE PO ×2 (08:49→21:14)
[2024-08-02] MEDS: Carbidopa/Levodopa 25/100 TABLET 1 TAB PO ×2 (08:49→21:14)
[2024-08-02 09:38] LABS: Glucose, Whole Blood 100 mg/dL (60-115)
--- NOTE | 2024-08-02 10:59 | HO.PM.IMPN ---
Subjective Subjective Date of Service: 08/02/24 Interval History: seen and examined this morning follow up for KEE, sacral wound Awake, alert, oriented. Review of Systems Review of Systems: Yes all other systems are reviewed and are negative Constitutional Constitutional: Denies chills and Denies fever(s) Cardiovascular Cardiovascular: Denies chest pain, Denies palpitations and Denies dyspnea Respiratory Respiratory: Denies cough and Denies dyspnea Endocrine Endocrine: Denies palpitations Physical Exam Vital Signs: Vital Signs: Last Vital Signs Temp 98.3 F 08/02/24 08:00 Pulse 99 08/02/24 08:00 Resp 18 08/02/24 08:00 BP 127/84 08/02/24 08:00 Pulse Ox 96 08/02/24 08:00 O2 Del Method Room Air 08/02/24 08:00 BMI result Body Mass Index 25.6 Appearing in no acute distress lung sounds are clear to auscultation heart regular rate rhythm, clear S1, S2 positive bowel sounds, abdomen is soft, nontender neuro patient is alert x3, no focal deficits Objective Data Active Medications Acetaminophen (Acetaminophen 325 Mg Tablet) 650 mg PO Q6H PRN PRN Reason: Pain, Mild 1-3,fever,headache Last Admin: 08/01/24 20:30 Dose: 650 mg Documented By: FEDERICO Benztropine Mesylate (Benztropine Mesylate 1 Mg Tablet) 1 mg PO BID [facility] Last Admin: 08/02/24 08:49 Dose: 1 mg Documented By: CHAYITO Calcium Carbonate (Calcium Carbonate 750 Mg Tab.Chew) 750 mg PO Q4H PRN PRN Reason: Heartburn Carbidopa/Levodopa (Carbidopa/Levodopa 25/100 Tablet) 1 tab PO BID [facility] Last Admin: 08/02/24 08:49 Dose: 1 tab Documented By: CHAYITO Collagenase (Collagenase Clostridium Hist. 30 Gm Tube) 1 appl TOPICAL DAILY [facility]; Protocol Last Admin: 08/01/24 13:16 Dose: 1 appl Documented By: CHAYITO Dextrose (Dextrose 50 % 25 Gm/50 Ml Syringe) 25 gm IVPUSH Q15M PRN; Protocol PRN Reason: per Hypoglycemia Standing Ord. Gabapentin (Gabapentin 300 Mg Capsule) 300 mg PO BID [facility] Last Admin: 08/02/24 08:49 Dose: 300 mg Documented By: CHAYITO Glucose (Glucose Gel 15 Gm Gel..Gram.) 15 gm PO Q15M PRN; Protocol PRN Reason: per Hypoglycemia Standing Ord. Insulin Human Lispro (Insulin Lispro 100 Unit/Ml 3 Ml Vial) 0 unit SUBCUT QIDACHS [facility]; Protocol Last Admin: 08/02/24 08:52 Dose: Not Given Documented By: CHAYITO Non-Admin Reason: No Insulin Coverage Comments: POC 100 Loperamide HCl (Loperamide Hcl 2 Mg Capsule) 2 mg PO Q6H PRN PRN Reason: Diarrhea Last Admin: 07/31/24 21:11 Dose: 2 mg Documented By: FEDERICO Magnesium Hydroxide (Milk Of Magnesia 30 Ml Oral.Susp) 30 ml PO DAILY PRN PRN Reason: Constipation Magnesium Oxide (Magnesium Oxide 400 Mg Tablet) 400 mg PO BEDTIME [facility] Last Admin: 08/01/24 20:29 Dose: 400 mg Documented By: FEDERICO Melatonin (Melatonin 3 Mg Tablet) 6 mg NG-TUBE BEDTIME PRN PRN Reason: Insomnia Metoprolol Tartrate (Metoprolol Tartrate 50 Mg Tablet) 50 mg PO BID [facility] Pantoprazole Sodium (Pantoprazole Sodium 40 Mg/10 Ml Vial) 40 mg IVPUSH BID@0630,1630 [facility] Last Admin: 08/02/24 05:56 Dose: 40 mg Documented By: FEDERICO Potassium Chloride (Potassium Chloride Packet 20 Meq Packet) 40 meq PO DAILY [facility] Last Admin: 08/02/24 08:49 Dose: 40 meq Documented By: CHAYITO Risperidone (Risperidone 2 Mg Tablet) 2 mg PO BID [facility] Last Admin: 08/02/24 08:49 Dose: 2 mg Documented By: CHAYITO Sodium Chloride (0.9 % Sodium Chloride Flush 3 Ml Syringe) 3 ml IVFLUSH QSHIFT [facility] Last Admin: 08/02/24 08:49 Dose: 3 ml Documented By: CHAYITO Valsartan (Valsartan 40 Mg Tablet) 40 mg PO BEDTIME [facility]; Protocol Labs 08/02/24 06:43 08/01/24 05:53 Labs: Laboratory Results - last 24 hr 08/01/24 08/01/24 08/01/24 11:11 16:36 20:25 MCV MCH MCHC RDW Plt Count MPV Immature Gran % (Auto) Neut % (Auto) Lymph % (Auto) [place] % (Auto) Eos % (Auto) Baso % (Auto) Lymph # (Auto) [place] # (Auto) Eos # (Auto) Baso # (Auto) Abs Immat Gran (auto) Absolute Neuts (auto) Absolute Nucleated RBC Nucleated RBC % (auto) POC Glucose 119 H 123 H 120 H 08/02/24 08/02/24 06:43 08:13 MCV 90.3 MCH 31.7 MCHC 35.1 RDW 13.0 Plt Count 218 MPV 9.9 Immature Gran % (Auto) 0.6 H Neut % (Auto) 81.5 H Lymph % (Auto) 8.7 L [place] % (Auto) 6.1 Eos % (Auto) 2.9 Baso % (Auto) 0.2 Lymph # (Auto) 1.1 L [place] # (Auto) 0.8 Eos # (Auto) 0.4 Baso # (Auto) 0.0 Abs Immat Gran (auto) 0.08 H Absolute Neuts (auto) 10.1 H Absolute Nucleated RBC 0.000 Nucleated RBC % (auto) 0.0 POC Glucose 100 Assessment and Plan (1) Unstageable decubitus ulcer: Status: Acute (2) Acute kidney injury: Status: Acute Plan 69-year-old male with a history of paroxysmal atrial fibrillation, dizziness, paranoid schizophrenia, bipolar disorder, anxiety, insomnia, Parkinson's disease, GERD with esophagitis, hypercholesterolemia, hypertension, diabetes mellitus who was brought to emergency department by ambulance for evaluation of fall into bath tub. The patient can not recount details of why he was in the bathtub with all of his clothes on . Patient has two brothers that visit him on Wednesdays and Saturdays. The Saturday brother did visit him and he appeared well . His Saturday brother found him fully clothed in the bath tub complaining of feeling very thirsty and needing to see a doctor. In the emergency room, workup consistent with acute kidney injury along with rhabdomyolysis and hypothermia Acute on chronic anemia had dark stools today which were heme + H/H stable hold eliquis GI consult> plan for EGD saturday follow CBC ct showing proctitis , repeat cdiff neg Acute kidney injury with acidosis Acidosis resolved. s/p bicarb drip, D5LR Renal function improving, creatinine down to 1.5. Baseline creat 0.74 nephrology following Rhabdomyolysis secondary to fall CPK's trending down Acute metabolic encephalopathy (likely) ?due to KEE/acute illness/hospitalization UC negative. BC negative thus far seen by neurology, EEG did show diffuse slowing typically seen with encephalopathy but also right parietal irritability, Recommending gabapentin 300 mg b.i.d.. Avoid Depakote due to transaminitis repeat EEG done 07/30 - awaiting results ct brain showing generalized cerebral and cerebellar atrophy-probable baseline cognitive dysfunction (family reports chronic dizziness) Acute hypokalemia. Resolved Potassium depletion in the setting of poor p.o. intake and acute diarrhea Acute diarrhea GI panel and C diff PCR negative imodium prn Acute hypotension Likely iatrogenic, not severe sepsis. Resolved with IVF Hold antihypertensives (valsartan, metoprolol on hold) bp has been controlled off meds Dysphagia likely from Parkinsons r/t lapse in sinemet NG tube removed, speech following, diet advanced to NDD 3 diet 07/30 Unstageable decubitus ulcer (see exam) with surrounding erythema. No warmth or fluctuation; possible associated cellulits Leukocytosis improved, but remains 12.1, still encephalopathic ESR 18, less suspicion for osteo Ct scan negative for osteo, stop abx General surgery input appreciated. No indication for urgent debridement at this time. Monitor for any eschar/necrotic tissue Decubitus ulcers- present on admission Unstageable ulceration sacrum and L shoulder Offloading and reposition. Wound care General surgery consult for evaluation of sacral ulcer. See above Paroxysmal atrial fibrillation- rate controlled currently sinus rhythm with PACs Metoprolol on hold for previous episode of hypotension resume Eliquis Parkinson's disease/mood continue Sinemet,Cogentin, risperdal follow clinical response Diabetes type 2 lispro correctional scale hold metformin seen by speech, started on diet adjust as indicated Elevated LFTs RUQ us cholelithiasis without cholecystitis. no abdominal pain Hepatitis panel negative ?due to hypotension/rhabdo Trending down statin on hold Hypothermia resolved Full code Sunny HCP is brother Blanco pt -rec STR dispo str Require ongoing hospitalization for IV volume repletion , acute kidney injury and specialty consultation Quality Stroke Does the patient have a stroke diagnosis?: No VTE Prior VTE?: No VTE Risk Level:: Medical - moderate - high VTE Device Contraindication: Treatment Not Indicated VTE Drug Contraindication: N/A - Med Ordered
[2024-08-02 11:39] LABS: Glucose, Whole Blood 151 mg/dL (60-115)
[2024-08-02] MEDS: Collagenase Clostridium Hist. 30 GM TUBE 1 APPL TOPICAL (11:39)
[2024-08-02 12:00] VITALS: BP 123/73; PULSE 96; RESP 18; TEMP 36.4; O2SAT 97
[2024-08-02 16:00] VITALS: BP 145/62; PULSE 100; RESP 18; TEMP 37; O2SAT 95
[2024-08-02 19:46] VITALS: BP 125/73; PULSE 116; RESP 16; TEMP 37.1; O2SAT 96
[2024-08-02 21:05] LABS: Glucose, Whole Blood 99 mg/dL (60-115)
[2024-08-02 21:05] LABS: Glucose, Whole Blood 126 mg/dL (60-115)
[2024-08-02] MEDS: Magnesium Oxide 400 MG TABLET PO (21:14)
[2024-08-02] MEDS: Melatonin 3 MG TABLET 6 MG NG-TUBE (21:18)
[2024-08-03] VITALS (10 sets, daily range): BP systolic 97–141; BP diastolic 53–76; PULSE 90–116; RESP 16–18; TEMP 36.3–37; O2SAT 95–97
[2024-08-03] MEDS: Pantoprazole Sodium 40 MG/10 ML VIAL IVPUSH ×2 (06:00→16:57)
[2024-08-03 06:38] LABS: MANUAL DIFF FLAG NO
[2024-08-03 06:51] LABS: Basophils Percent Auto 0.3 % (0-2); Eosinophils Absolute Auto 0.3 X10*3/uL (0.0-0.4); Eosinophils Percent Auto 2.8 % (0-4); Hematocrit 24.9 % (42.0-52.0); Hemoglobin 8.5 g/dl (14.0-18.0); Imm Gran Abs Auto 0.08 X10*3/uL (0.00-0.03); Imm Gran Pct Auto 0.7 % (0.0-0.4); Lymphocytes Percent Auto 8.5 % (20-40); Mean Corpuscular HGB Conc 34.1 g/dl (31.0-36.0); Mean Corpuscular Volume 90.9 fL (80.0-98.0); Mean Platelet Volume 9.7 fL (9.4-12.4); Monocytes Absolute Auto 0.8 X10*3/uL (0.1-1.2); Monocytes Percent Auto 6.5 % (2-11); Neutrophils Absolute Auto 9.5 x10*3/uL (2.0-8.3); Neutrophils Percent Auto 81.2 % (45-73); Platelet Count 249 X10*3/uL (160-400); Red Blood Count 2.74 X10*6/uL (4.60-5.80); White Blood Count 11.7 X10*3/uL (4.8-10.8)
[2024-08-03 07:06] LABS: Anion Gap 10 (12-20); Blood Urea Nitrogen 21 mg/dL (9-16); Calcium 8.5 mg/dL (8.4-10.2); Carbon Dioxide 22 mmol/L (22-29); Chloride 112 mmol/L (96-108); Creatinine Clr Calc Pharmacy 51.3; Estimated Glomerular Filt Rate > 60; Glucose Fasting 105 mg/dL (60-99); Potassium 3.7 mmol/L (3.3-5.1); Sodium 140 mmol/L (135-145)
[2024-08-03] MEDS: Collagenase Clostridium Hist. 30 GM TUBE 1 APPL TOPICAL (08:07)
[2024-08-03] MEDS: 0.9 % Sodium Chloride Flush 3 ML SYRINGE IVFLUSH ×2 (08:08→16:57)
[2024-08-03 08:13] LABS: Glucose, Whole Blood 103 mg/dL (60-115)
--- NOTE | 2024-08-03 11:06 | MHC.CLN ---
F/U PT WITH INCREASED NUTRITION RISK R/T PRESSURE INJURY PT IS CURRENTLY NPO PREVIOUS PO INTAKE VARIABLE RANGING FROM 25-75% WHEN DIET TO ADVANCE; RECOMMEND RE-STARTING ENSURE MAX BID TO PROMOTE WOUND HEALING SUPP WILL PROVIDE 300KCALS, 60G PROTEIN FOLLOWING FOR DIET ADVANCEMENT
--- NOTE | 2024-08-03 11:18 | HO.PM.IMPN ---
Subjective Subjective Date of Service: 08/03/24 Interval History: seen and examined this morning follow up for KEE, sacral wound Awake, alert, oriented. Review of Systems Review of Systems: Yes all other systems are reviewed and are negative Constitutional Constitutional: Denies chills and Denies fever(s) Cardiovascular Cardiovascular: Denies chest pain, Denies palpitations and Denies dyspnea Respiratory Respiratory: Denies cough and Denies dyspnea Endocrine Endocrine: Denies palpitations Physical Exam Vital Signs: Vital Signs: Last Vital Signs Temp 97.7 F 08/03/24 11:10 Pulse 90 08/03/24 11:10 Resp 18 08/03/24 11:10 BP 118/70 08/03/24 11:10 Pulse Ox 96 08/03/24 11:10 O2 Del Method Room Air 08/03/24 11:10 BMI result Body Mass Index 25.6 Appearing in no acute distress lung sounds are clear to auscultation heart regular rate rhythm, clear S1, S2 positive bowel sounds, abdomen is soft, nontender neuro patient is alert x3, no focal deficits Objective Data Active Medications Acetaminophen (Acetaminophen 325 Mg Tablet) 650 mg PO Q6H PRN PRN Reason: Pain, Mild 1-3,fever,headache Last Admin: 08/01/24 20:30 Dose: 650 mg Documented By: FEDERICO Benztropine Mesylate (Benztropine Mesylate 1 Mg Tablet) 1 mg PO BID [facility] Last Admin: 08/03/24 08:08 Dose: Not Given Documented By: SHARDA Non-Admin Reason: NPO Calcium Carbonate (Calcium Carbonate 750 Mg Tab.Chew) 750 mg PO Q4H PRN PRN Reason: Heartburn Carbidopa/Levodopa (Carbidopa/Levodopa 25/100 Tablet) 1 tab PO BID [facility] Last Admin: 08/03/24 08:09 Dose: Not Given Documented By: SHARDA Non-Admin Reason: NPO Collagenase (Collagenase Clostridium Hist. 30 Gm Tube) 1 appl TOPICAL DAILY [facility]; Protocol Last Admin: 08/03/24 08:07 Dose: 1 appl Documented By: SHARDA Dextrose (Dextrose 50 % 25 Gm/50 Ml Syringe) 25 gm IVPUSH Q15M PRN; Protocol PRN Reason: per Hypoglycemia Standing Ord. Gabapentin (Gabapentin 300 Mg Capsule) 300 mg PO BID [facility] Last Admin: 08/03/24 08:09 Dose: Not Given Documented By: SHARDA Non-Admin Reason: NPO Glucose (Glucose Gel 15 Gm Gel..Gram.) 15 gm PO Q15M PRN; Protocol PRN Reason: per Hypoglycemia Standing Ord. Insulin Human Lispro (Insulin Lispro 100 Unit/Ml 3 Ml Vial) 0 unit SUBCUT QIDACHS [facility]; Protocol Last Admin: 08/03/24 07:51 Dose: Not Given Documented By: SHARDA Non-Admin Reason: NPO Loperamide HCl (Loperamide Hcl 2 Mg Capsule) 2 mg PO Q6H PRN PRN Reason: Diarrhea Last Admin: 07/31/24 21:11 Dose: 2 mg Documented By: FEDERICO Magnesium Hydroxide (Milk Of Magnesia 30 Ml Oral.Susp) 30 ml PO DAILY PRN PRN Reason: Constipation Magnesium Oxide (Magnesium Oxide 400 Mg Tablet) 400 mg PO BEDTIME [facility] Last Admin: 08/02/24 21:14 Dose: 400 mg Documented By: AUGUST Melatonin (Melatonin 3 Mg Tablet) 6 mg NG-TUBE BEDTIME PRN PRN Reason: Insomnia Last Admin: 08/02/24 21:18 Dose: 6 mg Documented By: AUGUST Metoprolol Tartrate (Metoprolol Tartrate 50 Mg Tablet) 50 mg PO BID [facility] Pantoprazole Sodium (Pantoprazole Sodium 40 Mg/10 Ml Vial) 40 mg IVPUSH BID@0630,1630 [facility] Last Admin: 08/03/24 06:00 Dose: 40 mg Documented By: AUGUST Potassium Chloride (Potassium Chloride Packet 20 Meq Packet) 40 meq PO DAILY [facility] Last Admin: 08/03/24 08:09 Dose: Not Given Documented By: SHARDA Non-Admin Reason: NPO Risperidone (Risperidone 2 Mg Tablet) 2 mg PO BID [facility] Last Admin: 08/03/24 08:09 Dose: Not Given Documented By: SHARDA Non-Admin Reason: NPO Sodium Chloride (0.9 % Sodium Chloride Flush 3 Ml Syringe) 3 ml IVFLUSH QSHIFT [facility] Last Admin: 08/03/24 08:08 Dose: 3 ml Documented By: SHARDA Valsartan (Valsartan 40 Mg Tablet) 40 mg PO BEDTIME [facility]; Protocol Labs 08/03/24 06:28 08/03/24 06:28 Labs: Laboratory Results - last 24 hr 08/02/24 08/02/24 08/02/24 11:35 16:44 20:52 MCV MCH MCHC RDW Plt Count MPV Immature Gran % (Auto) Neut % (Auto) Lymph % (Auto) [place] % (Auto) Eos % (Auto) Baso % (Auto) Lymph # (Auto) [place] # (Auto) Eos # (Auto) Baso # (Auto) Abs Immat Gran (auto) Absolute Neuts (auto) Absolute Nucleated RBC Nucleated RBC % (auto) Anion Gap Estim Creat Clear Calc Estimated GFR POC Glucose 151 H 99 126 H Fasting Glucose Calcium 08/03/24 08/03/24 06:28 07:18 MCV 90.9 MCH 31.0 MCHC 34.1 RDW 13.0 Plt Count 249 MPV 9.7 Immature Gran % (Auto) 0.7 H Neut % (Auto) 81.2 H Lymph % (Auto) 8.5 L [place] % (Auto) 6.5 Eos % (Auto) 2.8 Baso % (Auto) 0.3 Lymph # (Auto) 1.0 L [place] # (Auto) 0.8 Eos # (Auto) 0.3 Baso # (Auto) 0.0 Abs Immat Gran (auto) 0.08 H Absolute Neuts (auto) 9.5 H Absolute Nucleated RBC 0.000 Nucleated RBC % (auto) 0.0 Anion Gap 10 L Estim Creat Clear Calc 51.3 Estimated GFR > 60 POC Glucose 103 Fasting Glucose 105 H Calcium 8.5 Assessment and Plan (1) Unstageable decubitus ulcer: Status: Acute (2) Acute kidney injury: Status: Acute Plan 69-year-old male with a history of paroxysmal atrial fibrillation, dizziness, paranoid schizophrenia, bipolar disorder, anxiety, insomnia, Parkinson's disease, GERD with esophagitis, hypercholesterolemia, hypertension, diabetes mellitus who was brought to emergency department by ambulance for evaluation of fall into bath tub. The patient can not recount details of why he was in the bathtub with all of his clothes on . Patient has two brothers that visit him on Wednesdays and Saturdays. The Saturday brother did visit him and he appeared well. His Saturday brother found him fully clothed in the bath tub complaining of feeling very thirsty and needing to see a doctor. In the emergency room, workup consistent with acute kidney injury along with rhabdomyolysis and hypothermia Acute on chronic anemia heme + dark stools H/H stable hold eliquis ct showing proctitis , repeat cdiff neg GI consult> EGD today Acute kidney injury with acidosis Acidosis resolved. s/p bicarb drip, D5LR Renal function improving, creatinine down to 1.5. Baseline creat 0.74 nephrology following Rhabdomyolysis secondary to fall CPK's trended down Acute metabolic encephalopathy (likely) ?due to KEE/acute illness/hospitalization UC negative. BC negative thus far seen by neurology, EEG did show diffuse slowing typically seen with encephalopathy but also right parietal irritability, Rec gabapentin 300 mg b.i.d.. Avoid Depakote due to transaminitis repeat EEG done 07/30 Generalized slowing with no evidence of epileptic discharges as previously seen. ct brain showing generalized cerebral and cerebellar atrophy-probable baseline cognitive dysfunction (family reports chronic dizziness) Acute hypokalemia. Resolved Potassium depletion in the setting of poor p.o. intake and acute diarrhea Acute diarrhea. Resolved GI panel and C diff PCR negative imodium prn Acute hypotension. Resolved Likely iatrogenic, not severe sepsis. Resolved with IVF Hold antihypertensives (valsartan, metoprolol on hold) bp has been controlled off meds Dysphagia likely from Parkinsons r/t lapse in sinemet NG tube removed, speech following, diet advanced to NDD 3 diet 07/30 Decubitus ulcers- present on admission Unstageable ulceration sacrum and L shoulder Offloading and reposition. Wound care General surgery input appreciated. No indication for urgent debridement at this time. Monitor for any eschar/necrotic tissue Paroxysmal atrial fibrillation- rate controlled currently sinus rhythm with PACs Metoprolol on hold for previous episode of hypotension resume Eliquis Parkinson's disease/mood continue Sinemet,Cogentin, risperdal follow clinical response Diabetes type 2 lispro correctional scale hold metformin seen by speech, started on diet adjust as indicated Elevated LFTs RUQ us cholelithiasis without cholecystitis. no abdominal pain Hepatitis panel negative ?due to hypotension/rhabdo Trending down statin on hold Hypothermia resolved Full code Eliquis HCP is brother Blanco pt -rec STR dispo str Require ongoing hospitalization for IV volume repletion , acute kidney injury and specialty consultation Quality Stroke Does the patient have a stroke diagnosis?: No VTE Prior VTE?: No VTE Risk Level:: Medical - moderate - high VTE Device Contraindication: Treatment Not Indicated VTE Drug Contraindication: N/A - Med Ordered
[2024-08-03 11:48] LABS: Glucose, Whole Blood 99 mg/dL (60-115)
--- NOTE | 2024-08-03 13:15 | MHC.CM.PN ---
PT NOT YET MEDICALLY CLEARED. DCP: STR AT [facility], THEY HAVE BEEN UPDATED VIA [facility]
[2024-08-03 14:15] LABS: Glucose, Whole Blood 92 mg/dL (60-115)
--- NOTE | 2024-08-03 15:10 | MHC.SLORD ---
Speech Language Pathology Order Status: Pt at surgery this afternoon, MATERIAL HANDLER to see pt tomorrow.
--- NOTE | 2024-08-03 16:15 | P.BOP_ITS ---
Brief Operative Note Date of Service: 08/03/24 Pre-op diagnosis: UGI Bleed Post-op diagnosis: other (Large duodenal ulcer, erosive gastritis, and esophagitis) Procedure: EGD with biopsies Surgeon: Carlos Alberto Gaona MD Anesthesia: MAC Was an Director Of Primary used for this Procedure?: No Estimated blood loss (mL): 2.0 Pathology: other (A. Descending duodenum B. Gastric antrum) Condition: stable Disposition: PACU
--- NOTE | 2024-08-03 16:16 | PM.EVENT ---
Event Note Date of Service: 08/03/24 Event Note: GI-Full note dictated EGD 1. Large duodenal bulb ulcer but without bleeding 2. Bx taken from descending duodenum 3. Erosive gastritis, biopsied x 3 4. Erosive esophagitis with associated hiatal hernia Rec: Hold Eliquis for 2 weeks. Advance diet. Continue IV PPI x 48 hours and then begin 40mg omeprazole BID for 1 month, and then daily detention. Avoid all aspirin and NSAIDs detention. Time Spent With Patient Time: Total time managing care of this patient today ____ minutes.
[2024-08-03 18:02] LABS: Glucose, Whole Blood 98 mg/dL (60-115)
[2024-08-03] MEDS: risperiDONE 2 MG TABLET PO (20:13)
[2024-08-03] MEDS: Benztropine Mesylate 1 MG TABLET PO (20:13)
[2024-08-03] MEDS: Valsartan 40 MG TABLET PO (20:13)
[2024-08-03] MEDS: Carbidopa/Levodopa 25/100 TABLET 1 TAB PO (20:13)
[2024-08-03] MEDS: Gabapentin 300 MG CAPSULE PO (20:13)
[2024-08-03] MEDS: Magnesium Oxide 400 MG TABLET PO (20:13)
[2024-08-03] MEDS: Metoprolol Tartrate 50 MG TABLET PO (20:13)
[2024-08-03 22:27] LABS: Glucose, Whole Blood 221 mg/dL (60-115)
[2024-08-04] MEDS: 0.9 % Sodium Chloride Flush 3 ML SYRINGE IVFLUSH ×2 (00:10→08:05)
[2024-08-04 03:32] VITALS: BP 124/67; PULSE 93; RESP 16; TEMP 36.8; O2SAT 99
--- NOTE | 2024-08-04 03:50 | OP_ITS ---
DATE OF SERVICE: 08/03/2024 SURGEON: Carlos Alberto Gaona MD INDICATIONS: The patient presents for evaluation of upper GI bleeding with associated melena and anemia. Full consent obtained from the patient and his brother, Blanco, including risks of bleeding and perforation. PREOPERATIVE DIAGNOSIS: Upper gastrointestinal bleeding. POSTOPERATIVE DIAGNOSIS: PROCEDURE PERFORMED: Esophagogastroduodenoscopy with biopsies. ESTIMATED BLOOD LOSS: COMPLICATIONS: ANESTHESIA: Medication used, monitored anesthesia care. ASSISTANTS: SPECIMENS: POSTOPERATIVE DIAGNOSES: Upper gastrointestinal bleeding, large duodenal ulcer, erosive gastritis, erosive esophagitis, hiatal hernia, rule out celiac disease. DESCRIPTION OF PROCEDURE: The patient was placed in the left lateral decubitus position. The Olympus video gastroscope was passed in the posterior oropharynx and upper esophagus under direct vision. The scope was passed slowly to the distal esophagus. The gastroesophageal junction appeared at 36 cm. Extending from this for approximately 4-5 cm were areas of erosions and some linear ulcerations in the esophagus consistent with reflux esophagitis. There was no mass nor stricture. The scope entered the stomach. There was a small hiatal hernia. The scope was advanced to pylorus and the duodenum was cannulated to the descending portion.The scope was withdrawn slowly back into the duodenal bulb. This area was notable for a large ulcer encompassing approximately 50% of the duodenal bulb circumference and extending from the mid duodenal bulb to the very proximal 2nd portion of duodenum. There was no sign of any stricture. The 2nd and 3rd portions of duodenum otherwise appeared normal. Biopsies were obtained from there to inspect for celiac disease as had been suggested on his previous GI series he had. The area of the large duodenal bulb ulcer was carefully inspected. The base of the ulcer did not have any sign of visible vessel nor bleeding. The margins were somewhat friable. The scope was withdrawn back to the stomach. The gastric antrum had areas of some erosive gastritis but no ulceration or mass. There was good peristalsis. Biopsies were obtained from the gastric antrum. The scope was retroflexed visualizing the proximal stomach carefully which appeared normal, without any sign of mass or ulceration. The scope was straightened and withdrawn back in the esophagus. Again, noted was the hiatal hernia and esophagitis. The scope was withdrawn from the patient. He tolerated the procedure well and was returned to recovery area in stable condition. IMPRESSION: 1. Large duodenal bulb ulcer. 2. Rule out celiac disease. 3. Erosive gastritis, rule out H pylori. 4. Erosive esophagitis with associated hiatal hernia. PLAN: At this point, the patient has been stable in regard to his recent GI bleeding. I would continue to hold the Eliquis for at least 2 weeks total in time. I would advance his diet over the next 24-48 hours. I would continue his IV PPI for another 48 hours at least and then begin 40 mg omeprazole b.i.d. for 1 month. After 1 month of the b.i.d. omeprazole, I think he should use it daily terminal carman. He should avoid all aspirin and NSAIDs long-term. If H pylori is present in the gastric biopsies, we would most likely want to treat that given the finding of the large duodenal ulcer. This has all been discussed with his brother, Blanco in detail as well. MD JAKE Fisher/[place] / [phone] MTDD
[2024-08-04 07:44] VITALS: BP 154/83; PULSE 100; RESP 16; TEMP 37.1; O2SAT 97
[2024-08-04 07:57] LABS: Glucose, Whole Blood 114 mg/dL (60-115)
[2024-08-04] MEDS: Carbidopa/Levodopa 25/100 TABLET 1 TAB PO (08:05)
[2024-08-04] MEDS: Metoprolol Tartrate 50 MG TABLET PO (08:05)
[2024-08-04] MEDS: Gabapentin 300 MG CAPSULE PO (08:05)
[2024-08-04] MEDS: Potassium Chloride Packet 20 MEQ PACKET 40 MEQ PO (08:05)
[2024-08-04] MEDS: risperiDONE 2 MG TABLET PO (08:05)
[2024-08-04] MEDS: Benztropine Mesylate 1 MG TABLET PO (08:05)
[2024-08-04 08:20] LABS: MANUAL DIFF FLAG NO
[2024-08-04 08:28] LABS: Basophils Percent Auto 0.2 % (0-2); Eosinophils Absolute Auto 0.2 X10*3/uL (0.0-0.4); Eosinophils Percent Auto 1.8 % (0-4); Hematocrit 23.9 % (42.0-52.0); Hemoglobin 8.3 g/dl (14.0-18.0); Imm Gran Abs Auto 0.06 X10*3/uL (0.00-0.03); Imm Gran Pct Auto 0.5 % (0.0-0.4); Lymphocytes Absolute Auto 0.9 X10*3/uL (1.2-4.9); Mean Corpuscular HGB Conc 34.7 g/dl (31.0-36.0); Mean Corpuscular Hemoglobin 31.3 pg (27.0-33.0); Mean Corpuscular Volume 90.2 fL (80.0-98.0); Mean Platelet Volume 10.1 fL (9.4-12.4); Monocytes Absolute Auto 0.8 X10*3/uL (0.1-1.2); Neutrophils Absolute Auto 11.1 x10*3/uL (2.0-8.3); Neutrophils Percent Auto 84.5 % (45-73); Platelet Count 293 X10*3/uL (160-400); Red Blood Count 2.65 X10*6/uL (4.60-5.80); White Blood Count 13.1 X10*3/uL (4.8-10.8)
--- NOTE | 2024-08-04 09:54 | HO.POSTANES ---
Post Anesthesia Evaluation Post Anesthesia Evaluation Date of Service: 08/04/24 Vital Signs: Vital Signs Temp Pulse Resp BP Pulse Ox O2 Del Method 08/04/24 07:44 98.7 F 100 16 154/83 H 97 Room Air 08/04/24 03:32 98.2 F 93 16 124/67 99 Room Air 08/03/24 23:19 98.4 F 104 H 16 118/60 97 Room Air Anesthesia: Monitored Mental Status: Awake Pain Control: Satisfactory Nausea/Vomiting: None Hydration: Adequate Anesthesia-Related Issues: No Anes. Related Issues
--- NOTE | 2024-08-04 10:33 | MHC.CM.PN ---
Patient is medically cleared for dc to SNF/STR today. Patient will dc to [facility] today at 1PM, via [facility]. Patient/Brother/HCP/Blanco([phone]) and his /Radha ([phone])are aware of and in agreement with the dc plan.
--- NOTE | 2024-08-04 10:59 | P.DS_ITS ---
<Statement entered by Sascha Salazar MD - 08/04/24 12:52> [facility] DS: Providers Provider Date of Service: 08/04/24 Date of admission: 07/26/24 16:19 Date of discharge: 08/04/24 Primary care physician: Lavon Roca MD Consults: 07/27/24 07:22 Consult to Nephrology Routine Consulting Provider: [facility] Reason for consultation: KEE w/Rhabdo Has provider been notified: Yes 07/27/24 12:14 Consult to Wound Care Routine Reason for consultation: Wounds to sacrum and L shoulder Has provider been notified: Yes 07/28/24 13:45 Consult to General Surgery Routine Consulting Provider: [facility] Reason for consultation: unstageable wound sacrum 07/31/24 12:02 Consult to Gastroenterology Routine Consulting Provider: Carlos Alberto Gaona Reason for consultation: anemia, dark stools, heme +on eliquis Has provider been notified: No 08/01/24 15:36 Consult to Wound Care Routine Reason for consultation: small wound to left knee DS: Diagnosis Discharge Diagnosis (1) Unstageable decubitus ulcer: Status: Acute (2) Acute kidney injury: Status: Acute DS: Summary Hospital Course Hospital Course: History and physical as per admitting provider. 69-year-old male with a history of paroxysmal atrial fibrillation, dizziness, paranoid schizophrenia, bipolar disorder, anxiety, insomnia, Parkinson's disease, GERD with esophagitis, hypercholesterolemia, hypertension, diabetes mellitus who was brought to emergency department by ambulance for evaluation of fall into bath tub. The patient can not recount details of why he was in the bathtub with all of his clothes on clothes. Patient has two brothers that visit him on Wednesdays and Saturdays. The Saturday brother did visit him and he appeared well . His Saturday brother found him fully clothed in the bath tub complaining of feeling very thirsty and needing to see a doctor. Brother estimates patient has been without medicine at least 5 days ER Course In the emergency room, CT of the shoulder cervical spine and head failed to demonstrate any acute abnormalities. [place] [address] without focal evidence of infection. Noted to be in acute kidney injury with rhabdomyolysis. Admission requested 69-year-old man treated for acute on chronic anemia with heme-positive dark stools on Eliquis. CT initially showing proctitis, C diff negative. Seen and evaluated by Gastroenterology and is status post EGD on 08/03/2024 showing large duodenal bulb ulcer without bleeding, erosive gastritis, erosive esophagitis with hiatal hernia. Biopsies taken. Plan is to hold Eliquis for 2 weeks, omeprazole 40 mg twice a day for 1 month then daily, avoid aspirin and NSAIDs long-term. Acute injury with acidosis. Status post bicarb drip, D5 LR. Renal function improved, acidosis resolved. Creatinine at baseline Rhabdomyolysis. Secondary to fall CPK trended down. Acute metabolic encephalopathy likely secondary to fall, KEE, rhabdomyolysis. Urine and blood cultures remained negative. Seen and evaluated by Neurology, had EEG which did show diffuse slowing typically seen with encephalopathy. Gabapentin 300 mg twice daily was recommended, avoid Depakote secondary to transaminitis. Acute hypokalemia. Repleted and resolved Acute diarrhea. GI panel and C diff negative. Imodium p.r.n. Acute hypotension, likely iatrogenic not secondary to sepsis. Resolved with IV fluids, antihypertensive initially held but re-initiated with normalization of blood pressure. Dysphagia. Secondary to Parkinson's disease. NG tube removed, diet advanced to NDD 3 Decubitus ulcer. Present on admission likely secondary to fall and time down. Unstageable ulceration to the sacrum and left shoulder. Offloading and reposition DM2 continue all other meds. Topical recommendations updated: 1. Turn and Reposition every 2 hours and as needed for patient comfort.? Use pillows or wedges to support off loading positions. 2. Off Load all bony prominences with use of pillows and heel boots if needed.? Apply Preventative foams where needed. ? 3. Monitor for incontinence and moisture control, use barrier creams when needed for prevention and treatment. 4. Provide adequate and supplemental nutrition.? 5. Continue low air loss mattress. 6. When applicable maintain blood glucose levels per Providers order. 7. Sacrum and Left Back / Shoulder - Off Load Pressure with Q2 hr turns and use of pillows - . Cleanse with normal saline, pat dry. ?Apply barrier to the immediate solomon wound, apply thick layer of Santyl to entire wound bed, cover with saline moist gauze, cover with dry gauze, ABD pad and gauze wrap, change Daily. 8. Right Elbow - Apply skin prep allow to dry cover with foam dressing change every 3 days and PRN. Less than 30 day stay Time Attestation Discharge Coordination Time (in mins): 45 Quality: Safe Use of Opioids Does Pt have an Active Cancer Diagnosis on the Problem List?: No Quality: Stroke Does the patient have a stroke diagnosis?: No Physical Exam Vital Signs: Vital Signs: Last Vital Signs Temp 98.7 F 08/04/24 07:44 Pulse 100 08/04/24 07:44 Resp 16 08/04/24 07:44 BP 154/83 H 08/04/24 07:44 Pulse Ox 97 08/04/24 07:44 O2 Del Method Room Air 08/04/24 07:44 BMI result Body Mass Index 25.6 Appearing in no acute distress head is normocephalic atraumatic eyes pupils are PERRLA sclera is anicteric mouth throat mucous membranes are intact and moist neck is supple no lymphadenopathy, no JVD noted lung sounds are clear to auscultation heart regular rate rhythm, clear S1, S2 positive bowel sounds, abdomen is soft, nontender neuro patient is alert x3, no focal deficits DS: Data Data Completed and Pending Pending studies at discharge: Pending at discharge 08/03/24 16:04 Surgical [PTH] Routine Labs on day of discharge: Laboratory Results - last 24 hr 08/03/24 08/03/24 08/03/24 11:07 14:01 16:51 WBC RBC Hgb Hct MCV MCH MCHC RDW Plt Count MPV Immature Gran % (Auto) Neut % (Auto) Lymph % (Auto) [place] % (Auto) Eos % (Auto) Baso % (Auto) Lymph # (Auto) [place] # (Auto) Eos # (Auto) Baso # (Auto) Abs Immat Gran (auto) Absolute Neuts (auto) Absolute Nucleated RBC Nucleated RBC % (auto) POC Glucose 99 92 98 08/03/24 08/04/24 08/04/24 21:49 07:09 07:52 WBC 13.1 H RBC 2.65 L Hgb 8.3 L Hct 23.9 L MCV 90.2 MCH 31.3 MCHC 34.7 RDW 13.0 Plt Count 293 MPV 10.1 Immature Gran % (Auto) 0.5 H Neut % (Auto) 84.5 H Lymph % (Auto) 7.0 L [place] % (Auto) 6.0 Eos % (Auto) 1.8 Baso % (Auto) 0.2 Lymph # (Auto) 0.9 L [place] # (Auto) 0.8 Eos # (Auto) 0.2 Baso # (Auto) 0.0 Abs Immat Gran (auto) 0.06 H Absolute Neuts (auto) 11.1 H Absolute Nucleated RBC 0.000 Nucleated RBC % (auto) 0.0 POC Glucose 221 H 114 Discharge Plan Discharge Anticipated Discharge Date/Time: 08/04/24 11:08 Patient Disposition: Xfer SNF Discharge Diagnosis: Acute on chronic anemia Acute kidney injury with acidosis Rhabdomyolysis Fall Acute metabolic encephalopathy Acute hypokalemia Acute diarrhea Acute hypotension Dysphagia Decubitus ulcer Paroxysmal atrial fibrillation Referrals: [facility] [Outside] - 1 Week Lavon Roca MD [Primary Care Provider] - 1 Week Discharge Medications: New metoprolol tartrate 50 mg Tablet 50 mg PO BID Qty: 60 0RF gabapentin 300 mg Capsule 300 mg PO BID Qty: 60 0RF Santyl 250 unit/gram Ointment 1 appl topical DAILY Qty: 15 0RF Protocol: Apply to: Apply to: sacral decubitus ulcer omeprazole 40 mg capsule,delayed release(DR/EC) 40 mg PO BID Qty: 60 0RF Continued metformin 1,000 mg tablet 1,000 mg PO BID Qty: 180 0RF multivitamin Tablet 1 tab PO DAILY eplerenone 25 mg tablet 12.5 mg PO DAILY magnesium oxide 400 mg magnesium tablet 400 mg PO BEDTIME atorvastatin 20 mg tablet 20 mg PO BEDTIME valsartan 40 mg tablet 40 mg PO BEDTIME clonazepam 0.5 mg tablet 0.5 mg PO BEDTIME (DME) blood pressure monitor Kit See Rx Instructions .Route Qty: 1 0RF Rx Instructions: As directed carbidopa-levodopa 25-100 mg tablet 1 tab PO BID benztropine 1 mg tablet 1 mg PO BID melatonin 5 mg capsule 5 mg PO BEDTIME risperidone [Risperdal] 2 mg tablet 2 mg PO BID Held Eliquis 5 mg tablet 5 mg PO BID 90 Days Qty: 180 3RF Hold Instructions: Resume on 08/17/24. Discontinued metoprolol succinate [Toprol XL] 50 mg tablet extended release 24 hr 100 mg PO DAILY Discharge Orders: Discharge Order (Routine); Ordered 08/04/24 Ordered By: Emily Holman Diet: Advance to usual diet Activity on Discharge: As tolerated Stand Alone Forms: Patient Portal Discharge page Print Language: Stateless Activity Restrictions/Additional Instructions: 1. Turn and Reposition every 2 hours and as needed for patient comfort.? Use pillows or wedges to support off loading positions. 2. Off Load all bony prominences with use of pillows and heel boots if needed.? Apply Preventative foams where needed. ? 3. Monitor for incontinence and moisture control, use barrier creams when needed for prevention and treatment. 4. Provide adequate and supplemental nutrition.? 5. Continue low air loss mattress. 6. When applicable maintain blood glucose levels per Providers order. 7. Sacrum and Left Back / Shoulder - Off Load Pressure with Q2 hr turns and use of pillows - . Cleanse with normal saline, pat dry. ?Apply barrier to the immediate solomon wound, apply thick layer of Santyl to entire wound bed, cover with saline moist gauze, cover with dry gauze, ABD pad and gauze wrap, change Daily. 8. Right Elbow - Apply skin prep allow to dry cover with foam dressing change every 3 days and PRN. Care Plan Goals: Transfer to care facility. Hold Eliquis for 2 weeks Omeprazole 40 mg twice daily for 30 days then 40 mg daily Health Concerns: Acute on chronic anemia Acute kidney injury with acidosis Rhabdomyolysis Fall Acute metabolic encephalopathy Acute hypokalemia Acute diarrhea Acute hypotension Dysphagia Decubitus ulcer Paroxysmal atrial fibrillation Plan of Treatment: Follow-up with primary care provider as needed Take all medications as prescribed Assessment: See discharge summary
[2024-08-04 11:50] LABS: Glucose, Whole Blood 113 mg/dL (60-115)
[2024-08-04 12:00] VITALS: BP 134/73; PULSE 85; RESP 16; TEMP 36.5; O2SAT 96
== END 2024-08-04 13:23 | disposition skilled nursing facility (03) | DRG 564 ==
LOC: HO.ED 12:58 → HO.EDOVER 16:39 → HO.IMC 07-27 08:06
PROVIDERS: Internal Medicine; Physician Assistant; Physician Assistant Medical; Admitting Provider Hospitalist; Emergency Provider Emergency Medicine Emergency Medical Services; PCP Internal Medicine; Visit Provider Nurse Practitioner Acute Care
PROC: 0DJ08ZZ Inspection of Upper Intestinal Tract, Via Natural or Artificial Opening Endoscopic (ICD-10-PCS; CPT 43235; principal; 2024-08-03 15:00)
DX: T79.6XXA Traumatic ischemia of muscle, initial encounter (principal); G93.41 Metabolic encephalopathy; K26.4 Chronic or unspecified duodenal ulcer with hemorrhage; K29.61 Other gastritis with bleeding; K20.91 Esophagitis, unspecified with bleeding; L03.312 Cellulitis of back [any part except buttock and flank]; E87.6 Hypokalemia; D64.9 Anemia, unspecified; L89.890 Pressure ulcer of other site, unstageable; I48.0 Paroxysmal atrial fibrillation; I95.9 Hypotension, unspecified; E11.9 Type 2 diabetes mellitus without complications; T42.8X6A Underdosing of antiparkinsonism drugs and other central muscle-tone depressants, initial encounter; W19.XXXA Unspecified fall, initial encounter; Z20.822 Contact with and (suspected) exposure to COVID-19; K44.9 Diaphragmatic hernia without obstruction or gangrene; T68.XXXA Hypothermia, initial encounter; G20.A1 Parkinson's disease without dyskinesia, without mention of fluctuations; L89.150 Pressure ulcer of sacral region, unstageable; R13.10 Dysphagia, unspecified; Z79.01 Long term (current) use of anticoagulants; Z79.899 Other long term (current) drug therapy
CPT/HCPCS: 0241U; 36415; 70450; 71045; 72125; 72192; 73030; 73200; 74018; 76705; 80048; 80053; 80076; 80202; 81001; 82140; 82248; 82272; 82550; 82803; 82947; 83605; 83735; 84443; 84484; 85014; 85018; 85025; 85027; 85610; 85652; 85730; 86140; 86704; 86706; 86709; 86803; 86850; 86900; 86901; 87040; 87086; 87340; 87493; 87507; 88305; 88313; 88342; 92526; 92610; 93005; 95816; 97110; 97162; 97530; 99285; J2003; J2470; J2543; J2704; J3370; J3371; J3475; J7120; P9047

== ENCOUNTER → 2024-07-26 12:07 | Outpatient (BNV) | payer OTHER, SELFPAY | PROVIDERS: Emergency Provider Emergency Medicine Emergency Medical Services; PCP Internal Medicine; Visit Provider Radiology Diagnostic Radiology | DX: K80.80 Other cholelithiasis without obstruction (principal); M54.2 Cervicalgia; S49.91XA Unspecified injury of right shoulder and upper arm, initial encounter; R51.9 Headache, unspecified; Z45.02 Encounter for adjustment and management of automatic implantable cardiac defibrillator | CPT/HCPCS: 70450; 71045; 72125; 73030; 73200; 76705 ==

== ENCOUNTER → 2024-07-26 12:07 | Outpatient (BNV) | payer OTHER, SELFPAY | PROVIDERS: Admitting Provider Hospitalist; Emergency Provider Emergency Medicine Emergency Medical Services; PCP Internal Medicine; Visit Provider Internal Medicine Cardiovascular Disease | DX: R00.0 Tachycardia, unspecified (principal); R53.1 Weakness | CPT/HCPCS: 93010 ==

== ENCOUNTER 2024-07-26 16:19 | Outpatient (BNV) | payer OTHER, SELFPAY | END 2024-07-27 16:42 | PROVIDERS: Admitting Provider Hospitalist; Emergency Provider Emergency Medicine Emergency Medical Services; PCP Internal Medicine; Visit Provider Radiology Diagnostic Radiology | DX: Z45.02 Encounter for adjustment and management of automatic implantable cardiac defibrillator (principal) | CPT/HCPCS: 71045 ==

== ENCOUNTER 2024-07-26 16:19 | Outpatient (BNV) | payer OTHER, SELFPAY | END 2024-07-28 16:55 | PROVIDERS: Admitting Provider Hospitalist; Emergency Provider Emergency Medicine Emergency Medical Services; PCP Internal Medicine; Visit Provider Internal Medicine Cardiovascular Disease | DX: I49.3 Ventricular premature depolarization (principal); R94.31 Abnormal electrocardiogram [ECG] [EKG] | CPT/HCPCS: 93010 ==

== ENCOUNTER 2024-07-26 16:19 | Outpatient (BNV) | payer OTHER, SELFPAY | END 2024-07-28 15:42 | PROVIDERS: Admitting Provider Hospitalist; Emergency Provider Emergency Medicine Emergency Medical Services; PCP Internal Medicine; Visit Provider Radiology Diagnostic Radiology | DX: Z87.821 Personal history of retained foreign body fully removed (principal) | CPT/HCPCS: 74018 ==

== ENCOUNTER 2024-07-26 16:19 | Outpatient (BNV) | payer OTHER, SELFPAY | END 2024-07-29 03:58 | PROVIDERS: Admitting Provider Hospitalist; Emergency Provider Emergency Medicine Emergency Medical Services; PCP Internal Medicine; Visit Provider Radiology Diagnostic Radiology | DX: Z46.59 Encounter for fitting and adjustment of other gastrointestinal appliance and device (principal) | CPT/HCPCS: 71045 ==

== ENCOUNTER 2024-07-26 16:19 | Outpatient (BNV) | payer OTHER, SELFPAY | END 2024-07-30 11:53 | PROVIDERS: Admitting Provider Hospitalist; Emergency Provider Emergency Medicine Emergency Medical Services; PCP Internal Medicine; Visit Provider Radiology Diagnostic Radiology | DX: R60.0 Localized edema (principal) | CPT/HCPCS: 72192 ==

== ENCOUNTER → 2024-07-26 16:19 | Outpatient (BNV) | payer OTHER, SELFPAY | PROVIDERS: Admitting Provider Hospitalist; Emergency Provider Emergency Medicine Emergency Medical Services; PCP Internal Medicine; Visit Provider Internal Medicine Hypertension Specialist | DX: N17.9 Acute kidney failure, unspecified (principal) | CPT/HCPCS: 99223; 99232 ==

== ENCOUNTER → 2024-07-26 16:19 | Outpatient (BNV) | payer OTHER, SELFPAY | PROVIDERS: Admitting Provider Hospitalist; Emergency Provider Emergency Medicine Emergency Medical Services; PCP Internal Medicine; Visit Provider Physician Assistant Surgical | DX: L89.150 Pressure ulcer of sacral region, unstageable (principal); M62.82 Rhabdomyolysis; G92.8 Other toxic encephalopathy | CPT/HCPCS: 99222 ==

== ENCOUNTER → 2024-07-26 16:19 | Outpatient (BNV) | payer OTHER, SELFPAY | PROVIDERS: Admitting Provider Hospitalist; Emergency Provider Emergency Medicine Emergency Medical Services; PCP Internal Medicine; Visit Provider Hospitalist | DX: N17.9 Acute kidney failure, unspecified (principal); T79.6XXA Traumatic ischemia of muscle, initial encounter; I48.0 Paroxysmal atrial fibrillation; G20.B1 Parkinson's disease with dyskinesia, without mention of fluctuations; E11.8 Type 2 diabetes mellitus with unspecified complications; T68.XXXA Hypothermia, initial encounter | CPT/HCPCS: 99223 ==

== ENCOUNTER → 2024-07-26 16:19 | Outpatient (BNV) | payer OTHER, SELFPAY | PROVIDERS: Admitting Provider Hospitalist; Emergency Provider Emergency Medicine Emergency Medical Services; PCP Internal Medicine; Visit Provider Psychiatry & Neurology Neurology | DX: G92.8 Other toxic encephalopathy (principal) | CPT/HCPCS: 99222 ==

== ENCOUNTER 2024-09-01 09:14 | Inpatient (IN) | payer OTHER, SELFPAY ==
[2024-09-01] VITALS (7 sets, daily range): BP systolic 100–123; BP diastolic 55–76; PULSE 83–107; RESP 18–19; TEMP 36.2–37.3; O2SAT 96–100; BMI 21.3
--- NOTE | ~2024-09-01 | CT_ITS ---
EXAMINATION: CT ABDOMEN AND PELVIS WITHOUT CONTRAST CLINICAL INFORMATION: Deep sacral wound. Concerning osteomyelitis. COMPARISON: July 30, 2024. TECHNIQUE: Multidetector volumetric imaging was performed from the superior aspect of the liver through the pubic symphysis. Sagittal and coronal reformatted images were obtained on the technologist's workstation. This CT examination was performed using dose optimization techniques as appropriate, variously including the following: *Automated exposure control *Adjustment of mA and/or kV according to patient size (this includes techniques or standardized protocols for targeted exams where dose is matched to indication/reason for exam; i.e. extremities or head) *Use of iterative reconstruction technique DLP: 489 mGy centimeter. FINDINGS: Inadequate evaluation of the intra-abdominal organs and vascular structures due to lack of IV contrast. LUNG BASES: No acute airspace disease. LIVER, GALLBLADDER, AND BILIARY TREE: Liver measures 12 cm. Probable biliary sludge cholelithiasis without gallbladder distention. No intrahepatic or extrahepatic biliary ductal dilatation.. PANCREAS: No peripancreatic fluid collection or main pancreatic ductal dictation. SPLEEN: 7 cm. ADRENAL GLANDS: Soft tissue fullness without nodular lesion. KIDNEYS AND URETERS: No hydronephrosis or gross nephrolithiasis. BLADDER: There is a Ramirez catheter in a collapsed bladder. GASTROINTESTINAL TRACT: Abundant stool. No intestinal obstruction pattern. No intestinal wall thickening. Appendix is normal. No ascites. No pneumoperitoneum. ABDOMINAL WALL: Small fat-containing umbilical hernia. LYMPH NODES: Nonspecific mildly prominent in the mesentery and retroperitoneum. VASCULAR: Calcified plaques throughout the abdominal aorta wall and iliac arteries, mesenteric arteries, splenic artery, the coronary arteries. PELVIC VISCERA: Inadequate evaluation. OSSEOUS STRUCTURES: There is a large volume skin infiltrated gluteal/presacral coxes breakdown with associated the skin thickening and edema pattern and a focal gas on the medial right gluteal posterior to the right ischium. There is being opening abnormality abuts the margin of the osseous structure with the mild increased density/sclerosis and contour irregularity of the periosteum involving the S4 to the coccyx. Mild multilevel thoracolumbar scoliosis without acute fracture or listhesis. CT/CT abdomen pelvis wo IV con IMPRESSION: Skin laceration with associated edema pattern possible phlegmon/abscess and likely focal osteomyelitis at the S4/coccyx level. Fleischner guidelines were followed. Electronically signed by: Tony Rose MD 09/01/2024 02:29 PM EDT RP
--- NOTE | 2024-09-01 10:03 | ED.WOUNDLAC ---
HPI - Wound/Laceration General Chief Complaint: Wound/Laceration Stated Complaint: PAIN/WORSENING SACRUM WOUNDS, FROM [facility] [place] [facility] Time Seen by Provider: 09/01/24 09:31 Source: EMS Mode of arrival: EMS History of Present Illness HPI narrative: This is a 69 years old the patient sent from they broke alf because increasing decubiti, he was sent here to rule out osteomyelitis. Patient has history of cardiomyopathy AFib diabetes Onset (ago): unknown (Worsening the last 3 days) Location: other ([place]) Place: other ([facility]) Associated symptoms: none Related Data Home Medications ?Medication ?Instructions ?Recorded ?Confirmed clonazepam 0.5 mg tablet 0.5 mg PO BEDTIME Sleep 04/08/20 07/26/24 multivitamin 1 tab PO DAILY 05/15/21 07/26/24 carbidopa 25 mg-levodopa 100 mg 1 tab PO BID 08/02/23 07/26/24 tablet benztropine 1 mg tablet 1 mg PO BID 11/25/23 07/26/24 melatonin 5 mg capsule 5 mg PO BEDTIME 12/16/23 07/26/24 risperidone 2 mg tablet (Risperdal) 2 mg PO BID 06/18/24 07/26/24 atorvastatin 20 mg tablet 20 mg PO BEDTIME 07/26/24 07/26/24 eplerenone 25 mg tablet 12.5 mg PO DAILY 07/26/24 07/26/24 magnesium oxide 400 mg PO BEDTIME 07/26/24 07/26/24 valsartan 40 mg tablet 40 mg PO BEDTIME 07/26/24 07/26/24 Previous Rx's ?Medication ?Instructions ?Recorded blood pressure monitor #1 ea 02/07/21 apixaban 5 mg tablet (Eliquis) 5 mg PO BID 90 days #180 tabs 11/18/23 collagenase clostridium histo. 250 1 appl topical DAILY #15 grams 08/04/24 unit/gram topical ointment (Santyl) gabapentin 300 mg capsule 300 mg PO BID #60 caps 08/04/24 metoprolol tartrate 50 mg tablet 50 mg PO BID #60 tabs 08/04/24 omeprazole 40 mg capsule,delayed 40 mg PO BID #60 caps 08/04/24 release metformin 1,000 mg tablet 1,000 mg PO BID #180 tabs 08/07/24 Allergies Allergy/AdvReac Type Severity Reaction Status Date / Time No Known Allergies Allergy Verified 09/01/24 09:30 [No Known Allergies*] Review of Systems Constitutional: Constitutional: Reports no additional constitutional complaints ENT: Reports system reviewed and no additional complaints, except as documented Cardiovascular: Cardiovascular: Reports no additional cardiovascular complaints Respiratory: Respiratory: Reports no additional respiratory complaints [facility] Past Medical History Attestation statement: The following information was validated with the patient. Medical History Diabetes mellitus type 2, controlled Fall PAF (paroxysmal atrial fibrillation) Dizziness Paranoid schizophrenia Bipolar depression Anxiety Insomnia Constipation Parkinson's disease GERD without esophagitis Hyponatremia Pure hypercholesterolemia Benign essential hypertension Diabetes mellitus Surgical History History of extraction of renal calculus Family History Family History Father Parkinson disease Mother Stomach cancer Social History Social History Household Members: Unknown / Unable to assess Household Members Other:: from home, patient not able to answer questions Housing: Unknown / Unable to assess Alcohol intake: former Patient Tobacco Use Status: Never used Tobacco Smoked in Last 30 Days: No e-Cigarette/Vaping Use: Never Used Use of substances other than those prescribed or required for medical reasons: No Advance Directives: No Advance Directives Information Provided: Yes service: No Current occupational status: retired Cognitive needs: Yes (walker) Hearing needs: No Vision needs: Yes (reading glasses) Physical Exam Vital Signs: Vital Signs: Last Vital Signs Temp 97.1 F 09/01/24 09:22 Pulse 83 09/01/24 09:22 Resp 18 09/01/24 09:22 BP 103/55 L 09/01/24 09:22 Pulse Ox 99 09/01/24 09:22 O2 Del Method Room Air 09/01/24 09:22 BMI result Body Mass Index 21.3 Not toxic appearing Const: General: cooperative Nutritional Appearance: average body habitus Orientation/consciousness: patient oriented x3 Limitations: no limitations HEENT: Head: Yes normal to inspection Face and sinus: Yes normal facial exam Mouth: Normal oral and palatal mucosa present Throat: Yes posterior oropharynx normal Neck: Neck: Yes normal visual inspection Chest: Chest palpation & inspection: normal inspection of the chest Resp: Effort & Inspection: normal respiratory effort Cardio: Jugular venous distension: no JVD Rate: regular rate Rhythm: regular rhythm GI: Inspection: Yes normal to inspection Palpation (GI): Soft to palpation Auscultation: normal bowel sounds : General: Yes no CVA tenderness Back/Spine/Pelvis: Other: Patient has a large ulcer in the sacral area see picture Back: no CVA tenderness Skin: Other: See above large decubitus ulcer Neuro: General: patient oriented x3 Course Reevaluation(s) Reevaluation #1: Case was discussed with surgery Dr. Sauer for possible debridement, case was discussed with the hospitalist Time: 11:54 Medications Administered Generic Name Dose Route Start Last Admin Trade Name Freq PRN Reason Stop Dose Admin Sodium Chloride 1,000 mls @ 999 mls/hr 09/01/24 11:30 09/01/24 11:39 Ns IVCONT 09/01/24 12:30 999 mls/hr .Q1H1M ADRIAN Administration Cefepime HCl 2 gm in 50 mls @ 100 mls/hr 09/01/24 11:26 09/01/24 11:39 Maxipime IV 09/01/24 11:55 100 mls/hr ONCE ONE Administration Medical Decision Making Medical Decision Making [facility] Narrative: Patient is here complaining of large decubitus ulcer sent to rule out osteomyelitis, we will check labs lactic acid white count Differential Diagnosis Differential Diagnoses: The differential diagnosis associated with the presentation includes Decubitus ulcer/infected ulcer Admission/Observation Consideration of admission/observation: Escalation of care including admission/observation considered Consult Healthcare Provider Management of the patient was discussed with: Hospitalist and Procedural Nurse Lab Data [facility] Lab Attestation statement: I reviewed the patient's lab results. 09/01/24 10:37 09/01/24 10:37 Labs: Lab Results 09/01/24 09/01/24 Range/Units 10:36 10:37 WBC 9.1 (4.8-10.8) X10*3/uL RBC 3.15 L (4.60-5.80) X10*6/uL Hgb 9.4 L (14.0-18.0) g/dl Hct 28.4 L (42.0-52.0) % MCV 90.2 (80.0-98.0) fL MCH 29.8 (27.0-33.0) pg MCHC 33.1 (31.0-36.0) g/dl RDW 13.9 (11.0-16.0) % Plt Count 503 H D (160-400) X10*3/uL MPV 9.5 (9.4-12.4) fL Immature Gran % (Auto) 0.4 (0.0-0.4) % Neut % (Auto) 77.3 H (45-73) % Lymph % (Auto) 10.4 L (20-40) % [place] % (Auto) 10.0 (2-11) % Eos % (Auto) 1.4 (0-4) % Baso % (Auto) 0.5 (0-2) % Lymph # (Auto) 1.0 L (1.2-4.9) X10*3/uL [place] # (Auto) 0.9 (0.1-1.2) X10*3/uL Eos # (Auto) 0.1 (0.0-0.4) X10*3/uL Baso # (Auto) 0.1 (0.0-0.2) X10*3/uL Abs Immat Gran (auto) 0.04 H (0.00-0.03) X10*3/uL Absolute Neuts (auto) 7.1 (2.0-8.3) x10*3/uL Absolute Nucleated RBC 0.000 (0.0-0.012) X10*3/uL Nucleated RBC % (auto) 0.0 (0.0-0.2) /100WBC ESR 95 H (0-15) MM/HR Sodium 133 L (135-145) mmol/L Potassium 4.2 (3.3-5.1) mmol/L Chloride 99 (96-108) mmol/L Carbon Dioxide 24 (22-29) mmol/L Anion Gap 14 (12-20) BUN 22 H (9-16) mg/dL Creatinine 0.81 (0.5-1.4) mg/dL Estim Creat Clear Calc 84.1 Estimated GFR > 60 Random Glucose 137 H (60-115) mg/dL Lactic Acid 3.2 H* (0.5-2.0) mmol/L Calcium 9.6 D (8.4-10.2) mg/dL Total Bilirubin 0.4 (0.0-1.0) mg/dL AST 25 (5-37) U/L ALT 14 (0-40) U/L Alkaline Phosphatase 135 H (39-117) U/L Total Protein 6.9 (6.5-8.0) g/dL Albumin 3.4 L (3.5-5.0) g/dL Critical Care Time Critical Care Time Critical Care Time: Yes Total Critical Care Time: 60 Attestation: Infected wound/lactic acidosis consulting surgery Discharge Plan Discharge Clinical Impression: Acidosis, lactic Decubitus ulcer, infected Qualifiers: Pressure injury stage: unstageable Qualified Code(s): L89.95 - Pressure ulcer of unspecified site, unstageable Patient Disposition: Admitted As Inpatient Print Language: Moldovan
--- NOTE | 2024-09-01 10:42 | PC.NURSE ---
upper back and sacral wound dressings removed by provider. Wet to dry packing in place. Wound culture swabs obtained, wet to dry dressings replaced
[2024-09-01 10:48] LABS: MANUAL DIFF FLAG NO
[2024-09-01 10:55] LABS: Basophils Absolute Auto 0.1 X10*3/uL (0.0-0.2); Basophils Percent Auto 0.5 % (0-2); Eosinophils Absolute Auto 0.1 X10*3/uL (0.0-0.4); Eosinophils Percent Auto 1.4 % (0-4); Hematocrit 28.4 % (42.0-52.0); Hemoglobin 9.4 g/dl (14.0-18.0); Imm Gran Abs Auto 0.04 X10*3/uL (0.00-0.03); Imm Gran Pct Auto 0.4 % (0.0-0.4); Lymphocytes Percent Auto 10.4 % (20-40); Mean Corpuscular HGB Conc 33.1 g/dl (31.0-36.0); Mean Corpuscular Hemoglobin 29.8 pg (27.0-33.0); Mean Corpuscular Volume 90.2 fL (80.0-98.0); Mean Platelet Volume 9.5 fL (9.4-12.4); Monocytes Absolute Auto 0.9 X10*3/uL (0.1-1.2); Neutrophils Absolute Auto 7.1 x10*3/uL (2.0-8.3); Neutrophils Percent Auto 77.3 % (45-73); Platelet Count 503 X10*3/uL (160-400); Red Blood Count 3.15 X10*6/uL (4.60-5.80); Red Cell Distribution Width 13.9 % (11.0-16.0); White Blood Count 9.1 X10*3/uL (4.8-10.8)
[2024-09-01 11:07] LABS: Alanine Aminotransferase 14 U/L (0-40); Albumin Level 3.4 g/dL (3.5-5.0); Alkaline Phosphatase 135 U/L (39-117); Anion Gap 14 (12-20); Aspartate Amino Transferase 25 U/L (5-37); Bilirubin Total 0.4 mg/dL (0.0-1.0); Blood Urea Nitrogen 22 mg/dL (9-16); Calcium 9.6 mg/dL (8.4-10.2); Carbon Dioxide 24 mmol/L (22-29); Chloride 99 mmol/L (96-108); Creatinine Clr Calc Pharmacy 84.1; Estimated Glomerular Filt Rate > 60; Glucose Random 137 mg/dL (60-115); Potassium 4.2 mmol/L (3.3-5.1); Sodium 133 mmol/L (135-145); Total Protein 6.9 g/dL (6.5-8.0)
[2024-09-01 11:25] LABS: Lactic Acid 3.2 mmol/L (0.5-2.0)
[2024-09-01 11:31] LABS: Erythrocyte Sedimentation Rate 95 MM/HR (0-15)
--- OUTSIDE RECORDS SUMMARY | 2024-09-01 11:35 | XMS_ITS | Encounter Summary ---
Author Organization [facility] Address [address] [place] [address] Care Team Providers Care Respite Worker Name Role Phone Edwige Mosqueda MD Primary Care Provider [phone] Encounter Details Date Type Department Care Team (Late st Contact Info) Description 08/27/2024 Lab Requisition [facility] - Main Lab [address] [facility] [place] [address] Edwige Mosqueda MD [address] [place], [place] [id number] Anemia, unspecified; Type 2 diabetes mellitus without complications (CMS/HCC V24, CMS/HCC V28); Acute kidney failure, unspecified (CMS/HCC V24) Social History Tobacco Use Types Packs/Day Years Used Date Smoking Tobacco: Never Assessed Sex and Gender Information Value Date Recorded Sex Assigned at Not on file Legal Sex Male 11:00 AM EDT Gender Identity Not on file Sexual Orientation Not on file documented as of this encounter Plan of Treatment Not on file documented as of this encounter Procedures Procedure Name Priority Date/Time Associated Diagnosis Comments COMPLETE BLOOD COUNT Routine 08/28/2024 6:06 AM EDT Anemia, unspecified Type 2 diabetes mellitus without complications (CMS/HCC V24, CMS/HCC V28) Acute kidney failure, unspecified (CMS/HCC V24) BASIC METABOLIC PANEL Routine 08/28/2024 6:06 AM EDT Anemia, unspecified Type 2 diabetes mellitus without complications (CMS/HCC V24, CMS/HCC V28) Acute kidney failure, unspecified (CMS/HCC V24) documented in this encounter Results * Basic metabolic panel (08/28/2024 6:06 AM EDT) Sodium 136 133 - 145 mmol/L LAB CHEMISTRY METHOD 08/28/2024 11:36 AM [facility] Potassium 4.1 3.5 - 5.5 mmol/L LAB CHEMISTRY METHOD 08/28/2024 11:36 AM [facility] Chloride 103 96 - 110 mmol/L LAB CHEMISTRY METHOD 08/28/2024 11:36 AM [facility] CO2 24 21 - 32 mmol/L LAB CHEMISTRY METHOD 08/28/2024 11:36 AM [facility] Anion Gap 9 3 - 11 LAB CHEMISTRY METHOD 08/28/2024 11:36 AM [facility] Glucose 98 70 - 100 mg/dL LAB CHEMISTRY METHOD 08/28/2024 11:36 AM [facility] BUN 19 5 - 25 mg/dL LAB CHEMISTRY METHOD 08/28/2024 11:36 AM [facility] Creatinine 1.04 0.70 - 1.30 mg/dL LAB CHEMISTRY METHOD 08/28/2024 11:36 AM [facility] eGFR 79 >=60 mL/min/1. 73m2 LAB CHEMISTRY METHOD 08/28/2024 11:36 AM [facility] Comment:Calculation based on the??Chronic Kidney Disease Epidemiology Collaboration (CKD-EPI) equation refit??without adjustment for race. BUN/Creatinine Ratio 18.3 LAB CHEMISTRY METHOD 08/28/2024 11:36 AM [facility] Calcium 9.1 8.5 - 10.5 mg/dL LAB CHEMISTRY METHOD 08/28/2024 11:36 AM [facility] Blood Venous blood specimen / Unknown Venipuncture / Unknown 08/28/2024 6:06 AM EDT 08/28/2024 8:52 AM EDT Edwige Mosqueda MD LAB BLOOD ORDERABLES Final Resul t [facility] [address] [place] [address], * (ABNORMAL) Complete blood count (08/28/2024 6:06 AM EDT) [facility] Signature WBC 12.7(H) 4.8 - 10.8 K/mcL LAB HEMETOLOGY METHOD 08/28/2024 9:20 AM EDT [facility] RBC 2.90(L) 4.50 - 5.50 M/mcL LAB HEMETOLOGY METHOD 08/28/2024 9:20 AM EDT [facility] Hemoglobin 8.8(L) 13.5 - 17.5 g/dL LAB HEMETOLOGY METHOD 08/28/2024 9:20 AM EDT [facility] Hematocrit 26.3(L) 42.0 - 54.0 % LAB HEMETOLOGY METHOD 08/28/2024 9:20 AM EDT [facility] MCV 91.0 79.0 - 98.0 FL LAB HEMETOLOGY METHOD 08/28/2024 9:20 AM EDT [facility] MCH 30.4 27.0 - 32.0 pcg LAB HEMETOLOGY METHOD 08/28/2024 9:20 AM EDT [facility] MCHC 33.5 32.0 - 37.0 g/dL LAB HEMETOLOGY METHOD 08/28/2024 9:20 AM EDT [facility] RDW 13.8 11.0 - 15.0 % LAB HEMETOLOGY METHOD 08/28/2024 9:20 AM EDT [facility] Platelets 436(H) 130 - 400 K/mcL LAB HEMETOLOGY METHOD 08/28/2024 9:20 AM EDT [facility] MPV 10.1 7.0 - 11.0 FL LAB HEMETOLOGY METHOD 08/28/2024 9:20 AM EDT [facility] NRBC 0.0 <1.0 % LAB HEMETOLOGY METHOD 08/28/2024 9:20 AM EDT [facility] NRBC Absolute 0.00 <0.10 K/mcL LAB HEMETOLOGY METHOD 08/28/2024 9:20 AM EDT [facility] Blood Venous blood specimen / Unknown Venipuncture / Unknown 08/28/2024 6:06 AM EDT 08/28/2024 8:52 AM EDT us Edwige Mosqueda MD LAB BLOOD ORDERABLES Final Resul t [facility] [address] [place] [address], documented in this encounter Visit Diagnoses Diagnosis Anemia, unspecified Type 2 diabetes mellitus without complications (CMS/HCC V24, CMS/HCC V28) Acute kidney failure, unspecified (CMS/HCC V24) Acute kidney failure, unspecified documented in this encounter Care Teams Respite Worker Relationship Specialty Start Date End Date Edwige Mosqueda MD [address] [place] [address] [address] [place] [address] PCP - General Geriatric Medicine 08/07/24 documented as of this encounter
--- OUTSIDE RECORDS SUMMARY | 2024-09-01 11:35 | XMS_ITS | Clinical Summary ---
Author Organization [address] Address [address] [place] [address] Phone Care Team Providers [employer] Room Operator Name Role Phone Edwige Mosqueda MD Primary Care Provider [phone] Encounters Date Type Department Care Team Description 08/31/2024 Lab Requisition [facility] [address] [place] [phone] Edwige Mosqueda MD Elevated white blood cell count, unspecified 08/27/2024 Lab Requisition [facility] [address] [place] [phone] Edwige Mosqueda MD Anemia, unspecified; Type 2 diabetes mellitus without complications (CMS/HCC V24, CMS/HCC V28); Acute kidney failure, unspecified (CMS/HCC V24) 08/20/2024 Lab Requisition [facility] [address] [place] [phone] Edwige Mosqueda MD Anemia, unspecified; Type 2 diabetes mellitus without complications (CMS/HCC V24, CMS/HCC V28); Acute kidney failure, unspecified (CMS/HCC V24) 08/13/2024 Lab Requisition [facility] [address] [place] [phone] Edwige Mosqueda MD Anemia, unspecified; Type 2 diabetes mellitus without complications (CMS/HCC V24, CMS/HCC V28); Acute kidney failure, unspecified (CMS/HCC V24) 08/07/2024 Lab Requisition [facility] [address] [place] [phone] Edwige Mosqueda MD Anemia, unspecified; Type 2 diabetes mellitus without complications (CMS/HCC V24, CMS/HCC V28); Acute kidney failure, unspecified (CMS/HCC V24); Hyperlipidemia, unspecified; Vitamin D deficiency, unspecified; Magnesium deficiency; Vitamin B12 deficiency anemia, unspecified from Last 3 Months Social History Tobacco Use Types Packs/Day Years Used Date Smoking Tobacco: Never Assessed Sex and Gender Information Value Date Recorded Sex Assigned at Not on file Legal Sex Male 11:00 AM EDT Gender Identity Not on file Sexual Orientation Not on file Plan of Treatment Health Maintenance Due Date Last Done Comments Diabetes: Annual Foot Exam 1967 Diabetes: Annual Retina Eye Exam 1967 DTaP,Tdap,and Td Vaccines (1 - Tdap) 01/13/1976 Pneumococcal Vaccine: 50+ Years (1 of 2 - PCV) 01/13/1976 Zoster Vaccines (1 of 2) 2007 COVID-19 Vaccine ( - season) 2024 Abdominal Aortic Aneurysm (AAA) Screen 08/07/2024 Colorectal Cancer Screening: Colonoscopy 08/07/2024 Depression Screening 08/07/2024 Diabetes: Annual Urine Albumin-Creatinine Ratio (uACR) 08/07/2024 Falls Risk Assessment 08/07/2024 Hepatitis C Screening 08/07/2024 Social Influencers of Health Screening 08/07/2024 Influenza Vaccine (Season Ended) 2025 Diabetes: Blood Sugar Control Test (HGBA1C) 02/06/2025 08/07/2024 Diabetes: Annual GFR (Glomerular Filtration Rate) 08/14/2025 08/28/2024, 08/21/2024, 08/14/2024, Additional history exists Cholesterol Screening (Lipid Panel) 08/07/2029 08/07/2024 RSV Immunization Adult Patients (1 - 1-dose 75+ series) 01/13/2032 HIB Vaccines Aged Out No longer eligi ble based on patient's age to complete this topic HPV Vaccines Aged Out No longer eligi ble based on patient's age to complete this topic Hepatitis A Vaccines Aged Out No long er eligible based on patient's age to complete this topic Hepatitis B Vaccines Aged Out No long er eligible based on patient's age to complete this topic IPV Vaccines Aged Out No longer eligi ble based on patient's age to complete this topic MMR Vaccines Aged Out No longer eligi ble based on patient's age to complete this topic Meningococcal ACWY Vaccine Aged Out N o longer eligible based on patient's age to complete this topic Meningococcal B Vaccine Aged Out No l onger eligible based on patient's age to complete this topic RSV Immunization Patients Under 20 months Aged Out No longer eligible based on patient's age to complete this topic Varicella Vaccines Aged Out No longer eligible based on patient's age to complete this topic Procedures Procedure Name Priority Date/Time Associated Diagnosis Comments COMPLETE BLOOD COUNT Routine 08/31/2024 5:30 AM EDT Elevated white blood cell count, unspecified BASIC METABOLIC PANEL Routine 08/28/2024 6:06 AM EDT Anemia, unspecified Type 2 diabetes mellitus without complications (CMS/HCC V24, CMS/HCC V28) Acute kidney failure, unspecified (CMS/HCC V24) COMPLETE BLOOD COUNT Routine 08/28/2024 6:06 AM EDT Anemia, unspecified Type 2 diabetes mellitus without complications (CMS/HCC V24, CMS/HCC V28) Acute kidney failure, unspecified (CMS/HCC V24) CBC WITH AUTO DIFFERENTIAL Routine 08/21/2024 6:12 AM EDT Anemia, unspecified Type 2 diabetes mellitus without complications (CMS/HCC V24, CMS/HCC V28) Acute kidney failure, unspecified (CMS/HCC V24) BASIC METABOLIC PANEL Routine 08/21/2024 6:12 AM EDT Anemia, unspecified Type 2 diabetes mellitus without complications (CMS/HCC V24, CMS/HCC V28) Acute kidney failure, unspecified (CMS/HCC V24) CBC AND DIFFERENTIAL Routine 08/21/2024 6:12 AM EDT Anemia, unspecified Type 2 diabetes mellitus without complications (CMS/HCC V24, CMS/HCC V28) Acute kidney failure, unspecified (CMS/HCC V24) BASIC METABOLIC PANEL Routine 08/14/2024 6:06 AM EDT Anemia, unspecified Type 2 diabetes mellitus without complications ([facility] V24, [facility] V28) Acute kidney failure, unspecified ([facility] V24) COMPLETE BLOOD COUNT Routine 08/14/2024 6:06 AM EDT Anemia, unspecified Type 2 diabetes mellitus without complications ([facility] V24, [facility] V28) Acute kidney failure, unspecified ([facility] V24) VITAMIN D 25 HYDROXY Routine 08/07/2024 6:15 AM EDT Anemia, unspecified Type 2 diabetes mellitus without complications Acute kidney failure, unspecified ([facility]) Hyperlipidemia, unspecified Vitamin D deficiency, unspecified Magnesium deficiency Vitamin B12 deficiency anemia, unspecified HEMOGLOBIN A1C Routine 08/07/2024 6:15 AM EDT Anemia, unspecified Type 2 diabetes mellitus without complications Acute kidney failure, unspecified ([facility]) Hyperlipidemia, unspecified Vitamin D deficiency, unspecified Magnesium deficiency Vitamin B12 deficiency anemia, unspecified FOLATE Routine 08/07/2024 6:15 AM EDT Anemia, unspecified Type 2 diabetes mellitus without complications Acute kidney failure, unspecified ([facility]) Hyperlipidemia, unspecified Vitamin D deficiency, unspecified Magnesium deficiency Vitamin B12 deficiency anemia, unspecified THYROID STIMULATING HORMONE Routine 08/07/2024 6:15 AM EDT Anemia, unspecified Type 2 diabetes mellitus without complications Acute kidney failure, unspecified ([facility]) Hyperlipidemia, unspecified Vitamin D deficiency, unspecified Magnesium deficiency Vitamin B12 deficiency anemia, unspecified VITAMIN B12 Routine 08/07/2024 6:15 AM EDT Anemia, unspecified Type 2 diabetes mellitus without complications Acute kidney failure, unspecified ([facility]) Hyperlipidemia, unspecified Vitamin D deficiency, unspecified Magnesium deficiency Vitamin B12 deficiency anemia, unspecified MAGNESIUM Routine 08/07/2024 6:15 AM EDT Anemia, unspecified Type 2 diabetes mellitus without complications Acute kidney failure, unspecified ([facility]) Hyperlipidemia, unspecified Vitamin D deficiency, unspecified Magnesium deficiency Vitamin B12 deficiency anemia, unspecified LIPID PANEL WITH REFLEX TO DIRECT LDL Routine 08/07/2024 6:15 AM EDT Anemia, unspecified Type 2 diabetes mellitus without complications Acute kidney failure, unspecified (CMS/HCC) Hyperlipidemia, unspecified Vitamin D deficiency, unspecified Magnesium deficiency Vitamin B12 deficiency anemia, unspecified COMPREHENSIVE METABOLIC PANEL Routine 08/07/2024 6:15 AM EDT Anemia, unspecified Type 2 diabetes mellitus without complications Acute kidney failure, unspecified (CMS/HCC) Hyperlipidemia, unspecified Vitamin D deficiency, unspecified Magnesium deficiency Vitamin B12 deficiency anemia, unspecified COMPLETE BLOOD COUNT Routine 08/07/2024 6:15 AM EDT Anemia, unspecified Type 2 diabetes mellitus without complications Acute kidney failure, unspecified (CMS/HCC) Hyperlipidemia, unspecified Vitamin D deficiency, unspecified Magnesium deficiency Vitamin B12 deficiency anemia, unspecified from Last 3 Months Results * (ABNORMAL) Complete blood count (08/31/2024 5:30 AM EDT) Only the most recent of4 resultswithin the time period is included. WBC 10.7 4.8 - 10.8 K/mcL LAB HEMETOLOGY METHOD 08/31/2024 12:47 PM [facility] RBC 3.10(L) 4.50 - 5.50 M/mcL LAB HEMETOLOGY METHOD 08/31/2024 12:47 PM [facility] Hemoglobin 9.3(L) 13.5 - 17.5 g/dL LAB HEMETOLOGY METHOD 08/31/2024 12:47 PM [facility] Hematocrit 28.1(L) 42.0 - 54.0 % LAB HEMETOLOGY METHOD 08/31/2024 12:47 PM [facility] MCV 91.2 79.0 - 98.0 FL LAB HEMETOLOGY METHOD 08/31/2024 12:47 PM [facility] MCH 30.2 27.0 - 32.0 pcg LAB HEMETOLOGY METHOD 08/31/2024 12:47 PM EDT [facility] MCHC 33.1 32.0 - 37.0 g/dL LAB HEMETOLOGY METHOD 08/31/2024 12:47 PM EDT [facility] RDW 13.7 11.0 - 15.0 % LAB HEMETOLOGY METHOD 08/31/2024 12:47 PM EDT [facility] Platelets 499(H) 130 - 400 K/mcL LAB HEMETOLOGY METHOD 08/31/2024 12:47 PM EDT [facility] MPV 10.0 7.0 - 11.0 FL LAB HEMETOLOGY METHOD 08/31/2024 12:47 PM EDT [facility] NRBC 0.0 <1.0 % LAB HEMETOLOGY METHOD 08/31/2024 12:47 PM EDT [facility] NRBC Absolute 0.00 <0.10 K/mcL LAB HEMETOLOGY METHOD 08/31/2024 12:47 PM EDT [facility] Blood Venous blood specimen / Unknown Venipuncture / Unknown 08/31/2024 5:30 AM EDT 08/31/2024 11:48 AM EDT us Edwige Mosqueda MD LAB BLOOD ORDERABLES Final Resul t [facility] [address] [place] [address], * Basic metabolic panel (08/28/2024 6:06 AM EDT) Only the most recent of3 resultswithin the time period is included. Sodium 136 133 - 145 mmol/L LAB CHEMISTRY METHOD 08/28/2024 11:36 AM EDT [facility] Potassium 4.1 3.5 - 5.5 mmol/L LAB CHEMISTRY METHOD 08/28/2024 11:36 AM [facility] Chloride 103 96 - 110 mmol/L LAB CHEMISTRY METHOD 08/28/2024 11:36 AM [facility] CO2 24 21 - 32 mmol/L LAB CHEMISTRY METHOD 08/28/2024 11:36 AM [facility] Anion Gap 9 3 - 11 LAB CHEMISTRY METHOD 08/28/2024 11:36 AM [facility] Glucose 98 70 - 100 mg/dL LAB CHEMISTRY METHOD 08/28/2024 11:36 AM [facility] BUN 19 5 - 25 mg/dL LAB CHEMISTRY METHOD 08/28/2024 11:36 AM [facility] Creatinine 1.04 0.70 - 1.30 mg/dL LAB CHEMISTRY METHOD 08/28/2024 11:36 AM [facility] eGFR 79 >=60 mL/min/1. 73m2 LAB CHEMISTRY METHOD 08/28/2024 11:36 AM [facility] Comment:Calculation based on the??Chronic Kidney Disease Epidemiology Collaboration (CKD-EPI) equation refit??without adjustment for race. BUN/Creatinine Ratio 18.3 LAB CHEMISTRY METHOD 08/28/2024 11:36 AM [facility] Calcium 9.1 8.5 - 10.5 mg/dL LAB CHEMISTRY METHOD 08/28/2024 11:36 AM [facility] Blood Venous blood specimen / Unknown Venipuncture / Unknown 08/28/2024 6:06 AM EDT 08/28/2024 8:52 AM EDT us Edwige Mosqueda MD LAB BLOOD ORDERABLES Final Resul t [facility] [address] [place] [address], * (ABNORMAL) CBC auto differential (08/21/2024 6:12 AM EDT) [facility] WBC 17.0(H) 4.8 - 10.8 K/mcL LAB HEMETOLOGY METHOD 08/21/2024 10:10 AM [facility] RBC 2.80(L) 4.50 - 5.50 M/mcL LAB HEMETOLOGY METHOD 08/21/2024 10:10 AM [facility] Hemoglobin 8.4(L) 13.5 - 17.5 g/dL LAB HEMETOLOGY METHOD 08/21/2024 10:10 AM [facility] Hematocrit 25.6(L) 42.0 - 54.0 % LAB HEMETOLOGY METHOD 08/21/2024 10:10 AM [facility] MCV 93.1 79.0 - 98.0 FL LAB HEMETOLOGY METHOD 08/21/2024 10:10 AM [facility] MCH 30.5 27.0 - 32.0 pcg LAB HEMETOLOGY METHOD 08/21/2024 10:10 AM [facility] MCHC 32.8 32.0 - 37.0 g/dL LAB HEMETOLOGY METHOD 08/21/2024 10:10 AM [facility] RDW 13.7 11.0 - 15.0 % LAB HEMETOLOGY METHOD 08/21/2024 10:10 AM [facility] Platelets 440(H) 130 - 400 K/mcL LAB HEMETOLOGY METHOD 08/21/2024 10:10 AM [facility] MPV 10.5 7.0 - 11.0 FL LAB HEMETOLOGY METHOD 08/21/2024 10:10 AM [facility] NRBC 0.0 <1.0 % LAB HEMETOLOGY METHOD 08/21/2024 10:10 AM [facility] NRBC Absolute 0.00 <0.10 K/mcL LAB HEMETOLOGY METHOD 08/21/2024 10:10 AM [facility] Neutrophils Relative 83.8 % LAB HEMETOLOGY METHOD 08/21/2024 10:10 AM [facility] Lymphocytes Relative 7.1 % LAB HEMETOLOGY METHOD 08/21/2024 10:10 AM [facility] Monocytes Relative 7.8 % LAB HEMETOLOGY METHOD 08/21/2024 10:10 AM [facility] Eosinophils Relative 0.5 % LAB HEMETOLOGY METHOD 08/21/2024 10:10 AM [facility] Basophils Relative 0.2 % LAB HEMETOLOGY METHOD 08/21/2024 10:10 AM [facility] Immature Granulocytes Relative 0.6 % LAB HEMETOLOGY METHOD 08/21/2024 10:10 AM [facility] Neutrophils Absolute 14.21(H) 1.50 - 7.00 K/mcL LAB HEMETOLOGY METHOD 08/21/2024 10:10 AM [facility] Lymphocytes Absolute 1.20 1.00 - 5.00 K/mcL LAB HEMETOLOGY METHOD 08/21/2024 10:10 AM [facility] Monocytes Absolute 1.32(H) 0.20 - 1.00 K/mcL LAB HEMETOLOGY METHOD 08/21/2024 10:10 AM [facility] Eosinophils Absolute 0.09 0.00 - 0.50 K/mcL LAB HEMETOLOGY METHOD 08/21/2024 10:10 AM [facility] Basophils Absolute 0.04 0.00 - 0.20 K/mcL LAB HEMETOLOGY METHOD 08/21/2024 10:10 AM [facility] Immature Granulocytes Absolute 0.11(H) 0.00 - 0.03 K/mcL LAB HEMETOLOGY METHOD 08/21/2024 10:10 AM EDT [facility] Blood Venous blood specimen / Unknown Venipuncture / Unknown 08/21/2024 6:12 AM EDT 08/21/2024 9:01 AM EDT us Edwige Mosqueda MD LAB BLOOD ORDERABLES Final Resul t [facility] [address] [place] [address], [place] [phone] * (ABNORMAL) Lipid panel with reflex to direct LDL (08/07/2024 6:15 AM EDT) Cholesterol 104 0 - 200 mg/dL LAB CHEMISTRY METHOD 08/07/2024 12:39 PM EDT [facility] Triglycerides 47 0 - 150 mg/dL LAB CHEMISTRY METHOD 08/07/2024 12:39 PM EDT [facility] HDL 32(L) >=40 mg/dL LAB CHEMISTRY METHOD 08/07/2024 12:39 PM EDT [facility] LDL Calculated 63 0 - 100 mg/dL LAB CHEMISTRY METHOD 08/07/2024 12:39 PM EDT [facility] VLDL Cholesterol Alireza 9.4 mg/dL LAB CHEMISTRY METHOD 08/07/2024 12:39 PM T [facility] Non HDL Chol. (LDL+VLDL) 72 <145 mg/dL LAB CHEMISTRY METHOD 08/07/2024 12:39 PM EDT [facility] Chol/HDL Ratio 3.3 0.0 - 4.4 LAB CHEMISTRY METHOD 08/07/2024 12:39 PM T [facility] Blood Venous blood specimen / Unknown Venipuncture / Unknown 08/07/2024 6:15 AM EDT 08/07/2024 11:11 AM EDT us Edwige Mosqueda MD LAB BLOOD ORDERABLES Final Resul t Performing Organization Address City/[facility]/ZIP Co de Phone Number [facility] [address] [place] [address], * (ABNORMAL) Vitamin D 25 hydroxy (08/07/2024 6:15 AM EDT) Vit D, 25-Hydroxy 29.3(L) 30.0 - 80.0 ng/mL LAB CHEMISTRY METHOD 08/07/2024 12:55 PM EDT [facility] Blood Venous blood specimen / Unknown Venipuncture / Unknown 08/07/2024 6:15 AM EDT 08/07/2024 11:11 AM EDT us Edwige Mosqueda MD LAB BLOOD ORDERABLES Final Resul t Performing Organization Address [facility] de Phone Number [facility] [address] [place] [address], * Thyroid stimulating hormone (08/07/2024 6:15 AM EDT) Pathologist [facility] TSH 2.91 0.40 - 4.00 mcIU/mL LAB CHEMISTRY METHOD 08/07/2024 12:55 PM EDT [facility] Blood Venous blood specimen / Unknown Venipuncture / Unknown 08/07/2024 6:15 AM EDT 08/07/2024 11:11 AM EDT us Edwige Mosqueda MD LAB BLOOD ORDERABLES Final Resul t Performing Organization Address [facility] Co de Phone Number [facility] [address] [place] [address], * (ABNORMAL) Magnesium (08/07/2024 6:15 AM EDT) Pathologist [facility] Magnesium 1.6(L) 1.9 - 2.6 mg/dL LAB CHEMISTRY METHOD 08/07/2024 12:06 PM EDT [facility] Blood Venous blood specimen / Unknown Venipuncture / Unknown 08/07/2024 6:15 AM EDT 08/07/2024 11:11 AM EDT us Edwige Mosqueda MD LAB BLOOD ORDERABLES Final Resul t Performing Organization Address [facility] Co de Phone Number [facility] [address] [place] [address], [place] [phone] * Hemoglobin A1c (08/07/2024 6:15 AM EDT) Hemoglobin A1C 5.8 <6.5 % LAB CHEMISTRY METHOD 08/09/2024 10:02 AM EDT [facility] Mean Bld Glu Estim. 120 mg/dL LAB CHEMISTRY METHOD 08/09/2024 10:02 AM EDT [facility] Blood Venous blood specimen / Unknown Venipuncture / Unknown 08/07/2024 6:15 AM EDT 08/07/2024 11:11 AM EDT us Edwige Mosqueda MD LAB BLOOD ORDERABLES Final Resul t Performing Organization Address [facility] de Phone Number [facility] [address] [place] [address], [place] [phone] * Folate (08/07/2024 6:15 AM EDT) Folate 4.5 2.8 - 17.0 ng/ml LAB CHEMISTRY METHOD 08/07/2024 12:29 PM EDT [facility] Blood Venous blood specimen / Unknown Venipuncture / Unknown 08/07/2024 6:15 AM EDT 08/07/2024 11:11 AM EDT us Edwige Mosqueda MD LAB BLOOD ORDERABLES Final Resul t Performing Organization Address City/[facility] Co de Phone Number [facility] [address] [place] [address], [place] [phone] * Vitamin B12 (08/07/2024 6:15 AM EDT) [facility] Vitamin B-12 266 250 - 900 pcg/mL LAB CHEMISTRY METHOD 08/07/2024 12:29 PM EDT [facility] Blood Venous blood specimen / Unknown Venipuncture / Unknown 08/07/2024 6:15 AM EDT 08/07/2024 11:11 AM EDT us Edwige Mosqueda MD LAB BLOOD ORDERABLES Final Resul t [facility] [address] [place] [address], [place] [phone] * (ABNORMAL) Comprehensive metabolic panel (08/07/2024 6:15 AM EDT) [facility] Sodium 140 133 - 145 mmol/L LAB CHEMISTRY METHOD 08/07/2024 12:39 PM [facility] Potassium 3.6 3.5 - 5.5 mmol/L LAB CHEMISTRY METHOD 08/07/2024 12:39 PM [facility] Chloride 108 96 - 110 mmol/L LAB CHEMISTRY METHOD 08/07/2024 12:39 PM [facility] CO2 23 21 - 32 mmol/L LAB CHEMISTRY METHOD 08/07/2024 12:39 PM [facility] Anion Gap 9 3 - 11 LAB CHEMISTRY METHOD 08/07/2024 12:39 PM [facility] Glucose 96 70 - 100 mg/dL LAB CHEMISTRY METHOD 08/07/2024 12:39 PM [facility] BUN 16 5 - 25 mg/dL LAB CHEMISTRY METHOD 08/07/2024 12:39 PM [facility] Creatinine 1.22 0.70 - 1.30 mg/dL LAB CHEMISTRY METHOD 08/07/2024 12:39 PM [facility] eGFR 65 >=60 mL/min/1. 73m2 LAB CHEMISTRY METHOD 08/07/2024 12:39 PM [facility] Comment:Calculation based on the??Chronic Kidney Disease Epidemiology Collaboration (CKD-EPI) equation refit??without adjustment for race. BUN/Creatinine Ratio 13.1 LAB CHEMISTRY METHOD 08/07/2024 12:39 PM [facility] Calcium 8.3(L) 8.5 - 10.5 mg/dL LAB CHEMISTRY METHOD 08/07/2024 12:39 PM [facility] AST (SGOT) 14 10 - 42 unit/L LAB CHEMISTRY METHOD 08/07/2024 12:39 PM [facility] ALT (SGPT) 37 10 - 60 unit/L LAB CHEMISTRY METHOD 08/07/2024 12:39 PM [facility] Alkaline Phosphatase 99 42 - 121 unit/L LAB CHEMISTRY METHOD 08/07/2024 12:39 PM [facility] Total Protein 4.5(L) 6.0 - 8.0 g/dL LAB CHEMISTRY METHOD 08/07/2024 12:39 PM [facility] Albumin 1.9(L) 3.2 - 5.0 g/dL LAB CHEMISTRY METHOD 08/07/2024 12:39 PM [facility] Total Bilirubin 0.4 0.0 - 1.4 mg/dL LAB CHEMISTRY METHOD 08/07/2024 12:39 PM [facility] Blood Venous blood specimen / Unknown Venipuncture / Unknown 08/07/2024 6:15 AM EDT 08/07/2024 11:11 AM EDT us Edwige Mosqueda MD LAB BLOOD ORDERABLES Final Resul t [facility] [address] [place] [address], [place] [phone] from Last 3 Months Insurance [employer] Care Teams [employer] Relationship Specialty Start Date End Date Edwige Mosqueda MD [address] [place] [address] [address] [place] [address] PCP - General Geriatric Medicine 08/07/24
--- OUTSIDE RECORDS SUMMARY | 2024-09-01 11:35 | XMS_ITS | Encounter Summary ---
Author Organization [facility] Address [address] [place] [address] Care Team Providers Care Membership Coordinator Name Role Phone Edwgie Mosqueda MD Primary Care Provider [phone] Encounter Details Date Type Department Care Team (Late st Contact Info) Description 08/13/2024 Lab Requisition [facility] - Main Lab [address] [facility] [place] [address] Edwige Mosqueda MD [address] [place], [place] [id number] Anemia, unspecified; Type 2 diabetes mellitus without [...] Associated Diagnosis Comments COMPLETE BLOOD COUNT Routine 08/14/2024 6:06 AM EDT Anemia, unspecified Type 2 diabetes mellitus without complications (CMS/HCC V24, CMS/HCC V28) Acute kidney failure, unspecified (CMS/HCC V24) BASIC METABOLIC PANEL Routine 08/14/2024 6:06 AM EDT Anemia, unspecified Type 2 diabetes mellitus without complications (CMS/HCC V24, CMS/HCC V28) Acute kidney failure, unspecified (CMS/HCC V24) documented in this encounter Results * (ABNORMAL) Basic metabolic panel (08/14/2024 6:06 AM EDT) Sodium 143 133 - 145 mmol/L LAB CHEMISTRY METHOD 08/14/2024 11:08 AM [facility] Potassium 4.3 3.5 - 5.5 mmol/L LAB CHEMISTRY METHOD 08/14/2024 11:08 AM [facility] Chloride 109 96 - 110 mmol/L LAB CHEMISTRY METHOD 08/14/2024 11:08 AM [facility] CO2 26 21 - 32 mmol/L LAB CHEMISTRY METHOD 08/14/2024 11:08 AM [facility] Anion Gap 8 3 - 11 LAB CHEMISTRY METHOD 08/14/2024 11:08 AM [facility] Glucose 69(L) 70 - 100 mg/dL LAB CHEMISTRY METHOD 08/14/2024 11:08 AM [facility] BUN 15 5 - 25 mg/dL LAB CHEMISTRY METHOD 08/14/2024 11:08 AM [facility] Creatinine 1.00 0.70 - 1.30 mg/dL LAB CHEMISTRY METHOD 08/14/2024 11:08 AM [facility] eGFR 82 >=60 mL/min/1. 73m2 LAB CHEMISTRY METHOD 08/14/2024 11:08 AM [facility] Comment:Calculation based on the??Chronic Kidney Disease Epidemiology Collaboration (CKD-EPI) equation refit??without adjustment for race. BUN/Creatinine Ratio 15.0 LAB CHEMISTRY METHOD 08/14/2024 11:08 AM [facility] Calcium 9.1 8.5 - 10.5 mg/dL LAB CHEMISTRY METHOD 08/14/2024 11:08 AM [facility] Blood Venous blood specimen / Unknown Venipuncture / Unknown 08/14/2024 6:06 AM EDT 08/14/2024 9:46 AM EDT Edwige Mosqueda MD LAB BLOOD ORDERABLES Final Resul t [facility] [address] [place] [address], * (ABNORMAL) Complete blood count (08/14/2024 6:06 AM EDT) WBC 6.7 4.8 - 10.8 K/mcL LAB HEMETOLOGY METHOD 08/14/2024 10:48 AM EDT [facility] RBC 2.70(L) 4.50 - 5.50 M/mcL LAB HEMETOLOGY METHOD 08/14/2024 10:48 AM EDT [facility] Hemoglobin 8.4(L) 13.5 - 17.5 g/dL LAB HEMETOLOGY METHOD 08/14/2024 10:48 AM EDT [facility] Hematocrit 25.7(L) 42.0 - 54.0 % LAB HEMETOLOGY METHOD 08/14/2024 10:48 AM EDT [facility] MCV 94.8 79.0 - 98.0 FL LAB HEMETOLOGY METHOD 08/14/2024 10:48 AM EDT [facility] MCH 31.0 27.0 - 32.0 pcg LAB HEMETOLOGY METHOD 08/14/2024 10:48 AM EDT [facility] MCHC 32.7 32.0 - 37.0 g/dL LAB HEMETOLOGY METHOD 08/14/2024 10:48 AM EDT [facility] RDW 13.3 11.0 - 15.0 % LAB HEMETOLOGY METHOD 08/14/2024 10:48 AM EDT [facility] Platelets 471(H) 130 - 400 K/mcL LAB HEMETOLOGY METHOD 08/14/2024 10:48 AM EDT [facility] MPV 10.7 7.0 - 11.0 FL LAB HEMETOLOGY METHOD 08/14/2024 10:48 AM EDT [facility] NRBC 0.0 <1.0 % LAB HEMETOLOGY METHOD 08/14/2024 10:48 AM EDT [facility] NRBC Absolute 0.00 <0.10 K/mcL LAB HEMETOLOGY METHOD 08/14/2024 10:48 AM EDT [facility] Blood Venous blood specimen / Unknown Venipuncture / Unknown 08/14/2024 6:06 AM EDT 08/14/2024 9:46 AM EDT us Edwige Mosqueda MD LAB BLOOD ORDERABLES Final Resul t [facility] [address] [place] [address], documented in this encounter Visit Diagnoses Diagnosis Anemia, unspecified Type 2 diabetes mellitus without complications (CMS/HCC V24, CMS/HCC V28) Acute kidney failure, unspecified (CMS/HCC V24) Acute kidney failure, unspecified documented in this encounter Care Teams Membership Coordinator Relationship Specialty Start Date End Date Edwige Mosqueda MD [address] [place] [address] [address] [place] [address] PCP - General Geriatric Medicine 08/07/24 documented as of this encounter
--- OUTSIDE RECORDS SUMMARY | 2024-09-01 11:35 | XMS_ITS | Encounter Summary ---
Author Organization [facility] Address [address] [place] [address] Care Team Providers Care Apartment Community Assistant Manager Name Role Phone Edwige Mosqueda MD Primary Care Provider [phone] Encounter Details Date Type Department Care Team (Late st Contact Info) Description 08/31/2024 Lab Requisition [facility] - Main Lab [address] [facility] [place] [address] Edwige Mosqueda MD [address] [place] [address] Elevated white blood cell count, unspecified Social History Tobacco Use Types Packs/Day Years [...] EDT Elevated white blood cell count, unspecified documented in this encounter Results * (ABNORMAL) Complete blood count (08/31/2024 5:30 AM EDT) WBC 10.7 4.8 - 10.8 K/mcL LAB HEMETOLOGY METHOD 08/31/2024 12:[address] [facility] RBC 3.10(L) 4.50 - 5.50 M/mcL LAB HEMETOLOGY METHOD 08/31/2024 12:[address] [facility] Hemoglobin 9.3(L) 13.5 - 17.5 g/dL LAB HEMETOLOGY METHOD 08/31/2024 12:[address] [facility] Hematocrit 28.1(L) 42.0 - 54.0 % LAB HEMETOLOGY METHOD 08/31/2024 12:[address] [facility] MCV 91.2 79.0 - 98.0 FL LAB HEMETOLOGY METHOD 08/31/2024 12:[address] [facility] MCH 30.2 27.0 - 32.0 pcg LAB HEMETOLOGY METHOD 08/31/2024 12:[address] [facility] MCHC 33.1 32.0 - 37.0 g/dL LAB HEMETOLOGY METHOD 08/31/2024 12:[address] [facility] RDW 13.7 11.0 - 15.0 % LAB HEMETOLOGY METHOD 08/31/2024 12:[address] [facility] Platelets 499(H) 130 - 400 K/mcL LAB HEMETOLOGY METHOD 08/31/2024 12:[address] [facility] MPV 10.0 7.0 - 11.0 FL LAB HEMETOLOGY METHOD 08/31/2024 12:[address] [facility] NRBC 0.0 <1.0 % LAB HEMETOLOGY METHOD 08/31/2024 12:[address] [facility] NRBC Absolute 0.00 <0.10 K/mcL LAB HEMETOLOGY METHOD 08/31/2024 12:[address] [facility] Blood Venous blood specimen / Unknown Venipuncture / Unknown 08/31/2024 5:30 AM EDT 08/31/2024 11:48 AM EDT us Edwige Mosqueda MD LAB BLOOD ORDERABLES Final Resul t [facility] [address] [place] [address], documented in this encounter Visit Diagnoses Diagnosis Elevated white blood cell count, unspecified documented in this encounter Care Teams Apartment Community Assistant Manager Relationship Specialty Start Date End Date Edwige Mosqueda MD [address] [place] [address] [address] [place] [address] PCP - General Geriatric Medicine 08/07/24 documented as of this encounter
--- OUTSIDE RECORDS SUMMARY | 2024-09-01 11:35 | XMS_ITS | Encounter Summary ---
Author Organization [facility] Address [address] [place] [address] Care Team Providers Care Real Estate Loan Officer Name Role Phone Edwige Mosqueda MD Primary Care Provider [phone] Encounter Details Date Type Department Care Team (Late st Contact Info) Description 08/07/2024 Lab Requisition [facility] - Main Lab [address] [facility] [place] [address] Edwige Mosqueda MD [address] [place], [place] [id number] Anemia, unspecified; Type 2 diabetes mellitus without complications (CMS/HCC V24, CMS/HCC V28); Acute kidney failure, unspecified (CMS/HCC V24); Hyperlipidemia, unspecified; Vitamin D deficiency, unspecified; Magnesium deficiency; Vitamin B12 deficiency anemia, unspecified Social History Tobacco Use Types Packs/Day [...] Procedure Name Priority Date/Time Associated Diagnosis Comments LIPID PANEL WITH REFLEX TO DIRECT LDL Routine 08/07/2024 6:15 AM EDT Anemia, unspecified Type 2 diabetes mellitus without complications Acute kidney failure, unspecified (CMS/HCC) Hyperlipidemia, unspecified Vitamin D deficiency, unspecified Magnesium deficiency Vitamin B12 deficiency anemia, unspecified VITAMIN D 25 HYDROXY Routine 08/07/2024 6:15 [...] Magnesium deficiency Vitamin B12 deficiency anemia, unspecified documented in this encounter Results * (ABNORMAL) Vitamin D 25 hydroxy (08/07/2024 6:15 AM EDT) Vit D, 25-Hydroxy 29.3(L) 30.0 - 80.0 ng/mL LAB CHEMISTRY METHOD 08/07/2024 12:55 PM EDT [facility] Blood Venous blood specimen / Unknown Venipuncture / Unknown 08/07/2024 6:15 AM EDT 08/07/2024 11:11 AM EDT us Edwige Mosqueda MD LAB BLOOD ORDERABLES Final Resul t Performing Organization Address City/[facility]/ZIP Co de Phone Number [facility] [address] [place] [address], [place] [phone] * Hemoglobin A1c (08/07/2024 6:15 AM EDT) Hemoglobin A1C 5.8 <6.5 % LAB CHEMISTRY METHOD 08/09/2024 10:02 AM EDT [facility] Mean Bld Glu Estim. 120 mg/dL LAB CHEMISTRY METHOD 08/09/2024 10:02 AM EDT [facility] Blood Venous blood specimen / Unknown Venipuncture / Unknown 08/07/2024 6:15 AM EDT 08/07/2024 11:11 AM EDT us Edwige Mosqueda MD LAB BLOOD ORDERABLES Final Resul t [facility] [address] [place] [address], [place] [phone] * Folate (08/07/2024 6:15 AM EDT) Folate 4.5 2.8 - 17.0 ng/ml LAB CHEMISTRY METHOD 08/07/2024 12:29 PM EDT [facility] Blood Venous blood specimen / Unknown Venipuncture / Unknown 08/07/2024 6:15 AM EDT 08/07/2024 11:11 AM EDT us Edwige Mosqueda MD LAB BLOOD ORDERABLES Final Resul t Performing Organization Address [facility] de Phone Number [facility] [address] [place] [address], [place] [phone] * Thyroid stimulating hormone (08/07/2024 6:15 AM EDT) [facility] TSH 2.91 0.40 - 4.00 mcIU/mL LAB CHEMISTRY METHOD 08/07/2024 12:55 PM EDT [facility] Blood Venous blood specimen / Unknown Venipuncture / Unknown 08/07/2024 6:15 AM EDT 08/07/2024 11:11 AM EDT us Edwige Mosqueda MD LAB BLOOD ORDERABLES Final Resul t Performing Organization Address [facility] de Phone Number [facility] [address] [place] [address], [place] [phone] * Vitamin B12 (08/07/2024 6:15 AM EDT) [facility] Vitamin B-12 266 250 - 900 pcg/mL LAB CHEMISTRY METHOD 08/07/2024 12:29 PM EDT [facility] Blood Venous blood specimen / Unknown Venipuncture / Unknown 08/07/2024 6:15 AM EDT 08/07/2024 11:11 AM EDT us Edwige Mosqueda MD LAB BLOOD ORDERABLES Final Resul t Performing Organization Address [facility] Co de Phone Number [facility] [address] [place] [address], [place] [phone] * (ABNORMAL) Magnesium (08/07/2024 6:15 AM EDT) [facility] Magnesium 1.6(L) 1.9 - 2.6 mg/dL LAB CHEMISTRY METHOD 08/07/2024 12:06 PM EDT [facility] Blood Venous blood specimen / Unknown Venipuncture / Unknown 08/07/2024 6:15 AM EDT 08/07/2024 11:11 AM EDT us Edwige Mosqueda MD LAB BLOOD ORDERABLES Final Resul t [facility] [address] [place] [address], [place] [phone] * (ABNORMAL) Lipid panel with reflex to direct LDL (08/07/2024 6:15 AM EDT) Cholesterol 104 0 - 200 mg/dL LAB CHEMISTRY METHOD 08/07/2024 12:39 PM EDT [facility] Triglycerides 47 0 - 150 mg/dL LAB CHEMISTRY METHOD 08/07/2024 12:39 PM [facility] HDL 32(L) >=40 mg/dL LAB CHEMISTRY METHOD 08/07/2024 12:39 PM EDT [facility] LDL Calculated 63 0 - 100 mg/dL LAB CHEMISTRY METHOD 08/07/2024 12:39 PM EDT [facility] VLDL Cholesterol Alireza 9.4 mg/dL LAB CHEMISTRY METHOD 08/07/2024 12:39 PM EDT [facility] Non HDL Chol. (LDL+VLDL) 72 <145 mg/dL LAB CHEMISTRY METHOD 08/07/2024 12:39 PM EDT [facility] Chol/HDL Ratio 3.3 0.0 - 4.4 LAB CHEMISTRY METHOD 08/07/2024 12:39 PM [facility] Blood Venous blood specimen / Unknown Venipuncture / Unknown 08/07/2024 6:15 AM EDT 08/07/2024 11:11 AM EDT us Edwige Mosqueda MD LAB BLOOD ORDERABLES Final Resul t [facility] [address] [place] [address], * (ABNORMAL) Comprehensive metabolic panel (08/07/2024 6:15 AM EDT) Sodium 140 133 - 145 mmol/L LAB CHEMISTRY METHOD 08/07/2024 12:39 PM [facility] Potassium 3.6 3.5 - 5.5 mmol/L LAB CHEMISTRY METHOD 08/07/2024 12:39 PM [facility] Chloride 108 96 - 110 mmol/L LAB CHEMISTRY METHOD 08/07/2024 12:39 PM [facility] CO2 23 21 - 32 mmol/L LAB CHEMISTRY METHOD 08/07/2024 12:39 PM [facility] Anion Gap 9 3 - 11 LAB CHEMISTRY METHOD 08/07/2024 12:39 PM [facility] Glucose 96 70 - 100 mg/dL LAB CHEMISTRY METHOD 08/07/2024 12:39 PM [facility] BUN 16 5 - 25 mg/dL LAB CHEMISTRY METHOD 08/07/2024 12:39 PM [facility] Creatinine 1.22 0.70 - 1.30 mg/dL LAB CHEMISTRY METHOD 08/07/2024 12:39 PM [facility] eGFR 65 >=60 mL/min/1. 73m2 LAB CHEMISTRY METHOD 08/07/2024 12:39 PM [facility] Comment:Calculation based on the??Chronic Kidney Disease Epidemiology Collaboration (CKD-EPI) equation refit??without adjustment for race. BUN/Creatinine Ratio 13.1 LAB CHEMISTRY METHOD 08/07/2024 12:39 PM [facility] Calcium 8.3(L) 8.5 - 10.5 mg/dL LAB CHEMISTRY METHOD 08/07/2024 12:39 PM [facility] AST (SGOT) 14 10 - 42 unit/L LAB CHEMISTRY METHOD 08/07/2024 12:39 PM [facility] ALT (SGPT) 37 10 - 60 unit/L LAB CHEMISTRY METHOD 08/07/2024 12:39 PM [facility] Alkaline Phosphatase 99 42 - 121 unit/L LAB CHEMISTRY METHOD 08/07/2024 12:39 PM [facility] Total Protein 4.5(L) 6.0 - 8.0 g/dL LAB CHEMISTRY METHOD 08/07/2024 12:39 PM [facility] Albumin 1.9(L) 3.2 - 5.0 g/dL LAB CHEMISTRY METHOD 08/07/2024 12:39 PM [facility] Total Bilirubin 0.4 0.0 - 1.4 mg/dL LAB CHEMISTRY METHOD 08/07/2024 12:39 PM [facility] Blood Venous blood specimen / Unknown Venipuncture / Unknown 08/07/2024 6:15 AM EDT 08/07/2024 11:11 AM EDT us Edwige Mosqueda MD LAB BLOOD ORDERABLES Final Resul t [facility] [address] [place] [address], * (ABNORMAL) Complete blood count (08/07/2024 6:15 AM EDT) WBC 8.7 4.8 - 10.8 K/[facility] LAB HEMETOLOGY METHOD 08/07/2024 11:33 AM [facility] RBC 2.30(L) 4.50 - 5.50 M/mcL LAB HEMETOLOGY METHOD 08/07/2024 11:33 AM T [facility] Hemoglobin 7.2(L) 13.5 - 17.5 g/dL LAB HEMETOLOGY METHOD 08/07/2024 11:33 AM EDT [facility] Hematocrit 21.7(L) 42.0 - 54.0 % LAB HEMETOLOGY METHOD 08/07/2024 11:33 AM [facility] MCV 95.2 79.0 - 98.0 FL LAB HEMETOLOGY METHOD 08/07/2024 11:33 AM EDT [facility] MCH 31.6 27.0 - 32.0 pcg LAB HEMETOLOGY METHOD 08/07/2024 11:33 AM EDT [facility] MCHC 33.2 32.0 - 37.0 g/dL LAB HEMETOLOGY METHOD 08/07/2024 11:33 AM [facility] RDW 13.3 11.0 - 15.0 % LAB HEMETOLOGY METHOD 08/07/2024 11:33 AM EDT [facility] Platelets 393 130 - 400 K/mcL LAB HEMETOLOGY METHOD 08/07/2024 11:33 AM [facility] MPV 10.4 7.0 - 11.0 FL LAB HEMETOLOGY METHOD 08/07/2024 11:33 AM [facility] NRBC 0.0 <1.0 % LAB HEMETOLOGY METHOD 08/07/2024 11:33 AM EDT [facility] NRBC Absolute 0.00 <0.10 K/mcL LAB HEMETOLOGY METHOD 08/07/2024 11:33 AM [facility] Blood Venous blood specimen / Unknown Venipuncture / Unknown 08/07/2024 6:15 AM EDT 08/07/2024 11:11 AM EDT us Edwige Mosqueda MD LAB BLOOD ORDERABLES Final Resul t [facility] [address] [place] [address], documented in this encounter Visit Diagnoses Diagnosis Anemia, unspecified Type 2 diabetes mellitus without complications (CMS/HCC V24, CMS/HCC V28) Acute kidney failure, unspecified (CMS/HCC V24) Acute kidney failure, unspecified Hyperlipidemia, unspecified Vitamin D deficiency, unspecified Magnesium deficiency Disorders of magnesium metabolism Vitamin B12 deficiency anemia, unspecified documented in this encounter Care Teams Real Estate Loan Officer Relationship Specialty Start Date End Date Edwige Mosqueda MD [address] [place] [address] [address] [place] [address] PCP - General Geriatric Medicine 08/07/24 documented as of this encounter
--- OUTSIDE RECORDS SUMMARY | 2024-09-01 11:35 | XMS_ITS | Patient Health Record ---
Author [facility] Address [address] [facility] [place] [address] Care Team Providers Care Automotive Internet Sales Consultant Name Role Phone Lavon Roca MD Primary Care Provider Tavon gross Dotty Martino Unavailable [phone] Allergies No Known Allergies Reason For Referral [...] Problem Status W/U Status Risk Notes Problem [id number] Plantar wart (B07.0) Active confirmed Plan Of Treatment No Information Insurance Providers Payer Name Payer Address Payer Phone Subscriber Number Group Number Insured Name Patient Relationship to Insured Coverage Start Date [facility]age End Date [facility] [address] [place] [id number] True Rosado Self - patient is the insured Medical (General) History Medical History History ICD Code Anxiety Depression Diabetic Parkinsons disease Bipolar disorder paranoid Schizophrenia Insomnia Reflux ( GERD) Constipation Hypercholesterolemia Hyponatremia Hypertension, benign Surgical History Surgery Date(Month/Year)
--- OUTSIDE RECORDS SUMMARY | 2024-09-01 11:35 | XMS_ITS | Encounter Summary ---
Author Organization [facility] Address [address] [place] [address] Care Team Providers Care Soda Tester Name Role Phone Edwige Mosqueda MD Primary Care Provider [phone] Encounter Details Date Type Department Care Team (Late st Contact Info) Description 08/20/2024 Lab Requisition [facility] - Main Lab [address] [facility] [place] [address] Edwige Mosqueda MD [address] [place], [place] [id number] Anemia, unspecified; Type 2 diabetes mellitus without [...] Procedure Name Priority Date/Time Associated Diagnosis Comments CBC WITH AUTO DIFFERENTIAL Routine 08/21/2024 6:12 [...] 2 diabetes mellitus without complications (CMS/HCC V24, [facility] V28) Acute kidney failure, unspecified ([facility] V24) documented in this encounter Results * (ABNORMAL) CBC auto differential (08/21/2024 6:12 AM EDT) [facility] WBC 17.0(H) 4.8 - 10.8 K/mcL LAB HEMETOLOGY METHOD 08/21/2024 10:10 AM [facility] RBC 2.80(L) 4.50 - 5.50 M/mcL LAB HEMETOLOGY METHOD 08/21/2024 10:10 AM [facility] Hemoglobin 8.4(L) 13.5 - 17.5 g/dL LAB HEMETOLOGY METHOD 08/21/2024 10:10 AM [facility] Hematocrit 25.6(L) 42.0 - 54.0 % LAB HEMETOLOGY METHOD 08/21/2024 10:10 AM [facility] MCV 93.1 79.0 - 98.0 FL LAB HEMETOLOGY METHOD 08/21/2024 10:10 AM [facility] MCH 30.5 27.0 - 32.0 pcg LAB HEMETOLOGY METHOD 08/21/2024 10:10 AM [facility] MCHC 32.8 32.0 - 37.0 g/dL LAB HEMETOLOGY METHOD 08/21/2024 10:10 AM [facility] RDW 13.7 11.0 - 15.0 % LAB HEMETOLOGY METHOD 08/21/2024 10:10 AM [facility] Platelets 440(H) 130 - 400 K/mcL LAB HEMETOLOGY METHOD 08/21/2024 10:10 AM [facility] MPV 10.5 7.0 - 11.0 FL LAB HEMETOLOGY METHOD 08/21/2024 10:10 AM [facility] NRBC 0.0 <1.0 % LAB HEMETOLOGY METHOD 08/21/2024 10:10 AM [facility] NRBC Absolute 0.00 <0.10 K/mcL LAB HEMETOLOGY METHOD 08/21/2024 10:10 AM [facility] Neutrophils Relative 83.8 % LAB HEMETOLOGY METHOD 08/21/2024 10:10 AM [facility] Lymphocytes Relative 7.1 % LAB HEMETOLOGY METHOD 08/21/2024 10:10 AM [facility] Monocytes Relative 7.8 % LAB HEMETOLOGY METHOD 08/21/2024 10:10 AM [facility] Eosinophils Relative 0.5 % LAB HEMETOLOGY METHOD 08/21/2024 10:10 AM [facility] Basophils Relative 0.2 % LAB HEMETOLOGY METHOD 08/21/2024 10:10 AM [facility] Immature Granulocytes Relative 0.6 % LAB HEMETOLOGY METHOD 08/21/2024 10:10 AM [facility] Neutrophils Absolute 14.21(H) 1.50 - 7.00 K/mcL LAB HEMETOLOGY METHOD 08/21/2024 10:10 AM [facility] Lymphocytes Absolute 1.20 1.00 - 5.00 K/mcL LAB HEMETOLOGY METHOD 08/21/2024 10:10 AM [facility] Monocytes Absolute 1.32(H) 0.20 - 1.00 K/mcL LAB HEMETOLOGY METHOD 08/21/2024 10:10 AM [facility] Eosinophils Absolute 0.09 0.00 - 0.50 K/mcL LAB HEMETOLOGY METHOD 08/21/2024 10:10 AM [facility] Basophils Absolute 0.04 0.00 - 0.20 K/mcL LAB HEMETOLOGY METHOD 08/21/2024 10:10 AM [facility] Immature Granulocytes Absolute 0.11(H) 0.00 - 0.03 K/mcL LAB HEMETOLOGY METHOD 08/21/2024 10:10 AM [facility] Blood Venous blood specimen / Unknown Venipuncture / Unknown 08/21/2024 6:12 AM EDT 08/21/2024 9:01 AM EDT us Edwige Mosqueda MD LAB BLOOD ORDERABLES Final Resul t [facility] [address] [place] [address], [place] [phone] * (ABNORMAL) Basic metabolic panel (08/21/2024 6:12 AM EDT) Sodium 132(L) 133 - 145 mmol/L LAB CHEMISTRY METHOD 08/21/2024 10:48 AM [facility] Potassium 4.2 3.5 - 5.5 mmol/L LAB CHEMISTRY METHOD 08/21/2024 10:48 AM [facility] Chloride 100 96 - 110 mmol/L LAB CHEMISTRY METHOD 08/21/2024 10:48 AM [facility] CO2 24 21 - 32 mmol/L LAB CHEMISTRY METHOD 08/21/2024 10:48 AM [facility] Anion Gap 8 3 - 11 LAB CHEMISTRY METHOD 08/21/2024 10:48 AM [facility] Glucose 77 70 - 100 mg/dL LAB CHEMISTRY METHOD 08/21/2024 10:48 AM [facility] BUN 21 5 - 25 mg/dL LAB CHEMISTRY METHOD 08/21/2024 10:48 AM [facility] Creatinine 0.96 0.70 - 1.30 mg/dL LAB CHEMISTRY METHOD 08/21/2024 10:48 AM EDT [facility] eGFR 87 >=60 mL/min/1. 73m2 LAB CHEMISTRY METHOD 08/21/2024 10:48 AM EDT [facility] Comment:Calculation based on the??Chronic Kidney Disease Epidemiology Collaboration (CKD-EPI) equation refit??without adjustment for race. BUN/Creatinine Ratio 21.9 LAB CHEMISTRY METHOD 08/21/2024 10:48 AM EDT [facility] Calcium 8.8 8.5 - 10.5 mg/dL LAB CHEMISTRY METHOD 08/21/2024 10:48 AM EDT [facility] Blood Venous blood specimen / Unknown Venipuncture / Unknown 08/21/2024 6:12 AM EDT 08/21/2024 9:01 AM EDT us Edwige Mosqueda MD LAB BLOOD ORDERABLES Final Resul t [facility] [address] [place] [address], documented in this encounter Visit Diagnoses Diagnosis Anemia, unspecified Type 2 diabetes mellitus without complications (CMS/HCC V24, CMS/HCC V28) Acute kidney failure, unspecified (CMS/HCC V24) Acute kidney failure, unspecified documented in this encounter Care Teams Soda Tester Relationship Specialty Start Date End Date Edwige Mosqueda MD [address] [place] [address] [address] [place] [address] PCP - General Geriatric Medicine 08/07/24 documented as of this encounter
[2024-09-01] MEDS: 0.9 % Sodium Chloride 1,000 ML 999 ML IVCONT (11:39)
[2024-09-01] MEDS: cefEPime HCl/D5W 2 GM/50 ML PIGGYBACK IV (11:39)
--- NOTE | 2024-09-01 11:50 | P.HPHOSP_ITS ---
History of Present Illness Date of Service: 09/01/24 Chief Complaint: Sacral ulcer pain and drainage A 69 years old male with PMH of PAF, paranoid schizophrenia, bipolar disorder, anxiety, insomnia, Parkinson's disease, GERD with esophagitis, hypercholesterolemia, hypertension, diabetes mellitus who was brought to ED for worsening sacral wound with surrounding erythema and pain. The patient had unsteagable sacral wound during his most recent hospital admission evalauted by wound nurse and had recommendations on discharge. He was unable to participate much with PT at the SNF facility as he almost fell and refused to get up anymore since then. has been laying down most of time. His wound opened up recently but unclear when exactly. The patient complains of chills but no fever and increasing pain in his back. in ED found to have large sacral wound that is deep with surrounding erythema. no signs of sepsis. normal WBCs but elevated Lactic acid. Pending further images. Admitted for IV antibiotics and surgical intervention. Review of Systems 2 Review of Systems: No fever, but reporting chills and weakness No chest pain, palpitation No shortness of breath or coughing No abdominal pain, nausea or vomiting No urinary symptoms large sacral wound [facility] Medical History (Updated 09/01/24 @ 12:19 by Blanco Sauer MD) Sacral decubitus ulcer, stage IV Diabetes mellitus type 2, controlled Fall PAF (paroxysmal atrial fibrillation) Dizziness Paranoid schizophrenia Bipolar depression Anxiety Insomnia Constipation Parkinson's disease GERD without esophagitis Hyponatremia Pure hypercholesterolemia Benign essential hypertension Diabetes mellitus Family History Father Parkinson disease Mother Stomach cancer Surgical History History of extraction of renal calculus Social History Household Members: Unknown / Unable to assess Household Members Other:: from home, patient not able to answer questions Housing: Unknown / Unable to assess Alcohol intake: former Patient Tobacco Use Status: Never used Tobacco Smoked in Last 30 Days: No e-Cigarette/Vaping Use: Never Used Use of substances other than those prescribed or required for medical reasons: No Advance Directives: No Advance Directives Information Provided: Yes service: No Current occupational status: retired Cognitive needs: Yes (walker) Hearing needs: No Vision needs: Yes (reading glasses) Meds Allergies Allergy/AdvReac Type Severity Reaction Status Date / Time No Known Allergies Allergy Verified 09/01/24 09:30 [No Known Allergies*] Active Medications: Current Medications Sodium Chloride (Ns) 1,000 mls @ 999 mls/hr IVCONT .Q1H1M [facility] Stop: 09/01/24 12:30 Last Admin: 09/01/24 11:39 Dose: 999 mls/hr Vancomycin HCl 1,000 mg/ (Sodium Chloride) 270 mls @ 270 mls/hr IV ONCE ONE Stop: 09/01/24 12:25 Cefepime HCl (Maxipime) 2 gm in 50 mls @ 100 mls/hr IV ONCE ONE Stop: 09/01/24 11:55 Last Admin: 09/01/24 11:39 Dose: 100 mls/hr Home Medications ?Medication ?Instructions ?Recorded ?Confirmed ?Last Taken ?Type clonazepam 0.5 mg tablet 0.5 mg PO BEDTIME Sleep 04/08/20 07/26/24 07/21/24 History multivitamin 1 tab PO DAILY 05/15/21 07/26/24 07/21/24 History carbidopa 25 mg-levodopa 100 mg 1 tab PO BID 08/02/23 07/26/24 07/21/24 History tablet benztropine 1 mg tablet 1 mg PO BID 11/25/23 07/26/24 07/21/24 History melatonin 5 mg capsule 5 mg PO BEDTIME 12/16/23 07/26/24 07/21/24 History risperidone 2 mg tablet (Risperdal) 2 mg PO BID 06/18/24 07/26/24 07/21/24 History atorvastatin 20 mg tablet 20 mg PO BEDTIME 07/26/24 07/26/24 07/21/24 History eplerenone 25 mg tablet 12.5 mg PO DAILY 07/26/24 07/26/24 07/21/24 History magnesium oxide 400 mg PO BEDTIME 07/26/24 07/26/24 07/21/24 History valsartan 40 mg tablet 40 mg PO BEDTIME 07/26/24 07/26/24 07/21/24 History Physical Exam 2 Vital Signs and Narrative: Vital Signs: Last Vital Signs Temp 97.1 F 09/01/24 09:22 Pulse 83 09/01/24 09:22 Resp 18 09/01/24 09:22 BP 103/55 L 09/01/24 09:22 Pulse Ox 99 09/01/24 09:22 O2 Del Method Room Air 09/01/24 09:22 BMI result Body Mass Index 21.3 Const: Other: Constitutional : Awake, interactive, frail looking,. not in distress Neck : Normal inspection, Supple Cardiovascular : RRR, no JVP, no lower extremity edema Respiratory : good bilateral air entry, no crackles, wheezes or rhonchi Gastrointestinal: soft, lax, Normal bowel sounds, Non tender Skin : Warm, Dry, large sacral wound stage 3-4 with surrounding erythema Neurological : Alert & oriented x3, righht sided weakness more in upper extremity, bilateral lower extremities weakness Results Labs 09/01/24 10:37 09/01/24 10:37 Labs: Laboratory Results - last 24 hr 09/01/24 09/01/24 10:36 10:37 MCV 90.2 MCH 29.8 MCHC 33.1 RDW 13.9 Plt Count 503 H D MPV 9.5 Immature Gran % (Auto) 0.4 Neut % (Auto) 77.3 H Lymph % (Auto) 10.4 L Ceiba % (Auto) 10.0 Eos % (Auto) 1.4 Baso % (Auto) 0.5 Lymph # (Auto) 1.0 L Ceiba # (Auto) 0.9 Eos # (Auto) 0.1 Baso # (Auto) 0.1 Abs Immat Gran (auto) 0.04 H Absolute Neuts (auto) 7.1 Absolute Nucleated RBC 0.000 Nucleated RBC % (auto) 0.0 ESR 95 H Anion Gap 14 Estim Creat Clear Calc 84.1 Estimated GFR > 60 Random Glucose 137 H Lactic Acid 3.2 H* Calcium 9.6 D Total Bilirubin 0.4 AST 25 ALT 14 Alkaline Phosphatase 135 H Total Protein 6.9 Albumin 3.4 L Assessment and Plan (1) Sacral decubitus ulcer, stage IV: Status: Acute (2) Acidosis, lactic: Status: Acute (3) Decubitus ulcer, infected: Qualifiers: Pressure injury stage: unstageable Qualified Code(s): L89.95 - Pressure ulcer of unspecified site, unstageable; L08.9 - Local infection of the skin and subcutaneous tissue, unspecified Status: Acute Plan A 69 years old male with PMH of PAF, paranoid schizophrenia, bipolar disorder, anxiety, insomnia, Parkinson's disease, GERD with esophagitis, hypercholesterolemia, hypertension, diabetes mellitus who was brought to ED for worsening sacral wound with surrounding erythema and pain. Infected Sacral wound not septic pending cultures IV Zosyn and Vancomycin Surgery consult follow Vanco trough Acute lactic acidosis not due to sepsis likely from Metformin repeat after IVF then hold acute mild hyponatremia Na of 133 , encourage PO intake follow BMP Paroxysmal atrial fibrillation rate controlled Metoprolol home dose resume Sunny Parkinson's disease/mood continue Sinemet,Cogentin, risperdal follow clinical response Diabetes type 2 lispro correctional scale hold metformin pending MED REC Full code Sunny HCP is brother Blanco The patient will be admitted inpatient for 2 nights for treatment of infected sacral ulcer reuqiring IV antibiotics and specialist evaluation and possible intervention Quality Stroke Does the patient have a stroke diagnosis?: No VTE Prior VTE?: No VTE Risk Level:: Medical - moderate - high VTE Device Contraindication: Treatment Not Indicated VTE Drug Contraindication: N/A - Med Ordered
--- NOTE | 2024-09-01 12:16 | P.CONGS_ITS ---
History of Present Illness Consult details Consult date: 09/01/24 Narrative: 69-year-old male with multiple medical problems including schizophrenia, atrial fibrillation, on anticoagulation, depression, cardiomyopathy, here in the ER because of a sacral decubitus ulcer. He was bed-bound and is from the custodial. He was actually seen by the surgical service last 07/28/2024 for a sacral decubitus ulcer which was unstageable. According to the SNF staff, this seemed to have been worsening. The patient also describes pain on the area although this seems chronic. Review of Systems 2 Constitutional: Constitutional: Denies chills and Denies fever(s) Cardiovascular: Cardiovascular: Denies chest pain Respiratory: Respiratory: Denies cough Gastrointestinal: Gastrointestinal: Denies abdominal pain PMFSH Past Medical History Medical History Sacral decubitus ulcer, stage IV Diabetes mellitus type 2, controlled Fall PAF (paroxysmal atrial fibrillation) Dizziness Paranoid schizophrenia Bipolar depression Anxiety Insomnia Constipation Parkinson's disease GERD without esophagitis Hyponatremia Pure hypercholesterolemia Benign essential hypertension Diabetes mellitus Family History Family History Father Parkinson disease Mother Stomach cancer Surgical History Surgical History History of extraction of renal calculus Social History Social History Household Members: None Household Members Other:: from home, patient not able to answer questions Housing: Care Home Alcohol intake: former Patient Tobacco Use Status: Never used Tobacco e-Cigarette/Vaping Use: Never Used service: No Current occupational status: retired Cognitive needs: Yes (walker) Hearing needs: No Vision needs: Yes (reading glasses) Meds Allergies Allergy/AdvReac Type Severity Reaction Status Date / Time No Known Allergies Allergy Verified 09/01/24 09:30 [No Known Allergies*] Active Medications: Current Medications Acetaminophen (Acetaminophen 325 Mg Tablet) 650 mg PO Q6H PRN PRN Reason: Pain, Mild 1-3,fever,headache Calcium Carbonate (Calcium Carbonate 750 Mg Tab.Chew) 750 mg PO Q4H PRN PRN Reason: Heartburn Sodium Chloride (Ns) 1,000 mls @ 999 mls/hr IVCONT .Q1H1M [facility] Stop: 09/01/24 12:30 Last Admin: 09/01/24 11:39 Dose: 999 mls/hr Piperacillin Sod/Tazobactam (Sod 3.375 gm/ Sodium Chloride) 50 mls @ 100 mls/hr IV Q6H [facility] Vancomycin HCl 1,000 mg/Vancomycin HCl 750 mg/ Sodium Chloride 535 mls @ 267.5 mls/hr IV ONCE ONE Stop: 09/01/24 14:59 Magnesium Hydroxide (Milk Of Magnesia 30 Ml Oral.Susp) 30 ml PO DAILY PRN PRN Reason: Constipation Melatonin (Melatonin 3 Mg Tablet) 6 mg PO BEDTIME PRN PRN Reason: Insomnia Morphine Sulfate (Morphine Sulfate 4 Mg/Ml Cartridge) 2 mg IVPUSH Q4H PRN; Protocol PRN Reason: Pain, Severe (Pain Scale 7-10) Ondansetron HCl (Ondansetron Hcl 4 Mg/2 Ml Vial) 4 mg IVPUSH Q8H PRN PRN Reason: Nausea and Vomiting Pharmacy Consult (Consult Rx Vancomycin Dosing) 1 each MISCELLANE DAILY PRN PRN Reason: Consult order Sodium Chloride (0.9 % Sodium Chloride Flush 3 Ml Syringe) [facility] Medications ?Medication ?Instructions ?Recorded ?Confirmed ?Last Taken ?Type clonazepam 0.5 mg tablet 0.5 mg PO BEDTIME Sleep 04/08/20 09/01/24 07/21/24 History multivitamin 1 tab PO DAILY@0800 05/15/21 09/01/24 07/21/24 History carbidopa 25 mg-levodopa 100 mg 1 tab PO BID 08/02/23 09/01/24 07/21/24 History tablet benztropine 1 mg tablet 1 mg PO BID 11/25/23 09/01/24 07/21/24 History melatonin 5 mg capsule 5 mg PO BEDTIME 12/16/23 09/01/24 07/21/24 History risperidone 2 mg tablet (Risperdal) 2 mg PO BID 06/18/24 09/01/24 07/21/24 History atorvastatin 20 mg tablet 20 mg PO BEDTIME 07/26/24 09/01/24 07/21/24 History eplerenone 25 mg tablet 12.5 mg PO DAILY@0800 0309/01/24 07/21/24 History magnesium oxide 400 mg PO BEDTIME 07/26/24 09/01/24 07/21/24 History valsartan 40 mg tablet 40 mg PO BEDTIME 07/26/24 09/01/24 07/21/24 History acetaminophen 325 mg tablet 650 mg PO Q6H PRN Fever Or Pain 09/01/24 09/01/24 Unknown History ascorbic acid (vitamin C) 250 mg 250 mg PO DAILY@199909/01/24 09/01/24 Unknown History tablet (Vitamin C) bisacodyl 10 mg rectal suppository 10 mg [place] DAILY PRN Constipation 09/01/24 09/01/24 Unknown History dextrose 40 % oral gel (Glucose 15 g PO Q15M PRN Hypoglycemia 09/01/24 09/01/24 Unknown History Gel) glucagon 1 mg solution for 1 mg subcut Q20M PRN Hypoglycemia 09/01/24 09/01/24 Unknown History injection magnesium hydroxide 400 mg/5 mL 30 ml PO DAILY PRN Constipation 09/01/24 09/01/24 Unknown History oral suspension (Milk of MagnNetsize) metoprolol succinate 100 mg 100 mg PO DAILY 09/01/24 09/01/24 Unknown History tablet,extended release 24 hr omeprazole 40 mg capsule,delayed 40 mg PO BID@0630,1630 09/01/24 09/01/24 Unknown History release sodium hypochlorite 0.125 % 1 appl topical DAILY@0700 09/01/24 09/01/24 Unknown History solution (Dakin's Solution) sodium phosphates 19 gram-7 118 ml [place] DAILY PRN Constipation 09/01/24 09/01/24 Unknown History gram/118 mL enema (Fleet Enema) Physical Exam 2 Vital Signs: Vital Signs: Last Vital Signs Temp 97.1 F 09/01/24 09:22 Pulse 83 09/01/24 09:22 Resp 18 09/01/24 09:22 BP 103/55 L 09/01/24 09:22 Pulse Ox 99 09/01/24 09:22 O2 Del Method Room Air 09/01/24 09:22 BMI result Body Mass Index 21.3 Const: Other: Very frail looking, answers some questions Resp: Effort & Inspection: normal respiratory effort Cardio: Rhythm: abnormal rhythm GI: Palpation (GI): Soft to palpation, not firm and nontender Back/Spine/Pelvis: Other: Large sacral decubitus ulcer, about 8 cm in widest dimension, with what appears to be post coccyx, thick fibrinous exudates, dry, no pus, no gangrenous tissue Results Labs 09/03/24 09:16 09/03/24 09:16 Labs: Abnormal lab results 09/01/24 09/01/24 Range/Units 10:36 10:37 RBC 3.15 L (4.60-5.80) X10*6/uL Hgb 9.4 L (14.0-18.0) g/dl Hct 28.4 L (42.0-52.0) % Plt Count 503 H D (160-400) X10*3/uL Neut % (Auto) 77.3 H (45-73) % Lymph % (Auto) 10.4 L (20-40) % Lymph # (Auto) 1.0 L (1.2-4.9) X10*3/uL Abs Immat Gran (auto) 0.04 H (0.00-0.03) X10*3/uL ESR 95 H (0-15) MM/HR Sodium 133 L (135-145) mmol/L BUN 22 H (9-16) mg/dL Random Glucose 137 H (60-115) mg/dL Lactic Acid 3.2 H* (0.5-2.0) mmol/L Alkaline Phosphatase 135 H (39-117) U/L Albumin 3.4 L (3.5-5.0) g/dL Short CBC 09/01/24 Range/Units 10:37 WBC 9.1 (4.8-10.8) X10*3/uL Hgb 9.4 L (14.0-18.0) g/dl Hct 28.4 L (42.0-52.0) % Plt Count 503 H D (160-400) X10*3/uL BMP 09/01/24 10:37 Sodium 133 L Potassium 4.2 Chloride 99 Carbon Dioxide 24 BUN 22 H Creatinine 0.81 Calcium 9.6 D Liver Function 09/01/24 Range/Units 10:37 Total Bilirubin 0.4 (0.0-1.0) mg/dL AST 25 (5-37) U/L ALT 14 (0-40) U/L Alkaline Phosphatase 135 H (39-117) U/L Albumin 3.4 L (3.5-5.0) g/dL All other labs normal. Assessment and Plan (1) Sacral decubitus ulcer, stage IV: Status: Acute Plan 69-year-old male, bed-bound, with multiple medical problems, very frail, with note of a large sacral decubitus ulcer as described above. There was note of thick fibrinous exudates The coccyx appears exposed I would recommend Dakin solution dressings for now. I may do periodic debridement at bedside with scissors. It may not be a good option to have him taken under general anesthesia for debridement at this point We will also see the input by lower the wound care nurse. I will follow along while he is in the hospital. Procedures Date of Service Date of Service: 09/03/24
[2024-09-01 12:46] LABS: Reflex Lactate? Lactic Acid Added
[2024-09-01] MEDS: Piperacillin Sodium/Tazobactam 3.375 GM in 0.9 % Sodium Chloride 50 ML IV ×2 (12:52→16:36)
[2024-09-01 14:01] LABS: ~Lactic Acid-LAB USE ONLY 3.3 mmol/L (0.5-2.0)
[2024-09-01 14:05] LABS: Cancel Lactic Acid Canceled
[2024-09-01] MEDS: vancomycin HCL 1,000 MG, vancomycin HCL 750 MG in 0.9 % Sodium Chloride 500 ML 267.5 MG IV (14:24)
--- NOTE | 2024-09-01 14:45 | PHA.PROG ---
Admission Date/Time: September 01, 2024 11:46 Indication: SKIN Weight in k.2 kg Adjusted body weight in Kg: Onia body weight in Kg: Obesity Dosing Indication % IBW: Serum Creatinine - Last 168 Hours 09/01/24 10:37 Creatinine 0.81 Estimated CrCl and GFR - Last 168 Hours 09/01/24 10:37 Estim Creat Clear Calc 84.1 Estimated GFR > 60 Vancomycin Loading Dose: 1750 MG Current Vancomycin Dosing Regimen: 750 MG Q12H Vancomycin Monitoring using AUC goal of 400 - 600 range with trough as surrogate marker: [id number] TROUGH=14 Date and Time for next Vancomycin Level to be drawn: 09/02/24 @2100 Pharmacist Comments on Vancomycin Plan: Vancomycin dosing will take advantage of [employer] as a clinical decision support tool that uses Bayesian modeling to calculate individual patient's pharmacokinetic parameters and forecast the patient's drug concentration time course with the target goal AUC 24 range of 400 - 600 mg/L/hr.
--- NOTE | 2024-09-01 15:04 | PHA.MEDREC ---
Pharmacy Consult ? Medication Reconciliation Pharmacy has completed the medication reconciliation. Utilized med list from [facility].
--- NOTE | 2024-09-01 15:37 | PC.NURSE ---
Turned and repositioned every 2 hours as patient allows, with pillows placed under patients sides to relieve pressure of coccyx. Provided with sandwich crackers and fluids, new dressing applied to sacrum with wet to dry dressing
[2024-09-01] MEDS: Omeprazole 40 MG CAPSULE.DR PO (16:36)
[2024-09-01 17:42] LABS: Glucose, Whole Blood 112 mg/dL (60-115)
[2024-09-01 21:51] LABS: Glucose, Whole Blood 158 mg/dL (60-115)
[2024-09-01] MEDS: Morphine Sulfate 4 MG/ML CARTRIDGE 2 MG IVPUSH (21:54)
[2024-09-01] MEDS: Melatonin 3 MG TABLET 6 MG PO (21:55)
[2024-09-01] MEDS: clonazePAM 0.5 MG TABLET PO (21:56)
[2024-09-01] MEDS: Benztropine Mesylate 1 MG TABLET PO (21:56)
[2024-09-01] MEDS: risperiDONE 2 MG TABLET PO (21:56)
[2024-09-01] MEDS: Apixaban 5 MG TABLET PO (21:56)
[2024-09-01] MEDS: Carbidopa/Levodopa 25/100 TABLET 1 TAB PO (21:56)
[2024-09-01] MEDS: Atorvastatin Calcium 20 MG TABLET PO (21:56)
[2024-09-02] VITALS (14 sets, daily range): BP systolic 82–116; BP diastolic 48–72; PULSE 79–104; RESP 13–18; TEMP 36.2–37.6; O2SAT 96–99; BMI 21.3
[2024-09-02] MEDS: Piperacillin Sodium/Tazobactam 3.375 GM in 0.9 % Sodium Chloride 50 ML IV ×4 (00:48→17:27)
[2024-09-02] MEDS: 0.9 % Sodium Chloride Flush 3 ML SYRINGE IVFLUSH ×2 (00:49→21:48)
[2024-09-02] MEDS: vancomycin HCL 750 MG in 0.9 % Sodium Chloride 250 ML 265 MG IV ×2 (01:20→14:24)
[2024-09-02] MEDS: Morphine Sulfate 4 MG/ML CARTRIDGE 2 MG IVPUSH (01:59)
[2024-09-02] MEDS: Acetaminophen 325 MG TABLET 650 MG PO (01:59)
--- NOTE | 2024-09-02 02:13 | PC.NURSE ---
Addendum entered by Noble Martin 09/02/24 02:14: andrade bag noted to be leaking, replaced. Original Note: pt moved over to hospital bed and rotated to R. side. vitals as documented MD made aware.
[2024-09-02] MEDS: Albumin Human 25 % 100 ML 133.33 ML IV ×2 (02:51→03:50)
[2024-09-02 04:40] LABS: Lactic Acid 0.8 mmol/L (0.5-2.0)
[2024-09-02] MEDS: Lactated Ringers 1,000 ML 999 ML IV (04:44)
[2024-09-02 04:52] LABS: MANUAL DIFF FLAG NO
[2024-09-02 05:03] LABS: Basophils Percent Auto 0.4 % (0-2); Eosinophils Absolute Auto 0.1 X10*3/uL (0.0-0.4); Eosinophils Percent Auto 1.3 % (0-4); Hematocrit 21.4 % (42.0-52.0); Hemoglobin 7.4 g/dl (14.0-18.0); Imm Gran Abs Auto 0.05 X10*3/uL (0.00-0.03); Imm Gran Pct Auto 0.5 % (0.0-0.4); Lymphocytes Absolute Auto 0.6 X10*3/uL (1.2-4.9); Lymphocytes Percent Auto 6.5 % (20-40); Mean Corpuscular HGB Conc 34.6 g/dl (31.0-36.0); Mean Corpuscular Hemoglobin 30.3 pg (27.0-33.0); Mean Corpuscular Volume 87.7 fL (80.0-98.0); Mean Platelet Volume 9.5 fL (9.4-12.4); Monocytes Absolute Auto 0.3 X10*3/uL (0.1-1.2); Monocytes Percent Auto 3.1 % (2-11); Neutrophils Absolute Auto 8.2 x10*3/uL (2.0-8.3); Neutrophils Percent Auto 88.2 % (45-73); Platelet Count 408 X10*3/uL (160-400); Red Blood Count 2.44 X10*6/uL (4.60-5.80); Red Cell Distribution Width 13.9 % (11.0-16.0); White Blood Count 9.3 X10*3/uL (4.8-10.8)
[2024-09-02 05:14] LABS: Alanine Aminotransferase < 6 U/L (0-40); Albumin Level 3.2 g/dL (3.5-5.0); Anion Gap 13 (12-20); Aspartate Amino Transferase 15 U/L (5-37); Bilirubin Total 0.4 mg/dL (0.0-1.0); Blood Urea Nitrogen 23 mg/dL (9-16); Calcium 8.5 mg/dL (8.4-10.2); Carbon Dioxide 21 mmol/L (22-29); Chloride 102 mmol/L (96-108); Creatinine Clr Calc Pharmacy 75.7; Estimated Glomerular Filt Rate > 60; Glucose Random 94 mg/dL (60-115); Potassium 3.9 mmol/L (3.3-5.1); Sodium 132 mmol/L (135-145); Total Protein 5.6 g/dL (6.5-8.0)
[2024-09-02 05:28] LABS: Alkaline Phosphatase 92 U/L (39-117)
[2024-09-02] MEDS: Omeprazole 40 MG CAPSULE.DR PO ×2 (06:44→17:27)
[2024-09-02 07:36] LABS: Glucose, Whole Blood 87 mg/dL (60-115)
--- NOTE | 2024-09-02 08:53 | MHC.CM.PN ---
Addendum entered by Mary Cross 09/02/24 09:14: Patient is a private pay bed hold at [facility]. Original Note: Patient is a LTC Resident at [facility] and returning there at time of dc is the tentative plan; CM has initiated and will follow for dc planning. Patient's Brother is the HCP and Patient will require BLS transport back to SNF. CM will follow.
[2024-09-02 08:54] LABS: Iron 15 mcg/dL (45-160); Percent Iron Saturation 13 % (15-50); Total Iron Binding Capacity 116 mcg/dL (228-428); Unsaturated Iron Binding 101 ug/dL
--- NOTE | 2024-09-02 09:51 | PM.PNGS ---
Subjective Subjective Date of Service: 09/02/24 <Sarah Cain PA-C - Last Filed: 09/02/24 13:11> 09/02/24 <Blanco Sauer MD - Last Filed: 09/02/24 18:49> Interval history: Reports mild pain at ulcer site. No new complaints. <Sarah Cain PA-C - Last Filed: 09/02/24 13:11> Physical Exam Vital Signs: Vital Signs: Last Vital Signs Temp 99.7 F 09/02/24 02:03 Pulse 95 09/02/24 06:46 Resp 14 09/02/24 05:14 BP 114/68 09/02/24 06:46 Pulse Ox 98 09/02/24 02:03 O2 Del Method Room Air 09/02/24 02:03 BMI result Body Mass Index 21.3 <RHONDA Muller Last Filed: 09/02/24 13:11> Const: Nutritional Appearance: cachectic (frail appearing ) <Sarah Cain PA-C - Last Filed: 09/02/24 13:11> Resp: Effort & Inspection: normal respiratory effort <Sarah Cain PA-C - Last Filed: 09/02/24 13:11> Skin: Other: large sacral decubitus ulcer 9cm x 9cm- malodorous, some slough but no necrotic tissue, coccyx palpable at base, tunneling 7 cm on right side inferiorly towards rectum small wound left upper back overlying scapula, slough at base <Sarah Cain PA-C - Last Filed: 09/02/24 13:11> Objective Data Active Medications Acetaminophen (Acetaminophen 325 Mg Tablet) 650 mg PO Q6H PRN PRN Reason: Pain, Mild 1-3,fever,headache Last Admin: 09/02/24 01:59 Dose: 650 mg Documented By: LEILA Apixaban (Apixaban 5 Mg Tablet) 5 mg PO BID [facility] Last Admin: 09/01/24 21:56 Dose: 5 mg Documented By: MYRA Atorvastatin Calcium (Atorvastatin Calcium 20 Mg Tablet) 20 mg PO BEDTIME [facility] Last Admin: 09/01/24 21:56 Dose: 20 mg Documented By: MYRA Benztropine Mesylate (Benztropine Mesylate 1 Mg Tablet) 1 mg PO BID [facility] Last Admin: 09/01/24 21:56 Dose: 1 mg Documented By: MYRA Calcium Carbonate (Calcium Carbonate 750 Mg Tab.Chew) 750 mg PO Q4H PRN PRN Reason: Heartburn Carbidopa/Levodopa (Carbidopa/Levodopa 25/100 Tablet) 1 tab PO BID [facility] Last Admin: 09/01/24 21:56 Dose: 1 tab Documented By: MYRA Clonazepam (Clonazepam 0.5 Mg Tablet) 0.5 mg PO BEDTIME [facility] Last Admin: 09/01/24 21:56 Dose: 0.5 mg Documented By: MYRA Piperacillin Sod/Tazobactam (Sod 3.375 gm/ Sodium Chloride) 50 mls @ 100 mls/hr IV Q6H [facility] Last Admin: 09/02/24 06:44 Dose: 100 mls/hr Documented By: LEILA Vancomycin HCl 750 mg/ Sodium (Chloride) 265 mls @ 265 mls/hr IV Q12H [facility] Last Infusion: 09/02/24 02:24 Dose: Infused Documented By: LEILA Insulin Human Lispro (Insulin Lispro 100 Unit/Ml 3 Ml Vial) 0 unit SUBCUT QIDACHS [facility]; Protocol Last Admin: 09/01/24 21:54 Dose: Not Given Documented By: MYRA Non-Admin Reason: Patient Refused Loperamide HCl (Loperamide Hcl 2 Mg Capsule) 2 mg PO Q4H PRN PRN Reason: Diarrhea Magnesium Hydroxide (Milk Of Magnesia 30 Ml Oral.Susp) 30 ml PO DAILY PRN PRN Reason: Constipation Melatonin (Melatonin 3 Mg Tablet) 6 mg PO BEDTIME PRN PRN Reason: Insomnia Melatonin (Melatonin 3 Mg Tablet) 6 mg PO BEDTIME [facility] Last Admin: 09/01/24 21:55 Dose: 6 mg Documented By: MYRA Metoprolol Succinate (Metoprolol Succinate Er 100 Mg Tab.Er.24h) 100 mg PO DAILY [facility]; Protocol Morphine Sulfate (Morphine Sulfate 4 Mg/Ml Cartridge) 2 mg IVPUSH Q4H PRN; Protocol PRN Reason: Pain, Severe (Pain Scale 7-10) Last Admin: 09/02/24 01:59 Dose: 2 mg Documented By: LEILA Omeprazole (Omeprazole 40 Mg Doe.) 40 mg PO BID@8030,9900 [facility] Last Admin: 09/02/24 06:44 Dose: 40 mg Documented By: LEILA Ondansetron HCl (Ondansetron Hcl 4 Mg/2 Ml Vial) 4 mg IVPUSH Q8H PRN PRN Reason: Nausea and Vomiting Pharmacy Consult (Consult Rx Vancomycin Dosing) 1 each MISCELLANE DAILY PRN PRN Reason: Consult order Risperidone (Risperidone 2 Mg Tablet) 2 mg PO BID [facility] Last Admin: 09/01/24 21:56 Dose: 2 mg Documented By: MYRA Sodium Chloride (0.9 % Sodium Chloride Flush 3 Ml Syringe) 3 ml IVFLUSH QSHIFT [facility] Last Admin: 09/02/24 00:49 Dose: 3 ml Documented By: LEILA Sodium Hypochlorite (Sodium Hypochlorite 0.125% 473 Ml Solution) 1 appl TOPICAL DAILY [facility] <Sarah Cain PA-C - Last Filed: 09/02/24 13:11> Labs CBC & Chem 7: 09/02/24 13:29 09/02/24 04:20 <Sarah Cain PA-C - Last Filed: 09/02/24 13:11> Labs: Laboratory Results - last 24 hr 09/01/24 09/01/24 09/01/24 10:36 10:37 13:07 MCV 90.2 MCH 29.8 MCHC 33.1 RDW 13.9 Plt Count 503 H D MPV 9.5 Immature Gran % (Auto) 0.4 Neut % (Auto) 77.3 H Lymph % (Auto) 10.4 L [place] % (Auto) 10.0 Eos % (Auto) 1.4 Baso % (Auto) 0.5 Lymph # (Auto) 1.0 L [place] # (Auto) 0.9 Eos # (Auto) 0.1 Baso # (Auto) 0.1 Abs Immat Gran (auto) 0.04 H Absolute Neuts (auto) 7.1 Absolute Nucleated RBC 0.000 Nucleated RBC % (auto) 0.0 ESR 95 H Anion Gap 14 Estim Creat Clear Calc 84.1 Estimated GFR > 60 POC Glucose Random Glucose 137 H Lactic Acid 3.2 H* Lactic Acid F/U @ 2Hr 3.3 H* Calcium 9.6 D Iron TIBC % Saturation Unsat Iron Binding Total Bilirubin 0.4 AST 25 ALT 14 Alkaline Phosphatase 135 H Total Protein 6.9 Albumin 3.4 L 09/01/24 09/01/24 09/02/24 17:36 21:47 04:20 MCV 87.7 MCH 30.3 MCHC 34.6 RDW 13.9 Plt Count 408 H MPV 9.5 Immature Gran % (Auto) 0.5 H Neut % (Auto) 88.2 H Lymph % (Auto) 6.5 L [place] % (Auto) 3.1 Eos % (Auto) 1.3 Baso % (Auto) 0.4 Lymph # (Auto) 0.6 L [place] # (Auto) 0.3 Eos # (Auto) 0.1 Baso # (Auto) 0.0 Abs Immat Gran (auto) 0.05 H Absolute Neuts (auto) 8.2 Absolute Nucleated RBC 0.000 Nucleated RBC % (auto) 0.0 ESR Anion Gap 13 Estim Creat Clear Calc 75.7 Estimated GFR > 60 POC Glucose 112 158 H Random Glucose 94 Lactic Acid 0.8 Lactic Acid F/U @ 2Hr Calcium 8.5 D Iron 15 L TIBC 116 L % Saturation 13 L Unsat Iron Binding 101 Total Bilirubin 0.4 AST 15 ALT < 6 Alkaline Phosphatase 92 Total Protein 5.6 L Albumin 3.2 L 09/02/24 07:15 MCV MCH MCHC RDW Plt Count MPV Immature Gran % (Auto) Neut % (Auto) Lymph % (Auto) [place] % (Auto) Eos % (Auto) Baso % (Auto) Lymph # (Auto) [place] # (Auto) Eos # (Auto) Baso # (Auto) Abs Immat Gran (auto) Absolute Neuts (auto) Absolute Nucleated RBC Nucleated RBC % (auto) ESR Anion Gap Estim Creat Clear Calc Estimated GFR POC Glucose 87 Random Glucose Lactic Acid Lactic Acid F/U @ 2Hr Calcium Iron TIBC % Saturation Unsat Iron Binding Total Bilirubin AST ALT Alkaline Phosphatase Total Protein Albumin <Sarah Cain PA-C - Last Filed: 09/02/24 13:11> Microbiology Microbiology Results: Microbiology 09/01/24 11:38 Gram Stain - Final Back Routine Culture - Preliminary Culture in progress. 09/01/24 11:38 Gram Stain - Final Buttock Routine Culture - Preliminary Culture in progress. <Sarah Cain PA-C - Last Filed: 09/02/24 13:11> Procedures Date of Service Date of Service: 09/02/24 <Sarah Cain PA-C - Last Filed: 09/02/24 13:11> 09/02/24 <Blanco Sauer MD - Last Filed: 09/02/24 18:49> Progress Note: A&P Assessment and plan (1) Sacral decubitus ulcer, stage IV: Status: Acute <Sarah Cain PA-C - Last Filed: 09/02/24 13:11> Assessment and Plan: Continue with Dakin solution dressings No necrotic areas of the wound base Bed sore precautions Seen and examined independently <Blanco Sauer MD - Last Filed: 09/02/24 18:49> Assessment and Plan: Stage 4 sacral decubitus ulcer, overall wound clean appearing without reno necrotic tissue but some fibrinous exudate. Wound assessed with Makayla, assistant superintendent. Would pack sacral ulcer wound with dakins soaked packing and upper back wound with santyl to wound base. Would hold off on surgical debridement for now. <Sarah Cain PA-C - Last Filed: 09/02/24 13:11> Time Spent With Patient Time: Total time managing care of this patient today ____ minutes. <Sarah Cain PA-C - Last Filed: 09/02/24 13:11> Quality Stroke Does the patient have a stroke diagnosis?: No <Sarah Cain PA-C - Last Filed: 09/02/24 13:11> VTE Prior VTE?: No <Sarah Cain PA-C - Last Filed: 09/02/24 13:11> VTE Risk Level:: Medical - moderate - high <Sarah Cain PA-C - Last Filed: 09/02/24 13:11> VTE Device Contraindication: Treatment Not Indicated <Sarah Cain PA-C - Last Filed: 09/02/24 13:11> VTE Drug Contraindication: N/A - Med Ordered <Sarah Cain PA-C - Last Filed: 09/02/24 13:11>
--- NOTE | 2024-09-02 09:53 | HO.WOUND ---
Wound Consult: Initial 69yr old?male admitted to [facility] [place] on 09/01/24 - See progress notes and H&P for detailed history.? Wound consult placed for Sacrum.? Patient agreeable to assessment and photo documentation.? Sacrum Etiology: Stage 4 Pressure Injury??Present on Admission Measurements: 9cm x 9cm x 4cm tunnel at 5 o'clock depth of 7cm Wound Bed: red beefy tissue with scattered areas of yellow slough central area with some slough and suspect exposed tendon vs ligaments Drainage / Odor: fould odor noted - large amount of hernández liquid drainage Edges: ? unattached Solomon wound: ?pink intact No Induration, Fluctuance or Warmth noted Pain: painful to touch Goals of Treatment: ?Dakins for autolytic debridement Left Scapula Etiology: ??Unstageable Present on Admission Measurements: 2cm x 1cm x 1.5cm Wound Bed: adherent yellow hernández slough Drainage / Odor: small amount hernández - no odor noted Edges: ? epibole Solomon wound: ?pink intact No Induration, Fluctuance or Warmth noted Pain: denies pain Goals of Treatment: ?Santyl for enzymatic debridement Recommendations: 1. Turn and Reposition every 2 hours and as needed for patient comfort.? Use pillows or wedges to support off loading positions. 2. Off Load all bony prominences with use of pillows and heel boots if needed.? Apply Preventative foams where needed. ? 3. Monitor for incontinence and moisture control, use barrier creams when needed for prevention and treatment. 4. Provide adequate and supplemental nutrition.? 5. Ordered Agility Pulsate bed due to arrive today. 6. When applicable maintain blood glucose levels per Providers order. Sacrum - Off Load Pressure with Q2 hr turns and use of pillows - Cleanse with normal saline, pat dry. ?Apply barrier to the immediate solomon wound, apply dakins wet gauze roll to entire wound bed including packing to tunnel, cover with dry gauze, ABD pad. Change Daily. Left Scapula - Off Load Pressure with Q2 hr turns and use of pillows - Cleanse with normal saline, pat dry. ?Apply barrier to the immediate solomon wound, apply thick layer of Santyl to entire wound bed, cover with saline moist gauze, cover with dry gauze, ABD pad and gauze wrap, change Daily. Re-consult wound care Nurse for wound deterioration or wound changes.
[2024-09-02] MEDS: Metoprolol Succinate ER 100 MG TAB.ER.24H PO (10:25)
[2024-09-02] MEDS: Benztropine Mesylate 1 MG TABLET PO ×2 (10:25→21:41)
[2024-09-02] MEDS: risperiDONE 2 MG TABLET PO ×2 (10:25→21:41)
[2024-09-02] MEDS: Carbidopa/Levodopa 25/100 TABLET 1 TAB PO ×2 (10:25→21:41)
[2024-09-02 11:36] LABS: Glucose, Whole Blood 160 mg/dL (60-115)
--- NOTE | 2024-09-02 12:51 | HO.PM.IMPN ---
Subjective Subjective Date of Service: 09/02/24 Interval History: Seen and evaluated this morning reports feeling little better denies fever but has chills surgery to do bedside debridement no other overnight events Physical Exam Vital Signs: Vital Signs: Last Vital Signs Temp 97.1 F 09/02/24 11:00 Pulse 98 09/02/24 11:00 Resp 17 09/02/24 11:00 BP 102/54 L 09/02/24 11:00 Pulse Ox 99 09/02/24 11:00 O2 Del Method Room Air 09/02/24 11:00 BMI result Body Mass Index 21.3 Const: Other: Constitutional : Awake, interactive, frail looking,. not in distress Neck : Normal inspection, Supple Cardiovascular : RRR, no JVP, no lower extremity edema Respiratory : good bilateral air entry, no crackles, wheezes or rhonchi Gastrointestinal: soft, lax, Normal bowel sounds, Non tender Skin : Warm, Dry, large sacral wound stage 3-4 with surrounding erythema Neurological : Alert & oriented x3, righht sided weakness more in upper extremity, bilateral lower extremities weakness Objective Data Active Medications Acetaminophen (Acetaminophen 325 Mg Tablet) 650 mg PO Q6H PRN PRN Reason: Pain, Mild 1-3,fever,headache Last Admin: 09/02/24 01:59 Dose: 650 mg Documented By: LEILA Apixaban (Apixaban 5 Mg Tablet) 5 mg PO BID [facility] Last Admin: 09/01/24 21:56 Dose: 5 mg Documented By: MYRA Atorvastatin Calcium (Atorvastatin Calcium 20 Mg Tablet) 20 mg PO BEDTIME [facility] Last Admin: 09/01/24 21:56 Dose: 20 mg Documented By: MYRA Benztropine Mesylate (Benztropine Mesylate 1 Mg Tablet) 1 mg PO BID [facility] Last Admin: 09/02/24 10:25 Dose: 1 mg Documented By: ANJELICA Calcium Carbonate (Calcium Carbonate 750 Mg Tab.Chew) 750 mg PO Q4H PRN PRN Reason: Heartburn Carbidopa/Levodopa (Carbidopa/Levodopa 25/100 Tablet) 1 tab PO BID [facility] Last Admin: 09/02/24 10:25 Dose: 1 tab Documented By: ANJELICA Clonazepam (Clonazepam 0.5 Mg Tablet) 0.5 mg PO BEDTIME [facility] Last Admin: 09/01/24 21:56 Dose: 0.5 mg Documented By: MYRA Piperacillin Sod/Tazobactam (Sod 3.375 gm/ Sodium Chloride) 50 mls @ 100 mls/hr IV Q6H [facility] Last Infusion: 09/02/24 07:14 Dose: Infused Documented By: ANJELICA Vancomycin HCl 750 mg/ Sodium (Chloride) 265 mls @ 265 mls/hr IV Q12H [facility] Last Infusion: 09/02/24 02:24 Dose: Infused Documented By: LEILA Insulin Human Lispro (Insulin Lispro 100 Unit/Ml 3 Ml Vial) 0 unit SUBCUT QIDACHS [facility]; Protocol Last Admin: 09/02/24 10:00 Dose: Not Given Documented By: ANJELICA Non-Admin Reason: No Insulin Coverage Loperamide HCl (Loperamide Hcl 2 Mg Capsule) 2 mg PO Q4H PRN PRN Reason: Diarrhea Magnesium Hydroxide (Milk Of Magnesia 30 Ml Oral.Susp) 30 ml PO DAILY PRN PRN Reason: Constipation Melatonin (Melatonin 3 Mg Tablet) 6 mg PO BEDTIME PRN PRN Reason: Insomnia Melatonin (Melatonin 3 Mg Tablet) 6 mg PO BEDTIME [facility] Last Admin: 09/01/24 21:55 Dose: 6 mg Documented By: MYRA Metoprolol Succinate (Metoprolol Succinate Er 100 Mg Tab.Er.24h) 100 mg PO DAILY [facility]; Protocol Last Admin: 09/02/24 10:25 Dose: 100 mg Documented By: ANJELICA Morphine Sulfate (Morphine Sulfate 4 Mg/Ml Cartridge) 2 mg IVPUSH Q4H PRN; Protocol PRN Reason: Pain, Severe (Pain Scale 7-10) Last Admin: 09/02/24 01:59 Dose: 2 mg Documented By: LEILA Omeprazole (Omeprazole 40 Mg Capsule.) 40 mg PO BID@0630,1630 [facility] Last Admin: 09/02/24 06:44 Dose: 40 mg Documented By: LEILA Ondansetron HCl (Ondansetron Hcl 4 Mg/2 Ml Vial) 4 mg IVPUSH Q8H PRN PRN Reason: Nausea and Vomiting Pharmacy Consult (Consult Rx Vancomycin Dosing) 1 each MISCELLANE DAILY PRN PRN Reason: Consult order Risperidone (Risperidone 2 Mg Tablet) 2 mg PO BID [facility] Last Admin: 09/02/24 10:25 Dose: 2 mg Documented By: ANJELICA Sodium Chloride (0.9 % Sodium Chloride Flush 3 Ml Syringe) 3 ml IVFLUSH QSHIFT [facility] Last Admin: 09/02/24 10:00 Dose: Not Given Documented By: ANJELICA Non-Admin Reason: no iv Sodium Hypochlorite (Sodium Hypochlorite 0.125% 473 Ml Solution) 1 appl TOPICAL DAILY [facility] Labs 09/02/24 04:20 09/02/24 04:20 Labs: Laboratory Results - last 24 hr 09/01/24 09/01/24 09/01/24 13:07 17:36 21:47 MCV MCH MCHC RDW Plt Count MPV Immature Gran % (Auto) Neut % (Auto) Lymph % (Auto) [place] % (Auto) Eos % (Auto) Baso % (Auto) Lymph # (Auto) [place] # (Auto) Eos # (Auto) Baso # (Auto) Abs Immat Gran (auto) Absolute Neuts (auto) Absolute Nucleated RBC Nucleated RBC % (auto) Anion Gap Estim Creat Clear Calc Estimated GFR POC Glucose 112 158 H Random Glucose Lactic Acid Lactic Acid F/U @ 2Hr 3.3 H* Calcium Iron TIBC % Saturation Unsat Iron Binding Total Bilirubin AST ALT Alkaline Phosphatase Total Protein Albumin 09/02/24 09/02/24 09/02/24 04:20 07:15 11:22 MCV 87.7 MCH 30.3 MCHC 34.6 RDW 13.9 Plt Count 408 H MPV 9.5 Immature Gran % (Auto) 0.5 H Neut % (Auto) 88.2 H Lymph % (Auto) 6.5 L [place] % (Auto) 3.1 Eos % (Auto) 1.3 Baso % (Auto) 0.4 Lymph # (Auto) 0.6 L [place] # (Auto) 0.3 Eos # (Auto) 0.1 Baso # (Auto) 0.0 Abs Immat Gran (auto) 0.05 H Absolute Neuts (auto) 8.2 Absolute Nucleated RBC 0.000 Nucleated RBC % (auto) 0.0 Anion Gap 13 Estim Creat Clear Calc 75.7 Estimated GFR > 60 POC Glucose 87 160 H Random Glucose 94 Lactic Acid 0.8 Lactic Acid F/U @ 2Hr Calcium 8.5 D Iron 15 L TIBC 116 L % Saturation 13 L Unsat Iron Binding 101 Total Bilirubin 0.4 AST 15 ALT < 6 Alkaline Phosphatase 92 Total Protein 5.6 L Albumin 3.2 L Microbiology Microbiology Results: Microbiology 09/01/24 10:37 Blood Culture - Preliminary Blood - Venous No growth after 24 hours. 09/01/24 10:37 Blood Culture - Preliminary Blood - Venous No growth after 24 hours. 09/01/24 11:38 Gram Stain - Final Back Routine Culture - Preliminary Culture in progress. 09/01/24 11:38 Gram Stain - Final Buttock Routine Culture - Preliminary Culture in progress. Assessment and Plan (1) Sacral decubitus ulcer, stage IV: Status: Acute (2) Acidosis, lactic: Status: Acute (3) Decubitus ulcer, infected: Status: Acute Plan A 69 years old male with PMH of PAF, paranoid schizophrenia, bipolar disorder, anxiety, insomnia, Parkinson's disease, GERD with esophagitis, hypercholesterolemia, hypertension, diabetes mellitus who was brought to ED for worsening sacral wound with surrounding erythema and pain. 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 CT reporting possible abscess formation and Osteomyelitis not septic pending cultures Continue IV Zosyn and Vancomycin Surgery input appreciated, bedside debridement as needed Wound care consult follow Vanco trough ID consult Acute lactic acidosis not due to sepsis likely from Metformin repeat after IVF then hold acute mild hyponatremia Na of 132 , encourage PO intake follow BMP Acute on chronic anemia Hb of 7.4 from 9.4 no obvious bleeding, check occult low iron stores , to give IV replacement follow H&H Paroxysmal atrial fibrillation rate controlled Metoprolol home dose resume Eliqucj Parkinson's disease/mood continue Sinemet,Cogentin, risperdal follow clinical response Diabetes type 2 lispro correctional scale hold metformin Full code Eliquis HCP is geralder Blanco The patient will be admitted inpatient for overnight for treatment of infected sacral ulcer reuqiring IV antibiotics and specialist evaluation and possible intervention Quality Stroke Does the patient have a stroke diagnosis?: No VTE Prior VTE?: No VTE Risk Level:: Medical - moderate - high VTE Device Contraindication: Treatment Not Indicated VTE Drug Contraindication: N/A - Med Ordered
[2024-09-02] MEDS: Sodium Hypochlorite 0.125% 473 ML SOLUTION 1 APPL TOPICAL (13:37)
[2024-09-02 13:39] LABS: Hematocrit 23.6 % (42.0-52.0); Hemoglobin 7.9 g/dl (14.0-18.0); Mean Corpuscular HGB Conc 33.5 g/dl (31.0-36.0); Mean Corpuscular Hemoglobin 29.8 pg (27.0-33.0); Mean Corpuscular Volume 89.1 fL (80.0-98.0); Mean Platelet Volume 9.3 fL (9.4-12.4); Platelet Count 372 X10*3/uL (160-400); Red Blood Count 2.65 X10*6/uL (4.60-5.80); White Blood Count 7.4 X10*3/uL (4.8-10.8)
--- NOTE | 2024-09-02 15:11 | MHC.CLN ---
CONSULT PT WITH INCREASED NUTRITION RISK R/T PRESSURE INJURY PO 100% X 1 MEAL DIET RX: 1800DM CHOPPED-RECOMMEND INCREASING TO 2000DM DIET TO MEET NEEDS RECOMMEND ADDING ENSURE MAX BID TO PROMOTE WOUND HEALING SUPP TO PROVIDE 300KCALS, 60G PROTEIN MONITOR PO INTAKE AND ENCOURAGE SUPPLEMENTS SEE FULL CLINICAL NUTRITION ASSESSMENT
[2024-09-02] MEDS: Sodium Ferric Gluconat/Sucrose 125 MG in 0.9 % Sodium Chloride 100 ML 100 MG IV (16:05)
--- NOTE | 2024-09-02 16:27 | HO.WOUND ---
Wound Consult: Initial 69yr old?male admitted to [facility] on 09/01/24 - See progress notes and H&P for detailed history.? Wound consult placed for Sacrum.? Patient agreeable to assessment and photo documentation.? Sacrum Etiology: Stage 4 Pressure Injury??Present on Admission Measurements: 9cm x 9cm x 4cm tunnel at 5 o'clock depth of 7cm Wound Bed: red beefy tissue with scattered areas of yellow slough central area with some slough and suspect exposed tendon vs ligaments Drainage / Odor: fould odor noted - large amount of hernández liquid drainage Edges: ? unattached Solomon wound: ?pink intact No Induration, Fluctuance or Warmth noted Pain: painful to touch Goals of Treatment: ?Dakins for autolytic debridement Left Scapula Etiology: ??Unstageable Present on Admission Measurements: 2cm x 1cm x 1.5cm Wound Bed: adherent yellow hernández slough Drainage / Odor: small amount hernández - no odor noted Edges: ? epibole Solomon wound: ?pink intact No Induration, Fluctuance or Warmth noted Pain: denies pain Goals of Treatment: ?Santyl for enzymatic debridement Left heel is what appears to be resurfacing DTI dry stable scab noted - foam dressing in place recommend continue with foam application and off loading. Right Heel noted to intact pink red blanchable area - remains blanchable foam dressing in place to aid in pressure redistribution. Recommendations: 1. Turn and Reposition every 2 hours and as needed for patient comfort.? Use pillows or wedges to support off loading positions. 2. Off Load all bony prominences with use of pillows and heel boots if needed.? Apply Preventative foams where needed. ? 3. Monitor for incontinence and moisture control, use barrier creams when needed for prevention and treatment. 4. Provide adequate and supplemental nutrition.? 5. Ordered Agility Pulsate bed due to arrive today. 6. When applicable maintain blood glucose levels per Providers order. Sacrum - Off Load Pressure with Q2 hr turns and use of pillows - Cleanse with normal saline, pat dry. ?Apply barrier to the immediate solomon wound, apply dakins wet gauze roll to entire wound bed including packing to tunnel, cover with dry gauze, ABD pad. Change Daily. Left Scapula - Off Load Pressure with Q2 hr turns and use of pillows - Cleanse with normal saline, pat dry. ?Apply barrier to the immediate solomon wound, apply thick layer of Santyl to entire wound bed, cover with saline moist gauze, cover with dry gauze, ABD pad and gauze wrap, change Daily. Bilateral Heels - Apply skin prep apply foam dressing peel back and assess Q shift change every 5 days and PRN. Re-consult wound care Nurse for wound deterioration or wound changes.
[2024-09-02 16:36] LABS: Glucose, Whole Blood 105 mg/dL (60-115)
--- NOTE | 2024-09-02 19:36 | PC.NURSE ---
patient with 6 beat run of vtach at around 1715, notified, patient asymptomatic, no further orders received
[2024-09-02 20:27] LABS: Glucose, Whole Blood 114 mg/dL (60-115)
[2024-09-02 21:38] LABS: Vancomycin Random 25.3 mcg/mL (15-20)
[2024-09-02] MEDS: Melatonin 3 MG TABLET 6 MG PO (21:41)
[2024-09-02] MEDS: Apixaban 5 MG TABLET PO (21:41)
[2024-09-02] MEDS: Atorvastatin Calcium 20 MG TABLET PO (21:41)
[2024-09-02] MEDS: clonazePAM 0.5 MG TABLET PO (21:41)
--- NOTE | 2024-09-03 00:04 | P.CNID_ITS ---
History of Present Illness Data of Consult Service Date: 09/03/24 Requesting physician: Lakshmi Rivera Primary Care Provider: Edwige Mosqueda MD HPI Reason for consult: sacral OM He presents from [facility] with sacral decubiti. Apparently he was falling and then declined getting up and laid in bed for three weeks. He then developed decubiti. Review of Systems 2 Review of Systems: Yes all other systems are reviewed and are negative PMFSH Past Medical History Medical History Sacral decubitus ulcer, stage IV Diabetes mellitus type 2, controlled Fall PAF (paroxysmal atrial fibrillation) Dizziness Paranoid schizophrenia Bipolar depression Anxiety Insomnia Constipation Parkinson's disease GERD without esophagitis Hyponatremia Pure hypercholesterolemia Benign essential hypertension Diabetes mellitus Family History Family History Father Parkinson disease Mother Stomach cancer Family history: reviewed and not pertinent Surgical History Surgical History History of extraction of renal calculus Social History Social History Household Members: None Household Members Other:: from home, patient not able to answer questions Housing: [place] Alcohol intake: former Patient Tobacco Use Status: Never used Tobacco e-Cigarette/Vaping Use: Never Used service: No Current occupational status: retired Cognitive needs: Yes (walker) Hearing needs: No Vision needs: Yes (reading glasses) Meds Allergies Allergy/AdvReac Type Severity Reaction Status Date / Time No Known Allergies Allergy Verified 09/01/24 09:30 [No Known Allergies*] Active Medications: Current Medications Acetaminophen (Acetaminophen 325 Mg Tablet) 650 mg PO Q6H PRN PRN Reason: Pain, Mild 1-3,fever,headache Last Admin: 09/02/24 01:59 Dose: 650 mg Apixaban (Apixaban 5 Mg Tablet) 5 mg PO BID ADRIAN Last Admin: 09/02/24 21:41 Dose: 5 mg Atorvastatin Calcium (Atorvastatin Calcium 20 Mg Tablet) 20 mg PO BEDTIME ADRIAN Last Admin: 09/02/24 21:41 Dose: 20 mg Benztropine Mesylate (Benztropine Mesylate 1 Mg Tablet) 1 mg PO BID [facility] Last Admin: 09/02/24 21:41 Dose: 1 mg Calcium Carbonate (Calcium Carbonate 750 Mg Tab.Chew) 750 mg PO Q4H PRN PRN Reason: Heartburn Carbidopa/Levodopa (Carbidopa/Levodopa 25/100 Tablet) 1 tab PO BID [facility] Last Admin: 09/02/24 21:41 Dose: 1 tab Clonazepam (Clonazepam 0.5 Mg Tablet) 0.5 mg PO BEDTIME [facility] Last Admin: 09/02/24 21:41 Dose: 0.5 mg Piperacillin Sod/Tazobactam (Sod 3.375 gm/ Sodium Chloride) 50 mls @ 100 mls/hr IV Q6H [facility] Last Infusion: 09/02/24 17:57 Dose: Infused Ferric Sodium Gluconate Complex 125 mg/ Sodium Chloride 110 mls @ 100 mls/hr IV DAILY [facility] Stop: 09/04/24 10:05 Last Infusion: 09/02/24 17:11 Dose: Infused Vancomycin HCl 1,000 mg/ (Sodium Chloride) 270 mls @ 270 mls/hr IV Q24H [facility] Insulin Human Lispro (Insulin Lispro 100 Unit/Ml 3 Ml Vial) 0 unit SUBCUT QIDACHS [facility]; Protocol Last Admin: 09/02/24 20:29 Dose: Not Given Loperamide HCl (Loperamide Hcl 2 Mg Capsule) 2 mg PO Q4H PRN PRN Reason: Diarrhea Magnesium Hydroxide (Milk Of Magnesia 30 Ml Oral.Susp) 30 ml PO DAILY PRN PRN Reason: Constipation Melatonin (Melatonin 3 Mg Tablet) 6 mg PO BEDTIME PRN PRN Reason: Insomnia Melatonin (Melatonin 3 Mg Tablet) 6 mg PO BEDTIME [facility] Last Admin: 09/02/24 21:41 Dose: 6 mg Morphine Sulfate (Morphine Sulfate 4 Mg/Ml Cartridge) 2 mg IVPUSH Q4H PRN; Protocol PRN Reason: Pain, Severe (Pain Scale 7-10) Last Admin: 09/02/24 01:59 Dose: 2 mg Omeprazole (Omeprazole 40 Mg Capsule.Dr) 40 mg PO BID@0630,1630 [facility] Last Admin: 09/02/24 17:27 Dose: 40 mg Ondansetron HCl (Ondansetron Hcl 4 Mg/2 Ml Vial) 4 mg IVPUSH Q8H PRN PRN Reason: Nausea and Vomiting Pharmacy Consult (Consult Rx Vancomycin Dosing) 1 each MISCELLANE DAILY PRN PRN Reason: Consult order Risperidone (Risperidone 2 Mg Tablet) 2 mg PO BID [facility] Last Admin: 09/02/24 21:41 Dose: 2 mg Sodium Chloride (0.9 % Sodium Chloride Flush 3 Ml Syringe) 3 ml IVFLUSH QSHIFT [facility] Last Admin: 09/02/24 21:48 Dose: 3 ml Sodium Hypochlorite (Sodium Hypochlorite 0.125% 473 Ml Solution) 1 appl TOPICAL DAILY [facility] Last Admin: 09/02/24 13:37 Dose: 1 appl Home Medications ?Medication ?Instructions ?Recorded ?Confirmed ?Last Taken ?Type clonazepam 0.5 mg tablet 0.5 mg PO BEDTIME Sleep 04/08/20 09/01/24 07/21/24 History multivitamin 1 tab PO DAILY@0800 05/15/21 09/01/24 07/21/24 History carbidopa 25 mg-levodopa 100 mg 1 tab PO BID 08/02/23 09/01/24 07/21/24 History tablet benztropine 1 mg tablet 1 mg PO BID 11/25/23 09/01/24 07/21/24 History melatonin 5 mg capsule 5 mg PO BEDTIME 12/16/23 09/01/24 07/21/24 History risperidone 2 mg tablet (Risperdal) 2 mg PO BID 06/18/24 09/01/24 07/21/24 History atorvastatin 20 mg tablet 20 mg PO BEDTIME 07/26/24 09/01/24 07/21/24 History eplerenone 25 mg tablet 12.5 mg PO DAILY@0807/26/24 09/01/24 07/21/24 History magnesium oxide 400 mg PO BEDTIME 07/26/24 09/01/24 07/21/24 History valsartan 40 mg tablet 40 mg PO BEDTIME 07/26/24 09/01/24 07/21/24 History acetaminophen 325 mg tablet 650 mg PO Q6H PRN Fever Or Pain 09/01/24 09/01/24 Unknown History ascorbic acid (vitamin C) 250 mg 250 mg PO DAILY@199909/01/24 09/01/24 Unknown History tablet (Vitamin C) bisacodyl 10 mg rectal suppository 10 mg NM DAILY PRN Constipation 09/01/24 09/01/24 Unknown History dextrose 40 % oral gel (Glucose 15 g PO Q15M PRN Hypoglycemia 09/01/24 09/01/24 Unknown History Gel) glucagon 1 mg solution for 1 mg subcut Q20M PRN Hypoglycemia 09/01/24 09/01/24 Unknown History injection magnesium hydroxide 400 mg/5 mL 30 ml PO DAILY PRN Constipation 09/01/24 09/01/24 Unknown History oral suspension (Milk of Magnesia) metoprolol succinate 100 mg 100 mg PO DAILY 09/01/24 09/01/24 Unknown History tablet,extended release 24 hr omeprazole 40 mg capsule,delayed 40 mg PO BID@0630,1630 09/01/24 09/01/24 Unknown History release sodium hypochlorite 0.125 % 1 appl topical DAILY@0700 09/01/24 09/01/24 Unknown History solution (Dakin's Solution) sodium phosphates 19 gram-7 118 ml NM DAILY PRN Constipation 09/01/24 09/01/24 Unknown History gram/118 mL enema (Fleet Enema) Physical Exam 2 Vital Signs: Vital Signs: Last Vital Signs Temp 97.8 F 09/02/24 23:23 Pulse 79 09/02/24 23:23 Resp 18 09/02/24 23:23 BP 110/58 L 09/02/24 23:23 Pulse Ox 96 09/02/24 23:23 O2 Del Method Room Air 09/02/24 23:23 BMI result Body Mass Index 21.3 Const: General: cooperative HEENT: Head: Yes normal to inspection Face and sinus: Yes normal facial exam Mouth: Normal oral and palatal mucosa present Teeth and gingiva: d entition normal Eyes: General: appearance normal, both eyes and all related structures P upils: Equal, round and reactive pupils present Resp: Effort & Inspection: normal respiratory effort Cardio: Rate: regular rate Rhythm: regular rhythm GI: Palpation (GI): Soft to palpation and nontender : General: Yes no CVA tenderness Back/Spine/Pelvis: Other: deep decubitis Back: no CVA tenderness Skin: General skin exam: no rashes or lesions noted Neuro: General: moves all extremities Cranial nerves: Yes Equal, round and reactive pupils present Extrem: General: Yes normal to inspection Psych: Appearance: grossly normal Results Labs 09/02/24 13:29 09/02/24 04:20 Labs: Short CBC 09/02/24 09/02/24 Range/Units 04:20 13:29 WBC 9.3 7.4 (4.8-10.8) X10*3/uL Hgb 7.4 L D 7.9 L (14.0-18.0) g/dl Hct 21.4 L D 23.6 L (42.0-52.0) % Plt Count 408 H 372 (160-400) X10*3/uL BMP 09/02/24 04:20 Sodium 132 L Potassium 3.9 Chloride 102 Carbon Dioxide 21 L BUN 23 H Creatinine 0.90 Calcium 8.5 D Liver Function 09/02/24 Range/Units 04:20 Total Bilirubin 0.4 (0.0-1.0) mg/dL AST 15 (5-37) U/L ALT < 6 (0-40) U/L Alkaline Phosphatase 92 (39-117) U/L Albumin 3.2 L (3.5-5.0) g/dL Microbiology Microbiology Results: Microbiology 09/01/24 10:37 Blood - Venous Blood Culture - Preliminary No growth after 24 hours. 09/01/24 10:37 Blood - Venous Blood Culture - Preliminary No growth after 24 hours. 09/01/24 11:38 Back Gram Stain - Final 09/01/24 11:38 Back Routine Culture - Preliminary Culture in progress. 09/01/24 11:38 Buttock Gram Stain - Final 09/01/24 11:38 Buttock Routine Culture - Preliminary Culture in progress. Assessment and Plan (1) Sacral decubitus ulcer, stage IV: Status: Acute Plan Concern for OM six weeks Ertapenem if able ,found no cultures positive Off buttocks
[2024-09-03] MEDS: Piperacillin Sodium/Tazobactam 3.375 GM in 0.9 % Sodium Chloride 50 ML IV ×5 (00:26→23:17)
[2024-09-03 03:12] VITALS: BP 114/59; PULSE 86; RESP 18; TEMP 36.6; O2SAT 96
[2024-09-03] MEDS: Omeprazole 40 MG CAPSULE.DR PO ×2 (05:45→17:32)
[2024-09-03 07:40] LABS: Glucose, Whole Blood 109 mg/dL (60-115)
[2024-09-03 08:00] VITALS: BP 121/59; PULSE 82; RESP 16; TEMP 36.7; O2SAT 95
[2024-09-03 09:39] LABS: MANUAL DIFF FLAG NO
[2024-09-03 09:47] LABS: Basophils Absolute Auto 0.1 X10*3/uL (0.0-0.2); Basophils Percent Auto 0.6 % (0-2); Eosinophils Absolute Auto 0.2 X10*3/uL (0.0-0.4); Eosinophils Percent Auto 2.3 % (0-4); Hematocrit 25.6 % (42.0-52.0); Hemoglobin 8.7 g/dl (14.0-18.0); Imm Gran Abs Auto 0.02 X10*3/uL (0.00-0.03); Imm Gran Pct Auto 0.2 % (0.0-0.4); Lymphocytes Absolute Auto 0.9 X10*3/uL (1.2-4.9); Lymphocytes Percent Auto 10.3 % (20-40); Mean Corpuscular Hemoglobin 30.3 pg (27.0-33.0); Mean Corpuscular Volume 89.2 fL (80.0-98.0); Mean Platelet Volume 9.5 fL (9.4-12.4); Monocytes Absolute Auto 0.9 X10*3/uL (0.1-1.2); Monocytes Percent Auto 10.9 % (2-11); Neutrophils Absolute Auto 6.3 x10*3/uL (2.0-8.3); Neutrophils Percent Auto 75.7 % (45-73); Platelet Count 424 X10*3/uL (160-400); Red Blood Count 2.87 X10*6/uL (4.60-5.80); White Blood Count 8.4 X10*3/uL (4.8-10.8)
[2024-09-03 09:59] LABS: Vancomycin Random 16.7 mcg/mL (15-20)
[2024-09-03 10:04] LABS: Creatinine Clr Calc Pharmacy 70.9; Estimated Glomerular Filt Rate > 60
[2024-09-03] MEDS: Sodium Ferric Gluconat/Sucrose 125 MG in 0.9 % Sodium Chloride 100 ML 100 MG IV (10:18)
--- NOTE | 2024-09-03 10:20 | HE.PHANOTE ---
RE: VANCO DOSING Trough came back as 16.7 mg/L and renal function is stable. Start dose of 1000 mg q24h @1500, next trough is scheduled for 09/04/24 @1300.
[2024-09-03] MEDS: Apixaban 5 MG TABLET PO ×2 (10:21→21:06)
[2024-09-03] MEDS: Benztropine Mesylate 1 MG TABLET PO ×2 (10:21→21:06)
[2024-09-03] MEDS: Carbidopa/Levodopa 25/100 TABLET 1 TAB PO ×2 (10:21→21:06)
[2024-09-03] MEDS: risperiDONE 2 MG TABLET PO ×2 (10:21→21:06)
[2024-09-03 10:24] LABS: Anion Gap 14 (12-20); Blood Urea Nitrogen 15 mg/dL (9-16); Carbon Dioxide 22 mmol/L (22-29); Chloride 104 mmol/L (96-108); Creatinine Clr Calc Pharmacy 72.4; Estimated Glomerular Filt Rate > 60; Glucose Random 125 mg/dL (60-115); Potassium 3.8 mmol/L (3.3-5.1); Sodium 136 mmol/L (135-145)
[2024-09-03 10:28] LABS: Calcium 9.6 mg/dL (8.4-10.2)
[2024-09-03 11:06] LABS: Glucose, Whole Blood 219 mg/dL (60-115)
[2024-09-03] MEDS: Sodium Hypochlorite 0.125% 473 ML SOLUTION 1 APPL TOPICAL (11:31)
[2024-09-03 11:58] VITALS: BP 114/63; PULSE 83; RESP 18; TEMP 37.2; O2SAT 97
--- NOTE | 2024-09-03 13:41 | P.PNIM_ITS ---
Subjective Subjective Date of Service: 09/03/24 Interval History: Seen and evaluated this morning feeling little better denies fever or chills surgery did bedside debridement and wound care no other overnight events Review of Systems Review of Systems: Yes all other systems are reviewed and are negative Physical Exam 2 Vital Signs: Vital Signs: Last Vital Signs Temp 98.9 F 09/03/24 11:58 Pulse 83 09/03/24 11:58 Resp 18 09/03/24 11:58 BP 114/63 09/03/24 11:58 Pulse Ox 97 09/03/24 11:58 O2 Del Method Room Air 09/03/24 11:58 BMI result Body Mass Index 21.3 Const: Other: Constitutional : Awake, interactive, frail looking, not in distress Neck : Normal inspection, Supple Cardiovascular : RRR, no JVP, no lower extremity edema Respiratory : good bilateral air entry, no crackles, wheezes or rhonchi Gastrointestinal: soft, lax, Normal bowel sounds, Non tender Skin : Warm, Dry, large sacral wound stage 3-4 with surrounding erythema Neurological : Alert & oriented x3, righht sided weakness more in upper extremity, bilateral lower extremities weakness Objective Data Active Medications Acetaminophen (Acetaminophen 325 Mg Tablet) 650 mg PO Q6H PRN PRN Reason: Pain, Mild 1-3,fever,headache Last Admin: 09/02/24 01:59 Dose: 650 mg Documented By: LEILA Apixaban (Apixaban 5 Mg Tablet) 5 mg PO BID [facility] Last Admin: 09/03/24 10:21 Dose: 5 mg Documented By: EFRAÍN Atorvastatin Calcium (Atorvastatin Calcium 20 Mg Tablet) 20 mg PO BEDTIME [facility] Last Admin: 09/02/24 21:41 Dose: 20 mg Documented By: JOLENE Benztropine Mesylate (Benztropine Mesylate 1 Mg Tablet) 1 mg PO BID [facility] Last Admin: 09/03/24 10:21 Dose: 1 mg Documented By: EFRAÍN Calcium Carbonate (Calcium Carbonate 750 Mg Tab.Chew) 750 mg PO Q4H PRN PRN Reason: Heartburn Carbidopa/Levodopa (Carbidopa/Levodopa 25/100 Tablet) 1 tab PO BID [facility] Last Admin: 09/03/24 10:21 Dose: 1 tab Documented By: EFRAÍN Clonazepam (Clonazepam 0.5 Mg Tablet) 0.5 mg PO BEDTIME [facility] Last Admin: 09/02/24 21:41 Dose: 0.5 mg Documented By: JOLENE Piperacillin Sod/Tazobactam (Sod 3.375 gm/ Sodium Chloride) 50 mls @ 100 mls/hr IV Q6H [facility] Last Infusion: 09/03/24 12:18 Dose: Infused Documented By: EFRAÍN Ferric Sodium Gluconate Complex 125 mg/ Sodium Chloride 110 mls @ 100 mls/hr IV DAILY [facility] Stop: 09/04/24 10:05 Last Infusion: 09/03/24 11:31 Dose: Infused Documented By: EFRAÍN Vancomycin HCl 1,000 mg/ (Sodium Chloride) 270 mls @ 270 mls/hr IV Q24H [facility] Insulin Human Lispro (Insulin Lispro 100 Unit/Ml 3 Ml Vial) 0 unit SUBCUT QIDACHS [facility]; Protocol Last Admin: 09/03/24 11:35 Dose: Not Given Documented By: EFRAÍN Non-Admin Reason: Patient Refused Loperamide HCl (Loperamide Hcl 2 Mg Capsule) 2 mg PO Q4H PRN PRN Reason: Diarrhea Magnesium Hydroxide (Milk Of Magnesia 30 Ml Oral.Susp) 30 ml PO DAILY PRN PRN Reason: Constipation Melatonin (Melatonin 3 Mg Tablet) 6 mg PO BEDTIME PRN PRN Reason: Insomnia Melatonin (Melatonin 3 Mg Tablet) 6 mg PO BEDTIME [facility] Last Admin: 09/02/24 21:41 Dose: 6 mg Documented By: JOLENE Morphine Sulfate (Morphine Sulfate 4 Mg/Ml Cartridge) 2 mg IVPUSH Q4H PRN; Protocol PRN Reason: Pain, Severe (Pain Scale 7-10) Last Admin: 09/02/24 01:59 Dose: 2 mg Documented By: LEILA Omeprazole (Omeprazole 40 Mg Capsule.) 40 mg PO BID@0630,1630 [facility] Last Admin: 09/03/24 05:45 Dose: 40 mg Documented By: JOLENE Ondansetron HCl (Ondansetron Hcl 4 Mg/2 Ml Vial) 4 mg IVPUSH Q8H PRN PRN Reason: Nausea and Vomiting Pharmacy Consult (Consult Rx Vancomycin Dosing) 1 each MISCELLANE DAILY PRN PRN Reason: Consult order Risperidone (Risperidone 2 Mg Tablet) 2 mg PO BID [facility] Last Admin: 09/03/24 10:21 Dose: 2 mg Documented By: EFRAÍN Sodium Chloride (0.9 % Sodium Chloride Flush 3 Ml Syringe) 3 ml IVFLUSH QSHIFT [facility] Last Admin: 09/03/24 10:21 Dose: Not Given Documented By: EFRAÍN Non-Admin Reason: IV Running Sodium Hypochlorite (Sodium Hypochlorite 0.125% 473 Ml Solution) 1 appl TOPICAL DAILY [facility] Last Admin: 09/03/24 11:31 Dose: 1 appl Documented By: EFRAÍN Labs 09/03/24 09:16 09/03/24 09:16 Labs: Laboratory Results - last 24 hr 09/02/24 09/02/24 09/02/24 16:33 20:24 21:10 MCV MCH MCHC RDW Plt Count MPV Immature Gran % (Auto) Neut % (Auto) Lymph % (Auto) [place] % (Auto) Eos % (Auto) Baso % (Auto) Lymph # (Auto) [place] # (Auto) Eos # (Auto) Baso # (Auto) Abs Immat Gran (auto) Absolute Neuts (auto) Absolute Nucleated RBC Nucleated RBC % (auto) Anion Gap Estim Creat Clear Calc Estimated GFR POC Glucose 105 114 Random Glucose Calcium Random Vancomycin 25.3 H* 09/03/24 09/03/24 09/03/24 07:36 09:16 09:16 MCV 89.2 MCH 30.3 MCHC 34.0 RDW 14.0 Plt Count 424 H MPV 9.5 Immature Gran % (Auto) 0.2 Neut % (Auto) 75.7 H Lymph % (Auto) 10.3 L [place] % (Auto) 10.9 Eos % (Auto) 2.3 Baso % (Auto) 0.6 Lymph # (Auto) 0.9 L [place] # (Auto) 0.9 Eos # (Auto) 0.2 Baso # (Auto) 0.1 Abs Immat Gran (auto) 0.02 Absolute Neuts (auto) 6.3 Absolute Nucleated RBC 0.000 Nucleated RBC % (auto) 0.0 Anion Gap 14 Estim Creat Clear Calc 70.9 72.4 Estimated GFR > 60 POC Glucose 109 Random Glucose Calcium Random Vancomycin 09/03/24 09/03/24 09:16 11:02 MCV MCH MCHC RDW Plt Count MPV Immature Gran % (Auto) Neut % (Auto) Lymph % (Auto) [place] % (Auto) Eos % (Auto) Baso % (Auto) Lymph # (Auto) [place] # (Auto) Eos # (Auto) Baso # (Auto) Abs Immat Gran (auto) Absolute Neuts (auto) Absolute Nucleated RBC Nucleated RBC % (auto) Anion Gap Estim Creat Clear Calc Estimated GFR > 60 POC Glucose 219 H Random Glucose 125 H Calcium 9.6 D Random Vancomycin 16.7 Microbiology Microbiology Results: Microbiology 09/01/24 10:37 Blood Culture - Preliminary Blood - Venous No growth after 48 hours. 09/01/24 10:37 Blood Culture - Preliminary Blood - Venous No growth after 48 hours. 09/01/24 11:38 Gram Stain - Final Back Routine Culture - Preliminary 09/01/24 11:38 Gram Stain - Final Buttock Routine Culture - Preliminary Staphylococcus aureus Assessment and Plan (1) Sacral decubitus ulcer, stage IV: Status: Acute (2) Decubitus ulcer, infected: Status: Acute (3) Acidosis, lactic: Status: Acute Plan A 69 years old male with PMH of PAF, paranoid schizophrenia, bipolar disorder, anxiety, insomnia, Parkinson's disease, GERD with esophagitis, hypercholesterolemia, hypertension, diabetes mellitus who was brought to ED for worsening sacral wound with surrounding erythema and pain. 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 CT reporting possible abscess formation and Osteomyelitis not septic pending cultures Continue IV Zosyn and Vancomycin Surgery input appreciated, bedside debridement as needed and wound care on discharge Wound care consult follow Vanco trough ID consult , 6 weeks Ertapenem on discharge To place PICC line today Acute lactic acidosis not due to sepsis likely from Metformin repeat after IVF then hold acute mild hyponatremia Na of 132 , encourage PO intake follow BMP Acute on chronic anemia Hb of 8.7 today from 9.4 no obvious bleeding, check occult low iron stores , to give IV replacement follow H&H Paroxysmal atrial fibrillation rate controlled Metoprolol home dose resume Eliquis Parkinson's disease/mood continue Sinemet,Cogentin, risperdal follow clinical response Diabetes type 2 lispro correctional scale hold metformin Full code Eliquis HCP is brother Blanco The patient will be admitted inpatient for overnight for treatment of infected sacral ulcer requiring IV antibiotics , PICC placement and specialist follow up Quality Stroke Does the patient have a stroke diagnosis?: No VTE Prior VTE?: No VTE Risk Level:: Medical - moderate - high VTE Device Contraindication: Treatment Not Indicated VTE Drug Contraindication: N/A - Med Ordered
[2024-09-03 15:01] VITALS: BP 109/63; PULSE 87; RESP 18; TEMP 36.8; O2SAT 98
[2024-09-03] MEDS: Morphine Sulfate 4 MG/ML CARTRIDGE 2 MG IVPUSH (15:17)
--- NOTE | 2024-09-03 16:59 | P.PICC_ITS ---
PICC Line Insertion [facility] INSERTION Diagnosis: SACRAL ULCER Indication: 6 WEEKS OF ANTIBX Pertinent Labs: REVIEWED Technique: Following informed consent including risks, benefits and alternatives and using sterile technique including cap and mask, sterile gown, glove and drape, the RIGHT arm was prepped and draped in the usual sterile fashion of full barrier technique with G. Following completion of Clio Protocol the skin and soft tissues were anesthetized with 1% Lidocaine plain. Using ultrasound guidance, RIGHT BASILIC vein access was obtained. Over an 0.018 wire through peel-away sheath, a 4FR POWERPICC PASV PICC line was positioned. Catheter length is 37CM internal length, 0CM external length, for a total trimmed length of 37CM. The procedure was performed in RM 272. Tip verification was performed by Jose A Jain with Maryuri 3CG. Tip located in SVC. Ultrasound was used to document vein patency and for needle entry. A formal ultrasound picture and cardiac rhythm strip was recorded. Vascular Quantitative Consultant has released the line for use and it is currently dressed with a StatLock, Tegaderm, and CHG disc. Verification has been performed for blood return and line patency. Arm Circumference: 23.5CM Equipment: BARD POWERPICC SOLO CATHETER Catheter Type: 4FR POWERPICC PASV PICC line Lot #: [id number]
[2024-09-03] MEDS: 0.9 % Sodium Chloride Flush 3 ML SYRINGE IVFLUSH ×2 (17:18→21:06)
[2024-09-03 17:22] LABS: Glucose, Whole Blood 111 mg/dL (60-115)
[2024-09-03] MEDS: Loperamide HCl 2 MG CAPSULE PO (17:32)
[2024-09-03] MEDS: vancomycin HCL 1,000 MG in 0.9 % Sodium Chloride 250 ML 270 MG IV (18:04)
[2024-09-03 19:08] VITALS: BP 129/72; PULSE 83; RESP 18; TEMP 36; O2SAT 98
[2024-09-03 20:23] LABS: Glucose, Whole Blood 105 mg/dL (60-115)
[2024-09-03] MEDS: Melatonin 3 MG TABLET 6 MG PO (21:06)
[2024-09-03] MEDS: Atorvastatin Calcium 20 MG TABLET PO (21:06)
[2024-09-03] MEDS: clonazePAM 0.5 MG TABLET PO (21:06)
[2024-09-04] MEDS: Piperacillin Sodium/Tazobactam 3.375 GM in 0.9 % Sodium Chloride 50 ML IV ×2 (06:05→11:58)
[2024-09-04] MEDS: Omeprazole 40 MG CAPSULE.DR PO (06:05)
[2024-09-04 06:20] LABS: Creatinine Clr Calc Pharmacy 84.1; Estimated Glomerular Filt Rate > 60
[2024-09-04 07:46] LABS: Glucose, Whole Blood 99 mg/dL (60-115)
[2024-09-04 08:00] VITALS: BP 94/73; PULSE 68; RESP 18; TEMP 36; O2SAT 96
[2024-09-04] MEDS: Sodium Ferric Gluconat/Sucrose 125 MG in 0.9 % Sodium Chloride 100 ML 100 MG IV (08:46)
[2024-09-04] MEDS: Carbidopa/Levodopa 25/100 TABLET 1 TAB PO (08:48)
[2024-09-04] MEDS: Apixaban 5 MG TABLET PO (08:48)
[2024-09-04] MEDS: Benztropine Mesylate 1 MG TABLET PO (08:48)
[2024-09-04] MEDS: risperiDONE 2 MG TABLET PO (08:48)
[2024-09-04] MEDS: 0.9 % Sodium Chloride Flush 3 ML SYRINGE IVFLUSH (08:51)
[2024-09-04] MEDS: Morphine Sulfate 4 MG/ML CARTRIDGE 2 MG IVPUSH (11:16)
[2024-09-04 11:21] LABS: Glucose, Whole Blood 106 mg/dL (60-115)
[2024-09-04] MEDS: Sodium Hypochlorite 0.125% 473 ML SOLUTION 1 APPL TOPICAL (11:32)
[2024-09-04] MEDS: Collagenase Clostridium Hist. 30 GM TUBE 1 APPL TOPICAL (11:32)
--- NOTE | 2024-09-04 12:10 | MHC.CLN ---
F/U PT WITH INCREASED NUTRITION RISK R/T PRESSURE INJURY. SKIN WITH STAGE IV TO SACRUM AND UNSTAGEABLE AREA TO SCAPULA. PO INTAKE APPEARS TO BE GOOD, 75-100%. DIET RX: 2000DM CHOPPED. ENSURE MAX BID TO PROMOTE WOUND HEALING. PROVIDES 300 KCALS, 60 G PROTEIN. MONITOR PO INTAKE, SKIN INTEGRITY AND ENCOURAGE SUPPLEMENTS.
--- NOTE | 2024-09-04 12:31 | HO.WOUND ---
Wound Consult: Follow up 69yr old?male admitted to [facility] [place] on 09[place]01/24 - See progress notes and H&P for detailed history.? Wound consult follow up for Sacrum.? Patient agreeable to assessment and photo documentation.? Patients sister in law Garcia is at bedside and reports she is a his Health care proxy and nurse care manager as well. She reports the patient is seeing a wound care doctor at his facility and reports she believes he is turned and repositioned. Recommended to discuss wound vac application for wound healing. Overall slight improvement - no worsening of wound bed - recommend continue with dakins for a few more days. There was significant odor noted at the time of Wednesdays dressing change today only mild odor noted - would recommend continue dakins for continued improvement. Patient tolerated well with premedication by direct care nurse prior to dressing changes. No new topical recommendations needed at this time. 09/04/24 Sacrum Etiology: Stage 4 Pressure Injury??Present on Admission Measurements: 9cm x 9cm x 4cm tunnel at 5 o'clock depth of 7cm Wound Bed: red beefy tissue with scattered areas of yellow slough central area with some slough and suspect exposed tendon vs ligaments Goals of Treatment: ?Dakins for autolytic debridement 09/02/24 Sacrum Etiology: Stage 4 Pressure Injury??Present on Admission Measurements: 9cm x 9cm x 4cm tunnel at 5 o'clock depth of 7cm Wound Bed: red beefy tissue with scattered areas of yellow slough central area with some slough and suspect exposed tendon vs ligaments Drainage / Odor: fould odor noted - large amount of hernández liquid drainage Edges: ? unattached Solomon wound: ?pink intact No Induration, Fluctuance or Warmth noted Pain: painful to touch Goals of Treatment: ?Dakins for autolytic debridement 09/04/24 Left Scapula - remains unstageable but improving wound bed - some areas of red pink moist tissue noted at base of wound bed - recommend continue with Santyl application for enzymatic debridement. 09/02/24 Left Scapula Etiology: ??Unstageable Present on Admission Measurements: 2cm x 1cm x 1.5cm Wound Bed: adherent yellow hernández slough Drainage / Odor: small amount hernández - no odor noted Edges: ? epibole Solomon wound: ?pink intact No Induration, Fluctuance or Warmth noted Pain: denies pain Goals of Treatment: ?Santyl for enzymatic debridement Left heel is what appears to be resurfacing DTI dry stable scab noted - foam dressing in place recommend continue with foam application and off loading. Right Heel noted to intact pink red blanchable area - remains blanchable foam dressing in place to aid in pressure redistribution. Recommendations: 1. Turn and Reposition every 2 hours and as needed for patient comfort.? Use pillows or wedges to support off loading positions. 2. Off Load all bony prominences with use of pillows and heel boots if needed.? Apply Preventative foams where needed. ? 3. Monitor for incontinence and moisture control, use barrier creams when needed for prevention and treatment. 4. Provide adequate and supplemental nutrition.? 5. Ordered Agility Pulsate bed due to arrive today. 6. When applicable maintain blood glucose levels per Providers order. Sacrum - Off Load Pressure with Q2 hr turns and use of pillows - Cleanse with normal saline, pat dry. ?Apply barrier to the immediate solomon wound, apply dakins wet gauze roll to entire wound bed including packing to tunnel, cover with dry gauze, ABD pad. Change Daily. Left Scapula - Off Load Pressure with Q2 hr turns and use of pillows - Cleanse with normal saline, pat dry. ?Apply barrier to the immediate solomon wound, apply thick layer of Santyl to entire wound bed, cover with saline moist gauze, cover with dry gauze, ABD pad and gauze wrap, change Daily. Bilateral Heels - Apply skin prep apply foam dressing peel back and assess Q shift change every 5 days and PRN. Re-consult wound care Nurse for wound deterioration or wound changes.
--- NOTE | 2024-09-04 13:21 | PM.DS ---
DS: Providers Provider Date of Service: 09/04/24 Date of admission: 09/01/24 11:46 Date of discharge: 09/04/24 Primary care physician: Edwige Mosqueda MD Consults: 09/01/24 11:42 Consult to General Surgery Stat Consulting Provider: [facility] [place] [facility] Reason for consultation: decubitus ulcer 09/01/24 11:45 Consult to General Surgery Routine Consulting Provider: [facility] Reason for consultation: deep infected sacral wound 09/02/24 08:04 Consult to Infectious Diseases Routine Consulting Provider: [facility] Reason for consultation: S4 Osteomyelitis for eval and rec. 09/02/24 08:11 Consult to Wound Care Routine Reason for consultation: sacral decubitus ulcer DS: Diagnosis Discharge Diagnosis (1) Sacral decubitus ulcer, stage IV: Status: Acute (2) Decubitus ulcer, infected: Status: Acute (3) Acute osteomyelitis of sacrum: Status: Acute (4) Acute on chronic anemia: Status: Acute (5) Acute hyponatremia: Status: Acute (6) Acute lactic acidosis: Status: Acute DS: Summary Hospital Course Hospital Course: Admission note HPI A 69 years old male with PMH of PAF, paranoid schizophrenia, bipolar disorder, anxiety, insomnia, Parkinson's disease, GERD with esophagitis, hypercholesterolemia, hypertension, diabetes mellitus who was brought to ED for worsening sacral wound with surrounding erythema and pain. The patient had unsteagable sacral wound during his most recent hospital admission evalauted by wound nurse and had recommendations on discharge. He was unable to participate much with PT at the SNF facility as he almost fell and refused to get up anymore since then. has been laying down most of time. His wound opened up recently but unclear when exactly. The patient complains of chills but no fever and increasing pain in his back. in ED found to have large sacral wound that is deep with surrounding erythema. no signs of sepsis. normal WBCs but elevated Lactic acid. Pending further images. Admitted for IV antibiotics and surgical intervention. Hospital course The patient was admitted for the following: # 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 as CT reporting possible abscess formation and Osteomyelitis. Blood cultures remained negative as he was covered with IV Zosyn and Vancomycin but wound cultures grew MRSA. Surgery input appreciated, bedside debridement as needed and recommended wound care on discharge . He was seen by Wound care nurse who added instructions as below. ID consulted and recommended 6 weeks of IV antibiotics on discharge. To be discharged on Vancomycin 1 gm daily with a plan to recheck Trough at Facility and adjust dose as needed. PICC line placed and tolerated well. # Acute lactic acidosis. not due to sepsis likely from Metformin. # acute mild hyponatremia. Na of 132 , encouraged PO intake with improvement. Encourage PO intake. # Acute on chronic anemia. Hb of 8.7 today from 9.4. no obvious bleeding. low iron stores so was given IV replacement. to continue PO Iron supplement on discharge. # Paroxysmal atrial fibrillation. rate controlled. Metoprolol and Eliquis resumed. # Parkinson's disease/mood. continue Sinemet,Cogentin, risperdal # Hypertension. noticed to have low readings. Valsartan was held during admission and discontinued upon discharge. to monitor BP at facility. Discharge plan Discontinue Valsartan for low blood pressure readings Continue Vancomycin 1gm Q24 Follow Vancomycin trough and adjust as needed Santyl to Scapula wound Sacral wound care Follow with surgery as outpatient as needed Follow wound care recommendations Time Attestation Discharge Coordination Time (in mins): 43 Quality: Safe Use of Opioids Does Pt have an Active Cancer Diagnosis on the Problem List?: No Quality: Stroke Does the patient have a stroke diagnosis?: No Physical Exam Vital Signs: Vital Signs: Last Vital Signs Temp 96.8 F 09/04/24 08:00 Pulse 68 09/04/24 08:00 Resp 18 09/04/24 08:00 BP 94/73 09/04/24 08:00 Pulse Ox 96 09/04/24 08:00 O2 Del Method Room Air 09/04/24 08:00 BMI result Body Mass Index 21.3 Const: Other: Constitutional : Awake, interactive, frail looking, not in distress Neck : Normal inspection, Supple Cardiovascular : RRR, no JVP, no lower extremity edema Respiratory : good bilateral air entry, no crackles, wheezes or rhonchi Gastrointestinal: soft, lax, Normal bowel sounds, Non tender Skin : Warm, Dry, large sacral wound stage 4 with no surrounding erythema, has granulating tissue with no ischar, covered with dressing. Left scapula small open ulcer covered with dressing Neurological : Alert & oriented x3, right sided weakness more in upper extremity, bilateral lower extremities weakness DS: Data Data Completed and Pending Completed studies during hospitalization [Text1]: Procedures Excision of Duodenum, Via Natural or Artificial Opening Endoscopic, Diagnostic (07/26/24) Excision of Stomach, Pylorus, Via Natural or Artificial Opening Endoscopic, Diagnostic (07/26/24) Labs on day of discharge: Laboratory Results - last 24 hr 09/03/24 09/03/24 09/04/24 17:18 20:18 05:29 Creatinine 0.81 Estim Creat Clear Calc 84.1 Estimated GFR > 60 POC Glucose 111 105 09/04/24 09/04/24 07:42 11:13 Creatinine Estim Creat Clear Calc Estimated GFR POC Glucose 99 106 Preliminary micro results at discharge 09/01/24 10:37 Blood Culture - Preliminary Blood - Venous No growth after 48 hours. 09/01/24 10:37 Blood Culture - Preliminary Blood - Venous No growth after 48 hours. Imaging Chest x-ray: Radiologist's impression: ITS Impressions Abdomen/Pelvis CT 09/01/24 13:37 IMPRESSION: Skin laceration with associated edema pattern possible phlegmon/abscess and likely focal osteomyelitis at the S4/coccyx level. Fleischner guidelines were followed. Electronically signed by: Tony Rose MD 09/01/2024 02:29 PM EDT RP Discharge Plan Discharge Anticipated Discharge Date/Time: 09/04/24 13:11 Patient Disposition: er [facility] Discharge Diagnosis: Osteomyelitis Decutitus ulcer Referrals: [facility] [Outside] - 1 Week Edwige Mosqueda MD [Primary Care Provider] - 1 Week Discharge Medications: New vancomycin 1,000 mg recon soln 1 g IV Q24H 39 Days Santyl 250 unit/gram Ointment 1 appl topical DAILY Qty: 90 0RF Protocol: Apply to: Apply to: affected area Rx Instructions: to shoulder scapula wound ferrous sulfate 325 mg (65 mg iron) tablet 325 mg PO DAILY Qty: 90 0RF Continued Eliquis 5 mg tablet 5 mg PO BID 90 Days Qty: 180 3RF metformin 1,000 mg tablet 1,000 mg PO BID Qty: 180 0RF multivitamin Tablet 1 tab PO DAILY@0800 acetaminophen 325 mg Tablet 650 mg PO Q6H PRN (Reason: Fever Or Pain) metoprolol succinate 100 mg tablet extended release 24 hr 100 mg PO DAILY dextrose [Glucose Gel] 40 % Gel 15 g PO Q15M PRN (Reason: Hypoglycemia) Rx Instructions: until symptoms of low blood sugar are controlled magnesium hydroxide [Milk of Magnesia] 400 mg/5 mL Suspension 30 ml PO DAILY PRN (Reason: Constipation) Rx Instructions: IF NO BOWEL MOVEMENT FOR 3 DAYS ascorbic acid (vitamin C) [Vitamin C] 250 mg Tablet 250 mg PO DAILY@2000 bisacodyl 10 mg Suppository 10 mg AL DAILY PRN (Reason: Constipation) Rx Instructions: IF MILK OF MAGNESIA IS NOT EFFECTIVE Fleet Enema 19-7 gram/118 mL Enema 118 ml AL DAILY PRN (Reason: Constipation) Rx Instructions: IF BISACODYL SUPPOSITORY IS NOT EFFECTIVE glucagon 1 mg Recon Soln 1 mg SUBCUT Q20M PRN (Reason: Hypoglycemia) Rx Instructions: until target blood sugar attained Dakin's Solution 0.125 % Solution 1 appl TOPICAL DAILY@0700 omeprazole 40 mg capsule,delayed release(DR/EC) 40 mg PO BID@0630,1630 eplerenone 25 mg tablet 12.5 mg PO DAILY@0800 magnesium oxide 400 mg magnesium tablet 400 mg PO BEDTIME atorvastatin 20 mg tablet 20 mg PO BEDTIME clonazepam 0.5 mg tablet 0.5 mg PO BEDTIME (DME) blood pressure monitor Kit See Rx Instructions .Route Qty: 1 0RF Rx Instructions: As directed carbidopa-levodopa 25-100 mg tablet 1 tab PO BID benztropine 1 mg tablet 1 mg PO BID melatonin 5 mg capsule 5 mg PO BEDTIME risperidone [Risperdal] 2 mg tablet 2 mg PO BID Discontinued valsartan 40 mg tablet 40 mg PO BEDTIME Discharge Orders: Discharge Order (Routine); Ordered 09/04/24 Ordered By: Lakshmi Rivera Diet: Diabetic diet Activity on Discharge: As tolerated Stand Alone Forms: Patient Portal Discharge page Print Language: Macedonian Activity Restrictions/Additional Instructions: Topical Wound Care Recommendations: 1. Turn and Reposition every 2 hours and as needed for patient comfort.? Use pillows or wedges to support off loading positions. 2. Off Load all bony prominences with use of pillows and heel boots if needed.? Apply Preventative foams where needed. ? 3. Monitor for incontinence and moisture control, use barrier creams when needed for prevention and treatment. 4. Provide adequate and supplemental nutrition.? 5. Continue Specialty Bed use. 6. When applicable maintain blood glucose levels per Providers order. Sacrum - Off Load Pressure with Q2 hr turns and use of pillows - Cleanse with normal saline, pat dry. ?Apply barrier to the immediate solomon wound, apply dakins wet gauze roll to entire wound bed including packing to tunnel, cover with dry gauze, ABD pad. Change Daily. after Dakins use - provider to assess for wound Vac (Negative Pressure Wound Therapy) placement. Recommend continued follow up with wound Care Physician. Left Scapula - Off Load Pressure with Q2 hr turns and use of pillows - Cleanse with normal saline, pat dry. ?Apply barrier to the immediate solomon wound, apply thick layer of Santyl to entire wound bed, cover with saline moist gauze, cover with dry gauze, ABD pad and gauze wrap, change Daily. Bilateral Heels - Apply skin prep apply foam dressing peel back and assess Q shift change every 5 days and PRN. Care Plan Goals: Discontinue Valsartan for low blood pressure readings Continue Vancomycin 1gm Q24 Follow Vancomycin trough and adjust as needed Santyl to Scapula wound Sacral wound care Follow with surgery as outpatient as needed Follow wound care recommendations Health Concerns: Infected sacral wound with osteomyelitis Plan of Treatment: Vancomycin Wound care Assessment: as above
--- NOTE | 2024-09-04 14:07 | MHC.CM.PN ---
Patient is discharged today. He will return to LTC @ [facility]. He will receive LT IV Vanco via PICC line. He will receive wound care and assessment @ the snf. The largest ulcer is a Stage 4 on sacral/coccyx. Patient will be seen at [facility] wound clinic. Patients Brother/Marcelo and sister in law have been notified of the discharge. 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
[2024-09-04 15:52] VITALS: BP 118/60; PULSE 89; RESP 12; TEMP 36.2; O2SAT 93
--- NOTE | 2024-09-04 18:21 | P.CDIM_ITS ---
PROVIDER RESPONSE TEXT: To clarify, the appropriate diagnosis supported by the clinical indicators: Deep tissue injury left heel: probable QUERY TEXT: PHYSICIAN'S DOCUMENTATION REQUEST Date of Query: 09/04/2024 06:03 AM EDT Patient Name: True Rosado Admit Date: 09/01/2024 Dear Lakshmi Rivera MD, A review of the medical record indicates additional documentation may be needed. Please review below and update the documentation accordingly. Clinical Indicators: Wound care notes 09/03/24 - Deep tissue injury left heel. Foam dressing, heels off loaded. Based on the above, could you please provide further information regarding the ulcer/wound/injury: Deep tissue injury left heel Possible, probable, cannot rule out, suspected etc. Pressure (decubitus) ulcer Other specified Other (explain) Clinically unable to determine (explain) Thank you, Rosmery Daley, CCS, CDIS Use of terms such as suspected, likely, concern for, or probable (associated with a specific diagnosi s that is being evaluated, monitored, or treated as if it exists) are acceptable and can be coded in the inpatient se tting, when documented at the time of discharge. Please use your independent medical judgment in providing your response. THIS QUERY IS PART OF THE PERMANENT MEDICAL RECORD
--- NOTE | 2024-09-04 18:21 | P.CDIM_ITS ---
PROVIDER RESPONSE TEXT: To clarify, the appropriate diagnosis supported by the clinical indicators: Iron deficiency anemia due to chronic blood loss: possible QUERY TEXT: PHYSICIAN'S DOCUMENTATION REQUEST Date of Query: 09/03/2024 08:39 AM EDT Patient Name: True Rosado Admit Date: 09/01/2024 Dear Lakshmi Rivera MD, A review of the medical record indicates additional documentation may be needed. Please review below and update the documentation accordingly. Clinical Indicators: LABS: Iron 15 L IV replacement Follow H/H No obvious bleeding, check occult low iron stores. Based on the above, could you clarify which of the following is the most likely type of anemia you ar e evaluating, treating, and/or monitoring? Iron deficiency anemia possible, probable, suspected etc. Iron deficiency anemia due to chronic blood loss possible, probable, suspected, cannot rule out etc. Other specified anemia Other (explain) Clinically unable to determine (explain) Thank you, Rosmery Daley, CCS, CDIS Use of terms such as suspected, likely, concern for, or probable (associated with a specific diagnosi s that is being evaluated, monitored, or treated as if it exists) are acceptable and can be coded in the inpatient se tting, when documented at the time of discharge. Please use your independent medical judgment in providing your response. THIS QUERY IS PART OF THE PERMANENT MEDICAL RECORD
--- NOTE | 2024-09-04 18:21 | P.CDIM_ITS ---
PROVIDER RESPONSE TEXT: To clarify, the appropriate diagnosis supported by the clinical indicators: Acute osteomyelitis: MRSA QUERY TEXT: PHYSICIAN'S DOCUMENTATION REQUEST Date of Query: 09/04/2024 05:58 AM EDT Patient Name: True Rosado Admit Date: 09/01/2024 Dear Lakshmi Rivera MD, A review of the medical record indicates additional documentation may be needed. Please review below and update the documentation accordingly. Clinical Indicators: Progress note 09/03/24 - Infected sacral wound complicated with likely S4 osteomyelitis. IV Zosyn and Vancomycin CT 09/01/24- Skin laceration with associated edema pattern possible phlegmon/abscess and likely focal osteomyelitis at S4/coccyx level. PICC line placed. Based on the above, please clarify in the Progress Notes further specificity regarding the acuity of the documented Osteomyelitis. Acute osteomyelitis Please include specific site with laterality and known or suspected infectious agent Subacute osteomyelitis Please include specific site with laterality and known or suspected infectious agent Chronic osteomyelitis Please include specific site with laterality and known or suspected infectious agent Chronic multifocal osteomyelitis Please include specific site with laterality and known or suspected infectious agent Other (explain) Clinically unable to determine (explain) Thank you, Rosmery Daley, CCS, CDIS Use of terms such as suspected, likely, concern for, or probable (associated with a specific diagnosi s that is being evaluated, monitored, or treated as if it exists) are acceptable and can be coded in the inpatient se tting, when documented at the time of discharge. Please use your independent medical judgment in providing your response. THIS QUERY IS PART OF THE PERMANENT MEDICAL RECORD
== END 2024-09-04 16:17 | DRG 593 ==
LOC: HO.ED 11:53 → HO.EDOVER 12:18 → HO.IMC 09-02 06:59 → HO.S3 09-03 14:13
PROVIDERS: Student in an Organized Health Care Education/Training Program; Admitting Provider Student in an Organized Health Care Education/Training Program; Emergency Provider Emergency Medicine; PCP Family Medicine Geriatric Medicine; Visit Provider Student in an Organized Health Care Education/Training Program
DX: L89.154 Pressure ulcer of sacral region, stage 4 (principal); E87.1 Hypo-osmolality and hyponatremia; E87.21 Acute metabolic acidosis; M46.28 Osteomyelitis of vertebra, sacral and sacrococcygeal region; I48.0 Paroxysmal atrial fibrillation; E11.9 Type 2 diabetes mellitus without complications; I10 Essential (primary) hypertension; G20.A1 Parkinson's disease without dyskinesia, without mention of fluctuations; B95.62 Methicillin resistant Staphylococcus aureus infection as the cause of diseases classified elsewhere; L89.626 Pressure-induced deep tissue damage of left heel; D50.0 Iron deficiency anemia secondary to blood loss (chronic); Z74.01 Bed confinement status; Z79.01 Long term (current) use of anticoagulants; Z79.84 Long term (current) use of oral hypoglycemic drugs; Z79.899 Other long term (current) drug therapy
CPT/HCPCS: 36415; 36573; 74176; 80048; 80053; 80202; 82565; 82947; 83540; 83605; 85025; 85027; 85652; 87040; 87070; 87077; 87186; 87205; 97161; 99285; C1751; C1894; J0692; J2270; J2543; J2916; J3370; J7120; P9047

== ENCOUNTER 2024-09-01 11:46 | Outpatient (BNV) | payer OTHER, SELFPAY | END 2024-09-01 13:37 | PROVIDERS: Admitting Provider Student in an Organized Health Care Education/Training Program; Emergency Provider Emergency Medicine; PCP Family Medicine Geriatric Medicine; Visit Provider Radiology Diagnostic Radiology | DX: S31.010A Laceration without foreign body of lower back and pelvis without penetration into retroperitoneum, initial encounter (principal) | CPT/HCPCS: 74176 ==

== ENCOUNTER → 2024-09-01 11:46 | Outpatient (BNV) | payer OTHER, SELFPAY | PROVIDERS: Admitting Provider Student in an Organized Health Care Education/Training Program; Emergency Provider Emergency Medicine; PCP Family Medicine Geriatric Medicine; Visit Provider Internal Medicine | DX: L89.154 Pressure ulcer of sacral region, stage 4 (principal) | CPT/HCPCS: 99222 ==

== ENCOUNTER → 2024-09-01 11:46 | Outpatient (BNV) | payer OTHER, SELFPAY | PROVIDERS: Admitting Provider Student in an Organized Health Care Education/Training Program; Emergency Provider Emergency Medicine; PCP Family Medicine Geriatric Medicine; Visit Provider Physician Assistant Surgical | DX: L89.154 Pressure ulcer of sacral region, stage 4 (principal) | CPT/HCPCS: 99222; 99232 ==

== ENCOUNTER → 2024-09-01 11:46 | Outpatient (BNV) | payer OTHER, SELFPAY | PROVIDERS: Admitting Provider Student in an Organized Health Care Education/Training Program; Emergency Provider Emergency Medicine; PCP Family Medicine Geriatric Medicine; Visit Provider Student in an Organized Health Care Education/Training Program | DX: L89.154 Pressure ulcer of sacral region, stage 4 (principal); E87.20 Acidosis, unspecified; L08.9 Local infection of the skin and subcutaneous tissue, unspecified | CPT/HCPCS: 99223 ==